=== PATIENT | female | born 1975 | race Caucasian/White ===

== ENCOUNTER → 2022-03-19 | Outpatient (CLI) | payer MEDICARE ==
[2022-03-19 15:36] LABS: Appearance,Urine Clear (Clear); Bacteria,Urine Rare /hpf; Bilirubin,Urine Negative (Negative); Blood,Urine Small (Negative); Color,Urine Yellow; Glucose,Urine (UA) Negative (Negative); Ketones,Urine Negative (Negative); Leukocyte Esterase,Urine Large (Negative); Mucus,Urine Rare /hpf; Nitrite,Urine Negative (Negative); PH, Urine 5.5 (5.0-8.0); Protein,Urine 1+ (Negative); RBC,Urine 24 /hpf (0-5); Specific Gravity,Urine 1.012 (1.001-1.035); Urobilinogen,Urine <2.0 mg/dL (<2.0); WBC,Urine 32 /hpf (0-5)
[2022-03-19 17:58] LABS: Basophils # (A) 0.17 X 10*3/uL (0.00-0.10); Basophils % (A) 1.1 %; Eosinophils # (A) 0.38 X 10*3/uL (0.04-0.35); Eosinophils % (A) 2.5 %; HCT 48.6 % (37.2-46.3); HGB 15.2 g/dL (12.0-15.0); Immature Grans, Automated 0.4 %; Lymphocytes # (A) 4.93 X 10*3/uL (0.90-5.00); Lymphocytes % (A) 32.6 %; MCH 29.3 pg (27.0-32.0); MCHC 31.3 g/dL (32.0-37.0); MCV 93.6 fL (80.0-97.0); Mean Platelet Volume 10.6 fL (9.5-12.2); Monocytes # (A) 0.87 X 10*3/uL (0.20-1.00); Monocytes % (A) 5.8 %; NRBC Per 100 WBC 0 /100 WBCS (0.0-0.0); Neutrophils # (A) 8.72 X 10*3/uL (1.80-7.70); Neutrophils % (A) 57.6 %; Platelet Count 458 X 10*3/uL (140-440); RBC 5.19 X 10*6/uL (4.10-5.20); RDW 13.8 % (11.5-14.5); WBC 15.13 X 10*3/uL (4.50-10.00)
[2022-03-19 18:11] LABS: African American GFR (CKD) 84.9 (60.0-200.0); BUN/Creat Ratio 15.23 Ratio (12.00-20.00); Calcium 10.1 mg/dL (8.7-10.3); Carbon Dioxide 26.1 mmol/L (20.0-27.5); Non-African American GFR(CKD) 73.2 (60.0-200.0); Potassium 4.2 mmol/L (3.5-5.5)
== END | disposition home or self-care (01) ==
LOC: LABPAT 11:54
PROVIDERS: ATTEND Urology
DX: Z01.812 Encounter for preprocedural laboratory examination (principal); N20.1 Calculus of ureter
CPT/HCPCS: 80048; 81001; 85025; 87086

== ENCOUNTER 2022-03-26 07:23 | Day surgery (SDC) | payer MEDICARE ==
[2022-03-23 08:55] VITALS: BMI 34.2
--- NOTE | 2022-03-25 12:02 | P.HPIHPCON ---
History of Present Illness H&P Date: 03/25/22 Chief Complaint: Left ureteral stone This is a 47-year-old female with a history of a 1 cm left-sided septic ureteral stone, status post insertion in February of this year. She presents today for definitive stone management. Option of left-sided ureteroscopy with holmium laser was discussed with her. Risk of surgery was discussed in detail. Discussed the risk which includes but not limited to bleeding, infection, injury to the ureter. Discussed also risks of anesthesia. Discussed using a high risk of complication given her history of sepsis. Consent for Procedure: I have explained the operation/procedure to the patient, including the risks, benefits, side effects, alternative therapies (including not receiving the proposed treatment or service), the likelihood of the patient achieving his/her goals, and potential recuperation problems for the procedure/sedation/analgesia, as well as any blood products, if indicated. I also explained to the patient the risks, benefits and side effects of the alternatives, as well as the risks related to not receiving the proposed procedure, care, treatment, or services. - Constitutional Constitutional: Denies chills, Denies fever Past Medical History Past Medical History: Atrial Fibrillation, Fibromyalgia, GERD/Reflux, Hyperlipidemia, Hypertension, Memory Impairment, Supraventricular Tachycardia (SVT), Thyroid Disorder Additional Past Medical History / Comment(s): States "hospitalized at [facility] from 03/06/22-03/12/22 for kidney stones", states "they overh ydrated her with IV fluid and she had severe difficulty breathing, had an Echo that showed a double leak in my heart." Kidney stones - hx of and currently. CHF. "Foggy memory due to medications". Chronic pain and gait problems from Fibromyalgia. Migraines. History of Any Multi-Drug Resistant Organisms: None Reported Past Surgical History: Cholecystectomy, Hysterectomy, Tubal Ligation Additional Past Surgical History / Comment(s): Lithotripsy. Past Anesthesia/Blood Transfusion Reactions: Previous Problems w/ Anesthesia Additional Past Anesthesia/Blood Transfusion Reaction / Comment(s): "Sits up on the table during surgery." " Can be violent upon waking if get startled because I don't remember where I am." Past Psychological History: Depression Smoking Status: Current every day smoker Past Alcohol Use History: Rare Additional Past Alcohol Use History / Comment(s): Smoker, <1/2 ppd for over 20 yrs. Past Drug Use History: None Reported - Past Family History Mother Family Medical History: No Reported History Father Family Medical History: COPD Additional Family Medical History / Comment(s): Leukemia. Medications and Allergies Home Medications Medication Instructions Recorded Confirmed Type Albuterol Inhaler [Ventolin Hfa 1 puff INHALATION DIRECTED PRN 03/23/22 03/23/22 History Inhaler] Albuterol Nebulized (? Dose) 1 dose INHALATION DIRECTED PRN 03/23/22 03/23/22 History Aspirin 325 mg PO DAILY 03/23/22 03/23/22 History Aspirin/Acetaminophen/Caffeine 1 each PO DIRECTED PRN 03/23/22 03/23/22 History [Excedrin Migraine Caplet] Atorvastatin [Lipitor] 20 mg PO QAM 03/23/22 03/23/22 History Cetirizine HCl [Zyrtec] 10 mg PO DAILY PRN 03/23/22 03/23/22 History Cyclobenzaprine [Flexeril] 10 mg PO TID PRN 03/23/22 03/23/22 History Furosemide [Lasix] 20 mg PO BID 03/23/22 03/23/22 History Gabapentin [Neurontin] 400 mg PO Q8H PRN 03/23/22 03/23/22 History Ketorolac [Toradol] 10 mg PO DIRECTED PRN 03/23/22 03/23/22 History Levothyroxine Sodium [Synthroid] 50 mcg PO QAM 03/23/22 03/23/22 History Naproxen Sodium [Aleve] 220 mg PO BID 03/23/22 03/23/22 History Omeprazole 20 mg PO BID 03/23/22 03/23/22 History Propranolol [Inderal] 20 mg PO BID 03/23/22 03/23/22 History Ranolazine [Ranexa] 500 mg PO BID 03/23/22 03/23/22 History buPROPion XL [Wellbutrin XL] 150 mg PO QAM 03/23/22 03/23/22 History dilTIAZem HCL [Diltiazem HCl 24Hr 120 mg PO QAM 03/23/22 03/23/22 History ER] traMADol HCL 50 mg PO BID PRN 03/23/22 03/23/22 History Allergies Allergy/AdvReac Type Severity Reaction Status Date / Time hydromorphone [From Dilaudid] Allergy Anaphylaxis Verified 03/23/22 08:41 Penicillins Allergy Rash/Hives Verified 03/23/22 09:13 ranitidine [From Zantac] Allergy Overstimula Verified 03/23/22 08:41 tion Sulfa (Sulfonamide Allergy Rash/Hives Verified 03/23/22 08:41 Antibiotics) zafirlukast [From Accolate] Allergy Rash/Hives Verified 03/23/22 08:41 paper tape/bandaids Allergy chemical Uncoded 03/23/22 08:41 owusu some adhesives (tegaderm Allergy Chemical Uncoded 03/23/22 08:42 okay) Owusu Surgical - Exam - General no distress, moderate pain - Eyes normal ocular movement, no pale - Respiratory normal expansion, normal respiratory effort - Abdomen Abdomen: soft, non tender Assessment and Plan Assessment: All wire for left-sided ureteroscopy with holmium laser lithotripsy, stone basketing and stent removal
[~2022-03-26 07:23] MED LIST: CIPROFLOXACIN/DEXTROSE PMX 400 MG in DEXTROSE/WATER 1 200ML.BAG IVPB PRN; DEXAMETHASONE SOD PHOSPHATE 4 MG/ML 1 ML VIAL IV ONE; GENTAMICIN 120 MG in SODIUM CHLORIDE 0.9% 100 ML IVPB PRN; LACTATED RINGERS 1,000 ML IV SCH; MIDAZOLAM 2 MG/2 ML VIAL IV PRN; ONDANSETRON 4 MG/2 ML VIAL IVP ONE; SCOPOLAMINE 1 MG/72 HR PATCH TRANSDERM ONE; fentaNYL (PF) 50 MCG/ML 2 ML AMP IV PRN
--- NOTE | 2022-03-26 07:42 | XR ---
EXAMINATION TYPE: XR KUB DATE OF EXAM: 03/26/2022 COMPARISON: 05/10/2011 INDICATION: Left renal stone TECHNIQUE: Single view abdomen supine view FINDINGS: Normal colonic bowel gas is present. Mild fecal debris or sooner colon. Psoas margins are normal. No organomegaly is present. There is a left ureteral stent. There is a pigtail which appears to be surrounding a large calcificat ion within the left kidney measuring 1.7 cm. IMPRESSION: 1. Left renal pelvis stone.
[2022-03-26] MEDS ORDERED: fentaNYL (PF) 50 MCG/ML 2 ML AMP ONE (09:23)
[2022-03-26] MEDS ORDERED: PHENYLEPHRINE-0.9% NACL SYG 1,000 MCG/10 ML SYRINGE ONE (09:23)
[2022-03-26] MEDS ORDERED: PROPOFOL 10 MG/ML 20 ML VIAL IV ONE (09:23)
[2022-03-26] MEDS ORDERED: MIDAZOLAM 2 MG/2 ML VIAL ONE (09:23)
[2022-03-26] MEDS ORDERED: LIDOCAINE 2% INJ 20 MG/ML (2 ML VIAL) ONE (09:23)
--- NOTE | 2022-03-26 10:49 | P.OP ---
Date of Procedure: 03/26/22 Preoperative Diagnosis: Left ureteral stone Postoperative Diagnosis: Same Procedure(s) Performed: Cystoscopy, left ureteroscopy, holmium laser lithotripsy, stone basketing and stent removal Implants: None Anesthesia: MARCO ANTONIOA Surgeon: Henrique Major Estimated Blood Loss (ml): 5 Pathology: other (Left ureteral stone) Condition: stable Disposition: PACU Indications for Procedure: This is a 47-year-old female with a history of a 1 cm left-sided septic ureteral stone, status post insertion in February of this year. She presents today for definitive stone management. Option of left-sided ureteroscopy with holmium laser was discussed with her. Risk of surgery was discussed in detail. Discussed the risk which includes but not limited to bleeding, infection, injury to the ureter. Discussed also risks of anesthesia. Discussed using a high risk of complication given her history of sepsis. Operative Findings: Large stone in the left renal pelvis Description of Procedure: Patient brought to the operating room, general anesthesia was induced. She was prepped and draped in sterile fashion a placement dorsal lithotomy position. Cystoscopy fitted with 21-Mexican sheath was inserted per urethra, cystoscopy was performed which showed no abnormality within the bladder. Attention was then carried to the left ureteral stent which was grasped and removed to the meatus. Next a sensor wire was advanced through the stent and the stent was removed with the wire in place. Next under fluoroscopy 1113 Mexican access sheath was passed into the proximal ureter. Next the flexibile ureteroscope was inserted through the access sheath, renoscopy was performed which showed a large stone in the renal pelvis, the previous ureteral stone has migrated into the renal pelvis. Using the holmium laser the stone was fragmented into small fragments, sizable fragments were removed and sent for analysis. Repeat renoscopy showed no sizable fragments or injury to the kidney. Pullback ureteroscopy was performed which showed no injury to the ureter or any ureteral stones. There was no edema at the ureter thus a stent was not placed. The bladder was emptied at the end of the case. Patient thought the procedure well was taken to recovery in stable condition
[2022-03-26 10:53] VITALS: TEMP 96.8
[2022-03-26 11:31] VITALS: RESP 16
[2022-03-26 11:42] VITALS: BP 154/81; PULSE 66
--- NOTE | 2022-03-26 13:27 | FL ---
Fluoroscopy HISTORY: Left ureteral calculus 2 seconds fluoroscopy time supplied to the referring clinician. 1 intraoperative C-arm images docume nt the procedure. See dictated report from urology.
== END 2022-03-26 12:14 | disposition home or self-care (01) ==
LOC: OR 07:23
PROVIDERS: ATTEND Urology
DX: N20.1 Calculus of ureter (principal); I48.91 Unspecified atrial fibrillation; M79.7 Fibromyalgia; K21.9 Gastro-esophageal reflux disease without esophagitis; E78.5 Hyperlipidemia, unspecified; I10 Essential (primary) hypertension; R41.3 Other amnesia; I47.1 Supraventricular tachycardia; E07.9 Disorder of thyroid, unspecified; Z87.442 Personal history of urinary calculi; I50.9 Heart failure, unspecified; G89.29 Other chronic pain; Z90.49 Acquired absence of other specified parts of digestive tract; Z90.710 Acquired absence of both cervix and uterus; Z98.51 Tubal ligation status; Z98.890 Other specified postprocedural states; F32.A Depression, unspecified; F17.210 Nicotine dependence, cigarettes, uncomplicated; Z83.6 Family history of other diseases of the respiratory system; Z80.6 Family history of leukemia; Z97.2 Presence of dental prosthetic device (complete) (partial); Z79.82 Long term (current) use of aspirin; Z79.890 Hormone replacement therapy; Z79.899 Other long term (current) drug therapy; Z88.5 Allergy status to narcotic agent; Z88.0 Allergy status to penicillin; Z88.2 Allergy status to sulfonamides; Z88.8 Allergy status to other drugs, medicaments and biological substances; Z91.09 Other allergy status, other than to drugs and biological substances
CPT/HCPCS: 82365; 74018; 52352; C1769; J2250; J1100; J2405; J3010; J0744; J1580; J2370; J2704; J2001

== ENCOUNTER → 2022-04-26 | Outpatient (CLI) | payer MEDICARE ==
[2022-04-26 10:52] LABS: ALT <5 U/L (8-44); AST 16 U/L (13-35); Albumin 3.9 g/dL (3.8-4.9); Albumin/Globulin Ratio 1.39 (1.60-3.17); Alkaline Phosphatase 89 U/L (41-126); BUN/Creat Ratio 17.33 Ratio (12.00-20.00); Blood Urea Nitrogen 15.6 mg/dL (9.0-27.0); Calcium 9.4 mg/dL (8.7-10.3); Carbon Dioxide 22.5 mmol/L (20.0-27.5); Chloride 104 mmol/L (96-109); Chol/HDL Ratio 4.28 Ratio; Globulin 2.8 g/dL (1.6-3.3); Glucose 95 mg/dL (70-110); LDL Cholesterol,Calculated 106.6 mg/dL (0.0-131.0); Non-African American GFR(CKD) 75.1 (60.0-200.0); Potassium 3.8 mmol/L (3.5-5.5); Sodium 138 mmol/L (135-145); Total Protein 6.7 g/dL (6.2-8.2)
== END | disposition home or self-care (01) ==
LOC: LABWHC1 07:08
PROVIDERS: ATTEND Internal Medicine Interventional Cardiology
DX: I35.1 Nonrheumatic aortic (valve) insufficiency (principal); I10 Essential (primary) hypertension; E78.2 Mixed hyperlipidemia
CPT/HCPCS: 36415; 80053; 80061; 83880

== ENCOUNTER → 2022-04-26 | Outpatient (CLI) | payer MEDICARE ==
--- NOTE | 2022-04-26 08:30 | XR ---
EXAMINATION TYPE: XR KUB DATE OF EXAM: 04/26/2022 Comparison: 03/26/2022 Clinical History: 47-year-old female postop left-sided stone removal, N20.1 calculus Findings: Interval removal of left ureteral stent. There is a vague 4 mm density in the left mid abdomen. This could represent bowel content or nodule tiny calculus. Cholecystectomy clips. Mild to moderate stool right side of the abdomen. Nonobstructive bowel gas pattern. Impression: Vague 4 mm density at the left mid abdomen could be artifact or a tiny residual calculus. The previou s left ureteral stent has been removed.
== END | disposition home or self-care (01) ==
LOC: RADXRMAIN 07:24
PROVIDERS: ATTEND Urology
DX: N20.1 Calculus of ureter (principal)
CPT/HCPCS: 74018

== ENCOUNTER → 2022-06-28 | Outpatient (CLI) | payer MEDICARE ==
[2022-06-28 14:24] LABS: HCT 42.8 % (37.2-46.3); HGB 13.6 g/dL (12.0-15.0); MCH 30.1 pg (27.0-32.0); MCHC 31.8 g/dL (32.0-37.0); MCV 94.7 fL (80.0-97.0); Mean Platelet Volume 11.4 fL (9.5-12.2); NRBC Per 100 WBC 0 /100 WBCS (0.0-0.0); Platelet Count 259 X 10*3/uL (140-440); RBC 4.52 X 10*6/uL (4.10-5.20); RDW 14.6 % (11.5-14.5); WBC 13.71 X 10*3/uL (4.50-10.00)
[2022-06-28 16:12] LABS: ALT 7 U/L (8-44); AST 18 U/L (13-35); Blood Urea Nitrogen 13.4 mg/dL (9.0-27.0); Carbon Dioxide 23.3 mmol/L (20.0-27.5); Chloride 105 mmol/L (96-109); Non-African American GFR(CKD) 75.1 (60.0-200.0); Potassium 4.1 mmol/L (3.5-5.5); Sodium 140 mmol/L (135-145)
[2022-06-28 16:22] LABS: LDL Cholesterol,Calculated 94.6 mg/dL (0.0-131.0); VLDL Calculation 19.86 mg/dL (5.00-40.00)
== END | disposition home or self-care (01) ==
LOC: LABPAT 08:33
PROVIDERS: ATTEND Internal Medicine Interventional Cardiology
DX: Z01.812 Encounter for preprocedural laboratory examination (principal); E78.2 Mixed hyperlipidemia; I35.1 Nonrheumatic aortic (valve) insufficiency; R94.39 Abnormal result of other cardiovascular function study
CPT/HCPCS: 36415; 80051; 80061; 82565; 84450; 84460; 84520; 85027

== ENCOUNTER 2022-06-30 15:12 | Emergency (ER) | payer MEDICARE ==
[2022-06-30 15:21] VITALS: TEMP 98.7
[2022-06-30] MEDS ORDERED: MAG HYDROX/AL HYDROX/SIMETH 30 ML, HYOSCYAMINE ELIXIR 10 ML, LIDOCAINE VISCOUS 2% 10 ML PO STA ×3 (16:02)
--- NOTE | 2022-06-30 16:17 | ED ---
General Adult HPI - General Chief complaint: ENT Stated complaint: Chest pain,throat issues-sent by Dr. Infante Time Seen by Provider: 06/30/22 15:48 Source: patient Mode of arrival: ambulatory Limitations: no limitations - History of Present Illness Initial comments: Dictation was produced using Spotzer dictation software. please excuse any grammatical, word or spelling errors. Chief Complaint: 47-year-old female presents with odynophagia History of Present Illness: 47-year-old female presents emergency department for 1-2 days odynophagia. Patient states she feels like she has pain whenever she swallows liquids and solids. She reports that it's the level of her mid neck area. Denies any fevers. Denies any drooling. She does report some mild trouble breathing. Denies any exacerbation of symptoms with neck movements. The ROS documented in this emergency department record has been reviewed and confirmed by me. Those systems with pertinent positive or negative responses have been documented in the HPI. All other systems are other negative and/or noncontributory. PHYSICAL EXAM: General Impression: Alert and oriented x3, not in acute distress HEENT: Normocephalic atraumatic, extra-ocular movements intact, pupils equal and reactive to light bilaterally, mucous membranes moist. Cardiovascular: Heart regular rate and rhythm Chest: Able to complete full sentences, no retractions, no tachypnea Abdomen: abdomen soft, non-tender, non-distended, no organomegaly Musculoskeletal: Pulses present and equal in all extremities, no peripheral edema Motor: no focal deficits noted Neurological: CN II-XII grossly intact, no focal motor or sensory deficits noted Skin: Intact with no visualized rashes Psych: Normal affect and mood ED course: 47-year-old Overall well-appearing female presents emergency department for a chief complaint of abdominal aphasia. Vital Signs upon arrival are within acceptable limits. Laboratory evaluation obtained. Leukocytosis 17.9. Patient's history of leukocytosis. Metabolic panel is normal. Soft tissue neck x-ray shows no acute processes. Patient provided with GI cocktail. Grew strep negative. Soft tissue neck x-ray shows no acute processes. Patient given GI cocktail with slight improvement of symptoms however after the medication wore off symptoms return. This suggests some sort of inflammatory process stemming from the upper digestive tract. Patient reevaluated bedside at 5:50 PM found to be in stable medical condition. She not showing any signs of distress. Her symptoms are not related to esophageal foreign body. Patient given outpatient referral to Dr. Soriano EKG interpretation: Ventricular rate 70, sinus rhythm,. 147, care is 80, QTc 45 7. No PA prolongation, no QTC prolongation, no ST or T-wave changes noted. Overall, this EKG is unremarkable - Related Data Home Medications Medication Instructions Recorded Confirmed Albuterol Inhaler [Ventolin Hfa 1 puff INHALATION DIRECTED PRN 03/23/22 Inhaler] Albuterol Nebulized (? Dose) 1 dose INHALATION DIRECTED PRN 03/23/22 03/26/22 Aspirin 325 mg PO DAILY 03/23/22 03/26/22 Aspirin/Acetaminophen/Caffeine 1 each PO DIRECTED PRN 03/23/22 03/26/22 [Excedrin Migraine Caplet] Atorvastatin [Lipitor] 20 mg PO QAM 03/23/22 03/26/22 Cetirizine HCl [Zyrtec] 10 mg PO DAILY PRN 03/23/22 03/26/22 Cyclobenzaprine [Flexeril] 10 mg PO TID PRN 03/23/22 03/26/22 Furosemide [Lasix] 20 mg PO BID 03/23/22 03/26/22 Gabapentin [Neurontin] 400 mg PO Q8H PRN 03/23/22 03/26/22 Ketorolac [Toradol] 10 mg PO DIRECTED PRN 03/23/22 03/26/22 Levothyroxine Sodium [Synthroid] 50 mcg PO QAM 03/23/22 03/26/22 Naproxen Sodium [Aleve] 220 mg PO BID 03/23/22 03/26/22 Omeprazole 20 mg PO BID 03/23/22 03/26/22 Propranolol [Inderal] 20 mg PO BID 03/23/22 03/26/22 Ranolazine [Ranexa] 500 mg PO BID 03/23/22 03/26/22 buPROPion XL [Wellbutrin XL] 150 mg PO QAM 03/23/22 03/26/22 dilTIAZem HCL [Diltiazem HCl 24Hr 120 mg PO QAM 03/23/22 03/26/22 ER] traMADol HCL 50 mg PO BID PRN 03/23/22 03/26/22 Previous Rx's Medication Instructions Recorded Ciprofloxacin HCl [Cipro] 250 mg PO Q12HR #10 tablet 03/26/22 Ketorolac [Toradol] 10 mg PO Q6HR PRN #15 tab 03/26/22 Allergies Allergy/AdvReac Type Severity Reaction Status Date / Time hydromorphone [From Dilaudid] Allergy Anaphylaxis Verified 06/30/22 15:21 morphine Allergy Anaphylaxis Verified 06/30/22 15:21 Penicillins Allergy Rash/Hives Verified 06/30/22 15:21 ranitidine [From Zantac] Allergy Overstimula Verified 06/30/22 15:21 tion Sulfa (Sulfonamide Allergy Rash/Hives Verified 06/30/22 15:21 Antibiotics) zafirlukast [From Accolate] Allergy Rash/Hives Verified 06/30/22 15:21 paper tape/bandaids Allergy chemical Uncoded 06/30/22 15:21 owusu some adhesives (tegaderm Allergy Chemical Uncoded 06/30/22 15:21 okay) Owusu Review of Systems ROS Statement: Those systems with pertinent positive or pertinent negative responses have been documented in the HPI. ROS Other: All systems not noted in ROS Statement are negative. Past Medical History Past Medical History: Hyperlipidemia, Hypertension, Thyroid Disorder Additional Past Medical History / Comment(s): SVT History of Any Multi-Drug Resistant Organisms: None Reported Additional Past Surgical History / Comment(s): kidney stone removal Smoking Status: Current every day smoker Past Alcohol Use History: None Reported Past Drug Use History: None Reported General Exam Limitations: no limitations Course Vital Signs 06/30/22 06/30/22 06/30/22 15:18 16:52 17:15 Temperature 98.7 F Pulse Rate 82 70 71 Respiratory 16 18 16 Rate Blood Pressure 177/88 183/91 162/81 O2 Sat by Pulse 98 98 97 Oximetry Medical Decision Making - Lab Data Result diagrams: 06/30/22 16:47 06/30/22 16:47 Lab Results 06/30/22 06/30/22 06/30/22 Range/Units 16:47 16:47 16:47 WBC 17.9 H (3.8-10.6) k/uL RBC 4.88 (3.80-5.40) m/uL Hgb 14.9 (11.4-16.0) gm/dL Hct 46.9 H (34.0-46.0) % MCV 96.2 (80.0-100.0) fL MCH 30.5 (25.0-35.0) pg MCHC 31.7 (31.0-37.0) g/dL RDW 14.1 (11.5-15.5) % Plt Count 262 (150-450) k/uL MPV 8.7 Neutrophils % 67 % Lymphocytes % 23 % Monocytes % 4 % Eosinophils % 4 % Basophils % 1 % Neutrophils # 12.1 H (1.3-7.7) k/uL Lymphocytes # 4.1 (1.0-4.8) k/uL Monocytes # 0.7 (0-1.0) k/uL Eosinophils # 0.7 (0-0.7) k/uL Basophils # 0.1 (0-0.2) k/uL Sodium 138 (137-145) mmol/L Potassium 4.0 (3.5-5.1) mmol/L Chloride 102 (98-107) mmol/L Carbon Dioxide 24 (22-30) mmol/L Anion Gap 12 mmol/L BUN 11 (7-17) mg/dL Creatinine 0.82 (0.52-1.04) mg/dL Est GFR (CKD-EPI)AfAm >90 (>60 ml/min/1.73 sqM) Est GFR (CKD-EPI)NonAf 84 (>60 ml/min/1.73 sqM) Glucose 109 H (74-99) mg/dL Calcium 9.8 (8.4-10.2) mg/dL Group A Strep (PCR) NOT DETECTED (Not Detectd) Disposition Clinical Impression: Odynophagia Disposition: HOME SELF-CARE Condition: Fair Instructions (If sedation given, give patient instructions): Pharyngitis (ED) Is patient prescribed a controlled substance at d/c from ED?: No Referrals: Eva Tran MD [STAFF PHYSICIAN] - 1-2 days Time of Disposition: 17:51
[2022-06-30 16:56] LABS: Basophils # (A) 0.1 k/uL (0-0.2); Basophils % (A) 1 %; Eosinophils # (A) 0.7 k/uL (0-0.7); Eosinophils % (A) 4 %; HCT 46.9 % (34.0-46.0); HGB 14.9 gm/dL (11.4-16.0); Lymphocytes # (A) 4.1 k/uL (1.0-4.8); Lymphocytes % (A) 23 %; MCH 30.5 pg (25.0-35.0); MCHC 31.7 g/dL (31.0-37.0); MCV 96.2 fL (80.0-100.0); Mean Platelet Volume 8.7; Monocytes # (A) 0.7 k/uL (0-1.0); Monocytes % (A) 4 %; Neutrophils # (A) 12.1 k/uL (1.3-7.7); Neutrophils % (A) 67 %; Platelet Count 262 k/uL (150-450); RBC 4.88 m/uL (3.80-5.40); RDW 14.1 % (11.5-15.5); WBC 17.9 k/uL (3.8-10.6)
--- NOTE | 2022-06-30 17:00 | XR ---
EXAMINATION TYPE: XR soft tissue neck DATE OF EXAM: 06/30/2022 COMPARISON: NONE HISTORY: Throat pain TECHNIQUE: 2 views FINDINGS: Epiglottis is normal. Tonsils and adenoids appear normal. Cervical vertebra show disc space narrowing at C5-6. Prevertebral soft tissues are intact. Subglottic trachea is intact. IMPRESSION: Negative cervical soft tissue exam. No sign of a foreign body.
[2022-06-30 17:05] LABS: African American GFR (CKD) >90 (>60 ml/min/1.73 sqM); Anion Gap 12 mmol/L; Blood Urea Nitrogen 11 mg/dL (7-17); Calcium 9.8 mg/dL (8.4-10.2); Carbon Dioxide 24 mmol/L (22-30); Chloride 102 mmol/L (98-107); Glucose 109 mg/dL (74-99); Non-African American GFR(CKD) 84 (>60 ml/min/1.73 sqM); Sodium 138 mmol/L (137-145)
[2022-06-30 17:30] VITALS: BP 162/81; PULSE 71; RESP 16
== END 2022-06-30 18:04 | disposition home or self-care (01) ==
LOC: EC 15:12
DX: R13.10 Dysphagia, unspecified (principal); I10 Essential (primary) hypertension; E07.89 Other specified disorders of thyroid; F17.200 Nicotine dependence, unspecified, uncomplicated; Z79.890 Hormone replacement therapy; Z79.899 Other long term (current) drug therapy; Z88.0 Allergy status to penicillin; Z88.2 Allergy status to sulfonamides; Z88.6 Allergy status to analgesic agent; Z88.5 Allergy status to narcotic agent; Z91.048 Other nonmedicinal substance allergy status
CPT/HCPCS: 36415; 70360; 80048; 85025; 87651; 93005; 99284

== ENCOUNTER 2022-07-10 06:27 | Day surgery (SDC) | payer MEDICARE ==
[2022-07-06 11:53] VITALS: BMI 35.1
[~2022-07-10 06:27] MED LIST changes: +ALPRAZolam 0.25 MG TAB PO PRN; +ALPRAZolam 0.5 MG TAB PO PRN; +ASPIRIN 325 MG TAB PO STA; +ATORVASTATIN 80 MG TAB PO STA; -CIPROFLOXACIN/DEXTROSE PMX 400 MG in DEXTROSE/WATER 1 200ML.BAG IVPB PRN; -DEXAMETHASONE SOD PHOSPHATE 4 MG/ML 1 ML VIAL IV ONE; -GENTAMICIN 120 MG in SODIUM CHLORIDE 0.9% 100 ML IVPB PRN; +HEPARIN SODIUM,PORCINE 10,000 UNIT in SODIUM CHLORIDE 0.9% 1,000 ML IRRIGATION PRN; +HEPARIN SODIUM,PORCINE 2,500 UNIT in SODIUM CHLORIDE 0.9% 250 ML IRRIGATION PRN; -LACTATED RINGERS 1,000 ML IV SCH; -MIDAZOLAM 2 MG/2 ML VIAL IV PRN; +NITROGLYCERIN SL TABS 0.4 MG TAB SUBLINGUAL PRN; -ONDANSETRON 4 MG/2 ML VIAL IVP ONE; -SCOPOLAMINE 1 MG/72 HR PATCH TRANSDERM ONE; -fentaNYL (PF) 50 MCG/ML 2 ML AMP IV PRN
[2022-07-10] MEDS ORDERED: SODIUM CHLORIDE 0.9% 1,000 ML IV ONE (06:38)
[2022-07-10 07:06] VITALS: RESP 16; TEMP 98.2
[2022-07-10 07:34] LABS: Basophils # (A) 0.2 k/uL (0-0.2); Basophils % (A) 1 %; Eosinophils # (A) 0.5 k/uL (0-0.7); Eosinophils % (A) 3 %; HCT 43.7 % (34.0-46.0); HGB 13.9 gm/dL (11.4-16.0); Lymphocytes # (A) 5.9 k/uL (1.0-4.8); Lymphocytes % (A) 34 %; MCH 29.9 pg (25.0-35.0); MCHC 31.8 g/dL (31.0-37.0); MCV 94.2 fL (80.0-100.0); Mean Platelet Volume 8.8; Monocytes # (A) 0.8 k/uL (0-1.0); Monocytes % (A) 5 %; Neutrophils # (A) 9.4 k/uL (1.3-7.7); Neutrophils % (A) 55 %; Platelet Count 285 k/uL (150-450); RBC 4.64 m/uL (3.80-5.40); RDW 13.4 % (11.5-15.5)
[2022-07-10] MEDS ORDERED: fentaNYL (PF) 50 MCG/ML 2 ML AMP ONE (08:00)
[2022-07-10 08:11] LABS: RBC Morphology Normal
[2022-07-10] MEDS ORDERED: VERAPAMIL 2.5 MG/ML 2 ML AMP ONE (08:15)
[2022-07-10] MEDS: BENZOCAINE SPRAY 1 CAN MUCOUS MEM ONE ×2 (08:28→08:35)
[2022-07-10] MEDS ORDERED: fentaNYL (PF) 50 MCG/ML 2 ML AMP IV ONE (08:43)
[2022-07-10] MEDS ORDERED: MIDAZOLAM 2 MG/2 ML VIAL IV ONE ×2 (08:43→08:45)
--- NOTE | 2022-07-10 08:59 | P.PCN ---
Date of Procedure: 07/10/22 Description of Procedure: Indication: Evaluation of aortic valve Procedure Description: After explaining the procedure to the patient, it's risk and complications, blood pressure, heart rate and O2 saturation were monitored. The throat was sprayed with Cetacaine. Patient received 3 mg intravenous Versed, 50 mcg intravenous fentanyl. The probe was introduced into the esophagus without difficulty. Images were obtained. Following that, the probe was removed. There was no immediate complication. Findings: Left atrial size is mildly dilated, left ventricular size and systolic function are normal. The aortic valve revealed mild fibrocalcific changes with preserved opening. The mitral valve is mildly thickened. The tricuspid valve is normal. Descending thoracic aorta is normal. Left atrial appendage is normal. The intra-atrial septum is shifting to the right. No pericardial effusion was noted . Contrast bubble study available no shunting across the intra-atrial septum with Valsalva maneuver. Doppler: Pulse wave and color Doppler were obtained, mild mitral and tricuspid regurgitation with moderate to severe aortic regurgitation and no shunting across the intra-atrial septum. Conclusion: 1. Mildly dilated left atrium with normal appearance of the left atrial appendage 2. Normal left ventricle size and systolic function 3. Moderate to severe aortic regurgitation 4. Mild mitral and tricuspid regurgitation 5. No shunting across the atrial atrial septum.
[2022-07-10] MEDS ORDERED: IV FLUID CONTINUATION 1,000 ML IV ONE (09:20)
[2022-07-10] MEDS ORDERED: LIDOCAINE 1% INJ 10MG/ML (30 ML VIAL-PF) SQ ONE (09:31)
[2022-07-10] MEDS: VERAPAMIL SYRINGE (5 MG/10 ML) INTRAARTER ONE ×2 (09:35→10:08)
[2022-07-10] MEDS ORDERED: HEPARIN SODIUM 1,000 UN/ML (10ML VL) IV ONE (09:47)
[2022-07-10] MEDS ORDERED: IOPAMIDOL-370 125ML BTL INJ ONE (10:08)
[2022-07-10 10:14] LABS: O2 Sat Blood Gas 72.7 %
[2022-07-10] MEDS ORDERED: SODIUM CHLORIDE 0.9% 1,000 ML IV SCH (10:15)
[2022-07-10] MEDS ORDERED: RX INFO: IV CONTRAST WAS GIVEN 1 EACH MISC MISCELLANE PRN (10:15)
[2022-07-10 10:16] LABS: O2 Sat Blood Gas 70.3 %
[2022-07-10 10:18] LABS: O2 Sat Blood Gas 95.2 %
--- NOTE | 2022-07-10 10:27 | P.CARDCATH ---
Date of Procedure: 07/10/22 Description of Procedure: Cardiac Catheterization: The patient is a 47-year-old female with known history of hypertension, hyperlipidemia, history of aortic valve disease was been complaining of progressive dyspnea had an abnormal MPI and evidence of significant aortic regurgitation. Recommendations were made regarding cardiac catheterization, the risks and the complications were discussed with the patient who is in full understanding and agreement. Procedure Description: Patient was brought to sawyer cork slabs in fasting semi-sedated state after receiving Fentanyl and Benadryl achieiving moderate conscious sedated state. Using Xylocaine Anesthesia and Seldinger technique, a 6-Sammarinese sheath was introduced in the right radial artery . Attempt to exchange the venous sheath in the right basilic vein was unsuccessful in advancing the wire, pressure were placed on the basilic vein and subsequently using Xylocaine anesthesia in the Seldinger technique a 6-Sammarinese sheath was introduced in the right vein. Subsequently, selective coronary angiography was performed using a 5-Sammarinese 3.5 bend Monica catheter. Multiple views of the coronary artery including hemiaxial views were obtained. The 5-Sammarinese Pigatail catheter was used to cross the aortic valve and LVEDP was calculated. After pulling back the catheter an STATELESS ascending aortogram was performed. Following that right heart catheterization was performed using a [place]-Valente catheter, multiple samples were obtained, cardiac output by thermodilution was calculated. Following that, catheter and sheath were removed. Hemostasis was obtained with deployment of TR band and compression of the right groin. There was no immediate complication. Patient was returned to room in stable condition. Of note, the patient received a total of 4000 units of intravenous heparin as well as intra-arterial verapamil. Findings: Left main: This is a large size vessel, bifurcating into LAD and left circumflex, left main has no high-grade stenosis LAD: This is a large size vessel, reaching the apex, giving rise to diagonal branch the LAD and its branches have no evidence of obstructive disease Left circumflex: This is a nondominant vessel, giving rise to 3 obtuse marginal branch, the left circumflex and its branches have no obstructive disease RCA: This is a dominant vessel, bifurcating into PDA and PLV, the RCA has no high-grade stenosis Left Ventriculogram: Not performed, aortogram was performed in the STATELESS view and shows a straight plus aortic regurgitation with a tricuspid aortic valve Hemodynamics: There was no gradient across the aortic valve , LVEDP was 12-15 mmHg, pulmonary artery systolic pressure 30, diastolic 15 with a mean of 20 mmHg, pulmonary Wedge pressure A wave of 28 with of 21 with a mean of 18 mmHg, right ventricle systolic pressure 35 diastolic of 6, right atrium A wave of 8 V wave of 8 with a mean of 9 mmHg, cardiac output by [place]ona of 6.7 L/m and thermal 5 L/m. Pulmonary artery saturation 73%, right atrium 70% arterial 95% Conclusion: 1. No evidence of obstructive coronary artery disease] 2. Right dominance] 3. 3-4+ aortic regurgitation with a tricuspid aortic valve] 4. No evidence of pulmonary hypertension] Recommendations:I Have recommended to continue medical therapy, the patient will be followed closely regarding the need to undergo aortic valve replacement]. The findings and the recommendations were discussed with the patient and the family and they were in full understanding and agreement. Duration of sedation is 39] minutes.
[2022-07-10] MEDS ORDERED: ACETAMINOPHEN TAB 325 MG TAB ONE (12:19)
[2022-07-10 14:52] VITALS: BP 108/62; PULSE 68
[2022-07-10] MEDS ORDERED: PANTOPRAZOLE 40 MG TABLET PO SCH (17:30)
[2022-07-10] MEDS ORDERED: PROPRANOLOL 20 MG TAB PO SCH (21:00)
[2022-07-10] MEDS ORDERED: RANOLAZINE 500 MG TAB.ER.12H PO SCH (21:00)
[2022-07-11] MEDS ORDERED: DILTIAZEM CD 120 MG CAP.ER.24H PO SCH (09:00)
[2022-07-11] MEDS ORDERED: ASPIRIN 81 MG PO SCH (09:00)
[2022-07-11] MEDS ORDERED: LEVOTHYROXINE 50 MCG TAB PO SCH (09:00)
[2022-07-11] MEDS ORDERED: ATORVASTATIN 40 MG TAB PO SCH (09:00)
[2022-07-11] MEDS ORDERED: EZETIMIBE 10 MG TAB PO SCH (09:00)
== END 2022-07-10 15:24 | disposition home or self-care (01) ==
LOC: CATHCVL 06:27
PROVIDERS: ATTEND Internal Medicine Interventional Cardiology
DX: I08.3 Combined rheumatic disorders of mitral, aortic and tricuspid valves (principal); I77.819 Aortic ectasia, unspecified site; I10 Essential (primary) hypertension; E78.5 Hyperlipidemia, unspecified; I25.10 Atherosclerotic heart disease of native coronary artery without angina pectoris; J44.9 Chronic obstructive pulmonary disease, unspecified; F32.A Depression, unspecified; F17.210 Nicotine dependence, cigarettes, uncomplicated; Z79.82 Long term (current) use of aspirin; Z90.710 Acquired absence of both cervix and uterus; Z90.49 Acquired absence of other specified parts of digestive tract; Z79.02 Long term (current) use of antithrombotics/antiplatelets; Z91.040 Latex allergy status; Z82.49 Family history of ischemic heart disease and other diseases of the circulatory system; Z95.5 Presence of coronary angioplasty implant and graft
CPT/HCPCS: 93312; 93320; 93325; 93460; 85018; 82810; 85025; C1894 ×2; C1751; C1769; J2250; J2001; J3010; J1644; Q9967

== ENCOUNTER → 2022-08-23 | Outpatient (CLI) | payer MEDICARE ==
[2022-08-23 15:06] LABS: HCT 43.2 % (37.2-46.3); HGB 13.8 g/dL (12.0-15.0); MCH 30.1 pg (27.0-32.0); MCHC 31.9 g/dL (32.0-37.0); MCV 94.3 fL (80.0-97.0); Mean Platelet Volume 11.5 fL (9.5-12.2); NRBC Per 100 WBC 0 /100 WBCS (0.0-0.0); Platelet Count 276 X 10*3/uL (140-440); RBC 4.58 X 10*6/uL (4.10-5.20); RDW 13.6 % (11.5-14.5); WBC 13.67 X 10*3/uL (4.50-10.00)
[2022-08-23 16:08] LABS: Basophils # (A) 0.14 X 10*3/uL (0.00-0.10); Eosinophils # (A) 0.44 X 10*3/uL (0.04-0.35); Eosinophils % (A) 3.2 %; Immature Grans, Automated 0.3 %; Lymphocytes # (A) 5.27 X 10*3/uL (0.90-5.00); Lymphocytes % (A) 38.6 %; Monocytes # (A) 0.75 X 10*3/uL (0.20-1.00); Monocytes % (A) 5.5 %; Neutrophils # (A) 7.03 X 10*3/uL (1.80-7.70); Neutrophils % (A) 51.4 %
[2022-08-23 16:32] LABS: ALT 20 U/L (8-44); AST 13 U/L (13-35); African American GFR (CKD) 90.9 (60.0-200.0); Albumin 4.1 g/dL (3.8-4.9); Albumin/Globulin Ratio 1.78 (1.60-3.17); Alkaline Phosphatase 112 U/L (41-126); Blood Urea Nitrogen 18.4 mg/dL (9.0-27.0); Calcium 9.6 mg/dL (8.7-10.3); Carbon Dioxide 22.4 mmol/L (20.0-27.5); Chloride 105 mmol/L (96-109); Chol/HDL Ratio 2.27 Ratio; Globulin 2.3 g/dL (1.6-3.3); Glucose 100 mg/dL (70-110); LDL Cholesterol,Calculated 66.7 mg/dL (0.0-131.0); Magnesium 1.8 mg/dL (1.5-2.4); Non-African American GFR(CKD) 78.4 (60.0-200.0); Potassium 4.6 mmol/L (3.5-5.5); Sodium 140 mmol/L (135-145); Total Protein 6.4 g/dL (6.2-8.2)
[2022-08-23 16:59] LABS: INR 0.9 (0.90-1.11); Prothrombin Time 10.2 sec (9.9-11.9)
[2022-08-23 18:43] LABS: Hepatitis A Antibody IgM Nonreactive (Nonreactive); Hepatitis B Core IgM Nonreactive (Nonreactive); Hepatitis B Surface Antigen Nonreactive (Nonreactive); Hepatitis C IgG Antibody Nonreactive (Nonreactive)
== END | disposition home or self-care (01) ==
LOC: LABWHC1 08:46
PROVIDERS: ATTEND Surgery
DX: E78.2 Mixed hyperlipidemia (principal)
CPT/HCPCS: 36415; 80053; 80061; 80074; 83036; 83735; 84443; 85025; 85610; 87070; 87086

== ENCOUNTER 2022-12-24 05:35 | Inpatient (IN) | payer MEDICARE ==
[2022-12-18 10:16] LABS: INR 0.9 (<1.2); Partial Thromboplastin Time 23.5 sec (22.0-30.0); Prothrombin Time 9.8 sec (9.0-12.0)
[2022-12-18 15:50] LABS: HCT 41.6 % (37.2-46.3); HGB 12.8 g/dL (12.0-15.0); MCH 29.5 pg (27.0-32.0); MCHC 30.8 g/dL (32.0-37.0); MCV 95.9 fL (80.0-97.0); Mean Platelet Volume 11.7 fL (9.5-12.2); NRBC Per 100 WBC 0 /100 WBCS (0.0-0.0); Platelet Count 216 X 10*3/uL (140-440); RBC 4.34 X 10*6/uL (4.10-5.20); RDW 13.2 % (11.5-14.5); WBC 13.21 X 10*3/uL (4.50-10.00)
[2022-12-18 15:51] LABS: Appearance,Urine Clear (Clear); Bilirubin,Urine Negative (Negative); Blood,Urine Negative (Negative); Color,Urine Yellow (Yellow); Ketones,Urine Negative (Negative); Nitrite,Urine Negative (Negative); Specific Gravity,Urine 1.021 (1.001-1.030)
[2022-12-20 09:24] LABS: ALT 15 U/L (8-44); AST 12 U/L (13-35); African American GFR (CKD) 101.9 (60.0-200.0); Albumin 4.1 g/dL (3.8-4.9); Albumin/Globulin Ratio 1.87 (1.60-3.17); Alkaline Phosphatase 111 U/L (41-126); BUN/Creat Ratio 20.89 Ratio (12.00-20.00); Bacteria,Urine None Seen /HPF (None Seen); Blood Urea Nitrogen 16.5 mg/dL (9.0-27.0); Calcium 9.4 mg/dL (8.7-10.3); Carbon Dioxide 23.4 mmol/L (20.0-27.5); Chloride 106 mmol/L (96-109); Globulin 2.2 g/dL (1.6-3.3); Glucose 121 mg/dL (70-110); Hepatitis A Antibody IgM Nonreactive (Nonreactive); Hepatitis B Core IgM Nonreactive (Nonreactive); Hepatitis B Surface Antigen Nonreactive (Nonreactive); Hepatitis C IgG Antibody Nonreactive (Nonreactive); LDL Cholesterol,Calculated 37.2 mg/dL (0.0-131.0); Magnesium 1.9 mg/dL (1.5-2.4); Non-African American GFR(CKD) 87.9 (60.0-200.0); Potassium 4.2 mmol/L (3.5-5.5); Sodium 141 mmol/L (135-145); Total Protein 6.3 g/dL (6.2-8.2); VLDL Calculation 18.74 mg/dL (5.00-40.00)
[~2022-12-24 05:35] MED LIST changes: +ALBUMIN HUMAN 25% 50 ML IV ONE; +ALBUMIN HUMAN 5% 500 ML IVPB ONE; -ALPRAZolam 0.25 MG TAB PO PRN; -ALPRAZolam 0.5 MG TAB PO PRN; +ASPIRIN 325 MG TAB PO ONE; -ASPIRIN 325 MG TAB PO STA; +ATORVASTATIN 10 MG TAB PO ONE; -ATORVASTATIN 80 MG TAB PO STA; +CALCIUM CHLORIDE 100 MG/ML 10 ML SYRINGE IV ONE; +CHLORHEXIDINE GLUCONATE 15 ML CUP MUCOUS MEM ONE; +CLEVIDIPINE BUTYRATE 25 MG in EMPTY BAG 1 BAG IV ONE; +ELECTROLYTE-A SOLUTION 1,000 ML with POTASSIUM CHLORIDE 100 MEQ, MAGNESIUM SULFATE 16 M... IV ONE; +ELECTROLYTE-A SOLUTION 1,000 ML with POTASSIUM CHLORIDE 40 MEQ, MAGNESIUM SULFATE 16 ME... IV ONE; +HEPARIN SODIUM 1,000 UN/ML (10ML VL) IV ONE; -HEPARIN SODIUM,PORCINE 10,000 UNIT in SODIUM CHLORIDE 0.9% 1,000 ML IRRIGATION PRN; -HEPARIN SODIUM,PORCINE 2,500 UNIT in SODIUM CHLORIDE 0.9% 250 ML IRRIGATION PRN; +HEPARIN SODIUM,PORCINE 5,000 UNIT in SODIUM CHLORIDE 0.9% 500 ML 500 ML IV ONE; +INSULIN REGULAR 100 UNIT in SODIUM CHLORIDE 0.9% 100 ML IV ONE; +LACTATED RINGERS 1,000 ML IV ONE; +MAGNESIUM SULFATE 16.24 MEQ in EMPTY SYRINGE 1 SYR IV ONE; +MANNITOL 25% 12.5 GM/50 ML VIAL IV ONE; +METOPROLOL TARTRATE 12.5 MG TAB PO ONE; +MUPIROCIN 2% OINT 22 GM TUBE NASAL ONE; +NITROGLYCERIN SL TABS 0.4 MG TAB SUBLINGUAL ONE; -NITROGLYCERIN SL TABS 0.4 MG TAB SUBLINGUAL PRN; +NITROGLYCERIN-D5W PMX 25 MG/250 ML BTL IV ONE; +NITROGLYCERIN-D5W PMX 50 MG in DEXTROSE/WATER 1 250ML.BAG IV ONE; +NOREPINEPHRINE 4 MG in SODIUM CHLORIDE 0.9% 250 ML IV ONE; +PAPAVERINE 360 MG in SODIUM CHLORIDE 0.9% 90 ML IV ONE; +PHENYLEPHRINE 10 MG/ML VIAL IV ONE; +PHENYLEPHRINE 40 MG in SODIUM CHLORIDE 0.9% 250 ML IV ONE; +PROTAMINE SULFATE 10 MG/ML 25 ML VIAL IV ONE; +PROTAMINE SULFATE 250 MG in EMPTY BAG 1 BAG IV ONE; +SODIUM BICARB 8.4% 50 ML SYR (1 MEQ/ML) IV ONE; +SODIUM CHLORIDE 0.9% 1,000 ML IV ONE; +TRANEXAMIC ACID 2,000 MG in SODIUM CHLORIDE 0.9% 80 ML IV ONE; +ceFAZolin 1,000 MG in SODIUM CHLORIDE 0.9% IRRIGATIO 1,000 ML IRRIGATION ONE; +propofoL 1,000 MG/100 ML VIAL IV ONE
[2022-12-24] MEDS ORDERED: LACTATED RINGERS 1,000 ML IV ONE (06:30)
[2022-12-24 06:33] LABS: Glucose,Whole Blood 128 mg/dL (70-110)
[2022-12-24] MEDS ORDERED: SODIUM CHLORIDE 0.9% 100 ML BAG ONE (07:44)
[2022-12-24] MEDS ORDERED: HEPARIN SODIUM,PORCINE 10,000 UNIT/ML 1 ML VIAL ONE (07:44)
[2022-12-24] MEDS ORDERED: VECURONIUM 10 MG VIAL IV ONE (07:44)
[2022-12-24] MEDS ORDERED: SODIUM CHLORIDE 0.9% IRRIG 1,000 ML BTL IRRIGATION ONE (07:44)
[2022-12-24] MEDS ORDERED: ceFAZolin 1,000 MG VIAL ONE (07:44)
[2022-12-24] MEDS ORDERED: MAGNESIUM SULFATE 4 MEQ/ML 10ML VIAL ONE (07:44)
[2022-12-24] MEDS ORDERED: LIDOCAINE 2% SYG (PF) 100 MG/5 ML ONE (07:44)
[2022-12-24] MEDS ORDERED: SUCCINYLCHOLINE CHLORIDE 200 MG/10 ML VIAL IV ONE (07:44)
[2022-12-24] MEDS ORDERED: PROPOFOL 10 MG/ML 20 ML VIAL IV ONE (07:44)
[2022-12-24] MEDS ORDERED: TRANEXAMIC ACID IN NACL,ISO-OS 1,000 MG/100 ML BAG ONE (07:44)
[2022-12-24] MEDS ORDERED: ELECTROLYTE-R (PH 7.4) 1,000 ML IV.SOLN IV ONE (07:44)
[2022-12-24] MEDS ORDERED: MIDAZOLAM HCL 10 MG/10 ML VIAL ONE (07:44)
[2022-12-24] MEDS ORDERED: fentaNYL (PF) 50 MCG/ML 50 ML VIAL ONE (07:44)
[2022-12-24] MEDS ORDERED: PROTAMINE SULFATE 10 MG/ML 5 ML VIAL IV ONE (07:44)
[2022-12-24] MEDS ORDERED: PHENYLEPHRINE-0.9% NACL SYG 1,000 MCG/10 ML SYRINGE ONE (07:44)
[2022-12-24 08:28] LABS: ABG Base Excess -0.1 mmol/L; ABG Glucose Whole Blood 125 mg/dL (75-99); ABG HCO3 26 mmol/L (21-25); ABG Hematocrit 36 % (34.0-46.0); ABG Ionized Calcium 4.8 mg/dL (4.5-5.3); ABG Lactic Acid Whole Blood 1.8 mmol/L (0.5-1.6); ABG Oxygen Saturation 98.7 % (94-97); ABG PCO2 45 mmHg (35-45); ABG PH 7.37 (7.35-7.45); ABG PO2 136 mmHg (83-108); ABG Potassium Whole Blood 4.5 mmol/L (3.4-4.5); ABG Sodium Whole Blood 138 mmol/L (135-146); ABG TCO2 27 mmol/L (19-24)
[2022-12-24 09:30] LABS: ABG Base Excess 0.9 mmol/L; ABG Glucose Whole Blood 134 mg/dL (75-99); ABG HCO3 25 mmol/L (21-25); ABG Hematocrit 35 % (34.0-46.0); ABG Ionized Calcium 4.6 mg/dL (4.5-5.3); ABG Lactic Acid Whole Blood 1.5 mmol/L (0.5-1.6); ABG Oxygen Saturation 99.5 % (94-97); ABG PCO2 36 mmHg (35-45); ABG PH 7.45 (7.35-7.45); ABG PO2 202 mmHg (83-108); ABG Potassium Whole Blood 4.4 mmol/L (3.4-4.5); ABG Sodium Whole Blood 137 mmol/L (135-146); ABG TCO2 26 mmol/L (19-24)
--- NOTE | 2022-12-24 09:36 | P.ANPRN ---
Procedure Note - Anesthesia - Invasive Line Left Arterial Line Time Out Performed: Yes Date of Procedure: 12/24/22 Time of Procedure: 07:45 Location of Patient: PreOp Preparation: Sterile Prep, Sterile Dressing Arterial Line Location: Radial Ultrasound Used: No Needle Guage: 20 Image Stored and Saved: No Narrative: Left radial arterial line placed by NEUROLOGY PHYSICIAN ASSISTANT using Seldinger technique Right Central Line Time Out Performed: Yes Date of Procedure: 12/24/22 Time of Procedure: 07:50 Location of Patient: PreOp Preparation: Sterile Prep, Sterile Dressing Central Line Location: Internal Jugular Ultrasound Used: Yes Purpose - Visualization and Identification of Vasculature: Yes Needle Guage: 18 Image Stored and Saved: Yes Narrative: Central line placement per sterile protocol utilized. Right [place] Valente Time Out Performed: Yes Date of Procedure: 12/24/22 Time of Procedure: 07:55 Location of Patient: PreOp Preparation: Sterile Prep, Sterile Dressing [place] Valente Line Location: Internal Jugular Ultrasound Used: No Image Stored and Saved: No Narrative: [place] had all ports flushed and balloon tested. Advanced until PA waveform obtained. Balloon deflated and [place] secured at 42 cm
[2022-12-24 10:33] LABS: ABG Base Excess 3.5 mmol/L; ABG Glucose Whole Blood 131 mg/dL (75-99); ABG HCO3 27 mmol/L (21-25); ABG Hematocrit 26 % (34.0-46.0); ABG Ionized Calcium 4.1 mg/dL (4.5-5.3); ABG Lactic Acid Whole Blood 1.1 mmol/L (0.5-1.6); ABG PCO2 37 mmHg (35-45); ABG PH 7.48 (7.35-7.45); ABG Potassium Whole Blood 5.1 mmol/L (3.4-4.5); ABG Sodium Whole Blood 138 mmol/L (135-146); ABG TCO2 28 mmol/L (19-24)
[2022-12-24 11:14] LABS: ABG Base Excess 0.7 mmol/L; ABG Glucose Whole Blood 130 mg/dL (75-99); ABG HCO3 25 mmol/L (21-25); ABG Hematocrit 25 % (34.0-46.0); ABG Ionized Calcium 3.9 mg/dL (4.5-5.3); ABG Lactic Acid Whole Blood 1.9 mmol/L (0.5-1.6); ABG PCO2 38 mmHg (35-45); ABG PH 7.43 (7.35-7.45); ABG Potassium Whole Blood 5.1 mmol/L (3.4-4.5); ABG Sodium Whole Blood 137 mmol/L (135-146); ABG TCO2 26 mmol/L (19-24)
[2022-12-24 12:16] LABS: ABG Base Excess -0.3 mmol/L; ABG Glucose Whole Blood 131 mg/dL (75-99); ABG HCO3 24 mmol/L (21-25); ABG Hematocrit 31 % (34.0-46.0); ABG Ionized Calcium 4.7 mg/dL (4.5-5.3); ABG Oxygen Saturation 99.3 % (94-97); ABG PCO2 38 mmHg (35-45); ABG PH 7.41 (7.35-7.45); ABG PO2 173 mmHg (83-108); ABG Potassium Whole Blood 4.3 mmol/L (3.4-4.5); ABG Sodium Whole Blood 139 mmol/L (135-146); ABG TCO2 25 mmol/L (19-24)
[2022-12-24] MEDS ORDERED: Magnesium Replacement Protocol 1 EACH MISC MISCELLANE PRN (12:16)
[2022-12-24] MEDS ORDERED: CALCIUM GLUCONATE IN NACL 2 GM in SALINE 1 100ML.BAG IVPB PRN (12:16)
[2022-12-24] MEDS ORDERED: AMIODARONE 450 MG in DEXTROSE 5% IN WATER 250 ML IV PRN ×2 (12:16)
[2022-12-24] MEDS ORDERED: BENZOCAINE/MENTHOL LOZENG 1 EACH LOZENGE MUCOUS MEM PRN (12:16)
[2022-12-24] MEDS ORDERED: ALBUMIN HUMAN 5% 250 ML in EMPTY BAG 1 BAG IVPB PRN (12:16)
[2022-12-24] MEDS ORDERED: Potassium Replacement Protocol 1 EACH MISC MISCELLANE PRN (12:16)
[2022-12-24] MEDS ORDERED: hydrALAZINE HCL 20 MG/ML 1 ML VIAL IVP PRN (12:16)
[2022-12-24] MEDS ORDERED: METOCLOPRAMIDE 5 MG/ML 2 ML VIAL IVP PRN (12:16)
[2022-12-24] MEDS ORDERED: DEXTROSE 50% SYRINGE 50 ML IVP PRN ×2 (12:16)
[2022-12-24] MEDS ORDERED: LORATADINE 10 MG TAB PO PRN (12:16)
[2022-12-24] MEDS ORDERED: AMIODARONE 360 MG in DEXTROSE 5% IN WATER 200 ML IV PRN ×2 (12:16)
[2022-12-24] MEDS ORDERED: DEXTROSE 5% IN WATER 100 ML with AMIODARONE 150 MG IV PRN (12:16)
[2022-12-24] MEDS ORDERED: ONDANSETRON 4 MG/2 ML VIAL IVP PRN (12:16)
[2022-12-24 12:17] LABS: ABG PO2 >420 mmHg (83-108)
[2022-12-24 12:18] LABS: ABG PO2 >420 mmHg (83-108)
[2022-12-24 12:19] LABS: ABG Lactic Acid Whole Blood 2.4 mmol/L (0.5-1.6)
[2022-12-24 12:32] LABS: ABG Base Excess 0.2 mmol/L; ABG Glucose Whole Blood 125 mg/dL (75-99); ABG HCO3 25 mmol/L (21-25); ABG Hematocrit 33 % (34.0-46.0); ABG Ionized Calcium 4.7 mg/dL (4.5-5.3); ABG Lactic Acid Whole Blood 1.8 mmol/L (0.5-1.6); ABG Oxygen Saturation 99.3 % (94-97); ABG PCO2 38 mmHg (35-45); ABG PH 7.42 (7.35-7.45); ABG PO2 166 mmHg (83-108); ABG Potassium Whole Blood 4.1 mmol/L (3.4-4.5); ABG Sodium Whole Blood 139 mmol/L (135-146); ABG TCO2 26 mmol/L (19-24)
[2022-12-24] MEDS: SODIUM CHLORIDE 0.9% 1,000 ML IV SCH (12:40)
[2022-12-24 12:49] LABS: Glucose,Whole Blood 122 mg/dL (70-110)
[2022-12-24] MEDS ORDERED: DEXMEDETOMIDINE/0.9% NACL(PMX) 400 MCG in EMPTY BAG 1 BAG IV SCH (13:00)
[2022-12-24] MEDS ORDERED: CLEVIDIPINE BUTYRATE 25 MG in EMPTY BAG 1 BAG IV SCH (13:00)
[2022-12-24] MEDS ORDERED: ALBUTEROL NEBULIZED 2.5 MG/3 ML INHALATION SCH (13:00)
[2022-12-24] MEDS: IPRATROPIUM 0.5 MG/2.5 ML NEBU INHALATION SCH ×3 (13:04→20:09)
[2022-12-24] MEDS: ALBUTEROL NEBULIZED 2.5 MG/3 ML INHALATION SCH ×4 (13:04→20:09)
[2022-12-24 13:09] LABS: Basophils % (A) 0 %; Eosinophils # (A) 0.2 k/uL (0-0.7); Eosinophils % (A) 1 %; HCT 34.3 % (34.0-46.0); HGB 11.2 gm/dL (11.4-16.0); Lymphocytes # (A) 2.4 k/uL (1.0-4.8); Lymphocytes % (A) 16 %; MCH 31.2 pg (25.0-35.0); MCHC 32.7 g/dL (31.0-37.0); MCV 95.2 fL (80.0-100.0); Mean Platelet Volume 8.7; Monocytes # (A) 0.2 k/uL (0-1.0); Monocytes % (A) 2 %; Neutrophils # (A) 12.8 k/uL (1.3-7.7); Neutrophils % (A) 82 %; Platelet Count 121 k/uL (150-450); RBC 3.61 m/uL (3.80-5.40); WBC 15.7 k/uL (3.8-10.6)
--- NOTE | 2022-12-24 13:11 | P.ANPRN ---
Procedure Note - Anesthesia - YEVGENIY Intraop Pre Bypass YEVGENIY Intraop - Anesthesia Indication: Aortic insufficiency Date of Procedure: 12/24/22 Pre-operative Diagnosis: AI Post-operative Diagnosis: Same Surgeon: Prosper Anderson Left Ventricle: EF 50 Ejection Fraction: Normal Regional Wall Motion Abnormalities: None Left Ventricle Hypertrophy: Yes R. Ventricle Function: Normal Aortic Valve: Trileaflet valve. Moderate AI w/ eccentric jet. Thickened leaflet tips. Anatomy: Trileaflet Aortic Stenosis: None Aortic Regurgitation: Moderate Mitral Stenosis: None Mitral Regurgitation: Mild Tricuspid Stenosis: None Tricuspid Regurgitation: Trace Pulmonic Stenosis: None Pulmonic Regurgitation: None R. Atrial Dilation: No R. Atrial PFO: Yes (left to right shunt) L. Atrial Dilation: No Aortic Dissection: No Aortic Calcification: None Plural Effusion: None - YEVGENIY Intraop Post Bypass YEVGENIY Intraop Post Bypass Procedure Performed: Mechanical AVR 21 mm Ejection Fraction: Normal Regional Wall Motion Abnormalities: None R. Ventricle Function: Normal Aortic Valve: Mechanical AVR - Peak 21 mmHg, Mean 11 mmHg Mitral Valve: Moderate MR Tricuspid: Unchanged Pulmonic: Unchanged Aortic Dissection: No
[2022-12-24 13:17] LABS: Ionized Calcium 5.1 mg/dL (4.5-5.3)
--- NOTE | 2022-12-24 13:20 | XR ---
EXAMINATION TYPE: XR chest 1V portable DATE OF EXAM: 12/24/2022 CLINICAL HISTORY: Postopen cardiac surgery. TECHNIQUE: Single AP portable frontal view of the chest is obtained. COMPARISON: Chest x-ray from December 18, 2022 FINDINGS: There is new endotracheal tube terminating at aortic knob level. There is new orogastric t ube projecting below diaphragm. There is new right internal jugular [place]-Valente catheter terminating at level of pulmonary outflow tract. There are 2 mediastinal drainage catheter on current study. Overlying sternal wires and left atrial appendage clip are now present. There is overlying loop recor christian redemonstrated. There is more prominent cardiomegaly with moderate central vascular congestion on current study. No pleural effusion or pneumothorax clearly seen. Osseous structures are intact. IMPRESSION: 1. Tubes and lines are satisfactory in position as detailed above. 2. Cardiomegaly with moderate central vascular congestion. Correlate for CHF exacerbation.
[2022-12-24 13:27] LABS: ALT 17 U/L (4-34); AST 29 U/L (14-36); African American GFR (CKD) >90 (>60 ml/min/1.73 sqM); Albumin 2.5 g/dL (3.5-5.0); Alkaline Phosphatase 62 U/L (38-126); Anion Gap 3 mmol/L; Blood Urea Nitrogen 18 mg/dL (7-17); Carbon Dioxide 26 mmol/L (22-30); Chloride 108 mmol/L (98-107); Glucose 118 mg/dL (74-99); Magnesium 2.6 mg/dL (1.6-2.3); Non-African American GFR(CKD) >90 (>60 ml/min/1.73 sqM); Potassium 4.1 mmol/L (3.5-5.1); Sodium 137 mmol/L (137-145); Total Bilirubin 0.5 mg/dL (0.2-1.3); Total Protein 4.2 g/dL (6.3-8.2)
[2022-12-24 13:28] LABS: ABG Base Excess -0.7 mmol/L; ABG HCO3 26 mmol/L (21-25); ABG PCO2 54 mmHg (35-45); ABG PH 7.29 (7.35-7.45); ABG PO2 365 mmHg (83-108); ABG TCO2 28 mmol/L (19-24); Allen Test Performed? Yes
[2022-12-24] MEDS: AMIODARONE 360 MG in DEXTROSE 5% IN WATER 200 ML IV SCH ×4 (13:30→20:12)
[2022-12-24 13:42] LABS: INR 1.1 (<1.2); Partial Thromboplastin Time 24.8 sec (22.0-30.0); Prothrombin Time 11.1 sec (9.0-12.0)
[2022-12-24] MEDS: INSULIN REGULAR 100 UNIT in SODIUM CHLORIDE 0.9% 100 ML IV SCH (13:43)
[2022-12-24 13:47] LABS: Glucose,Whole Blood 124 mg/dL (70-110)
[2022-12-24] MEDS: KETOROLAC 15 MG/ML 1 ML VIAL IVP SCH ×2 (13:52→20:13)
--- NOTE | 2022-12-24 14:08 | P.OP ---
Date of Procedure: 12/24/22 Preoperative Diagnosis: Severe aortic valve regurgitation, hypertension, hyperlipidemia, chronic leukocytosis, obesity, preserved left ventricular systolic function Postoperative Diagnosis: Same with evidence of a lesion on the ventricular side of the left coronary cusp Procedure(s) Performed: 1aortic valve replacement using a 21 mm onX mechanical valve 2excision of the left atrial appendage using a 35 mm ATRICLIP 3intraoperative transesophageal echocardiogram and epi-aortic scanning Implants: 21 mm onX mechanical valve Anesthesia: GETA Surgeon: Prosper Anderson Shuttlecock Feather Trimmer #1: Cisco Lambert Estimated Blood Loss (ml): 250 IV fluids (ml): 1,500 Pathology: other (Aortic valve left cusp for pathology and Gram stain aerobic and anaerobic and fungal cultures) Condition: stable Disposition: ICU Indications for Procedure: Patient is a 47 years old lady that was referred to me with a diagnosis of severe aortic valve regurgitation. She had been in functional class II with worsening. Her left ventricle function and dimensions of silk preserved. She was on adequate afterload reductions. Decision was made to proceed with aortic valve replacement as I did not think this valve is repairable. Patient had a chronically elevated white blood cell count and she was sent to hematology which cleared him for surgery. Discussion followed regarding the choice of valve and decision was made to proceed with a mechanical valve understanding the risks benefits and alternatives. The STS risk was discussed with she understood that and agreed to proceed. Operative Findings: Verrucous lesion on the ventricular aspect of the left coronary cusp of the aortic valve Description of Procedure: Patient in supine position in the preoperative holding area right internal jugular [place]-Valente catheter and a right radial arterial line were placed. Cardiac index was 2.4. Pressure was 40/20. Subsequently patient was brought to the operating room where general endotracheal anesthesia was induced uneventfully. A Peralta catheter was inserted. The chest abdomen and both lower extremities . were prepped and draped using ChloraPrep. Ioban was used to cov er the skin. Patient received 2 g of cefazolin intravenously. Intraoperative transesophageal echocardiogram confirmed the preoperative finding of severe aortic valve regurgitation along with some thickening of the cusps and preserved left ventricular function and dimensions. Patient however had left ventricular hypertrophy. Midline sternotomy was performed and the bone was moderately osteoporotic. Ostia and fibrillar were used but no bone wax was used. Both pleura remained intact. Mediastinal fat was transected between 2 ties and epi-aortic scanning ruled out any atheroma in the ascending aorta. Because he was opened in inverted T fashion and pericardial cradle was created. Findings included a short soft aorta with borderline dimensions and fatty heart surface was some hypertrophy. After systemic heparinization and placement of respective pledgeted pursestring aortic cannulation in the proximal arch with a 21-Swazi soft flow cannula, venous cannulation with a 29/37 venous cannula via the right atrial appendage was performed. Antegrade as well as retrograde could appear to catheter were placed. Cardiac bypass was initiated and patient's temperature was allowed to drift down to 34C. Subsequently the aorta was clamped and we gave her 1 L of antegrade cold blood could appear to with intermittent venting of the heart in view of the aortic valve regurgitation with not to follow arrest election we gave a dose of 500 mL of retrograde cold blood could lesion. All subsequent doses were given retrograde at 15 minutes interval. The last dose was warm blood around 1 L as we were closing the aorta. The aorta was opened transversely around 1 cm above the sinotubular junction. Expiration revealed normal position of the left and right coronary ostia. The aortic valve was trileaflet. The right and noncoronary cusp had some thickening and them. However the left coronary cusp and on the ventricular side of it had a half centimeter by half centimeter verrucous lesion somewhat raised in the midline the leaflet. That was excised and a piece was sent for pathology as well as cultures. Thorough irrigation performed. The annulus was very pliable and for that reason I used non-pledgeted TIcron 2 sutures along the perimeter of the aortic valve annulus in a horizontal mattress fashion. A total of 17 sutures were placed and those were passed into a 21 mm onX mechanical valve cuff which seated nicely in a supra-annular position. All the needles were cut and the suture tied using the core knot device. Both coronary ostia were clear. Both discs excursion was free. Rewarming was started as we closed the aorta in 2 layers using pledgeted 4-0 Prolene buttressed at each corner with the first layer in a horizontal mattress fashion and the second layer in over over technique. CO2 that was flowing over the field as long as the aorta was opened was stopped at this point. Patient was placed in Trendelenburg position and de-airing maneuvers were carried. Subsequently with aortic vent on maximum we unclamped the aorta. Patient regained spontaneous sinus rhythm and did not require any defibrillation. After around 15 minutes of reperfusion cardiovascular bypass was weaned off with the need of a low-dose of Levophed. YEVGENIY at this point showed good functioning valve with no paravalvular leak. The ventricular function was adequate. There was [id number] mitral valve regurgitation and that eventually improved. There is adequate de-airing. At this point or pump suckers were stopped as we gave test dose followed by a full dose protamine. Decannulation followed. 2 monopolar atrial pacer wires were affixed to the respective purse string of the right atrium and one bipolar ventricular pacing wire was driven via the epicardial surface of the inferior aspect of the right ventricle. 219/min drain was left substernally. Mediastinal and pericardial fat were loosely approximated over the aorta and the heart. After ensuring adequate hemostasis and after correct sponge instrument and needle count the sternum was closed using 5 [id number] [place] cables after interposing fibrillar between the sternal edges. Thorough irrigation with cefazolin followed. The vessel closure proceeded in layers. Skin glue was applied. Patient did not receive any blood bank product but received 600 mL of Cell Saver blood. She was transferred to the ICU in normal sinus rhythm at around 65 with mean artery pressure of around 65 on low-dose levoPHed and PA pressure of 35/18.
[2022-12-24] MEDS: ACETAMINOPHEN IV (For NPO) 1,000 MG in EMPTY BAG 1 BAG IVPB SCH ×2 (14:28→21:25)
--- NOTE | 2022-12-24 14:43 | P.CNPUL ---
History of Present Illness Consult date: 12/24/22 Requesting physician: Prosper Anderson Reason for consult: other Chief complaint: Status post aortic valve replacement. History of present illness: Pulmonary consult dated 12/24/2022. 47-year-old female seen today in room 266. She is postop day #0, status post aortic valve replacement for aortic regurgitation. She is currently on the ventilator. Her ventilator settings include the volume assist control, rate of 18, tidal volume 375, FiO2 50%, blood gases show pO2 365, pCO2 54, pH is 7.29. FiO2 was dropped down to 50%, and the rate was increased to 18. Currently, she sedated on propofol at 25 mcg/kg/m, receiving saline at 50 mL an hour, and amiodarone at 1 mg/m. She's getting insulin at 0.5 units per hour. In addition to the aortic valve replacement with a tissue valve, showed a left atrial appendage exclusion. Currently, her cardiac output is 4 with an index of 2. He is currently atrial paced. White count 15.7, hemoglobin 11.2, and platelet count 121,000. Sodium 137, potassium 4.1, chlorides 108, CO2 26, BUN 18, creatinine 0.77. Chest x-ray shows mild cardiomegaly with mild pulmonary vascular congestion. Review of Systems REVIEW OF SYSTEMS: Review of systems cannot be obtained as the patient's currently sedated and on mechanical ventilation. CONSTITUTIONAL: [Negative.] NEUROLOGIC: [ Negative.] HEENT: [ Negative.] CARDIAC: [Negative.] PULMONARY: [Negative.] GI: [Negative.] : [Negative.] RHEUMATOLOGIC: [ Negative.] IMMUNOLOGIC: [ Negative.] ENDOCRINE: [Negative. ] DERMATOLOGIC: [Negative.] Past Medical History Past Medical History: Atrial Fibrillation, Fibromyalgia, GERD/Reflux, H yperlipidemia, Hypertension, Memory Impairment, Mitral Valve Prolapse (MVP), Pneumonia, Supraventricular Tachycardia (SVT), Thyroid Disorder Additional Past Medical History / Comment(s): Aortic Stenosis,curvature of spine-uses pillow under legs/ft,bruising rt lower leg, hx kidney stones,migraines,pneumonia January 2022,venous dysfunction,minimal mitral prolapse History of Any Multi-Drug Resistant Organisms: None Reported Past Surgical History: Cholecystectomy, Heart Catheterization, Hysterectomy, Tonsillectomy Additional Past Surgical History / Comment(s): kidney stone removal, YEVGENIY, Loop recorder Past Anesthesia/Blood Transfusion Reactions: Previous Problems w/ Anesthesia, Family History of Problems w/ Anesthesia Additional Past Anesthesia/Blood Transfusion Reaction / Comment(s): Hx waking & sitting up during surgery,Combative coming out of anesthesia, no hx blood transfusion. mom and siblings have hx of being combative and waking up during surgery Type of Cardiac Device: Loop Device Placement Date:: unk Smoking Status: Former smoker - Past Family History Mother Family Medical History: No Reported History Father Family Medical History: COPD Medications and Allergies Home Medications Medication Instructions Recorded Confirmed Type Aspirin/Acetaminophen/Caffeine 1 each PO DIRECTED PRN 03/23/22 12/24/22 History [Excedrin Migraine Caplet] Cetirizine HCl [Zyrtec] 10 mg PO DAILY PRN 03/23/22 12/24/22 History Furosemide [Lasix] 20 mg PO BID 03/23/22 12/24/22 History Levothyroxine Sodium [Synthroid] 50 mcg PO QAM 03/23/22 12/24/22 History Omeprazole 20 mg PO BID 03/23/22 12/24/22 History Propranolol [Inderal] 120 mg PO BID 03/23/22 12/24/22 History dilTIAZem HCL [Diltiazem HCl 24Hr 120 mg PO QAM 03/23/22 12/24/22 History ER] Aspirin EC [Ecotrin Low Dose] 81 mg PO DAILY 07/06/22 12/24/22 History Atorvastatin [Lipitor] 40 mg PO DAILY 07/06/22 12/24/22 History Ezetimibe [Zetia] 10 mg PO DAILY 07/06/22 12/24/22 History Mupirocin [Mupirocin 2%] 1 applic NASAL BID #1 tub 12/18/22 12/24/22 Rx Magnesium Oxide [Mag-Ox] 400 mg PO HS 12/20/22 12/24/22 History SUMAtriptan succinate [Imitrex] 100 mg PO DIRECTED PRN 12/20/22 12/24/22 History lisinopriL [Zestril] 10 mg PO DAILY 12/20/22 12/24/22 History Allergies Allergy/AdvReac Type Severity Reaction Status Date / Time hydromorphone [From Dilaudid] Allergy Anaphylaxis Verified 12/24/22 06:04 morphine Allergy Anaphylaxis Verified 12/24/22 06:04 Penicillins Allergy Severe Verified 12/24/22 06:04 Rash/Hives ranitidine [From Zantac] Allergy Overstimula Verified 12/24/22 06:04 tion Sulfa (Sulfonamide Allergy Severe Verified 12/24/22 06:04 Antibiotics) Rash/Hives zafirlukast [From Accolate] Allergy Severe Verified 12/24/22 06:04 Rash/Hives paper tape/bandaids Allergy chemical Uncoded 12/24/22 06:04 owusu(cloth bandaids ok) some adhesives (tegaderm Allergy Chemical Uncoded 12/24/22 06:04 okay) Owusu Physical Exam Osteopathic Statement: *. No significant issues noted on an osteopathic structural exam other than those noted in the History and Physical/Consult. Vitals: Vital Signs Temp Pulse Pulse Resp BP BP Pulse Ox 12/24/22 14:15 80 18 100 12/24/22 14:00 80 18 100 12/24/22 13:45 80 18 100 12/24/22 13:39 12/24/22 13:30 80 18 100 12/24/22 13:15 80 14 12/24/22 13:00 80 14 99 12/24/22 12:47 12/24/22 12:45 64 12 95 12/24/22 06:00 97.4 F L 62 17 121/60 137/73 98 FiO2 12/24/22 14:15 12/24/22 14:00 50 12/24/22 13:45 12/24/22 13:39 50 12/24/22 13:30 12/24/22 13:15 12/24/22 13:00 100 12/24/22 12:47 100 12/24/22 12:45 100 12/24/22 06:00 Intake and Output 12/23/22 12/24/22 12/24/22 22:59 06:59 14:59 Intake Total 200 152 Output Total 2049 Balance 200 -189 Intake: IV 200 152 Sodium Chloride 0.9% 1, 100 000 ml @ 50 mls/hr IV . Q20H [facility] Rx#:[id number] Output: Chest Tube Drainage 55 Chest Tube Bilateral 55 Mediastinal Urine 195 Estimated Blood Loss 1800 Other: Voiding Method Indwelling Catheter Weight 99.3 kg ABP, PAP, CO, CI - Last 8 Hours Arterial Blood Pressure 111/52 Arterial Blood Pressure 111/51 Arterial Blood Pressure 113/51 Arterial Blood Pressure 109/51 Arterial Blood Pressure 115/54 Arterial Blood Pressure 124/58 Pulmonary Artery Pressure 32/20 Pulmonary Artery Pressure 34/21 Pulmonary Artery Pressure 36/22 Pulmonary Artery Pressure 37/23 Pulmonary Artery Pressure 38/21 Pulmonary Artery Pressure 39/22 Pulmonary Artery Pressure 1/1 Cardiac Output 4 Cardiac Index 2 No acute distress, sedated, currently intubated. HEENT examination is grossly unremarkable. Neck supple. Full range of motion. No adenopathy thyromegaly or neck vein distention. Cardiovascular examination reveals regular rhythm rate. S1-S2 normal. No S3 or S4. No discernible murmur noted. Heart rate 80 bpm. Lungs reveal mostly clear breath sounds. Scattered rhonchi. No wheezes or crackles. Saturations are in the high 90s. Abdomen soft, obese, without bowel sounds. Extremities are intact. No cyanosis clubbing or edema. Skin is without rash or lesion. Neurologic examination cannot be fully evaluated. Results - Laboratory Findings CBC and BMP: 12/24/22 12:50 12/24/22 12:50 ABG ABG pH 7.29 (7.35-7.45) L 12/24/22 13:26 ABG pCO2 54 mmHg (35-45) H 12/24/22 13:26 ABG pO2 365 mmHg (83-108) H 12/24/22 13:26 ABG O2 Saturation 100.0 % (94-97) H 12/24/22 13:26 PT/INR, D-dimer PT 11.1 sec (9.0-12.0) 12/24/22 12:50 INR 1.1 (<1.2) 12/24/22 12:50 Abnormal lab findings: Abnormal Labs 12/18/22 12/18/22 12/18/22 09:01 09:01 09:01 WBC 13.21 H RBC Hgb MCHC 30.8 L Plt Count Neutrophils # ABG pH ABG pCO2 ABG pO2 ABG HCO3 ABG Total CO2 ABG O2 Saturation ABG Hematocrit ABG Potassium ABG Ionized Calcium ABG Glucose ABG Lactic Acid Hemoglobin Chloride BUN BUN/Creatinine Ratio 20.89 H Glucose 121 H POC Glucose (mg/dL) Hemoglobin A1c Calcium Magnesium AST 12 L Total Protein Albumin Arterial Blood Potassium Arterial Blood Glucose Ur Leukocyte Esterase Trace A Ur Squamous Epith Cells 21-50 A Crossmatch 12/18/22 12/18/22 12/24/22 09:01 09:01 06:31 WBC RBC Hgb MCHC Plt Count Neutrophils # ABG pH ABG pCO2 ABG pO2 ABG HCO3 ABG Total CO2 ABG O2 Saturation ABG Hematocrit ABG Potassium ABG Ionized Calcium ABG Glucose ABG Lactic Acid Hemoglobin Chloride BUN BUN/Creatinine Ratio Glucose POC Glucose (mg/dL) 128 H Hemoglobin A1c 6.4 H Calcium Magnesium AST Total Protein Albumin Arterial Blood Potassium Arterial Blood Glucose Ur Leukocyte Esterase Ur Squamous Epith Cells Crossmatch See Detail 12/24/22 12/24/22 12/24/22 08:00 08:00 08:00 WBC RBC Hgb MCHC Plt Count Neutrophils # ABG pH 7.48 H ABG pCO2 ABG pO2 136 H 202 H >420 H ABG HCO3 26 H 27 H ABG Total CO2 27 H 26 H 28 H ABG O2 Saturation 98.7 H 99.5 H 100.0 H ABG Hematocrit 26 L ABG Potassium 5.1 H ABG Ionized Calcium 4.1 L ABG Glucose 125 H 134 H 131 H ABG Lactic Acid 1.8 H Hemoglobin 8.4 L Chloride BUN BUN/Creatinine Ratio Glucose POC Glucose (mg/dL) Hemoglobin A1c Calcium Magnesium AST Total Protein Albumin Arterial Blood Potassium 5.1 H Arterial Blood Glucose 125 H 134 H 131 H Ur Leukocyte Esterase Ur Squamous Epith Cells Crossmatch 12/24/22 12/24/22 12/24/22 08:00 08:00 12:34 WBC RBC Hgb MCHC Plt Count Neutrophils # ABG pH ABG pCO2 ABG pO2 >420 H 173 H 166 H ABG HCO3 ABG Total CO2 26 H 25 H 26 H ABG O2 Saturation 100.0 H 99.3 H 99.3 H ABG Hematocrit 25 L 31 L 33 L ABG Potassium 5.1 H ABG Ionized Calcium 3.9 L ABG Glucose 130 H 131 H 125 H ABG Lactic Acid 1.9 H 2.4 H* 1.8 H Hemoglobin 8.0 L 10.2 L 10.8 L Chloride BUN BUN/Creatinine Ratio Glucose POC Glucose (mg/dL) Hemoglobin A1c Calcium Magnesium AST Total Protein Albumin Arterial Blood Potassium 5.1 H Arterial Blood Glucose 130 H 131 H 125 H Ur Leukocyte Esterase Ur Squamous Epith Cells Crossmatch 12/24/22 12/24/22 12/24/22 12:46 12:50 12:50 WBC 15.7 H RBC 3.61 L Hgb 11.2 L MCHC Plt Count 121 L Neutrophils # 12.8 H ABG pH ABG pCO2 ABG pO2 ABG HCO3 ABG Total CO2 ABG O2 Saturation ABG Hematocrit ABG Potassium ABG Ionized Calcium ABG Glucose ABG Lactic Acid Hemoglobin Chloride 108 H BUN 18 H BUN/Creatinine Ratio Glucose 118 H POC Glucose (mg/dL) 122 H Hemoglobin A1c Calcium 8.0 L Magnesium 2.6 H AST Total Protein 4.2 L Albumin 2.5 L Arterial Blood Potassium Arterial Blood Glucose Ur Leukocyte Esterase Ur Squamous Epith Cells Crossmatch 12/24/22 12/24/22 13:26 13:46 WBC RBC Hgb MCHC Plt Count Neutrophils # ABG pH 7.29 L ABG pCO2 54 H ABG pO2 365 H ABG HCO3 26 H ABG Total CO2 28 H ABG O2 Saturation 100.0 H ABG Hematocrit ABG Potassium ABG Ionized Calcium ABG Glucose ABG Lactic Acid Hemoglobin Chloride BUN BUN/Creatinine Ratio Glucose POC Glucose (mg/dL) 124 H Hemoglobin A1c Calcium Magnesium AST Total Protein Albumin Arterial Blood Potassium Arterial Blood Glucose Ur Leukocyte Esterase Ur Squamous Epith Cells Crossmatch - Diagnostic Findings Chest x-ray: image reviewed Assessment and Plan Assessment: Postop day #0, status post aortic valve replacement for severe aortic regurgitation, as well as excision of left atrial appendage. History of hyperlipidemia. History of paroxysmal atrial fibrillation. History of hypertension. Family history of CAD. Plan: Plan dated 12/24/2022. The patient is seen today in room 266. Her labs, x-rays, and medications are all reviewed. I was called with initial blood gases. Changes were made. The rate was increased from 14, up to 18 rest or minute. The FiO2 was dropped from 100%, down to 50%. Her cardiac output is 4, and her cardiac index is 2. She's currently on amiodarone at 1 mg/m, propofol at 25 mcg/kg/m, and insulin 0.5 units per hour. Follow make recommendations where appropriate. Prognosis is generally good. Time with Patient: Greater than 30
[2022-12-24 15:20] LABS: Glucose,Whole Blood 140 mg/dL (70-110)
[2022-12-24 15:59] LABS: Basophils # (A) 0.1 k/uL (0-0.2); Basophils % (A) 0 %; Eosinophils # (A) 0.3 k/uL (0-0.7); Eosinophils % (A) 1 %; HCT 36.2 % (34.0-46.0); HGB 11.8 gm/dL (11.4-16.0); Lymphocytes % (A) 8 %; MCH 30.9 pg (25.0-35.0); MCHC 32.6 g/dL (31.0-37.0); MCV 94.9 fL (80.0-100.0); Mean Platelet Volume 8.8; Monocytes # (A) 0.9 k/uL (0-1.0); Monocytes % (A) 4 %; Neutrophils # (A) 21.2 k/uL (1.3-7.7); Neutrophils % (A) 86 %; Platelet Count 150 k/uL (150-450); RBC 3.82 m/uL (3.80-5.40); RDW 13.1 % (11.5-15.5); WBC 24.5 k/uL (3.8-10.6)
[2022-12-24 16:10] LABS: VBG PH 7.27 (7.31-7.41)
[2022-12-24 16:17] LABS: ABG Base Excess -0.5 mmol/L; ABG HCO3 25 mmol/L (21-25); ABG Oxygen Saturation 98.2 % (94-97); ABG PCO2 49 mmHg (35-45); ABG PH 7.33 (7.35-7.45); ABG PO2 113 mmHg (83-108); Allen Test Performed? Yes
[2022-12-24] MEDS: HEPARIN SODIUM,PORCINE/PF 5,000 UNIT/0.5 ML SYRINGE SQ SCH (16:25)
[2022-12-24 16:28] LABS: Glucose,Whole Blood 146 mg/dL (70-110)
[2022-12-24 17:03] LABS: Glucose,Whole Blood 153 mg/dL (70-110)
[2022-12-24 17:39] LABS: ABG Base Excess -0.9 mmol/L; ABG HCO3 25 mmol/L (21-25); ABG Oxygen Saturation 97.8 % (94-97); ABG PCO2 51 mmHg (35-45); ABG PH 7.31 (7.35-7.45); ABG PO2 99 mmHg (83-108); ABG TCO2 27 mmol/L (19-24); Allen Test Performed? Yes
[2022-12-24 18:20] LABS: Glucose,Whole Blood 142 mg/dL (70-110)
[2022-12-24 18:50] LABS: Glucose,Whole Blood 151 mg/dL (70-110)
[2022-12-24 18:57] LABS: Basophils % (A) 0 %; Eosinophils # (A) 0.1 k/uL (0-0.7); Eosinophils % (A) 1 %; HCT 34.7 % (34.0-46.0); HGB 11.3 gm/dL (11.4-16.0); Lymphocytes # (A) 1.6 k/uL (1.0-4.8); Lymphocytes % (A) 7 %; MCH 31.4 pg (25.0-35.0); MCHC 32.6 g/dL (31.0-37.0); MCV 96.5 fL (80.0-100.0); Mean Platelet Volume 9.1; Monocytes # (A) 0.9 k/uL (0-1.0); Monocytes % (A) 4 %; Neutrophils # (A) 20.1 k/uL (1.3-7.7); Neutrophils % (A) 88 %; Platelet Count 162 k/uL (150-450); RBC 3.59 m/uL (3.80-5.40); WBC 22.8 k/uL (3.8-10.6)
[2022-12-24] MEDS ORDERED: AMIODARONE 450 MG in DEXTROSE 5% IN WATER 250 ML IV SCH ×2 (19:00)
[2022-12-24 19:59] LABS: ABG Base Excess -2.5 mmol/L; ABG HCO3 24 mmol/L (21-25); ABG PCO2 47 mmHg (35-45); ABG PH 7.31 (7.35-7.45); ABG PO2 84 mmHg (83-108); ABG TCO2 25 mmol/L (19-24); Allen Test Performed? Yes
[2022-12-24 20:08] LABS: Glucose,Whole Blood 148 mg/dL (70-110)
[2022-12-24 21:00] LABS: Glucose,Whole Blood 137 mg/dL (70-110)
[2022-12-24] MEDS ORDERED: PANTOPRAZOLE 40 MG/10 ML VIAL IVP SCH (21:00)
[2022-12-24 22:06] LABS: Glucose,Whole Blood 134 mg/dL (70-110)
--- NOTE | 2022-12-24 22:09 | P.CONS ---
History of Present Illness - Reason for Consult Consult date: 12/24/22 Antibiotic management Requesting physician: Breana Phelan - Chief Complaint Abnormal appearing aortic valve at time of surgery x 1 day - History of Present Illness Patient is a 47-year-old female with a past medical history significant for hypertension hyperlipidemia chronic leukocytosis obesity did have a severe aortic regurgitation patient was electively admitted to the hospital for aortic valve replacement, at the time of surgery the patient was noticed to have a lesion on the ventricular side of the left coronary cusp concerning for possible endocarditis that has prompted this infectious disease consultation patient apparently did have a leukocytosis in the outpatient setting that has been investigated by hematology oncology and no evidence of any hematological disorder as per discussion with the CT surgeon and no history of any chronic fever, patient on presentation to the hospital has been afebrile and no fever has been recorded subsequently patient did have a white count of 15.7 with a left shift kidney function has been normal liver enzymes are normal urine has been negative santana and hepatitis serology has been negative chest x-ray cardiomegaly with moderate central venous congestion patient is currently on cefazolin perioperatively, all the information has been obtained from review the chart and talking to the surgery the patient is currently intubated on the vent and cannot provide history Review of Systems Positive points has been mentioned in HPI complete review could not be obtained because patient is intubated on the vent Past Medical History Past Medical History: Atrial Fibrillation, Fibromyalgia, GERD/Reflux, Hyperlipidemia, Hypertension, Memory Impairment, Mitral Valve Prolapse (MVP), Pneumonia, Supraventricular Tachycardia (SVT), Thyroid Disorder Additional Past Medical History / Comment(s): Aortic Stenosis,curvature of spine-uses pillow under legs/ft,bruising rt lower leg, hx kidney stones,migraines,pneumonia January 2022,venous dysfunction,minimal mitral prolapse History of Any Multi-Drug Resistant Organisms: None Reported Past Surgical History: Cholecystectomy, Heart Catheterization, Hysterectomy, Tonsillectomy Additional Past Surgical History / Comment(s): kidney stone removal, YEVGENIY, Loop recorder Past Anesthesia/Blood Transfusion Reactions: Previous Problems w/ Anesthesia, Family History of Problems w/ Anesthesia Additional Past Anesthesia/Blood Transfusion Reaction / Comm: Hx waking & sitting up during surgery,Combative coming out of anesthesia, no hx blood transfusion. mom and siblings have hx of being combative and waking up during surgery Type of Cardiac Device: Loop Device Placement Date:: unk Smoking Status: Former smoker - Past Family History Mother Family Medical History: No Reported History Father Family Medical History: COPD Medications and Allergies Home Medications Medication Instructions Recorded Confirmed Type Cetirizine HCl [Zyrtec] 10 mg PO DAILY PRN 03/23/22 12/24/22 History Furosemide [Lasix] 20 mg PO BID 03/23/22 12/24/22 History Levothyroxine Sodium [Synthroid] 50 mcg PO QAM 03/23/22 12/24/22 History Omeprazole 20 mg PO BID 03/23/22 12/24/22 History Aspirin EC [Ecotrin Low Dose] 81 mg PO DAILY 07/06/22 12/24/22 History Atorvastatin [Lipitor] 40 mg PO DAILY 07/06/22 12/24/22 History Ezetimibe [Zetia] 10 mg PO DAILY 07/06/22 12/24/22 History Magnesium Oxide [Mag-Ox] 400 mg PO HS 12/20/22 12/24/22 History SUMAtriptan succinate [Imitrex] 100 mg PO DIRECTED PRN 12/20/22 12/24/22 History Acetaminophen Tab [Tylenol] 650 mg PO Q4HR PRN tab 12/29/22 Rx Amiodarone [Cordarone] 200 mg PO BID #28 tab 12/29/22 Rx Ibuprofen [Motrin] 600 mg PO QID PRN tab 12/29/22 Rx Insulin Detemir (Levemir) [Levemir] 12 unit SQ DAILY@0700 30 Days #1 12/29/22 Rx each Metoprolol Tartrate [Lopressor] 25 mg PO BID #60 tab 12/29/22 Rx Sennosides-Docusate Sodium 2 each PO HS PRN tab 12/29/22 Rx [Senokot-S] Warfarin [Coumadin] 5 mg PO DAILY@1800 #30 tab 12/29/22 Rx lisinopriL [Zestril] 2.5 mg PO DAILY@1200 #30 tab 12/29/22 Rx Allergies Allergy/AdvReac Type Severity Reaction Status Date / Time cranberry Allergy Rash/Hives Verified 12/25/22 12:20 hydromorphone [From Dilaudid] Allergy Anaphylaxis Verified 12/24/22 06:04 morphine Allergy Anaphylaxis Verified 12/24/22 06:04 Penicillins Allergy Severe Verified 12/24/22 06:04 Rash/Hives ranitidine [From Zantac] Allergy Overstimula Verified 12/24/22 06:04 tion Sulfa (Sulfonamide Allergy Severe Verified 12/24/22 06:04 Antibiotics) Rash/Hives zafirlukast [From Accolate] Allergy Severe Verified 12/24/22 06:04 Rash/Hives paper tape/bandaids Allergy chemical Uncoded 12/24/22 06:04 owusu(cloth bandaids ok) some adhesives (tegaderm Allergy Chemical Uncoded 12/24/22 06:04 okay) Owusu Physical Exam Vitals: Vital Signs Temp Pulse Resp BP BP Pulse Ox FiO2 12/24/22 12:47 100 12/24/22 06:00 97.4 F L 62 17 121/60 137/73 98 Intake and Output 12/23/22 12/24/22 12/24/22 22:59 06:59 14:59 Intake Total 200 52 Output Total 1950 Balance 200 -1898 Intake: IV 200 52 Output: Urine 150 Estimated Blood Loss 1800 Other: Weight 99.3 kg PGENERAL DESCRIPTION: Middle-aged female intubated on the count includes the [facility] HEENT: Shows Pallor , no scleral icterus. Oral mucous membrane is dry. NECK: Trachea central, no thyromegaly. LUNGS: Unlabored breathing. Clear to auscultation anteriorly. No wheeze or crackle. HEART: S1, S2, regular rate and rhythm. ABDOMEN: Soft, no tenderness , guarding or rigidity EXTREMITIES: No edema of feet. SKIN: No rash, no masses palpable. NEUROLOGICAL: The patient is sedated on the vent Results CBC & Chem 7: 12/29/22 08:55 12/29/22 08:55 Labs: Abnormal Lab Results - Last 24 Hours (Table) 12/18/22 12/24/22 12/24/22 Range/Units 09:01 06:31 08:00 ABG pH (7.35-7.45) ABG pO2 136 H (83-108) mmHg ABG HCO3 26 H (21-25) mmol/L ABG Total CO2 27 H (19-24) mmol/L ABG O2 Saturation 98.7 H (94-97) % ABG Hematocrit (34.0-46.0) % ABG Potassium (3.4-4.5) mmol/L ABG Ionized Calcium (4.5-5.3) mg/dL ABG Glucose 125 H (75-99) mg/dL ABG Lactic Acid 1.8 H (0.5-1.6) mmol/L Hemoglobin (11.4-16.0) gm/dL POC Glucose (mg/dL) 128 H (70-110) mg/dL Arterial Blood Potassium (3.4-4.5) mmol/L Arterial Blood Glucose 125 H (75-99) mg/dL Crossmatch See Detail 12/24/22 12/24/22 12/24/22 Range/Units 08:00 08:00 08:00 ABG pH 7.48 H (7.35-7.45) ABG pO2 202 H >420 H >420 H (83-108) mmHg ABG HCO3 27 H (21-25) mmol/L ABG Total CO2 26 H 28 H 26 H (19-24) mmol/L ABG O2 Saturation 99.5 H 100.0 H 100.0 H (94-97) % ABG Hematocrit 26 L 25 L (34.0-46.0) % ABG Potassium 5.1 H 5.1 H (3.4-4.5) mmol/L ABG Ionized Calcium 4.1 L 3.9 L (4.5-5.3) mg/dL ABG Glucose 134 H 131 H 130 H (75-99) mg/dL ABG Lactic Acid 1.9 H (0.5-1.6) mmol/L Hemoglobin 8.4 L 8.0 L (11.4-16.0) gm/dL POC Glucose (mg/dL) (70-110) mg/dL Arterial Blood Potassium 5.1 H 5.1 H (3.4-4.5) mmol/L Arterial Blood Glucose 134 H 131 H 130 H (75-99) mg/dL Crossmatch 12/24/22 12/24/22 12/24/22 Range/Units 08:00 12:34 12:46 ABG pH (7.35-7.45) ABG pO2 173 H 166 H (83-108) mmHg ABG HCO3 (21-25) mmol/L ABG Total CO2 25 H 26 H (19-24) mmol/L ABG O2 Saturation 99.3 H 99.3 H (94-97) % ABG Hematocrit 31 L 33 L (34.0-46.0) % ABG Potassium (3.4-4.5) mmol/L ABG Ionized Calcium (4.5-5.3) mg/dL ABG Glucose 131 H 125 H (75-99) mg/dL ABG Lactic Acid 2.4 H* 1.8 H (0.5-1.6) mmol/L Hemoglobin 10.2 L 10.8 L (11.4-16.0) gm/dL POC Glucose (mg/dL) 122 H (70-110) mg/dL Arterial Blood Potassium (3.4-4.5) mmol/L Arterial Blood Glucose 131 H 125 H (75-99) mg/dL Crossmatch Assessment and Plan (1) Leukocytosis Status: Acute Code(s): D72.829 - ELEVATED WHITE BLOOD CELL COUNT, UNSPECIFIED SNOMED Code(s): 915449718 Plan: 1patient with history of severe aortic regurgitation and also with a history of chronic leukocytosis that has been investigated outpatient setting and no evidence of any hematological malignancy site disorder and no clear history of fever, now with evidence of vision on the aortic wall as possible vegetation 2-Patient with multiple antibiotic ALLERGIES that would limit the number of antibiotic safe to use 3-blood culture has been requested and we will check inflammatory markers 4-empirically add cefepime and vancomycin while waiting for the cultures to be finalized and workup completed We will follow on clinical condition and cultures to further adjust medication if needed Thank you for this consultation will follow this patient with you Time with Patient: Greater than 30
[2022-12-24] MEDS ORDERED: VANCOMYCIN IV PER PHARMACY 1 EACH MISC MISCELLANE PRN (22:10)
[2022-12-24] MEDS ORDERED: VANCOMYCIN 1,500 MG in SODIUM CHLORIDE 0.9% 500 ML 500 ML IVPB ONE (22:15)
[2022-12-24] MEDS: MAGNESIUM OXIDE 400 MG TAB PO SCH (22:15)
[2022-12-24] MEDS ORDERED: MILRINONE-D5W PMX 20 MG in DEXTROSE/WATER 1 100ML.BAG IV SCH (22:45)
[2022-12-24 23:18] LABS: Glucose,Whole Blood 124 mg/dL (70-110)
[2022-12-25] MEDS: AMIODARONE 360 MG in DEXTROSE 5% IN WATER 200 ML IV SCH ×2 (00:03)
[2022-12-25] MEDS: CEFEPIME 2 GM in SODIUM CHLORIDE 0.9% 100 ML IVPB SCH ×4 (00:05→23:55)
[2022-12-25] MEDS: HEPARIN SODIUM,PORCINE/PF 5,000 UNIT/0.5 ML SYRINGE SQ SCH ×4 (00:05→23:55)
[2022-12-25 00:20] LABS: Glucose,Whole Blood 135 mg/dL (70-110)
[2022-12-25 01:00] LABS: Glucose,Whole Blood 130 mg/dL (70-110)
[2022-12-25] MEDS: KETOROLAC 15 MG/ML 1 ML VIAL IVP SCH ×5 (02:02→23:53)
[2022-12-25 03:30] LABS: Glucose,Whole Blood 139 mg/dL (70-110)
[2022-12-25 04:26] LABS: Glucose,Whole Blood 135 mg/dL (70-110)
[2022-12-25 05:02] LABS: Basophils % (A) 0 %; Eosinophils # (A) 0.1 k/uL (0-0.7); Eosinophils % (A) 0 %; HCT 33.6 % (34.0-46.0); HGB 10.6 gm/dL (11.4-16.0); Lymphocytes # (A) 2.6 k/uL (1.0-4.8); Lymphocytes % (A) 13 %; MCH 30.4 pg (25.0-35.0); MCHC 31.5 g/dL (31.0-37.0); MCV 96.3 fL (80.0-100.0); Mean Platelet Volume 8.9; Monocytes % (A) 5 %; Neutrophils # (A) 16.9 k/uL (1.3-7.7); Neutrophils % (A) 82 %; Platelet Count 144 k/uL (150-450); RBC 3.49 m/uL (3.80-5.40); RDW 13.1 % (11.5-15.5); WBC 20.7 k/uL (3.8-10.6)
[2022-12-25 06:15] LABS: Glucose,Whole Blood 147 mg/dL (70-110)
[2022-12-25] MEDS: LEVOTHYROXINE 50 MCG TAB PO SCH (06:57)
[2022-12-25 07:05] LABS: Glucose,Whole Blood 140 mg/dL (70-110)
[2022-12-25] MEDS ORDERED: CLINDAMYCIN 600 MG in DEXTROSE 5% IN WATER 50 ML IVPB ONE ×2 (08:00)
[2022-12-25 08:13] LABS: Glucose,Whole Blood 179 mg/dL (70-110)
[2022-12-25] MEDS ORDERED: FUROSEMIDE 10 MG/ML 2 ML VIAL IV ONE (08:30)
[2022-12-25] MEDS: ASPIRIN 325 MG TAB PO SCH (08:43)
[2022-12-25] MEDS: EZETIMIBE 10 MG TAB PO SCH (08:43)
[2022-12-25] MEDS: METOPROLOL TARTRATE 12.5 MG TAB PO SCH ×3 (08:44→21:30)
[2022-12-25] MEDS: CLOPIDOGREL 75 MG TAB PO SCH (08:44)
[2022-12-25] MEDS: ATORVASTATIN 40 MG TAB PO SCH (08:44)
[2022-12-25] MEDS: SODIUM CHLORIDE 0.9% 1,000 ML IV SCH (08:44)
[2022-12-25] MEDS: AMIODARONE 200 MG TAB PO SCH ×3 (08:44→21:30)
[2022-12-25 08:47] LABS: Ionized Calcium 5.1 mg/dL (4.5-5.3)
[2022-12-25] MEDS: IPRATROPIUM 0.5 MG/2.5 ML NEBU INHALATION SCH ×4 (08:54→20:50)
[2022-12-25] MEDS ORDERED: MAGNESIUM HYDROXIDE 2,400 MG/10 ML CUP PO PRN (09:00)
[2022-12-25] MEDS ORDERED: bisacodyL 10 MG SUPP RECTAL PRN (09:00)
[2022-12-25 09:02] LABS: Erythrocyte Sedimentation Rate 7 mm/hr (0-20)
[2022-12-25 09:10] LABS: Glucose,Whole Blood 186 mg/dL (70-110)
--- NOTE | 2022-12-25 09:23 | CONS ---
CONSULTATION HISTORY OF PRESENT ILLNESS: This is a 47-year-old lady with a history of severe aortic valve regurgitation, hypertension, hyperlipidemia, chronic unexplained leukocytosis, who underwent aortic valve replacement yesterday with a mechanical 21 mm On-X mechanical valve. She also had an excision of left atrial appendage with an atrial clip. On the valve leaflet on the ventricular side apparently, there was 0.5 cm verrucous lesion and therefore this was also sent for pathology and cultures. The patient since surgery has been on a combination of cefepime and vancomycin. She has been extubated, currently on a small dose of Primacor, having decent urine output, maintaining sinus rhythm and hemodynamically stable. PAST MEDICAL HISTORY: Remarkable for severe aortic valve regurgitation, episode of paroxysmal atrial fibrillation in the past, but not on anticoagulation. She also has hypertension, hyperlipidemia, and hypothyroidism. MEDICATIONS: Medications at home include, 1. Lasix. 2. Levothyroxine. 3. Propranolol. 4. Diltiazem. 5. 81 mg of aspirin. 6. Lipitor 40 mg daily. PHYSICAL EXAMINATION: VITAL SIGNS: Blood pressure is about 120/70, pulse rate is 80, sinus. HEENT: Unremarkable. Fundus was not examined by me. NECK: Supple. No JVD. HEART: Reveals S1 and S2 with a short systolic murmur. LUNGS: Revealed bilateral fair air entry. ABDOMEN: Soft. EXTREMITIES: Lower extremities reveal diminished pulses. CENTRAL NERVOUS SYSTEM: No focal deficits. IMPRESSION: 1. Status post aortic valve replacement with a mechanical valve. 2. History of paroxysmal atrial fibrillation, maintaining sinus rhythm. 3. Hypertension. 4. Hyperlipidemia. 5. Hypothyroidism. RECOMMENDATIONS: I recommend that we continue current medical regimen including a small dose of beta nando, and also statin. Would recommend that we continue incentive spirometry and pulmonary toilet. The patient is making good progress. MMODL / IJN: [id number] /
[2022-12-25 09:35] LABS: Sodium 136 mmol/L (137-145)
[2022-12-25 09:39] LABS: ALT 20 U/L (4-34); AST 45 U/L (14-36); African American GFR (CKD) >90 (>60 ml/min/1.73 sqM); Albumin 2.8 g/dL (3.5-5.0); Alkaline Phosphatase 69 U/L (38-126); Anion Gap 4 mmol/L; Blood Urea Nitrogen 23 mg/dL (7-17); C Reactive Protein 6.9 mg/dL (<1.0); Calcium 7.8 mg/dL (8.4-10.2); Carbon Dioxide 22 mmol/L (22-30); Chloride 110 mmol/L (98-107); Glucose 175 mg/dL (74-99); Magnesium 2.2 mg/dL (1.6-2.3); Non-African American GFR(CKD) 89 (>60 ml/min/1.73 sqM); Potassium 4.3 mmol/L (3.5-5.1); Total Bilirubin 0.4 mg/dL (0.2-1.3); Total Protein 4.9 g/dL (6.3-8.2)
--- NOTE | 2022-12-25 09:47 | XR ---
EXAMINATION TYPE: XR chest 1V portable DATE OF EXAM: 12/25/2022 COMPARISON: 12/24/2022 INDICATION: Post cardiac surgery TECHNIQUE: Single frontal view of the chest is obtained. FINDINGS: The heart size is enlarged. The pulmonary vasculature is normal. Mild bibasilar infiltrates are present, increased from comparison. Endotracheal tube and nasogastric tube is removed. Mediastinal tubes remain present. [place] cathet er remains present with the tip in the main pulmonary artery region. Sternotomy wires are in the midl ine. IMPRESSION: 1. Cardiomegaly. 2. Bibasilar developing infiltrates. 3. Lines and catheters discussed above.
[2022-12-25] MEDS ORDERED: MILRINONE-D5W PMX 20 MG in DEXTROSE/WATER 1 100ML.BAG IV SCH (10:00)
[2022-12-25 11:10] LABS: Glucose,Whole Blood 164 mg/dL (70-110)
--- NOTE | 2022-12-25 11:31 | P.PN ---
Subjective Progress Note Date: 12/25/22 Principal diagnosis: Aortic valve replacement. Pulmonary consult dated 12/24/2022. 47-year-old female seen today in room 266. She is postop day #0, status post aortic valve replacement for aortic regurgitation. She is currently on the ventilator. Her ventilator settings include the volume assist control, rate of 18, tidal volume 375, FiO2 50%, blood gases show pO2 365, pCO2 54, pH is 7.29. FiO2 was dropped down to 50%, and the rate was increased to 18. Currently, she sedated on propofol at 25 mcg/kg/m, receiving saline at 50 mL an hour, and amiodarone at 1 mg/m. She's getting insulin at 0.5 units per hour. In addition to the aortic valve replacement with a tissue valve, showed a left atrial appendage exclusion. Currently, her cardiac output is 4 with an index of 2. He is currently atrial paced. White count 15.7, hemoglobin 11.2, and platelet count 121,000. Sodium 137, potassium 4.1, chlorides 108, CO2 26, BUN 18, creatinine 0.77. Chest x-ray shows mild cardiomegaly with mild pulmonary vascular congestion. Progress note dated 12/25/2022. 47-year-old female seen yesterday in consultation. She seen today in room 266. She was extubated yesterday, after having a aortic valve replacement. She's currently on room air. She's getting saline at 50 mL an hour, and an insulin drip at 5 units an hour. She is also on Primacor 0.2 mcg/kg/m. Post extub ation, she was a bit lethargic and sleepy, and the nurse call me. At that point, we placed her on BiPAP, with settings of 10/5 and 50%. She wore till 3 AM in the morning. White count 20.7, hemoglobin 10.6, hematocrit 33.6, and platelet count 144,000. Sodium 136, potassium 4.3, chlorides 110, CO2 22, BUN 23, and creatinine 0.79. Pro-calcitonin level is 5.82. Chest x-ray shows cardiomegaly, and developing bibasilar infiltrates. Objective - Vital Signs Vital signs: Vital Signs Temp 97.5 F L 12/25/22 04:00 Pulse 74 12/25/22 11:00 Resp 20 12/25/22 11:00 BP 97/65 12/25/22 06:00 Pulse Ox 95 12/25/22 11:00 FiO2 50 12/25/22 01:40 Intake & Output 12/24/22 12/25/22 12/25/22 18:59 06:59 18:59 Intake Total 456.035 5736.962 793.609 Output Total 2260 500 640 Balance -1874.640 580.962 153.609 Weight 103.5 kg Intake: IV 352 849 325 CO/CI 150 30 Pressure Bags 99 45 Sodium Chloride 0.9% 1, 300 600 250 000 ml @ 20 mls/hr IV . Q24H INA Rx#:[id number] Intake, IV Titration 33.360 231.962 18.609 Amount Amiodarone 360 mg In 207.2 Dextrose 5% in Water 200 ml @ 1 MG/MIN 34.533 mls/ hr IV .Q6H INA Rx#: [id number] Insulin Regular 100 unit 7.045 24.762 18.609 In Sodium Chloride 0.9% 100 ml @ Per Protocol IV .Q0M INA Rx#:[id number] propofoL 1,000 mg In 26.315 Empty Bag 1 bag @ Titrate IV .Q0M INA Rx#: [id number] Oral 450 Output: Chest Tube Drainage 95 80 60 Chest Tube Bilateral 95 80 60 Mediastinal Urine 365 420 580 Estimated Blood Loss 1800 Other: Voiding Method Indwelling Catheter Indwelling Catheter Indwelling Catheter ABP, PAP, CO, CI - Last Documented Arterial Blood Pressure 139/58 Pulmonary Artery Pressure 31/9 Cardiac Output 4.4 Cardiac Index 2.2 - Exam No acute distress, oriented 3. No acute distress. Room air saturation 95%. HEENT examination is grossly unremarkable. Neck supple. Full range of motion. No adenopathy thyromegaly or neck vein distention. Cardiovascular examination reveals regular rhythm rate. S1-S2 normal. No S3 or S4. No discernible murmur noted. Heart sounds are distant. Heart rate 74 bpm. Lungs reveal mostly clear breath sounds. Scattered rhonchi. No wheezes or crackles. Abdomen soft bowel sounds are heard. No masses or tenderness. Extremities are intact. No cyanosis clubbing or edema. Skin is without rash or lesion. Neurologic examination is brief but nonfocal. - Labs CBC & Chem 7: 12/25/22 04:25 12/25/22 08:15 Labs: Abnormal Lab Results - Last 24 Hours (Table) 12/18/22 12/24/22 12/24/22 Range/Units 09:01 08:00 08:00 WBC (3.8-10.6) k/uL RBC (3.80-5.40) m/uL Hgb (11.4-16.0) gm/dL Hct (34.0-46.0) % Plt Count (150-450) k/uL Neutrophils # (1.3-7.7) k/uL ABG pH (7.35-7.45) ABG pCO2 (35-45) mmHg ABG pO2 136 H 202 H (83-108) mmHg ABG HCO3 26 H (21-25) mmol/L ABG Total CO2 27 H 26 H (19-24) mmol/L ABG O2 Saturation 98.7 H 99.5 H (94-97) % ABG Hematocrit (34.0-46.0) % ABG Potassium (3.4-4.5) mmol/L ABG Ionized Calcium (4.5-5.3) mg/dL ABG Glucose 125 H 134 H (75-99) mg/dL ABG Lactic Acid 1.8 H (0.5-1.6) mmol/L VBG pH (7.31-7.41) VBG pCO2 (37-51) mmHg Hemoglobin (11.4-16.0) gm/dL Sodium (137-145) mmol/L Chloride (98-107) mmol/L BUN (7-17) mg/dL Glucose (74-99) mg/dL POC Glucose (mg/dL) (70-110) mg/dL Calcium (8.4-10.2) mg/dL Magnesium (1.6-2.3) mg/dL AST (14-36) U/L C-Reactive Protein (<1.0) mg/dL Total Protein (6.3-8.2) g/dL Albumin (3.5-5.0) g/dL Procalcitonin (0.02-0.09) ng/mL Arterial Blood Potassium (3.4-4.5) mmol/L Arterial Blood Glucose 125 H 134 H (75-99) mg/dL Crossmatch See Detail 12/24/22 12/24/22 12/24/22 Range/Units 08:00 08:00 08:00 WBC (3.8-10.6) k/uL RBC (3.80-5.40) m/uL Hgb (11.4-16.0) gm/dL Hct (34.0-46.0) % Plt Count (150-450) k/uL Neutrophils # (1.3-7.7) k/uL ABG pH 7.48 H (7.35-7.45) ABG pCO2 (35-45) mmHg ABG pO2 >420 H >420 H 173 H (83-108) mmHg ABG HCO3 27 H (21-25) mmol/L ABG Total CO2 28 H 26 H 25 H (19-24) mmol/L ABG O2 Saturation 100.0 H 100.0 H 99.3 H (94-97) % ABG Hematocrit 26 L 25 L 31 L (34.0-46.0) % ABG Potassium 5.1 H 5.1 H (3.4-4.5) mmol/L ABG Ionized Calcium 4.1 L 3.9 L (4.5-5.3) mg/dL ABG Glucose 131 H 130 H 131 H (75-99) mg/dL ABG Lactic Acid 1.9 H 2.4 H* (0.5-1.6) mmol/L VBG pH (7.31-7.41) VBG pCO2 (37-51) mmHg Hemoglobin 8.4 L 8.0 L 10.2 L (11.4-16.0) gm/dL Sodium (137-145) mmol/L Chloride (98-107) mmol/L BUN (7-17) mg/dL Glucose (74-99) mg/dL POC Glucose (mg/dL) (70-110) mg/dL Calcium (8.4-10.2) mg/dL Magnesium (1.6-2.3) mg/dL AST (14-36) U/L C-Reactive Protein (<1.0) mg/dL Total Protein (6.3-8.2) g/dL Albumin (3.5-5.0) g/dL Procalcitonin (0.02-0.09) ng/mL Arterial Blood Potassium 5.1 H 5.1 H (3.4-4.5) mmol/L Arterial Blood Glucose 131 H 130 H 131 H (75-99) mg/dL Crossmatch 12/24/22 12/24/22 12/24/22 Range/Units 12:34 12:46 12:50 WBC 15.7 H (3.8-10.6) k/uL RBC 3.61 L (3.80-5.40) m/uL Hgb 11.2 L (11.4-16.0) gm/dL Hct (34.0-46.0) % Plt Count 121 L (150-450) k/uL Neutrophils # 12.8 H (1.3-7.7) k/uL ABG pH (7.35-7.45) ABG pCO2 (35-45) mmHg ABG pO2 166 H (83-108) mmHg ABG HCO3 (21-25) mmol/L ABG Total CO2 26 H (19-24) mmol/L ABG O2 Saturation 99.3 H (94-97) % ABG Hematocrit 33 L (34.0-46.0) % ABG Potassium (3.4-4.5) mmol/L ABG Ionized Calcium (4.5-5.3) mg/dL ABG Glucose 125 H (75-99) mg/dL ABG Lactic Acid 1.8 H (0.5-1.6) mmol/L VBG pH (7.31-7.41) VBG pCO2 (37-51) mmHg Hemoglobin 10.8 L (11.4-16.0) gm/dL Sodium (137-145) mmol/L Chloride (98-107) mmol/L BUN (7-17) mg/dL Glucose (74-99) mg/dL POC Glucose (mg/dL) 122 H (70-110) mg/dL Calcium (8.4-10.2) mg/dL Magnesium (1.6-2.3) mg/dL AST (14-36) U/L C-Reactive Protein (<1.0) mg/dL Total Protein (6.3-8.2) g/dL Albumin (3.5-5.0) g/dL Procalcitonin (0.02-0.09) ng/mL Arterial Blood Potassium (3.4-4.5) mmol/L Arterial Blood Glucose 125 H (75-99) mg/dL Crossmatch 12/24/22 12/24/22 12/24/22 Range/Units 12:50 13:26 13:46 WBC (3.8-10.6) k/uL RBC (3.80-5.40) m/uL Hgb (11.4-16.0) gm/dL Hct (34.0-46.0) % Plt Count (150-450) k/uL Neutrophils # (1.3-7.7) k/uL ABG pH 7.29 L (7.35-7.45) ABG pCO2 54 H (35-45) mmHg ABG pO2 365 H (83-108) mmHg ABG HCO3 26 H (21-25) mmol/L ABG Total CO2 28 H (19-24) mmol/L ABG O2 Saturation 100.0 H (94-97) % ABG Hematocrit (34.0-46.0) % ABG Potassium (3.4-4.5) mmol/L ABG Ionized Calcium (4.5-5.3) mg/dL ABG Glucose (75-99) mg/dL ABG Lactic Acid (0.5-1.6) mmol/L VBG pH (7.31-7.41) VBG pCO2 (37-51) mmHg Hemoglobin (11.4-16.0) gm/dL Sodium (137-145) mmol/L Chloride 108 H (98-107) mmol/L BUN 18 H (7-17) mg/dL Glucose 118 H (74-99) mg/dL POC Glucose (mg/dL) 124 H (70-110) mg/dL Calcium 8.0 L (8.4-10.2) mg/dL Magnesium 2.6 H (1.6-2.3) mg/dL AST (14-36) U/L C-Reactive Protein (<1.0) mg/dL Total Protein 4.2 L (6.3-8.2) g/dL Albumin 2.5 L (3.5-5.0) g/dL Procalcitonin (0.02-0.09) ng/mL Arterial Blood Potassium (3.4-4.5) mmol/L Arterial Blood Glucose (75-99) mg/dL Crossmatch 12/24/22 12/24/22 12/24/22 Range/Units 15:18 15:45 16:00 WBC 24.5 H (3.8-10.6) k/uL RBC (3.80-5.40) m/uL Hgb (11.4-16.0) gm/dL Hct (34.0-46.0) % Plt Count (150-450) k/uL Neutrophils # 21.2 H (1.3-7.7) k/uL ABG pH (7.35-7.45) ABG pCO2 (35-45) mmHg ABG pO2 (83-108) mmHg ABG HCO3 (21-25) mmol/L ABG Total CO2 (19-24) mmol/L ABG O2 Saturation (94-97) % ABG Hematocrit (34.0-46.0) % ABG Potassium (3.4-4.5) mmol/L ABG Ionized Calcium (4.5-5.3) mg/dL ABG Glucose (75-99) mg/dL ABG Lactic Acid (0.5-1.6) mmol/L VBG pH 7.27 L (7.31-7.41) VBG pCO2 57 H (37-51) mmHg Hemoglobin (11.4-16.0) gm/dL Sodium (137-145) mmol/L Chloride (98-107) mmol/L BUN (7-17) mg/dL Glucose (74-99) mg/dL POC Glucose (mg/dL) 140 H (70-110) mg/dL Calcium (8.4-10.2) mg/dL Magnesium (1.6-2.3) mg/dL AST (14-36) U/L C-Reactive Protein (<1.0) mg/dL Total Protein (6.3-8.2) g/dL Albumin (3.5-5.0) g/dL Procalcitonin (0.02-0.09) ng/mL Arterial Blood Potassium (3.4-4.5) mmol/L Arterial Blood Glucose (75-99) mg/dL Crossmatch 12/24/22 12/24/22 12/24/22 Range/Units 16:11 16:15 17:02 WBC (3.8-10.6) k/uL RBC (3.80-5.40) m/uL Hgb (11.4-16.0) gm/dL Hct (34.0-46.0) % Plt Count (150-450) k/uL Neutrophils # (1.3-7.7) k/uL ABG pH 7.33 L (7.35-7.45) ABG pCO2 49 H (35-45) mmHg ABG pO2 113 H (83-108) mmHg ABG HCO3 (21-25) mmol/L ABG Total CO2 (19-24) mmol/L ABG O2 Saturation 98.2 H (94-97) % ABG Hematocrit (34.0-46.0) % ABG Potassium (3.4-4.5) mmol/L ABG Ionized Calcium (4.5-5.3) mg/dL ABG Glucose (75-99) mg/dL ABG Lactic Acid (0.5-1.6) mmol/L VBG pH (7.31-7.41) VBG pCO2 (37-51) mmHg Hemoglobin (11.4-16.0) gm/dL Sodium (137-145) mmol/L Chloride (98-107) mmol/L BUN (7-17) mg/dL Glucose (74-99) mg/dL POC Glucose (mg/dL) 146 H 153 H (70-110) mg/dL Calcium (8.4-10.2) mg/dL Magnesium (1.6-2.3) mg/dL AST (14-36) U/L C-Reactive Protein (<1.0) mg/dL Total Protein (6.3-8.2) g/dL Albumin (3.5-5.0) g/dL Procalcitonin (0.02-0.09) ng/mL Arterial Blood Potassium (3.4-4.5) mmol/L Arterial Blood Glucose (75-99) mg/dL Crossmatch 12/24/22 12/24/22 12/24/22 Range/Units 17:37 17:45 18:19 WBC 22.8 H (3.8-10.6) k/uL RBC 3.59 L (3.80-5.40) m/uL Hgb 11.3 L (11.4-16.0) gm/dL Hct (34.0-46.0) % Plt Count (150-450) k/uL Neutrophils # 20.1 H (1.3-7.7) k/uL ABG pH 7.31 L (7.35-7.45) ABG pCO2 51 H (35-45) mmHg ABG pO2 (83-108) mmHg ABG HCO3 (21-25) mmol/L ABG Total CO2 27 H (19-24) mmol/L ABG O2 Saturation 97.8 H (94-97) % ABG Hematocrit (34.0-46.0) % ABG Potassium (3.4-4.5) mmol/L ABG Ionized Calcium (4.5-5.3) mg/dL ABG Glucose (75-99) mg/dL ABG Lactic Acid (0.5-1.6) mmol/L VBG pH (7.31-7.41) VBG pCO2 (37-51) mmHg Hemoglobin (11.4-16.0) gm/dL Sodium (137-145) mmol/L Chloride (98-107) mmol/L BUN (7-17) mg/dL Glucose (74-99) mg/dL POC Glucose (mg/dL) 142 H (70-110) mg/dL Calcium (8.4-10.2) mg/dL Magnesium (1.6-2.3) mg/dL AST (14-36) U/L C-Reactive Protein (<1.0) mg/dL Total Protein (6.3-8.2) g/dL Albumin (3.5-5.0) g/dL Procalcitonin (0.02-0.09) ng/mL Arterial Blood Potassium (3.4-4.5) mmol/L Arterial Blood Glucose (75-99) mg/dL Crossmatch 12/24/22 12/24/22 12/24/22 Range/Units 18:48 19:54 20:07 WBC (3.8-10.6) k/uL RBC (3.80-5.40) m/uL Hgb (11.4-16.0) gm/dL Hct (34.0-46.0) % Plt Count (150-450) k/uL Neutrophils # (1.3-7.7) k/uL ABG pH 7.31 L (7.35-7.45) ABG pCO2 47 H (35-45) mmHg ABG pO2 (83-108) mmHg ABG HCO3 (21-25) mmol/L ABG Total CO2 25 H (19-24) mmol/L ABG O2 Saturation (94-97) % ABG Hematocrit (34.0-46.0) % ABG Potassium (3.4-4.5) mmol/L ABG Ionized Calcium (4.5-5.3) mg/dL ABG Glucose (75-99) mg/dL ABG Lactic Acid (0.5-1.6) mmol/L VBG pH (7.31-7.41) VBG pCO2 (37-51) mmHg Hemoglobin (11.4-16.0) gm/dL Sodium (137-145) mmol/L Chloride (98-107) mmol/L BUN (7-17) mg/dL Glucose (74-99) mg/dL POC Glucose (mg/dL) 151 H 148 H (70-110) mg/dL Calcium (8.4-10.2) mg/dL Magnesium (1.6-2.3) mg/dL AST (14-36) U/L C-Reactive Protein (<1.0) mg/dL Total Protein (6.3-8.2) g/dL Albumin (3.5-5.0) g/dL Procalcitonin (0.02-0.09) ng/mL Arterial Blood Potassium (3.4-4.5) mmol/L Arterial Blood Glucose (75-99) mg/dL Crossmatch 12/24/22 12/24/22 12/24/22 Range/Units 20:59 22:05 23:16 WBC (3.8-10.6) k/uL RBC (3.80-5.40) m/uL Hgb (11.4-16.0) gm/dL Hct (34.0-46.0) % Plt Count (150-450) k/uL Neutrophils # (1.3-7.7) k/uL ABG pH (7.35-7.45) ABG pCO2 (35-45) mmHg ABG pO2 (83-108) mmHg ABG HCO3 (21-25) mmol/L ABG Total CO2 (19-24) mmol/L ABG O2 Saturation (94-97) % ABG Hematocrit (34.0-46.0) % ABG Potassium (3.4-4.5) mmol/L ABG Ionized Calcium (4.5-5.3) mg/dL ABG Glucose (75-99) mg/dL ABG Lactic Acid (0.5-1.6) mmol/L VBG pH (7.31-7.41) VBG pCO2 (37-51) mmHg Hemoglobin (11.4-16.0) gm/dL Sodium (137-145) mmol/L Chloride (98-107) mmol/L BUN (7-17) mg/dL Glucose (74-99) mg/dL POC Glucose (mg/dL) 137 H 134 H 124 H (70-110) mg/dL Calcium (8.4-10.2) mg/dL Magnesium (1.6-2.3) mg/dL AST (14-36) U/L C-Reactive Protein (<1.0) mg/dL Total Protein (6.3-8.2) g/dL Albumin (3.5-5.0) g/dL Procalcitonin (0.02-0.09) ng/mL Arterial Blood Potassium (3.4-4.5) mmol/L Arterial Blood Glucose (75-99) mg/dL Crossmatch 12/25/22 12/25/22 12/25/22 Range/Units 00:19 00:58 03:27 WBC (3.8-10.6) k/uL RBC (3.80-5.40) m/uL Hgb (11.4-16.0) gm/dL Hct (34.0-46.0) % Plt Count (150-450) k/uL Neutrophils # (1.3-7.7) k/uL ABG pH (7.35-7.45) ABG pCO2 (35-45) mmHg ABG pO2 (83-108) mmHg ABG HCO3 (21-25) mmol/L ABG Total CO2 (19-24) mmol/L ABG O2 Saturation (94-97) % ABG Hematocrit (34.0-46.0) % ABG Potassium (3.4-4.5) mmol/L ABG Ionized Calcium (4.5-5.3) mg/dL ABG Glucose (75-99) mg/dL ABG Lactic Acid (0.5-1.6) mmol/L VBG pH (7.31-7.41) VBG pCO2 (37-51) mmHg Hemoglobin (11.4-16.0) gm/dL Sodium (137-145) mmol/L Chloride (98-107) mmol/L BUN (7-17) mg/dL Glucose (74-99) mg/dL POC Glucose (mg/dL) 135 H 130 H 139 H (70-110) mg/dL Calcium (8.4-10.2) mg/dL Magnesium (1.6-2.3) mg/dL AST (14-36) U/L C-Reactive Protein (<1.0) mg/dL Total Protein (6.3-8.2) g/dL Albumin (3.5-5.0) g/dL Procalcitonin (0.02-0.09) ng/mL Arterial Blood Potassium (3.4-4.5) mmol/L Arterial Blood Glucose (75-99) mg/dL Crossmatch 12/25/22 12/25/22 12/25/22 Range/Units 04:24 04:25 04:25 WBC 20.7 H (3.8-10.6) k/uL RBC 3.49 L (3.80-5.40) m/uL Hgb 10.6 L (11.4-16.0) gm/dL Hct 33.6 L (34.0-46.0) % Plt Count 144 L (150-450) k/uL Neutrophils # 16.9 H (1.3-7.7) k/uL ABG pH (7.35-7.45) ABG pCO2 (35-45) mmHg ABG pO2 (83-108) mmHg ABG HCO3 (21-25) mmol/L ABG Total CO2 (19-24) mmol/L ABG O2 Saturation (94-97) % ABG Hematocrit (34.0-46.0) % ABG Potassium (3.4-4.5) mmol/L ABG Ionized Calcium (4.5-5.3) mg/dL ABG Glucose (75-99) mg/dL ABG Lactic Acid (0.5-1.6) mmol/L VBG pH (7.31-7.41) VBG pCO2 (37-51) mmHg Hemoglobin (11.4-16.0) gm/dL Sodium (137-145) mmol/L Chloride (98-107) mmol/L BUN (7-17) mg/dL Glucose (74-99) mg/dL POC Glucose (mg/dL) 135 H (70-110) mg/dL Calcium (8.4-10.2) mg/dL Magnesium (1.6-2.3) mg/dL AST (14-36) U/L C-Reactive Protein (<1.0) mg/dL Total Protein (6.3-8.2) g/dL Albumin (3.5-5.0) g/dL Procalcitonin 5.82 H (0.02-0.09) ng/mL Arterial Blood Potassium (3.4-4.5) mmol/L Arterial Blood Glucose (75-99) mg/dL Crossmatch 12/25/22 12/25/22 12/25/22 Range/Units 06:14 07:03 08:10 WBC (3.8-10.6) k/uL RBC (3.80-5.40) m/uL Hgb (11.4-16.0) gm/dL Hct (34.0-46.0) % Plt Count (150-450) k/uL Neutrophils # (1.3-7.7) k/uL ABG pH (7.35-7.45) ABG pCO2 (35-45) mmHg ABG pO2 (83-108) mmHg ABG HCO3 (21-25) mmol/L ABG Total CO2 (19-24) mmol/L ABG O2 Saturation (94-97) % ABG Hematocrit (34.0-46.0) % ABG Potassium (3.4-4.5) mmol/L ABG Ionized Calcium (4.5-5.3) mg/dL ABG Glucose (75-99) mg/dL ABG Lactic Acid (0.5-1.6) mmol/L VBG pH (7.31-7.41) VBG pCO2 (37-51) mmHg Hemoglobin (11.4-16.0) gm/dL Sodium (137-145) mmol/L Chloride (98-107) mmol/L BUN (7-17) mg/dL Glucose (74-99) mg/dL POC Glucose (mg/dL) 147 H 140 H 179 H (70-110) mg/dL Calcium (8.4-10.2) mg/dL Magnesium (1.6-2.3) mg/dL AST (14-36) U/L C-Reactive Protein (<1.0) mg/dL Total Protein (6.3-8.2) g/dL Albumin (3.5-5.0) g/dL Procalcitonin (0.02-0.09) ng/mL Arterial Blood Potassium (3.4-4.5) mmol/L Arterial Blood Glucose (75-99) mg/dL Crossmatch 12/25/22 12/25/22 12/25/22 Range/Units 08:15 09:09 11:10 WBC (3.8-10.6) k/uL RBC (3.80-5.40) m/uL Hgb (11.4-16.0) gm/dL Hct (34.0-46.0) % Plt Count (150-450) k/uL Neutrophils # (1.3-7.7) k/uL ABG pH (7.35-7.45) ABG pCO2 (35-45) mmHg ABG pO2 (83-108) mmHg ABG HCO3 (21-25) mmol/L ABG Total CO2 (19-24) mmol/L ABG O2 Saturation (94-97) % ABG Hematocrit (34.0-46.0) % ABG Potassium (3.4-4.5) mmol/L ABG Ionized Calcium (4.5-5.3) mg/dL ABG Glucose (75-99) mg/dL ABG Lactic Acid (0.5-1.6) mmol/L VBG pH (7.31-7.41) VBG pCO2 (37-51) mmHg Hemoglobin (11.4-16.0) gm/dL Sodium 136 L (137-145) mmol/L Chloride 110 H (98-107) mmol/L BUN 23 H (7-17) mg/dL Glucose 175 H (74-99) mg/dL POC Glucose (mg/dL) 186 H 164 H (70-110) mg/dL Calcium 7.8 L (8.4-10.2) mg/dL Magnesium (1.6-2.3) mg/dL AST 45 H (14-36) U/L C-Reactive Protein 6.9 H (<1.0) mg/dL Total Protein 4.9 L (6.3-8.2) g/dL Albumin 2.8 L (3.5-5.0) g/dL Procalcitonin (0.02-0.09) ng/mL Arterial Blood Potassium (3.4-4.5) mmol/L Arterial Blood Glucose (75-99) mg/dL Crossmatch Microbiology - Last 24 Hours (Table) 12/24/22 12:25 Gram Stain - Preliminary Heart Valve Tissue Culture - Preliminary 12/24/22 12:25 Anaerobic Culture - Preliminary Heart Valve 12/24/22 16:05 Fungal Culture - Preliminary Blood Assessment and Plan Assessment: Postop day #1, status post aortic valve replacement for severe aortic regurgitat ion, as well as excision of left atrial appendage. Routine postoperative ventilator management, status post extubation on 12/24/2022. Post extubation sleepiness/lethargy, managed with BiPAP. History of hyperlipidemia. History of paroxysmal atrial fibrillation. History of hypertension. Family history of CAD. Plan: Plan dated 12/24/2022. The patient is seen today in room 266. Her labs, x-rays, and medications are all reviewed. I was called with initial blood gases. Changes were made. The rate was increased from 14, up to 18 rest or minute. The FiO2 was dropped from 100%, down to 50%. Her cardiac output is 4, and her cardiac index is 2. She's currently on amiodarone at 1 mg/m, propofol at 25 mcg/kg/m, and insulin 0.5 units per hour. Follow make recommendations where appropriate. Prognosis is generally good. Plan dated 12/25/2022. The patient is seen today in room 266. She was extubated yesterday. Unfortunately, she did have some post extubation lethargy, and somnolence. I chose to manage her with BiPAP therapy. In addition, the patient remains on saline at 50 mL an hour, and insulin drip at 5 units an hour, and Primacor 0.2 mcg/kg/m. Labs, x-rays, and medications are all reviewed. The patient's overall prognosis is guarded. We will continue to follow make recommendations along the way. Time with Patient: Greater than 30
[2022-12-25] MEDS: VANCOMYCIN 1,500 MG in SODIUM CHLORIDE 0.9% 500 ML 500 ML IVPB SCH ×2 (11:40→23:55)
[2022-12-25 12:03] LABS: Glucose,Whole Blood 122 mg/dL (70-110)
[2022-12-25] MEDS: ALBUTEROL NEBULIZED 2.5 MG/3 ML INHALATION SCH ×3 (12:11→20:50)
--- NOTE | 2022-12-25 12:41 | P.CONS ---
History of Present Illness - Reason for Consult Consult date: 12/25/22 Medical management Requesting physician: Prosper Anderson - Chief Complaint Status post aortic valve replacement - History of Present Illness This is a 47-year-old female with past medical history of chronic paroxysmal atrial fibrillation, hypertension, hyperlipidemia,chronic leukocytosis, evaluated and cleared outpatient by hematology,severe aortic valve regurgitation, and status post aortic valve replacement with mechanical valve, excision of left atrial appendage-sent to pathology. Tolerated procedure well. Extubated yesterday, maintaining O2 sats 100% on room air. Chest x-ray reporting bibasilar developing infiltrates. Evaluated by infectious disease and maintained on empiric cefepime and vancomycin, cultures finalizing. WBC decreased to 20.7 ,CRP elevated ,6.9. Continues on Primacor, insulin drip. Cardiac index 2.2, telemetry sinus rhythm. BUN 23, creatinine 0.79. Hemoglobin A1c 6.4. Hemoglobin 10.6, platelets 144. Urine negative, Normal LFTs, negative hepatitis serology. Review of Systems ROS Statement: Those systems with pertinent positive or pertinent negative responses have been documented in the HPI. ROS Other: All systems not noted in ROS Statement are negative. Past Medical History Past Medical History: Atrial Fibrillation, Fibromyalgia, GERD/Reflux, Hyperlipidemia, Hypertension, Memory Impairment, Mitral Valve Prolapse (MVP), Pneumonia, Supraventricular Tachycardia (SVT), Thyroid Disorder Additional Past Medical History / Comment(s): Aortic Stenosis,curvature of spine-uses pillow under legs/ft,bruising rt lower leg, hx kidney stones,migraines,pneumonia January 2022,venous dysfunction,minimal mitral prolapse History of Any Multi-Drug Resistant Organisms: None Reported Past Surgical History: Cholecystectomy, Heart Catheterization, Hysterectomy, Tonsillectomy Additional Past Surgical History / Comment(s): kidney stone removal, YEVGENIY, Loop recorder Past Anesthesia/Blood Transfusion Reactions: Previous Problems w/ Anesthesia, Family History of Problems w/ Anesthesia Additional Past Anesthesia/Blood Transfusion Reaction / Comm: Hx waking & sitting up during surgery,Combative coming out of anesthesia, no hx blood transfusion. mom and siblings have hx of being combative and waking up during surgery Type of Cardiac Device: Loop Device Placement Date:: unk Smoking Status: Former smoker - Past Family History Mother Family Medical History: No Reported History Father Family Medical History: COPD Medications and Allergies Home Medications Medication Instructions Recorded Confirmed Type Aspirin/Acetaminophen/Caffeine 1 each PO DIRECTED PRN 03/23/22 12/24/22 History [Excedrin Migraine Caplet] Cetirizine HCl [Zyrtec] 10 mg PO DAILY PRN 03/23/22 12/24/22 History Furosemide [Lasix] 20 mg PO BID 03/23/22 12/24/22 History Levothyroxine Sodium [Synthroid] 50 mcg PO QAM 03/23/22 12/24/22 History Omeprazole 20 mg PO BID 03/23/22 12/24/22 History Propranolol [Inderal] 120 mg PO BID 03/23/22 12/24/22 History dilTIAZem HCL [Diltiazem HCl 24Hr 120 mg PO QAM 03/23/22 12/24/22 History ER] Aspirin EC [Ecotrin Low Dose] 81 mg PO DAILY 07/06/22 12/24/22 History Atorvastatin [Lipitor] 40 mg PO DAILY 07/06/22 12/24/22 History Ezetimibe [Zetia] 10 mg PO DAILY 07/06/22 12/24/22 History Mupirocin [Mupirocin 2%] 1 applic NASAL BID #1 tub 12/18/22 12/24/22 Rx Magnesium Oxide [Mag-Ox] 400 mg PO HS 12/20/22 12/24/22 History SUMAtriptan succinate [Imitrex] 100 mg PO DIRECTED PRN 12/20/22 12/24/22 History lisinopriL [Zestril] 10 mg PO DAILY 12/20/22 12/24/22 History Allergies Allergy/AdvReac Type Severity Reaction Status Date / Time cranberry Allergy Rash/Hives Verified 12/25/22 12:20 hydromorphone [From Dilaudid] Allergy Anaphylaxis Verified 12/24/22 06:04 morphine Allergy Anaphylaxis Verified 12/24/22 06:04 Penicillins Allergy Severe Verified 12/24/22 06:04 Rash/Hives ranitidine [From Zantac] Allergy Overstimula Verified 12/24/22 06:04 tion Sulfa (Sulfonamide Allergy Severe Verified 12/24/22 06:04 Antibiotics) Rash/Hives zafirlukast [From Accolate] Allergy Severe Verified 12/24/22 06:04 Rash/Hives paper tape/bandaids Allergy chemical Uncoded 12/24/22 06:04 owusu(cloth bandaids ok) some adhesives (tegaderm Allergy Chemical Uncoded 12/24/22 06:04 okay) Owusu Physical Exam Vitals: Vital Signs Temp Pulse Resp BP Pulse Ox FiO2 12/25/22 09:00 65 16 100 12/25/22 08:57 66 12 12/25/22 08:30 71 17 97 12/25/22 08:00 71 19 96 12/25/22 07:30 64 16 98 12/25/22 07:00 80 10 L 96 12/25/22 06:30 80 12 99 12/25/22 06:00 80 12 97/65 98 12/25/22 05:30 80 20 97 12/25/22 05:00 80 14 97/65 96 12/25/22 04:30 79 19 97/65 95 12/25/22 04:00 97.5 F L 80 19 106/66 95 12/25/22 03:30 80 15 95 12/25/22 03:01 80 13 106/66 95 12/25/22 02:34 80 11 L 98 12/25/22 02:00 80 15 98/73 99 12/25/22 01:40 50 12/25/22 01:30 80 11 L 99 12/25/22 01:00 80 11 L 98/73 99 12/25/22 00:30 80 11 L 98 12/25/22 00:00 97.0 F L 80 12 103/69 100 50 12/24/22 23:30 80 15 100 12/24/22 23:07 80 7 L 100 12/24/22 23:00 80 9 L 103/69 99 12/24/22 22:30 80 11 L 12/24/22 22:00 80 13 110/77 100 12/24/22 21:30 80 16 100 12/24/22 21:00 80 11 L 109/37 100 12/24/22 20:30 80 14 109/37 100 12/24/22 20:24 84 12/24/22 20:11 80 50 12/24/22 20:00 97.3 F L 80 10 L 114/82 98 50 12/24/22 19:30 80 14 97 12/24/22 19:00 80 12 97 2 12/24/22 18:30 80 10 L 97 12/24/22 18:00 80 13 99 12/24/22 17:55 80 10 L 100 12/24/22 17:50 80 18 100 40 12/24/22 17:45 80 15 100 12/24/22 17:30 80 12 99 40 12/24/22 17:03 40 12/24/22 17:00 80 18 98 40 12/24/22 16:30 80 18 100 12/24/22 16:28 40 12/24/22 16:02 81 12/24/22 16:00 98.6 F 80 18 100 50 12/24/22 15:50 50 12/24/22 15:48 80 50 12/24/22 15:45 80 18 100 12/24/22 15:30 80 18 100 12/24/22 15:15 80 18 100 12/24/22 15:00 80 18 100 50 12/24/22 14:45 80 18 100 12/24/22 14:30 80 18 100 12/24/22 14:15 80 18 100 12/24/22 14:00 80 18 100 50 12/24/22 13:45 80 18 100 12/24/22 13:39 50 12/24/22 13:30 80 18 100 12/24/22 13:15 80 14 12/24/22 13:00 80 14 99 100 12/24/22 12:47 100 12/24/22 12:45 64 12 95 100 Intake and Output 12/24/22 12/25/22 12/25/22 22:59 06:59 14:59 Intake Total 691.245 596.762 665.341 Output Total 380 330 130 Balance 311.245 266.762 535.341 Intake: IV 477 572 207 CO/CI 50 100 30 Pressure Bags 27 72 27 Sodium Chloride 0.9% 1, 400 400 150 000 ml @ 20 mls/hr IV . Q24H [facility] Rx#:[id number] Intake, IV Titration 214.245 24.762 8.341 Amount Amiodarone 360 mg In 207.2 Dextrose 5% in Water 200 ml @ 1 MG/MIN 34.533 mls/ hr IV .Q6H [facility] Rx#: [id number] Insulin Regular 100 unit 7.045 24.762 8.341 In Sodium Chloride 0.9% 100 ml @ Per Protocol IV .Q0M [facility] Rx#:[id number] Oral 450 Output: Chest Tube Drainage 70 50 50 Chest Tube Bilateral 70 50 50 Mediastinal Urine 310 280 80 Other: Voiding Method Indwelling Catheter Indwelling Catheter Weight 103.5 kg ABP, PAP, CO, CI - Last 8 Hours Arterial Blood Pressure 123/53 Arterial Blood Pressure 126/61 Arterial Blood Pressure 125/56 Arterial Blood Pressure 112/50 Arterial Blood Pressure 128/58 Arterial Blood Pressure 111/50 Arterial Blood Pressure 111/53 Arterial Blood Pressure 111/56 Arterial Blood Pressure 110/50 Arterial Blood Pressure 111/56 Arterial Blood Pressure 109/52 Arterial Blood Pressure 123/67 Arterial Blood Pressure 109/58 Pulmonary Artery Pressure 32/9 Pulmonary Artery Pressure 29/11 Pulmonary Artery Pressure 35/12 Pulmonary Artery Pressure 33/7 Pulmonary Artery Pressure 35/11 Pulmonary Artery Pressure 30/7 Pulmonary Artery Pressure 31/12 Pulmonary Artery Pressure 30/10 Pulmonary Artery Pressure 38/11 Pulmonary Artery Pressure 41/21 Pulmonary Artery Pressure 37/16 Pulmonary Artery Pressure 42/18 Pulmonary Artery Pressure 47/20 Pulmonary Artery Pressure 35/18 Cardiac Output 4.4 Cardiac Output 4.4 Cardiac Output 4.6 Cardiac Output 4.6 Cardiac Output 5 Cardiac Output 5 Cardiac Index 2.2 Cardiac Index 2.2 Cardiac Index 2.3 Cardiac Index 2.3 Cardiac Index 2.5 Cardiac Index 2.5 PHYSICAL EXAM: VITAL SIGNS: As above GENERAL: Sitting up in chair, no acute distress HEENT: Conjunctivae normal. eyes normal. MMM. NECK: Supple, No JVD. No thyroid enlargement. No LNs CARDIOVASCULAR: S1, S2 regular. RESPIRATION: Breath sounds diminished in the bases. No rhonchi or crackles. No bronchial breathing. ABDOMEN: Soft, nontender . No guarding. no masses palpable. +Bowel sounds. LEGS: No edema. no swelling. PSYCHIATRY: Alert and oriented X3, mood and affect normal. NERVOUS SYSTEM: Cranial N 2-12 grossly normal. Moves all 4 limbs. No focal deficits. Strength and sensation grossly intact. Skin: Warm and dry, no rash Results CBC & Chem 7: 12/25/22 04:25 12/25/22 08:15 Labs: Abnormal Lab Results - Last 24 Hours (Table) 12/18/22 12/24/22 12/24/22 Range/Units 09:01 08:00 08:00 WBC (3.8-10.6) k/uL RBC (3.80-5.40) m/uL Hgb (11.4-16.0) gm/dL Hct (34.0-46.0) % Plt Count (150-450) k/uL Neutrophils # (1.3-7.7) k/uL ABG pH (7.35-7.45) ABG pCO2 (35-45) mmHg ABG pO2 136 H 202 H (83-108) mmHg ABG HCO3 26 H (21-25) mmol/L ABG Total CO2 27 H 26 H (19-24) mmol/L ABG O2 Saturation 98.7 H 99.5 H (94-97) % ABG Hematocrit (34.0-46.0) % ABG Potassium (3.4-4.5) mmol/L ABG Ionized Calcium (4.5-5.3) mg/dL ABG Glucose 125 H 134 H (75-99) mg/dL ABG Lactic Acid 1.8 H (0.5-1.6) mmol/L VBG pH (7.31-7.41) VBG pCO2 (37-51) mmHg Hemoglobin (11.4-16.0) gm/dL Sodium (137-145) mmol/L Chloride (98-107) mmol/L BUN (7-17) mg/dL Glucose (74-99) mg/dL POC Glucose (mg/dL) (70-110) mg/dL Calcium (8.4-10.2) mg/dL Magnesium (1.6-2.3) mg/dL AST (14-36) U/L C-Reactive Protein (<1.0) mg/dL Total Protein (6.3-8.2) g/dL Albumin (3.5-5.0) g/dL Arterial Blood Potassium (3.4-4.5) mmol/L Arterial Blood Glucose 125 H 134 H (75-99) mg/dL Crossmatch See Detail 12/24/22 12/24/22 12/24/22 Range/Units 08:00 08:00 08:00 WBC (3.8-10.6) k/uL RBC (3.80-5.40) m/uL Hgb (11.4-16.0) gm/dL Hct (34.0-46.0) % Plt Count (150-450) k/uL Neutrophils # (1.3-7.7) k/uL ABG pH 7.48 H (7.35-7.45) ABG pCO2 (35-45) mmHg ABG pO2 >420 H >420 H 173 H (83-108) mmHg ABG HCO3 27 H (21-25) mmol/L ABG Total CO2 28 H 26 H 25 H (19-24) mmol/L ABG O2 Saturation 100.0 H 100.0 H 99.3 H (94-97) % ABG Hematocrit 26 L 25 L 31 L (34.0-46.0) % ABG Potassium 5.1 H 5.1 H (3.4-4.5) mmol/L ABG Ionized Calcium 4.1 L 3.9 L (4.5-5.3) mg/dL ABG Glucose 131 H 130 H 131 H (75-99) mg/dL ABG Lactic Acid 1.9 H 2.4 H* (0.5-1.6) mmol/L VBG pH (7.31-7.41) VBG pCO2 (37-51) mmHg Hemoglobin 8.4 L 8.0 L 10.2 L (11.4-16.0) gm/dL Sodium (137-145) mmol/L Chloride (98-107) mmol/L BUN (7-17) mg/dL Glucose (74-99) mg/dL POC Glucose (mg/dL) (70-110) mg/dL Calcium (8.4-10.2) mg/dL Magnesium (1.6-2.3) mg/dL AST (14-36) U/L C-Reactive Protein (<1.0) mg/dL Total Protein (6.3-8.2) g/dL Albumin (3.5-5.0) g/dL Arterial Blood Potassium 5.1 H 5.1 H (3.4-4.5) mmol/L Arterial Blood Glucose 131 H 130 H 131 H (75-99) mg/dL Crossmatch 12/24/22 12/24/22 12/24/22 Range/Units 12:34 12:46 12:50 WBC 15.7 H (3.8-10.6) k/uL RBC 3.61 L (3.80-5.40) m/uL Hgb 11.2 L (11.4-16.0) gm/dL Hct (34.0-46.0) % Plt Count 121 L (150-450) k/uL Neutrophils # 12.8 H (1.3-7.7) k/uL ABG pH (7.35-7.45) ABG pCO2 (35-45) mmHg ABG pO2 166 H (83-108) mmHg ABG HCO3 (21-25) mmol/L ABG Total CO2 26 H (19-24) mmol/L ABG O2 Saturation 99.3 H (94-97) % ABG Hematocrit 33 L (34.0-46.0) % ABG Potassium (3.4-4.5) mmol/L ABG Ionized Calcium (4.5-5.3) mg/dL ABG Glucose 125 H (75-99) mg/dL ABG Lactic Acid 1.8 H (0.5-1.6) mmol/L VBG pH (7.31-7.41) VBG pCO2 (37-51) mmHg Hemoglobin 10.8 L (11.4-16.0) gm/dL Sodium (137-145) mmol/L Chloride (98-107) mmol/L BUN (7-17) mg/dL Glucose (74-99) mg/dL POC Glucose (mg/dL) 122 H (70-110) mg/dL Calcium (8.4-10.2) mg/dL Magnesium (1.6-2.3) mg/dL AST (14-36) U/L C-Reactive Protein (<1.0) mg/dL Total Protein (6.3-8.2) g/dL Albumin (3.5-5.0) g/dL Arterial Blood Potassium (3.4-4.5) mmol/L Arterial Blood Glucose 125 H (75-99) mg/dL Crossmatch 12/24/22 12/24/22 12/24/22 Range/Units 12:50 13:26 13:46 WBC (3.8-10.6) k/uL RBC (3.80-5.40) m/uL Hgb (11.4-16.0) gm/dL Hct (34.0-46.0) % Plt Count (150-450) k/uL Neutrophils # (1.3-7.7) k/uL ABG pH 7.29 L (7.35-7.45) ABG pCO2 54 H (35-45) mmHg ABG pO2 365 H (83-108) mmHg ABG HCO3 26 H (21-25) mmol/L ABG Total CO2 28 H (19-24) mmol/L ABG O2 Saturation 100.0 H (94-97) % ABG Hematocrit (34.0-46.0) % ABG Potassium (3.4-4.5) mmol/L ABG Ionized Calcium (4.5-5.3) mg/dL ABG Glucose (75-99) mg/dL ABG Lactic Acid (0.5-1.6) mmol/L VBG pH (7.31-7.41) VBG pCO2 (37-51) mmHg Hemoglobin (11.4-16.0) gm/dL Sodium (137-145) mmol/L Chloride 108 H (98-107) mmol/L BUN 18 H (7-17) mg/dL Glucose 118 H (74-99) mg/dL POC Glucose (mg/dL) 124 H (70-110) mg/dL Calcium 8.0 L (8.4-10.2) mg/dL Magnesium 2.6 H (1.6-2.3) mg/dL AST (14-36) U/L C-Reactive Protein (<1.0) mg/dL Total Protein 4.2 L (6.3-8.2) g/dL Albumin 2.5 L (3.5-5.0) g/dL Arterial Blood Potassium (3.4-4.5) mmol/L Arterial Blood Glucose (75-99) mg/dL Crossmatch 12/24/22 12/24/22 12/24/22 Range/Units 15:18 15:45 16:00 WBC 24.5 H (3.8-10.6) k/uL RBC (3.80-5.40) m/uL Hgb (11.4-16.0) gm/dL Hct (34.0-46.0) % Plt Count (150-450) k/uL Neutrophils # 21.2 H (1.3-7.7) k/uL ABG pH (7.35-7.45) ABG pCO2 (35-45) mmHg ABG pO2 (83-108) mmHg ABG HCO3 (21-25) mmol/L ABG Total CO2 (19-24) mmol/L ABG O2 Saturation (94-97) % ABG Hematocrit (34.0-46.0) % ABG Potassium (3.4-4.5) mmol/L ABG Ionized Calcium (4.5-5.3) mg/dL ABG Glucose (75-99) mg/dL ABG Lactic Acid (0.5-1.6) mmol/L VBG pH 7.27 L (7.31-7.41) VBG pCO2 57 H (37-51) mmHg Hemoglobin (11.4-16.0) gm/dL Sodium (137-145) mmol/L Chloride (98-107) mmol/L BUN (7-17) mg/dL Glucose (74-99) mg/dL POC Glucose (mg/dL) 140 H (70-110) mg/dL Calcium (8.4-10.2) mg/dL Magnesium (1.6-2.3) mg/dL AST (14-36) U/L C-Reactive Protein (<1.0) mg/dL Total Protein (6.3-8.2) g/dL Albumin (3.5-5.0) g/dL Arterial Blood Potassium (3.4-4.5) mmol/L Arterial Blood Glucose (75-99) mg/dL Crossmatch 12/24/22 12/24/22 12/24/22 Range/Units 16:11 16:15 17:02 WBC (3.8-10.6) k/uL RBC (3.80-5.40) m/uL Hgb (11.4-16.0) gm/dL Hct (34.0-46.0) % Plt Count (150-450) k/uL Neutrophils # (1.3-7.7) k/uL ABG pH 7.33 L (7.35-7.45) ABG pCO2 49 H (35-45) mmHg ABG pO2 113 H (83-108) mmHg ABG HCO3 (21-25) mmol/L ABG Total CO2 (19-24) mmol/L ABG O2 Saturation 98.2 H (94-97) % ABG Hematocrit (34.0-46.0) % ABG Potassium (3.4-4.5) mmol/L ABG Ionized Calcium (4.5-5.3) mg/dL ABG Glucose (75-99) mg/dL ABG Lactic Acid (0.5-1.6) mmol/L VBG pH (7.31-7.41) VBG pCO2 (37-51) mmHg Hemoglobin (11.4-16.0) gm/dL Sodium (137-145) mmol/L Chloride (98-107) mmol/L BUN (7-17) mg/dL Glucose (74-99) mg/dL POC Glucose (mg/dL) 146 H 153 H (70-110) mg/dL Calcium (8.4-10.2) mg/dL Magnesium (1.6-2.3) mg/dL AST (14-36) U/L C-Reactive Protein (<1.0) mg/dL Total Protein (6.3-8.2) g/dL Albumin (3.5-5.0) g/dL Arterial Blood Potassium (3.4-4.5) mmol/L Arterial Blood Glucose (75-99) mg/dL Crossmatch 12/24/22 12/24/22 12/24/22 Range/Units 17:37 17:45 18:19 WBC 22.8 H (3.8-10.6) k/uL RBC 3.59 L (3.80-5.40) m/uL Hgb 11.3 L (11.4-16.0) gm/dL Hct (34.0-46.0) % Plt Count (150-450) k/uL Neutrophils # 20.1 H (1.3-7.7) k/uL ABG pH 7.31 L (7.35-7.45) ABG pCO2 51 H (35-45) mmHg ABG pO2 (83-108) mmHg ABG HCO3 (21-25) mmol/L ABG Total CO2 27 H (19-24) mmol/L ABG O2 Saturation 97.8 H (94-97) % ABG Hematocrit (34.0-46.0) % ABG Potassium (3.4-4.5) mmol/L ABG Ionized Calcium (4.5-5.3) mg/dL ABG Glucose (75-99) mg/dL ABG Lactic Acid (0.5-1.6) mmol/L VBG pH (7.31-7.41) VBG pCO2 (37-51) mmHg Hemoglobin (11.4-16.0) gm/dL Sodium (137-145) mmol/L Chloride (98-107) mmol/L BUN (7-17) mg/dL Glucose (74-99) mg/dL POC Glucose (mg/dL) 142 H (70-110) mg/dL Calcium (8.4-10.2) mg/dL Magnesium (1.6-2.3) mg/dL AST (14-36) U/L C-Reactive Protein (<1.0) mg/dL Total Protein (6.3-8.2) g/dL Albumin (3.5-5.0) g/dL Arterial Blood Potassium (3.4-4.5) mmol/L Arterial Blood Glucose (75-99) mg/dL Crossmatch 12/24/22 12/24/22 12/24/22 Range/Units 18:48 19:54 20:07 WBC (3.8-10.6) k/uL RBC (3.80-5.40) m/uL Hgb (11.4-16.0) gm/dL Hct (34.0-46.0) % Plt Count (150-450) k/uL Neutrophils # (1.3-7.7) k/uL ABG pH 7.31 L (7.35-7.45) ABG pCO2 47 H (35-45) mmHg ABG pO2 (83-108) mmHg ABG HCO3 (21-25) mmol/L ABG Total CO2 25 H (19-24) mmol/L ABG O2 Saturation (94-97) % ABG Hematocrit (34.0-46.0) % ABG Potassium (3.4-4.5) mmol/L ABG Ionized Calcium (4.5-5.3) mg/dL ABG Glucose (75-99) mg/dL ABG Lactic Acid (0.5-1.6) mmol/L VBG pH (7.31-7.41) VBG pCO2 (37-51) mmHg Hemoglobin (11.4-16.0) gm/dL Sodium (137-145) mmol/L Chloride (98-107) mmol/L BUN (7-17) mg/dL Glucose (74-99) mg/dL POC Glucose (mg/dL) 151 H 148 H (70-110) mg/dL Calcium (8.4-10.2) mg/dL Magnesium (1.6-2.3) mg/dL AST (14-36) U/L C-Reactive Protein (<1.0) mg/dL Total Protein (6.3-8.2) g/dL Albumin (3.5-5.0) g/dL Arterial Blood Potassium (3.4-4.5) mmol/L Arterial Blood Glucose (75-99) mg/dL Crossmatch 12/24/22 12/24/22 12/24/22 Range/Units 20:59 22:05 23:16 WBC (3.8-10.6) k/uL RBC (3.80-5.40) m/uL Hgb (11.4-16.0) gm/dL Hct (34.0-46.0) % Plt Count (150-450) k/uL Neutrophils # (1.3-7.7) k/uL ABG pH (7.35-7.45) ABG pCO2 (35-45) mmHg ABG pO2 (83-108) mmHg ABG HCO3 (21-25) mmol/L ABG Total CO2 (19-24) mmol/L ABG O2 Saturation (94-97) % ABG Hematocrit (34.0-46.0) % ABG Potassium (3.4-4.5) mmol/L ABG Ionized Calcium (4.5-5.3) mg/dL ABG Glucose (75-99) mg/dL ABG Lactic Acid (0.5-1.6) mmol/L VBG pH (7.31-7.41) VBG pCO2 (37-51) mmHg Hemoglobin (11.4-16.0) gm/dL Sodium (137-145) mmol/L Chloride (98-107) mmol/L BUN (7-17) mg/dL Glucose (74-99) mg/dL POC Glucose (mg/dL) 137 H 134 H 124 H (70-110) mg/dL Calcium (8.4-10.2) mg/dL Magnesium (1.6-2.3) mg/dL AST (14-36) U/L C-Reactive Protein (<1.0) mg/dL Total Protein (6.3-8.2) g/dL Albumin (3.5-5.0) g/dL Arterial Blood Potassium (3.4-4.5) mmol/L Arterial Blood Glucose (75-99) mg/dL Crossmatch 12/25/22 12/25/22 12/25/22 Range/Units 00:19 00:58 03:27 WBC (3.8-10.6) k/uL RBC (3.80-5.40) m/uL Hgb (11.4-16.0) gm/dL Hct (34.0-46.0) % Plt Count (150-450) k/uL Neutrophils # (1.3-7.7) k/uL ABG pH (7.35-7.45) ABG pCO2 (35-45) mmHg ABG pO2 (83-108) mmHg ABG HCO3 (21-25) mmol/L ABG Total CO2 (19-24) mmol/L ABG O2 Saturation (94-97) % ABG Hematocrit (34.0-46.0) % ABG Potassium (3.4-4.5) mmol/L ABG Ionized Calcium (4.5-5.3) mg/dL ABG Glucose (75-99) mg/dL ABG Lactic Acid (0.5-1.6) mmol/L VBG pH (7.31-7.41) VBG pCO2 (37-51) mmHg Hemoglobin (11.4-16.0) gm/dL Sodium (137-145) mmol/L Chloride (98-107) mmol/L BUN (7-17) mg/dL Glucose (74-99) mg/dL POC Glucose (mg/dL) 135 H 130 H 139 H (70-110) mg/dL Calcium (8.4-10.2) mg/dL Magnesium (1.6-2.3) mg/dL AST (14-36) U/L C-Reactive Protein (<1.0) mg/dL Total Protein (6.3-8.2) g/dL Albumin (3.5-5.0) g/dL Arterial Blood Potassium (3.4-4.5) mmol/L Arterial Blood Glucose (75-99) mg/dL Crossmatch 12/25/22 12/25/22 12/25/22 Range/Units 04:24 04:25 06:14 WBC 20.7 H (3.8-10.6) k/uL RBC 3.49 L (3.80-5.40) m/uL Hgb 10.6 L (11.4-16.0) gm/dL Hct 33.6 L (34.0-46.0) % Plt Count 144 L (150-450) k/uL Neutrophils # 16.9 H (1.3-7.7) k/uL ABG pH (7.35-7.45) ABG pCO2 (35-45) mmHg ABG pO2 (83-108) mmHg ABG HCO3 (21-25) mmol/L ABG Total CO2 (19-24) mmol/L ABG O2 Saturation (94-97) % ABG Hematocrit (34.0-46.0) % ABG Potassium (3.4-4.5) mmol/L ABG Ionized Calcium (4.5-5.3) mg/dL ABG Glucose (75-99) mg/dL ABG Lactic Acid (0.5-1.6) mmol/L VBG pH (7.31-7.41) VBG pCO2 (37-51) mmHg Hemoglobin (11.4-16.0) gm/dL Sodium (137-145) mmol/L Chloride (98-107) mmol/L BUN (7-17) mg/dL Glucose (74-99) mg/dL POC Glucose (mg/dL) 135 H 147 H (70-110) mg/dL Calcium (8.4-10.2) mg/dL Magnesium (1.6-2.3) mg/dL AST (14-36) U/L C-Reactive Protein (<1.0) mg/dL Total Protein (6.3-8.2) g/dL Albumin (3.5-5.0) g/dL Arterial Blood Potassium (3.4-4.5) mmol/L Arterial Blood Glucose (75-99) mg/dL Crossmatch 12/25/22 12/25/22 12/25/22 Range/Units 07:03 08:10 08:15 WBC (3.8-10.6) k/uL RBC (3.80-5.40) m/uL Hgb (11.4-16.0) gm/dL Hct (34.0-46.0) % Plt Count (150-450) k/uL Neutrophils # (1.3-7.7) k/uL ABG pH (7.35-7.45) ABG pCO2 (35-45) mmHg ABG pO2 (83-108) mmHg ABG HCO3 (21-25) mmol/L ABG Total CO2 (19-24) mmol/L ABG O2 Saturation (94-97) % ABG Hematocrit (34.0-46.0) % ABG Potassium (3.4-4.5) mmol/L ABG Ionized Calcium (4.5-5.3) mg/dL ABG Glucose (75-99) mg/dL ABG Lactic Acid (0.5-1.6) mmol/L VBG pH (7.31-7.41) VBG pCO2 (37-51) mmHg Hemoglobin (11.4-16.0) gm/dL Sodium 136 L (137-145) mmol/L Chloride 110 H (98-107) mmol/L BUN 23 H (7-17) mg/dL Glucose 175 H (74-99) mg/dL POC Glucose (mg/dL) 140 H 179 H (70-110) mg/dL Calcium 7.8 L (8.4-10.2) mg/dL Magnesium (1.6-2.3) mg/dL AST 45 H (14-36) U/L C-Reactive Protein 6.9 H (<1.0) mg/dL Total Protein 4.9 L (6.3-8.2) g/dL Albumin 2.8 L (3.5-5.0) g/dL Arterial Blood Potassium (3.4-4.5) mmol/L Arterial Blood Glucose (75-99) mg/dL Crossmatch 12/25/22 Range/Units 09:09 WBC (3.8-10.6) k/uL RBC (3.80-5.40) m/uL Hgb (11.4-16.0) gm/dL Hct (34.0-46.0) % Plt Count (150-450) k/uL Neutrophils # (1.3-7.7) k/uL ABG pH (7.35-7.45) ABG pCO2 (35-45) mmHg ABG pO2 (83-108) mmHg ABG HCO3 (21-25) mmol/L ABG Total CO2 (19-24) mmol/L ABG O2 Saturation (94-97) % ABG Hematocrit (34.0-46.0) % ABG Potassium (3.4-4.5) mmol/L ABG Ionized Calcium (4.5-5.3) mg/dL ABG Glucose (75-99) mg/dL ABG Lactic Acid (0.5-1.6) mmol/L VBG pH (7.31-7.41) VBG pCO2 (37-51) mmHg Hemoglobin (11.4-16.0) gm/dL Sodium (137-145) mmol/L Chloride (98-107) mmol/L BUN (7-17) mg/dL Glucose (74-99) mg/dL POC Glucose (mg/dL) 186 H (70-110) mg/dL Calcium (8.4-10.2) mg/dL Magnesium (1.6-2.3) mg/dL AST (14-36) U/L C-Reactive Protein (<1.0) mg/dL Total Protein (6.3-8.2) g/dL Albumin (3.5-5.0) g/dL Arterial Blood Potassium (3.4-4.5) mmol/L Arterial Blood Glucose (75-99) mg/dL Crossmatch Microbiology - Last 24 Hours (Table) 12/24/22 12:25 Gram Stain - Preliminary Heart Valve Tissue Culture - Preliminary 12/24/22 12:25 Anaerobic Culture - Preliminary Heart Valve 12/24/22 16:05 Fungal Culture - Preliminary Blood Assessment and Plan Assessment: Severe aortic regurgitation, status post aortic valve replacement with mechanical valve, excision of left atrial appendage Chronic Leukocytosis, evaluated and cleared outpatient by hematology, leaflet of aortic heart valve-left cusp excised and sent to pathology,cx, results pending, ID following Chronic paroxysmal atrial fibrillation Hypertension Hyperlipidemia Hypothyroidism Family history CAD Gastroesophageal reflux disease Hemoglobin A1c 6.4 Morbid obesity, BMI 41.7 Plan: Continue on current medication regime ,monitoring and symptomatic treatmen t. A1c 6.4, discussed with patient hyperglycemia affects on healing, consistent carb diet added. Close monitoring of Accu-Cheks. Heart valve pathology, cultures pending. IV antibiotics as per ID. Aggressive pulmonary toileting with incentive spirometer reinforced. The impression and plan of care has been dictated as directed. : I performed a history and examination of this patient, discussed the same with the dictator. I agree with the dictator's note ,documented as a scribe. Any additional findings or plans will be noted.
[2022-12-25] MEDS: traMADol 50 MG TAB PO PRN ×3 (13:06→21:22)
[2022-12-25 13:12] LABS: Glucose,Whole Blood 154 mg/dL (70-110)
[2022-12-25 13:32] VITALS: BMI 41.7
--- NOTE | 2022-12-25 13:56 | P.PN ---
Subjective Progress Note Date: 12/25/22 Principal diagnosis: Severe aortic valve regurgitation, with evidence of a lesion on the ventricular side of the left coronary cusp. Past medical history significant for hypertens ion, hyperlipidemia, paroxysmal atrial fibrillation, supraventricular tachycardia, chronic leukocytosis, obesity with a BMI of 41.7 kg/m, preserved left ventricular systolic function, hypothyroid, GERD, fibromyalgia, migraine headaches, and remote history of nicotine dependence. POD #1 aortic valve replacement using a 21 mm onX mechanical valve, exclusion of the left atrial appendage using a 35 mm Atriclip, intraoperative transesophageal echocardiogram and epi-aortic scanning. Postoperative acute blood loss anemia, expected given hemodilution and cardiopulmonary bypass. The patient was seen in follow-up today 12/25/2022 at her bedside in the intensive care unit. She is sitting up to the bedside chair, is awake, alert, oriented 3 and is in no acute distress. She was successfully extubated at 5:51 PM last evening, oxygen saturations are 99% on 2 L nasal cannula and she is achieving 1500 mL on her incentive spirometry with encouragement. She denies any complaints of shortness of breath at this time, although is complaining of some surgical type pain to her chest tube insertion site. Currently rating her pain 4 out of 10 on the pain scale. Primacor drip was started last evening for a cardiac index of 1.9 and is currently infusing at 0.2 mcg/kg/m. Bedside telemetry showing AAI paced rhythm at 80 bpm, underlying rhythm is normal sinus rhythm with a heart rate in the 70s. Right IJ Cordis and [place]-Valente catheter remains in place with current and hemodynamics showing a cardiac output of 4.6, cardiac index 2.3, PA pressure 35/17 and CVP 12 mmHg. Mediastinal chest tubes r emain in place to low continuous wall suction -20 cm H2O. Draining thin serosanguineous drainage with 50 mL output in the last 8 hours and 180 mL output since surgery. Chest x-ray was reviewed. Objective - Vital Signs Vital signs: Vital Signs Temp 97.5 F L 12/25/22 04:00 Pulse 80 12/25/22 07:00 Resp 10 L 12/25/22 07:00 BP 97/65 12/25/22 06:00 Pulse Ox 96 12/25/22 07:00 FiO2 50 12/25/22 01:40 Intake & Output 12/24/22 12/25/22 12/25/22 18:59 06:59 18:59 Intake Total 017.847 5413.962 59 Output Total 2260 500 35 Balance -1874.640 580.962 24 Weight 103.5 kg Intake: IV 352 849 59 CO/CI 150 Pressure Bags 99 9 Sodium Chloride 0.9% 1, 300 600 50 000 ml @ 50 mls/hr IV . Q20H INA Rx#:[id number] Intake, IV Titration 33.360 231.962 Amount Amiodarone 360 mg In 207.2 Dextrose 5% in Water 200 ml @ 1 MG/MIN 34.533 mls/ hr IV .Q6H INA Rx#: [id number] Insulin Regular 100 unit 7.045 24.762 In Sodium Chloride 0.9% 100 ml @ Per Protocol IV .Q0M INA Rx#:[id number] propofoL 1,000 mg In 26.315 Empty Bag 1 bag @ Titrate IV .Q0M INA Rx#: [id number] Output: Chest Tube Drainage 95 80 20 Chest Tube Bilateral 95 80 20 Mediastinal Urine 365 420 15 Estimated Blood Loss 1800 Other: Voiding Method Indwelling Catheter Indwelling Catheter ABP, PAP, CO, CI - Last Documented Arterial Blood Pressure 128/58 Pulmonary Artery Pressure 35/11 Cardiac Output 4.6 Cardiac Index 2.3 - Exam CONSTITUTIONAL: Sitting up to the bedside chair in the intensive care unit, appears comfortable, cooperative, no apparent acute distress. HEENT: Neck is supple, no JVD, no lymphadenopathy. Right IJ Cordis and [place]- Valente catheter in place and functioning. RESPIRATORY: Lungs sounds essentially clear throughout, diminished to his bilateral bases. Respirations are symmetrical and nonlabored. Currently on 2 L nasal cannula with oxygen saturations 99%. Able to achieve 1500 mL on her incentive spirometry. Strong cough. CARDIOVASCULAR: Regular rhythm and rate. S1 and S2 present, negative for S3, gallop or murmur. Sternum is stable. Palpable peripheral pulses bilaterally. No calf pain or tenderness noted. Heart hugger in place with patient demonstrating appropriate use. Knee-high TERESA hose and sequential compression devices in place to his bilateral lower extremities. GASTROINTESTINAL: Abdomen soft, nontender, nondistended. Hypoactive bowel sounds present 4 quadrants. Tolerating diet. Passing flatus. No guarding or rigidity. GENITOURINARY: Peralta present draining clear, yellow urine. Output 270 mL in the last 8 hours. INTEGUMENTARY: Skin is warm and dry with no evidence of clubbing or cyanosis. Midline sternal incision clean dry and well approximated, covered with dry intact dressing. NEUROLOGIC: Cranial nerves II through XII intact. No focal deficits. MUSKULOSKELETAL: Able to move all extremities, strength equal bilaterally, generalized weakness. PSYCHIATRIC: Alert and oriented to person place and time, appropriate affect, intact judgment and insight. INVASIVE LINES AND TUBES: Mediastinal chest tubes present and connected to low continuous wall suction, no air leaks present. Mediastinal tube with 50 mL of thin serosanguineous drainage overnight, 180 mL output in the last 24 hours. Atrial and ventricular epicardial pacemaker wires present, connected to generator, AAI backup rate 80 bpm. Right internal jugular [place]/Cordis, right radial arterial line present. Last CO 4.6, CI 2.3, PA 35/17 and CVP 12 mmHg. - Allied health notes Allied health notes reviewed: nursing - Labs CBC & Chem 7: 12/25/22 04:25 12/24/22 12:50 Labs: Abnormal Lab Results - Last 24 Hours (Table) 12/18/22 12/24/22 12/24/22 Range/Units 09:01 08:00 08:00 WBC (3.8-10.6) k/uL RBC (3.80-5.40) m/uL Hgb (11.4-16.0) gm/dL Hct (34.0-46.0) % Plt Count (150-450) k/uL Neutrophils # (1.3-7.7) k/uL ABG pH (7.35-7.45) ABG pCO2 (35-45) mmHg ABG pO2 136 H 202 H (83-108) mmHg ABG HCO3 26 H (21-25) mmol/L ABG Total CO2 27 H 26 H (19-24) mmol/L ABG O2 Saturation 98.7 H 99.5 H (94-97) % ABG Hematocrit (34.0-46.0) % ABG Potassium (3.4-4.5) mmol/L ABG Ionized Calcium (4.5-5.3) mg/dL ABG Glucose 125 H 134 H (75-99) mg/dL ABG Lactic Acid 1.8 H (0.5-1.6) mmol/L VBG pH (7.31-7.41) VBG pCO2 (37-51) mmHg Hemoglobin (11.4-16.0) gm/dL Chloride (98-107) mmol/L BUN (7-17) mg/dL Glucose (74-99) mg/dL POC Glucose (mg/dL) (70-110) mg/dL Calcium (8.4-10.2) mg/dL Magnesium (1.6-2.3) mg/dL Total Protein (6.3-8.2) g/dL Albumin (3.5-5.0) g/dL Arterial Blood Potassium (3.4-4.5) mmol/L Arterial Blood Glucose 125 H 134 H (75-99) mg/dL Crossmatch See Detail 12/24/22 12/24/22 12/24/22 Range/Units 08:00 08:00 08:00 WBC (3.8-10.6) k/uL RBC (3.80-5.40) m/uL Hgb (11.4-16.0) gm/dL Hct (34.0-46.0) % Plt Count (150-450) k/uL Neutrophils # (1.3-7.7) k/uL ABG pH 7.48 H (7.35-7.45) ABG pCO2 (35-45) mmHg ABG pO2 >420 H >420 H 173 H (83-108) mmHg ABG HCO3 27 H (21-25) mmol/L ABG Total CO2 28 H 26 H 25 H (19-24) mmol/L ABG O2 Saturation 100.0 H 100.0 H 99.3 H (94-97) % ABG Hematocrit 26 L 25 L 31 L (34.0-46.0) % ABG Potassium 5.1 H 5.1 H (3.4-4.5) mmol/L ABG Ionized Calcium 4.1 L 3.9 L (4.5-5.3) mg/dL ABG Glucose 131 H 130 H 131 H (75-99) mg/dL ABG Lactic Acid 1.9 H 2.4 H* (0.5-1.6) mmol/L VBG pH (7.31-7.41) VBG pCO2 (37-51) mmHg Hemoglobin 8.4 L 8.0 L 10.2 L (11.4-16.0) gm/dL Chloride (98-107) mmol/L BUN (7-17) mg/dL Glucose (74-99) mg/dL POC Glucose (mg/dL) (70-110) mg/dL Calcium (8.4-10.2) mg/dL Magnesium (1.6-2.3) mg/dL Total Protein (6.3-8.2) g/dL Albumin (3.5-5.0) g/dL Arterial Blood Potassium 5.1 H 5.1 H (3.4-4.5) mmol/L Arterial Blood Glucose 131 H 130 H 131 H (75-99) mg/dL Crossmatch 12/24/22 12/24/22 12/24/22 Range/Units 12:34 12:46 12:50 WBC 15.7 H (3.8-10.6) k/uL RBC 3.61 L (3.80-5.40) m/uL Hgb 11.2 L (11.4-16.0) gm/dL Hct (34.0-46.0) % Plt Count 121 L (150-450) k/uL Neutrophils # 12.8 H (1.3-7.7) k/uL ABG pH (7.35-7.45) ABG pCO2 (35-45) mmHg ABG pO2 166 H (83-108) mmHg ABG HCO3 (21-25) mmol/L ABG Total CO2 26 H (19-24) mmol/L ABG O2 Saturation 99.3 H (94-97) % ABG Hematocrit 33 L (34.0-46.0) % ABG Potassium (3.4-4.5) mmol/L ABG Ionized Calcium (4.5-5.3) mg/dL ABG Glucose 125 H (75-99) mg/dL ABG Lactic Acid 1.8 H (0.5-1.6) mmol/L VBG pH (7.31-7.41) VBG pCO2 (37-51) mmHg Hemoglobin 10.8 L (11.4-16.0) gm/dL Chloride (98-107) mmol/L BUN (7-17) mg/dL Glucose (74-99) mg/dL POC Glucose (mg/dL) 122 H (70-110) mg/dL Calcium (8.4-10.2) mg/dL Magnesium (1.6-2.3) mg/dL Total Protein (6.3-8.2) g/dL Albumin (3.5-5.0) g/dL Arterial Blood Potassium (3.4-4.5) mmol/L Arterial Blood Glucose 125 H (75-99) mg/dL Crossmatch 12/24/22 12/24/22 12/24/22 Range/Units 12:50 13:26 13:46 WBC (3.8-10.6) k/uL RBC (3.80-5.40) m/uL Hgb (11.4-16.0) gm/dL Hct (34.0-46.0) % Plt Count (150-450) k/uL Neutrophils # (1.3-7.7) k/uL ABG pH 7.29 L (7.35-7.45) ABG pCO2 54 H (35-45) mmHg ABG pO2 365 H (83-108) mmHg ABG HCO3 26 H (21-25) mmol/L ABG Total CO2 28 H (19-24) mmol/L ABG O2 Saturation 100.0 H (94-97) % ABG Hematocrit (34.0-46.0) % ABG Potassium (3.4-4.5) mmol/L ABG Ionized Calcium (4.5-5.3) mg/dL ABG Glucose (75-99) mg/dL ABG Lactic Acid (0.5-1.6) mmol/L VBG pH (7.31-7.41) VBG pCO2 (37-51) mmHg Hemoglobin (11.4-16.0) gm/dL Chloride 108 H (98-107) mmol/L BUN 18 H (7-17) mg/dL Glucose 118 H (74-99) mg/dL POC Glucose (mg/dL) 124 H (70-110) mg/dL Calcium 8.0 L (8.4-10.2) mg/dL Magnesium 2.6 H (1.6-2.3) mg/dL Total Protein 4.2 L (6.3-8.2) g/dL Albumin 2.5 L (3.5-5.0) g/dL Arterial Blood Potassium (3.4-4.5) mmol/L Arterial Blood Glucose (75-99) mg/dL Crossmatch 12/24/22 12/24/22 12/24/22 Range/Units 15:18 15:45 16:00 WBC 24.5 H (3.8-10.6) k/uL RBC (3.80-5.40) m/uL Hgb (11.4-16.0) gm/dL Hct (34.0-46.0) % Plt Count (150-450) k/uL Neutrophils # 21.2 H (1.3-7.7) k/uL ABG pH (7.35-7.45) ABG pCO2 (35-45) mmHg ABG pO2 (83-108) mmHg ABG HCO3 (21-25) mmol/L ABG Total CO2 (19-24) mmol/L ABG O2 Saturation (94-97) % ABG Hematocrit (34.0-46.0) % ABG Potassium (3.4-4.5) mmol/L ABG Ionized Calcium (4.5-5.3) mg/dL ABG Glucose (75-99) mg/dL ABG Lactic Acid (0.5-1.6) mmol/L VBG pH 7.27 L (7.31-7.41) VBG pCO2 57 H (37-51) mmHg Hemoglobin (11.4-16.0) gm/dL Chloride (98-107) mmol/L BUN (7-17) mg/dL Glucose (74-99) mg/dL POC Glucose (mg/dL) 140 H (70-110) mg/dL Calcium (8.4-10.2) mg/dL Magnesium (1.6-2.3) mg/dL Total Protein (6.3-8.2) g/dL Albumin (3.5-5.0) g/dL Arterial Blood Potassium (3.4-4.5) mmol/L Arterial Blood Glucose (75-99) mg/dL Crossmatch 12/24/22 12/24/22 12/24/22 Range/Units 16:11 16:15 17:02 WBC (3.8-10.6) k/uL RBC (3.80-5.40) m/uL Hgb (11.4-16.0) gm/dL Hct (34.0-46.0) % Plt Count (150-450) k/uL Neutrophils # (1.3-7.7) k/uL ABG pH 7.33 L (7.35-7.45) ABG pCO2 49 H (35-45) mmHg ABG pO2 113 H (83-108) mmHg ABG HCO3 (21-25) mmol/L ABG Total CO2 (19-24) mmol/L ABG O2 Saturation 98.2 H (94-97) % ABG Hematocrit (34.0-46.0) % ABG Potassium (3.4-4.5) mmol/L ABG Ionized Calcium (4.5-5.3) mg/dL ABG Glucose (75-99) mg/dL ABG Lactic Acid (0.5-1.6) mmol/L VBG pH (7.31-7.41) VBG pCO2 (37-51) mmHg Hemoglobin (11.4-16.0) gm/dL Chloride (98-107) mmol/L BUN (7-17) mg/dL Glucose (74-99) mg/dL POC Glucose (mg/dL) 146 H 153 H (70-110) mg/dL Calcium (8.4-10.2) mg/dL Magnesium (1.6-2.3) mg/dL Total Protein (6.3-8.2) g/dL Albumin (3.5-5.0) g/dL Arterial Blood Potassium (3.4-4.5) mmol/L Arterial Blood Glucose (75-99) mg/dL Crossmatch 12/24/22 12/24/22 12/24/22 Range/Units 17:37 17:45 18:19 WBC 22.8 H (3.8-10.6) k/uL RBC 3.59 L (3.80-5.40) m/uL Hgb 11.3 L (11.4-16.0) gm/dL Hct (34.0-46.0) % Plt Count (150-450) k/uL Neutrophils # 20.1 H (1.3-7.7) k/uL ABG pH 7.31 L (7.35-7.45) ABG pCO2 51 H (35-45) mmHg ABG pO2 (83-108) mmHg ABG HCO3 (21-25) mmol/L ABG Total CO2 27 H (19-24) mmol/L ABG O2 Saturation 97.8 H (94-97) % ABG Hematocrit (34.0-46.0) % ABG Potassium (3.4-4.5) mmol/L ABG Ionized Calcium (4.5-5.3) mg/dL ABG Glucose (75-99) mg/dL ABG Lactic Acid (0.5-1.6) mmol/L VBG pH (7.31-7.41) VBG pCO2 (37-51) mmHg Hemoglobin (11.4-16.0) gm/dL Chloride (98-107) mmol/L BUN (7-17) mg/dL Glucose (74-99) mg/dL POC Glucose (mg/dL) 142 H (70-110) mg/dL Calcium (8.4-10.2) mg/dL Magnesium (1.6-2.3) mg/dL Total Protein (6.3-8.2) g/dL Albumin (3.5-5.0) g/dL Arterial Blood Potassium (3.4-4.5) mmol/L Arterial Blood Glucose (75-99) mg/dL Crossmatch 12/24/22 12/24/22 12/24/22 Range/Units 18:48 19:54 20:07 WBC (3.8-10.6) k/uL RBC (3.80-5.40) m/uL Hgb (11.4-16.0) gm/dL Hct (34.0-46.0) % Plt Count (150-450) k/uL Neutrophils # (1.3-7.7) k/uL ABG pH 7.31 L (7.35-7.45) ABG pCO2 47 H (35-45) mmHg ABG pO2 (83-108) mmHg ABG HCO3 (21-25) mmol/L ABG Total CO2 25 H (19-24) mmol/L ABG O2 Saturation (94-97) % ABG Hematocrit (34.0-46.0) % ABG Potassium (3.4-4.5) mmol/L ABG Ionized Calcium (4.5-5.3) mg/dL ABG Glucose (75-99) mg/dL ABG Lactic Acid (0.5-1.6) mmol/L VBG pH (7.31-7.41) VBG pCO2 (37-51) mmHg Hemoglobin (11.4-16.0) gm/dL Chloride (98-107) mmol/L BUN (7-17) mg/dL Glucose (74-99) mg/dL POC Glucose (mg/dL) 151 H 148 H (70-110) mg/dL Calcium (8.4-10.2) mg/dL Magnesium (1.6-2.3) mg/dL Total Protein (6.3-8.2) g/dL Albumin (3.5-5.0) g/dL Arterial Blood Potassium (3.4-4.5) mmol/L Arterial Blood Glucose (75-99) mg/dL Crossmatch 12/24/22 12/24/22 12/24/22 Range/Units 20:59 22:05 23:16 WBC (3.8-10.6) k/uL RBC (3.80-5.40) m/uL Hgb (11.4-16.0) gm/dL Hct (34.0-46.0) % Plt Count (150-450) k/uL Neutrophils # (1.3-7.7) k/uL ABG pH (7.35-7.45) ABG pCO2 (35-45) mmHg ABG pO2 (83-108) mmHg ABG HCO3 (21-25) mmol/L ABG Total CO2 (19-24) mmol/L ABG O2 Saturation (94-97) % ABG Hematocrit (34.0-46.0) % ABG Potassium (3.4-4.5) mmol/L ABG Ionized Calcium (4.5-5.3) mg/dL ABG Glucose (75-99) mg/dL ABG Lactic Acid (0.5-1.6) mmol/L VBG pH (7.31-7.41) VBG pCO2 (37-51) mmHg Hemoglobin (11.4-16.0) gm/dL Chloride (98-107) mmol/L BUN (7-17) mg/dL Glucose (74-99) mg/dL POC Glucose (mg/dL) 137 H 134 H 124 H (70-110) mg/dL Calcium (8.4-10.2) mg/dL Magnesium (1.6-2.3) mg/dL Total Protein (6.3-8.2) g/dL Albumin (3.5-5.0) g/dL Arterial Blood Potassium (3.4-4.5) mmol/L Arterial Blood Glucose (75-99) mg/dL Crossmatch 12/25/22 12/25/22 12/25/22 Range/Units 00:19 00:58 03:27 WBC (3.8-10.6) k/uL RBC (3.80-5.40) m/uL Hgb (11.4-16.0) gm/dL Hct (34.0-46.0) % Plt Count (150-450) k/uL Neutrophils # (1.3-7.7) k/uL ABG pH (7.35-7.45) ABG pCO2 (35-45) mmHg ABG pO2 (83-108) mmHg ABG HCO3 (21-25) mmol/L ABG Total CO2 (19-24) mmol/L ABG O2 Saturation (94-97) % ABG Hematocrit (34.0-46.0) % ABG Potassium (3.4-4.5) mmol/L ABG Ionized Calcium (4.5-5.3) mg/dL ABG Glucose (75-99) mg/dL ABG Lactic Acid (0.5-1.6) mmol/L VBG pH (7.31-7.41) VBG pCO2 (37-51) mmHg Hemoglobin (11.4-16.0) gm/dL Chloride (98-107) mmol/L BUN (7-17) mg/dL Glucose (74-99) mg/dL POC Glucose (mg/dL) 135 H 130 H 139 H (70-110) mg/dL Calcium (8.4-10.2) mg/dL Magnesium (1.6-2.3) mg/dL Total Protein (6.3-8.2) g/dL Albumin (3.5-5.0) g/dL Arterial Blood Potassium (3.4-4.5) mmol/L Arterial Blood Glucose (75-99) mg/dL Crossmatch 03/12/25/22 12/25/22 Range/Units 04:24 04:25 06:14 WBC 20.7 H (3.8-10.6) k/uL RBC 3.49 L (3.80-5.40) m/uL Hgb 10.6 L (11.4-16.0) gm/dL Hct 33.6 L (34.0-46.0) % Plt Count 144 L (150-450) k/uL Neutrophils # 16.9 H (1.3-7.7) k/uL ABG pH (7.35-7.45) ABG pCO2 (35-45) mmHg ABG pO2 (83-108) mmHg ABG HCO3 (21-25) mmol/L ABG Total CO2 (19-24) mmol/L ABG O2 Saturation (94-97) % ABG Hematocrit (34.0-46.0) % ABG Potassium (3.4-4.5) mmol/L ABG Ionized Calcium (4.5-5.3) mg/dL ABG Glucose (75-99) mg/dL ABG Lactic Acid (0.5-1.6) mmol/L VBG pH (7.31-7.41) VBG pCO2 (37-51) mmHg Hemoglobin (11.4-16.0) gm/dL Chloride (98-107) mmol/L BUN (7-17) mg/dL Glucose (74-99) mg/dL POC Glucose (mg/dL) 135 H 147 H (70-110) mg/dL Calcium (8.4-10.2) mg/dL Magnesium (1.6-2.3) mg/dL Total Protein (6.3-8.2) g/dL Albumin (3.5-5.0) g/dL Arterial Blood Potassium (3.4-4.5) mmol/L Arterial Blood Glucose (75-99) mg/dL Crossmatch 12/25/22 12/25/22 Range/Units 07:03 08:10 WBC (3.8-10.6) k/uL RBC (3.80-5.40) m/uL Hgb (11.4-16.0) gm/dL Hct (34.0-46.0) % Plt Count (150-450) k/uL Neutrophils # (1.3-7.7) k/uL ABG pH (7.35-7.45) ABG pCO2 (35-45) mmHg ABG pO2 (83-108) mmHg ABG HCO3 (21-25) mmol/L ABG Total CO2 (19-24) mmol/L ABG O2 Saturation (94-97) % ABG Hematocrit (34.0-46.0) % ABG Potassium (3.4-4.5) mmol/L ABG Ionized Calcium (4.5-5.3) mg/dL ABG Glucose (75-99) mg/dL ABG Lactic Acid (0.5-1.6) mmol/L VBG pH (7.31-7.41) VBG pCO2 (37-51) mmHg Hemoglobin (11.4-16.0) gm/dL Chloride (98-107) mmol/L BUN (7-17) mg/dL Glucose (74-99) mg/dL POC Glucose (mg/dL) 140 H 179 H (70-110) mg/dL Calcium (8.4-10.2) mg/dL Magnesium (1.6-2.3) mg/dL Total Protein (6.3-8.2) g/dL Albumin (3.5-5.0) g/dL Arterial Blood Potassium (3.4-4.5) mmol/L Arterial Blood Glucose (75-99) mg/dL Crossmatch Microbiology - Last 24 Hours (Table) 12/24/22 12:25 Tissue Culture - Preliminary Heart Valve 12/24/22 12:25 Anaerobic Culture - Preliminary Heart Valve 12/24/22 16:05 Fungal Culture - Preliminary Blood - Imaging and Cardiology Chest x-ray: report reviewed, image reviewed Assessment and Plan Assessment: 1. Severe aortic valve regurgitation, status post aortic valve replacement using a 21 mm onX mechanical valve 2. 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 Preserved left ventricular systolic function 4. Hypertension 5. Hyperlipidemia 6. Remote history of paroxysmal atrial fibrillation, status post exclusion of the left atrial appendage using a 35 mm Atriclip 7. History of supraventricular tachycardia 8. Obesity with a BMI of 41.7 kg/m 9. Hypothyroid 10. GERD 11. Fibromyalgia 12. Migraine headaches 13. Remote history of nicotine dependence 14. Postoperative acute blood loss anemia, expected Plan: 1. Continue to maximize medical therapy with ASA, statin, Plavix, and beta nando. Will increase beta nando therapy as tolerated. 2. Decrease Primacor to 0.1 mcg/kg/min at 10:00 AM today. 3. Continue amiodarone for atrial fibrillation prophylaxis, will transition to amiodarone 200 mg by mouth twice a day. 4. Encourage incentive spirometry 10 times every hour while awake. Bronchodilators per pulmonology. 5. Increase activity, ambulate as tolerated. PT/OT/cardiac rehab consulted. 6. GI/DVT prophylaxis. 7. Insulin management per internal medicine service. Patient needs tight blood sugar control to promote healing and prevent infection. Preoperative hemoglobin A1c 6.4%. 8. Pain control with current medication regimen. 9. Continue [place]/Cordis, arterial line for another 24 hours. 10. Continue chest tubes for another 24 hours. 11. Continue Peralta catheter for another 24 hours for strict accurate intake and output. Daily weights. 12. Continue to monitor daily labs and chest x-rays. Replace electrolytes per protocol. 13. Lasix 20 mg IV 1 now. 14. More recommendations to follow based on patient's clinical course. Time with Patient: Greater than 30
[2022-12-25 14:10] LABS: Glucose,Whole Blood 137 mg/dL (70-110)
[2022-12-25 15:28] LABS: Glucose,Whole Blood 117 mg/dL (70-110)
[2022-12-25 16:35] LABS: Glucose,Whole Blood 123 mg/dL (70-110)
[2022-12-25] MEDS: PANTOPRAZOLE 40 MG TABLET PO SCH (17:14)
[2022-12-25 18:44] LABS: Glucose,Whole Blood 151 mg/dL (70-110)
--- NOTE | 2022-12-25 19:15 | P.PN ---
Subjective Progress Note Date: 12/25/22 Principal diagnosis: Leukocytosis and Possible aortic valve endocarditis Patient is a 47 year old female with a past medical history significant for severe aortic regurgitation in this patient who is status post aortic valve Replacement patient was noticed to have abnormality of the aortic valve concerning for possible infection in this patient who did have a history of chronic leukocytosis On today's evaluation that is 12/25/2022, the patient is afebrile the patient has been extubated breathing comfortably on a 2 L nasal cannula. Chest pain is currently controlled some nausea but no vomiting and no abdominal pain or diarrhea Objective - Vital Signs Vital signs: Vital Signs Temp 97.5 F L 12/25/22 04:00 Pulse 70 12/25/22 10:00 Resp 20 12/25/22 10:00 BP 97/65 12/25/22 06:00 Pulse Ox 94 L 12/25/22 10:00 FiO2 50 12/25/22 01:40 Intake & Output 12/24/22 12/25/22 12/25/22 18:59 06:59 18:59 Intake Total 341.500 4993.962 724.341 Output Total 2260 500 455 Balance -1874.640 580.962 269.341 Weight 103.5 kg Intake: IV 352 849 266 CO/CI 150 30 Pressure Bags 99 36 Sodium Chloride 0.9% 1, 300 600 200 000 ml @ 20 mls/hr IV . Q24H INA Rx#:[id number] Intake, IV Titration 33.360 231.962 8.341 Amount Amiodarone 360 mg In 207.2 Dextrose 5% in Water 200 ml @ 1 MG/MIN 34.533 mls/ hr IV .Q6H INA Rx#: [id number] Insulin Regular 100 unit 7.045 24.762 8.341 In Sodium Chloride 0.9% 100 ml @ Per Protocol IV .Q0M INA Rx#:[id number] propofoL 1,000 mg In 26.315 Empty Bag 1 bag @ Titrate IV .Q0M INA Rx#: [id number] Oral 450 Output: Chest Tube Drainage 95 80 50 Chest Tube Bilateral 95 80 50 Mediastinal Urine 365 420 405 Estimated Blood Loss 1800 Other: Voiding Method Indwelling Catheter Indwelling Catheter ABP, PAP, CO, CI - Last Documented Arterial Blood Pressure 133/53 Pulmonary Artery Pressure 34/8 Cardiac Output 4.4 Cardiac Index 2.2 - Exam GENERAL DESCRIPTION: Middle-age female up in the chair in no distress RESPIRATORY SYSTEM: Unlabored breathing , decreased breath sounds at bases HEART: S1 S2 regular rate and rhythm , ABDOMEN: Soft , no tenderness EXTREMITIES: No edema feet - Labs CBC & Chem 7: 12/25/22 04:25 12/25/22 08:15 Labs: Abnormal Lab Results - Last 24 Hours (Table) 12/18/22 12/24/22 12/24/22 Range/Units 09:01 08:00 08:00 WBC (3.8-10.6) k/uL RBC (3.80-5.40) m/uL Hgb (11.4-16.0) gm/dL Hct (34.0-46.0) % Plt Count (150-450) k/uL Neutrophils # (1.3-7.7) k/uL ABG pH (7.35-7.45) ABG pCO2 (35-45) mmHg ABG pO2 136 H 202 H (83-108) mmHg ABG HCO3 26 H (21-25) mmol/L ABG Total CO2 27 H 26 H (19-24) mmol/L ABG O2 Saturation 98.7 H 99.5 H (94-97) % ABG Hematocrit (34.0-46.0) % ABG Potassium (3.4-4.5) mmol/L ABG Ionized Calcium (4.5-5.3) mg/dL ABG Glucose 125 H 134 H (75-99) mg/dL ABG Lactic Acid 1.8 H (0.5-1.6) mmol/L VBG pH (7.31-7.41) VBG pCO2 (37-51) mmHg Hemoglobin (11.4-16.0) gm/dL Sodium (137-145) mmol/L Chloride (98-107) mmol/L BUN (7-17) mg/dL Glucose (74-99) mg/dL POC Glucose (mg/dL) (70-110) mg/dL Calcium (8.4-10.2) mg/dL Magnesium (1.6-2.3) mg/dL AST (14-36) U/L C-Reactive Protein (<1.0) mg/dL Total Protein (6.3-8.2) g/dL Albumin (3.5-5.0) g/dL Arterial Blood Potassium (3.4-4.5) mmol/L Arterial Blood Glucose 125 H 134 H (75-99) mg/dL Crossmatch See Detail 12/24/22 12/24/22 12/24/22 Range/Units 08:00 08:00 08:00 WBC (3.8-10.6) k/uL RBC (3.80-5.40) m/uL Hgb (11.4-16.0) gm/dL Hct (34.0-46.0) % Plt Count (150-450) k/uL Neutrophils # (1.3-7.7) k/uL ABG pH 7.48 H (7.35-7.45) ABG pCO2 (35-45) mmHg ABG pO2 >420 H >420 H 173 H (83-108) mmHg ABG HCO3 27 H (21-25) mmol/L ABG Total CO2 28 H 26 H 25 H (19-24) mmol/L ABG O2 Saturation 100.0 H 100.0 H 99.3 H (94-97) % ABG Hematocrit 26 L 25 L 31 L (34.0-46.0) % ABG Potassium 5.1 H 5.1 H (3.4-4.5) mmol/L ABG Ionized Calcium 4.1 L 3.9 L (4.5-5.3) mg/dL ABG Glucose 131 H 130 H 131 H (75-99) mg/dL ABG Lactic Acid 1.9 H 2.4 H* (0.5-1.6) mmol/L VBG pH (7.31-7.41) VBG pCO2 (37-51) mmHg Hemoglobin 8.4 L 8.0 L 10.2 L (11.4-16.0) gm/dL Sodium (137-145) mmol/L Chloride (98-107) mmol/L BUN (7-17) mg/dL Glucose (74-99) mg/dL POC Glucose (mg/dL) (70-110) mg/dL Calcium (8.4-10.2) mg/dL Magnesium (1.6-2.3) mg/dL AST (14-36) U/L C-Reactive Protein (<1.0) mg/dL Total Protein (6.3-8.2) g/dL Albumin (3.5-5.0) g/dL Arterial Blood Potassium 5.1 H 5.1 H (3.4-4.5) mmol/L Arterial Blood Glucose 131 H 130 H 131 H (75-99) mg/dL Crossmatch 12/24/22 12/24/22 12/24/22 Range/Units 12:34 12:46 12:50 WBC 15.7 H (3.8-10.6) k/uL RBC 3.61 L (3.80-5.40) m/uL Hgb 11.2 L (11.4-16.0) gm/dL Hct (34.0-46.0) % Plt Count 121 L (150-450) k/uL Neutrophils # 12.8 H (1.3-7.7) k/uL ABG pH (7.35-7.45) ABG pCO2 (35-45) mmHg ABG pO2 166 H (83-108) mmHg ABG HCO3 (21-25) mmol/L ABG Total CO2 26 H (19-24) mmol/L ABG O2 Saturation 99.3 H (94-97) % ABG Hematocrit 33 L (34.0-46.0) % ABG Potassium (3.4-4.5) mmol/L ABG Ionized Calcium (4.5-5.3) mg/dL ABG Glucose 125 H (75-99) mg/dL ABG Lactic Acid 1.8 H (0.5-1.6) mmol/L VBG pH (7.31-7.41) VBG pCO2 (37-51) mmHg Hemoglobin 10.8 L (11.4-16.0) gm/dL Sodium (137-145) mmol/L Chloride (98-107) mmol/L BUN (7-17) mg/dL Glucose (74-99) mg/dL POC Glucose (mg/dL) 122 H (70-110) mg/dL Calcium (8.4-10.2) mg/dL Magnesium (1.6-2.3) mg/dL AST (14-36) U/L C-Reactive Protein (<1.0) mg/dL Total Protein (6.3-8.2) g/dL Albumin (3.5-5.0) g/dL Arterial Blood Potassium (3.4-4.5) mmol/L Arterial Blood Glucose 125 H (75-99) mg/dL Crossmatch 12/24/22 12/24/22 12/24/22 Range/Units 12:50 13:26 13:46 WBC (3.8-10.6) k/uL RBC (3.80-5.40) m/uL Hgb (11.4-16.0) gm/dL Hct (34.0-46.0) % Plt Count (150-450) k/uL Neutrophils # (1.3-7.7) k/uL ABG pH 7.29 L (7.35-7.45) ABG pCO2 54 H (35-45) mmHg ABG pO2 365 H (83-108) mmHg ABG HCO3 26 H (21-25) mmol/L ABG Total CO2 28 H (19-24) mmol/L ABG O2 Saturation 100.0 H (94-97) % ABG Hematocrit (34.0-46.0) % ABG Potassium (3.4-4.5) mmol/L ABG Ionized Calcium (4.5-5.3) mg/dL ABG Glucose (75-99) mg/dL ABG Lactic Acid (0.5-1.6) mmol/L VBG pH (7.31-7.41) VBG pCO2 (37-51) mmHg Hemoglobin (11.4-16.0) gm/dL Sodium (137-145) mmol/L Chloride 108 H (98-107) mmol/L BUN 18 H (7-17) mg/dL Glucose 118 H (74-99) mg/dL POC Glucose (mg/dL) 124 H (70-110) mg/dL Calcium 8.0 L (8.4-10.2) mg/dL Magnesium 2.6 H (1.6-2.3) mg/dL AST (14-36) U/L C-Reactive Protein (<1.0) mg/dL Total Protein 4.2 L (6.3-8.2) g/dL Albumin 2.5 L (3.5-5.0) g/dL Arterial Blood Potassium (3.4-4.5) mmol/L Arterial Blood Glucose (75-99) mg/dL Crossmatch 12/24/22 12/24/22 12/24/22 Range/Units 15:18 15:45 16:00 WBC 24.5 H (3.8-10.6) k/uL RBC (3.80-5.40) m/uL Hgb (11.4-16.0) gm/dL Hct (34.0-46.0) % Plt Count (150-450) k/uL Neutrophils # 21.2 H (1.3-7.7) k/uL ABG pH (7.35-7.45) ABG pCO2 (35-45) mmHg ABG pO2 (83-108) mmHg ABG HCO3 (21-25) mmol/L ABG Total CO2 (19-24) mmol/L ABG O2 Saturation (94-97) % ABG Hematocrit (34.0-46.0) % ABG Potassium (3.4-4.5) mmol/L ABG Ionized Calcium (4.5-5.3) mg/dL ABG Glucose (75-99) mg/dL ABG Lactic Acid (0.5-1.6) mmol/L VBG pH 7.27 L (7.31-7.41) VBG pCO2 57 H (37-51) mmHg Hemoglobin (11.4-16.0) gm/dL Sodium (137-145) mmol/L Chloride (98-107) mmol/L BUN (7-17) mg/dL Glucose (74-99) mg/dL POC Glucose (mg/dL) 140 H (70-110) mg/dL Calcium (8.4-10.2) mg/dL Magnesium (1.6-2.3) mg/dL AST (14-36) U/L C-Reactive Protein (<1.0) mg/dL Total Protein (6.3-8.2) g/dL Albumin (3.5-5.0) g/dL Arterial Blood Potassium (3.4-4.5) mmol/L Arterial Blood Glucose (75-99) mg/dL Crossmatch 12/24/22 12/24/22 12/24/22 Range/Units 16:11 16:15 17:02 WBC (3.8-10.6) k/uL RBC (3.80-5.40) m/uL Hgb (11.4-16.0) gm/dL Hct (34.0-46.0) % Plt Count (150-450) k/uL Neutrophils # (1.3-7.7) k/uL ABG pH 7.33 L (7.35-7.45) ABG pCO2 49 H (35-45) mmHg ABG pO2 113 H (83-108) mmHg ABG HCO3 (21-25) mmol/L ABG Total CO2 (19-24) mmol/L ABG O2 Saturation 98.2 H (94-97) % ABG Hematocrit (34.0-46.0) % ABG Potassium (3.4-4.5) mmol/L ABG Ionized Calcium (4.5-5.3) mg/dL ABG Glucose (75-99) mg/dL ABG Lactic Acid (0.5-1.6) mmol/L VBG pH (7.31-7.41) VBG pCO2 (37-51) mmHg Hemoglobin (11.4-16.0) gm/dL Sodium (137-145) mmol/L Chloride (98-107) mmol/L BUN (7-17) mg/dL Glucose (74-99) mg/dL POC Glucose (mg/dL) 146 H 153 H (70-110) mg/dL Calcium (8.4-10.2) mg/dL Magnesium (1.6-2.3) mg/dL AST (14-36) U/L C-Reactive Protein (<1.0) mg/dL Total Protein (6.3-8.2) g/dL Albumin (3.5-5.0) g/dL Arterial Blood Potassium (3.4-4.5) mmol/L Arterial Blood Glucose (75-99) mg/dL Crossmatch 12/24/22 12/24/22 12/24/22 Range/Units 17:37 17:45 18:19 WBC 22.8 H (3.8-10.6) k/uL RBC 3.59 L (3.80-5.40) m/uL Hgb 11.3 L (11.4-16.0) gm/dL Hct (34.0-46.0) % Plt Count (150-450) k/uL Neutrophils # 20.1 H (1.3-7.7) k/uL ABG pH 7.31 L (7.35-7.45) ABG pCO2 51 H (35-45) mmHg ABG pO2 (83-108) mmHg ABG HCO3 (21-25) mmol/L ABG Total CO2 27 H (19-24) mmol/L ABG O2 Saturation 97.8 H (94-97) % ABG Hematocrit (34.0-46.0) % ABG Potassium (3.4-4.5) mmol/L ABG Ionized Calcium (4.5-5.3) mg/dL ABG Glucose (75-99) mg/dL ABG Lactic Acid (0.5-1.6) mmol/L VBG pH (7.31-7.41) VBG pCO2 (37-51) mmHg Hemoglobin (11.4-16.0) gm/dL Sodium (137-145) mmol/L Chloride (98-107) mmol/L BUN (7-17) mg/dL Glucose (74-99) mg/dL POC Glucose (mg/dL) 142 H (70-110) mg/dL Calcium (8.4-10.2) mg/dL Magnesium (1.6-2.3) mg/dL AST (14-36) U/L C-Reactive Protein (<1.0) mg/dL Total Protein (6.3-8.2) g/dL Albumin (3.5-5.0) g/dL Arterial Blood Potassium (3.4-4.5) mmol/L Arterial Blood Glucose (75-99) mg/dL Crossmatch 12/24/22 12/24/22 12/24/22 Range/Units 18:48 19:54 20:07 WBC (3.8-10.6) k/uL RBC (3.80-5.40) m/uL Hgb (11.4-16.0) gm/dL Hct (34.0-46.0) % Plt Count (150-450) k/uL Neutrophils # (1.3-7.7) k/uL ABG pH 7.31 L (7.35-7.45) ABG pCO2 47 H (35-45) mmHg ABG pO2 (83-108) mmHg ABG HCO3 (21-25) mmol/L ABG Total CO2 25 H (19-24) mmol/L ABG O2 Saturation (94-97) % ABG Hematocrit (34.0-46.0) % ABG Potassium (3.4-4.5) mmol/L ABG Ionized Calcium (4.5-5.3) mg/dL ABG Glucose (75-99) mg/dL ABG Lactic Acid (0.5-1.6) mmol/L VBG pH (7.31-7.41) VBG pCO2 (37-51) mmHg Hemoglobin (11.4-16.0) gm/dL Sodium (137-145) mmol/L Chloride (98-107) mmol/L BUN (7-17) mg/dL Glucose (74-99) mg/dL POC Glucose (mg/dL) 151 H 148 H (70-110) mg/dL Calcium (8.4-10.2) mg/dL Magnesium (1.6-2.3) mg/dL AST (14-36) U/L C-Reactive Protein (<1.0) mg/dL Total Protein (6.3-8.2) g/dL Albumin (3.5-5.0) g/dL Arterial Blood Potassium (3.4-4.5) mmol/L Arterial Blood Glucose (75-99) mg/dL Crossmatch 12/24/22 12/24/22 12/24/22 Range/Units 20:59 22:05 23:16 WBC (3.8-10.6) k/uL RBC (3.80-5.40) m/uL Hgb (11.4-16.0) gm/dL Hct (34.0-46.0) % Plt Count (150-450) k/uL Neutrophils # (1.3-7.7) k/uL ABG pH (7.35-7.45) ABG pCO2 (35-45) mmHg ABG pO2 (83-108) mmHg ABG HCO3 (21-25) mmol/L ABG Total CO2 (19-24) mmol/L ABG O2 Saturation (94-97) % ABG Hematocrit (34.0-46.0) % ABG Potassium (3.4-4.5) mmol/L ABG Ionized Calcium (4.5-5.3) mg/dL ABG Glucose (75-99) mg/dL ABG Lactic Acid (0.5-1.6) mmol/L VBG pH (7.31-7.41) VBG pCO2 (37-51) mmHg Hemoglobin (11.4-16.0) gm/dL Sodium (137-145) mmol/L Chloride (98-107) mmol/L BUN (7-17) mg/dL Glucose (74-99) mg/dL POC Glucose (mg/dL) 137 H 134 H 124 H (70-110) mg/dL Calcium (8.4-10.2) mg/dL Magnesium (1.6-2.3) mg/dL AST (14-36) U/L C-Reactive Protein (<1.0) mg/dL Total Protein (6.3-8.2) g/dL Albumin (3.5-5.0) g/dL Arterial Blood Potassium (3.4-4.5) mmol/L Arterial Blood Glucose (75-99) mg/dL Crossmatch 12/25/22 12/25/22 12/25/22 Range/Units 00:19 00:58 03:27 WBC (3.8-10.6) k/uL RBC (3.80-5.40) m/uL Hgb (11.4-16.0) gm/dL Hct (34.0-46.0) % Plt Count (150-450) k/uL Neutrophils # (1.3-7.7) k/uL ABG pH (7.35-7.45) ABG pCO2 (35-45) mmHg ABG pO2 (83-108) mmHg ABG HCO3 (21-25) mmol/L ABG Total CO2 (19-24) mmol/L ABG O2 Saturation (94-97) % ABG Hematocrit (34.0-46.0) % ABG Potassium (3.4-4.5) mmol/L ABG Ionized Calcium (4.5-5.3) mg/dL ABG Glucose (75-99) mg/dL ABG Lactic Acid (0.5-1.6) mmol/L VBG pH (7.31-7.41) VBG pCO2 (37-51) mmHg Hemoglobin (11.4-16.0) gm/dL Sodium (137-145) mmol/L Chloride (98-107) mmol/L BUN (7-17) mg/dL Glucose (74-99) mg/dL POC Glucose (mg/dL) 135 H 130 H 139 H (70-110) mg/dL Calcium (8.4-10.2) mg/dL Magnesium (1.6-2.3) mg/dL AST (14-36) U/L C-Reactive Protein (<1.0) mg/dL Total Protein (6.3-8.2) g/dL Albumin (3.5-5.0) g/dL Arterial Blood Potassium (3.4-4.5) mmol/L Arterial Blood Glucose (75-99) mg/dL Crossmatch 12/25/22 12/25/22 12/25/22 Range/Units 04:24 04:25 06:14 WBC 20.7 H (3.8-10.6) k/uL RBC 3.49 L (3.80-5.40) m/uL Hgb 10.6 L (11.4-16.0) gm/dL Hct 33.6 L (34.0-46.0) % Plt Count 144 L (150-450) k/uL Neutrophils # 16.9 H (1.3-7.7) k/uL ABG pH (7.35-7.45) ABG pCO2 (35-45) mmHg ABG pO2 (83-108) mmHg ABG HCO3 (21-25) mmol/L ABG Total CO2 (19-24) mmol/L ABG O2 Saturation (94-97) % ABG Hematocrit (34.0-46.0) % ABG Potassium (3.4-4.5) mmol/L ABG Ionized Calcium (4.5-5.3) mg/dL ABG Glucose (75-99) mg/dL ABG Lactic Acid (0.5-1.6) mmol/L VBG pH (7.31-7.41) VBG pCO2 (37-51) mmHg Hemoglobin (11.4-16.0) gm/dL Sodium (137-145) mmol/L Chloride (98-107) mmol/L BUN (7-17) mg/dL Glucose (74-99) mg/dL POC Glucose (mg/dL) 135 H 147 H (70-110) mg/dL Calcium (8.4-10.2) mg/dL Magnesium (1.6-2.3) mg/dL AST (14-36) U/L C-Reactive Protein (<1.0) mg/dL Total Protein (6.3-8.2) g/dL Albumin (3.5-5.0) g/dL Arterial Blood Potassium (3.4-4.5) mmol/L Arterial Blood Glucose (75-99) mg/dL Crossmatch 12/25/22 12/25/22 12/25/22 Range/Units 07:03 08:10 08:15 WBC (3.8-10.6) k/uL RBC (3.80-5.40) m/uL Hgb (11.4-16.0) gm/dL Hct (34.0-46.0) % Plt Count (150-450) k/uL Neutrophils # (1.3-7.7) k/uL ABG pH (7.35-7.45) ABG pCO2 (35-45) mmHg ABG pO2 (83-108) mmHg ABG HCO3 (21-25) mmol/L ABG Total CO2 (19-24) mmol/L ABG O2 Saturation (94-97) % ABG Hematocrit (34.0-46.0) % ABG Potassium (3.4-4.5) mmol/L ABG Ionized Calcium (4.5-5.3) mg/dL ABG Glucose (75-99) mg/dL ABG Lactic Acid (0.5-1.6) mmol/L VBG pH (7.31-7.41) VBG pCO2 (37-51) mmHg Hemoglobin (11.4-16.0) gm/dL Sodium 136 L (137-145) mmol/L Chloride 110 H (98-107) mmol/L BUN 23 H (7-17) mg/dL Glucose 175 H (74-99) mg/dL POC Glucose (mg/dL) 140 H 179 H (70-110) mg/dL Calcium 7.8 L (8.4-10.2) mg/dL Magnesium (1.6-2.3) mg/dL AST 45 H (14-36) U/L C-Reactive Protein 6.9 H (<1.0) mg/dL Total Protein 4.9 L (6.3-8.2) g/dL Albumin 2.8 L (3.5-5.0) g/dL Arterial Blood Potassium (3.4-4.5) mmol/L Arterial Blood Glucose (75-99) mg/dL Crossmatch 12/25/22 Range/Units 09:09 WBC (3.8-10.6) k/uL RBC (3.80-5.40) m/uL Hgb (11.4-16.0) gm/dL Hct (34.0-46.0) % Plt Count (150-450) k/uL Neutrophils # (1.3-7.7) k/uL ABG pH (7.35-7.45) ABG pCO2 (35-45) mmHg ABG pO2 (83-108) mmHg ABG HCO3 (21-25) mmol/L ABG Total CO2 (19-24) mmol/L ABG O2 Saturation (94-97) % ABG Hematocrit (34.0-46.0) % ABG Potassium (3.4-4.5) mmol/L ABG Ionized Calcium (4.5-5.3) mg/dL ABG Glucose (75-99) mg/dL ABG Lactic Acid (0.5-1.6) mmol/L VBG pH (7.31-7.41) VBG pCO2 (37-51) mmHg Hemoglobin (11.4-16.0) gm/dL Sodium (137-145) mmol/L Chloride (98-107) mmol/L BUN (7-17) mg/dL Glucose (74-99) mg/dL POC Glucose (mg/dL) 186 H (70-110) mg/dL Calcium (8.4-10.2) mg/dL Magnesium (1.6-2.3) mg/dL AST (14-36) U/L C-Reactive Protein (<1.0) mg/dL Total Protein (6.3-8.2) g/dL Albumin (3.5-5.0) g/dL Arterial Blood Potassium (3.4-4.5) mmol/L Arterial Blood Glucose (75-99) mg/dL Crossmatch Microbiology - Last 24 Hours (Table) 12/24/22 12:25 Gram Stain - Preliminary Heart Valve Tissue Culture - Preliminary 12/24/22 12:25 Anaerobic Culture - Preliminary Heart Valve 12/24/22 16:05 Fungal Culture - Preliminary Blood Assessment and Plan (1) Leukocytosis Current Visit: Yes Status: Acute Code(s): D72.829 - ELEVATED WHITE BLOOD CELL COUNT, UNSPECIFIED SNOMED Code(s): 530974621 Plan: 1patient with history of severe aortic regurgitation and also with a history of chronic leukocytosis that has been investigated outpatient setting and no evidence of any hematological malignancy site disorder and no clear history of fever, now with evidence of lesion on the aortic wall as possible vegetation 2-Patient with multiple antibiotic ALLERGIES that would limit the number of antibiotic safe to use 3-blood culture currently pending patient did have elevated CRP but the sed rate was normal 4-patient to continue with cefepime and vancomycin while waiting for the cultures to be finalized and workup completed Time with Patient: Less than 30
[2022-12-25] MEDS: MAGNESIUM OXIDE 400 MG TAB PO SCH ×2 (19:42→21:30)
[2022-12-25] MEDS: SENNOSIDES-DOCUSATE SODIUM 1 EACH TAB PO SCH ×2 (19:42→21:30)
[2022-12-25 19:58] LABS: Glucose,Whole Blood 121 mg/dL (70-110)
[2022-12-25] MEDS: ACETAMINOPHEN TAB 325 MG TAB PO PRN (21:11)
[2022-12-25 21:27] LABS: Glucose,Whole Blood 109 mg/dL (70-110)
[2022-12-25 22:01] LABS: Glucose,Whole Blood 113 mg/dL (70-110)
[2022-12-25 23:53] LABS: Glucose,Whole Blood 127 mg/dL (70-110)
[2022-12-26] MEDS: traMADol 50 MG TAB PO PRN ×2 (01:51→05:08)
[2022-12-26 01:57] LABS: Glucose,Whole Blood 119 mg/dL (70-110)
[2022-12-26 03:55] LABS: Glucose,Whole Blood 118 mg/dL (70-110)
[2022-12-26 05:01] LABS: Glucose,Whole Blood 123 mg/dL (70-110)
[2022-12-26] MEDS: ACETAMINOPHEN TAB 325 MG TAB PO PRN ×2 (05:07→20:28)
[2022-12-26] MEDS: LEVOTHYROXINE 50 MCG TAB PO SCH ×2 (05:07→05:47)
[2022-12-26] MEDS: PANTOPRAZOLE 40 MG TABLET PO SCH ×3 (05:08→17:06)
[2022-12-26 05:09] LABS: Basophils % (A) 0 %; Eosinophils # (A) 0.2 k/uL (0-0.7); Eosinophils % (A) 1 %; HGB 9.7 gm/dL (11.4-16.0); Lymphocytes # (A) 3.1 k/uL (1.0-4.8); Lymphocytes % (A) 16 %; MCH 30.9 pg (25.0-35.0); MCHC 32.4 g/dL (31.0-37.0); MCV 95.4 fL (80.0-100.0); Monocytes # (A) 1.1 k/uL (0-1.0); Monocytes % (A) 6 %; Neutrophils # (A) 14.9 k/uL (1.3-7.7); Neutrophils % (A) 76 %; Platelet Count 122 k/uL (150-450); RBC 3.14 m/uL (3.80-5.40); RDW 13.2 % (11.5-15.5); WBC 19.6 k/uL (3.8-10.6)
[2022-12-26 05:32] LABS: ALT 16 U/L (4-34); AST 28 U/L (14-36); African American GFR (CKD) >90 (>60 ml/min/1.73 sqM); Albumin 2.7 g/dL (3.5-5.0); Alkaline Phosphatase 67 U/L (38-126); Anion Gap 4 mmol/L; Blood Urea Nitrogen 25 mg/dL (7-17); Carbon Dioxide 20 mmol/L (22-30); Chloride 109 mmol/L (98-107); Glucose 121 mg/dL (74-99); Non-African American GFR(CKD) 87 (>60 ml/min/1.73 sqM); Potassium 4.5 mmol/L (3.5-5.1); Sodium 133 mmol/L (137-145); Total Bilirubin 0.5 mg/dL (0.2-1.3); Total Protein 4.7 g/dL (6.3-8.2)
[2022-12-26] MEDS: KETOROLAC 15 MG/ML 1 ML VIAL IVP SCH ×3 (05:47→18:28)
[2022-12-26 05:52] LABS: Glucose,Whole Blood 134 mg/dL (70-110)
[2022-12-26] MEDS: INSULIN REGULAR 100 UNIT in SODIUM CHLORIDE 0.9% 100 ML IV SCH (05:54)
[2022-12-26 07:04] LABS: Glucose,Whole Blood 121 mg/dL (70-110)
--- NOTE | 2022-12-26 07:20 | XR ---
EXAMINATION TYPE: XR chest 1V portable DATE OF EXAM: 12/26/2022 HISTORY: Post Operative Cardiac Surgery COMPARISON: 12/25/2022 TECHNIQUE: Single view of the chest is submitted. FINDINGS: Bradley-Valente catheter has been. Right IJ sheath remains in place. Left atrial clip is noted. Mediastinal drains remain in place. Post operative changes of CABG. No sizeable pneumothorax. Scattered Pleural-parenchymal opacities may reflect atelectasis. The heart mildly enlarged. IMPRESSION: 1. Post operative changes of CABG.
[2022-12-26 07:58] LABS: Glucose,Whole Blood 165 mg/dL (70-110)
[2022-12-26] MEDS: ATORVASTATIN 40 MG TAB PO SCH (08:15)
[2022-12-26] MEDS: AMIODARONE 200 MG TAB PO SCH ×2 (08:15→20:23)
[2022-12-26] MEDS: CLOPIDOGREL 75 MG TAB PO SCH (08:15)
[2022-12-26] MEDS: ASPIRIN 325 MG TAB PO SCH (08:15)
[2022-12-26] MEDS: CEFEPIME 2 GM in SODIUM CHLORIDE 0.9% 100 ML IVPB SCH ×2 (08:16→17:06)
[2022-12-26] MEDS: METOPROLOL TARTRATE 12.5 MG TAB PO SCH (08:16)
[2022-12-26] MEDS: HEPARIN SODIUM,PORCINE/PF 5,000 UNIT/0.5 ML SYRINGE SQ SCH ×2 (08:16→17:06)
[2022-12-26] MEDS: EZETIMIBE 10 MG TAB PO SCH (08:16)
[2022-12-26] MEDS ORDERED: FUROSEMIDE 10 MG/ML 2 ML VIAL IV STA (08:17)
--- NOTE | 2022-12-26 08:19 | P.PN ---
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 Past medical history significant for hypertens ion, hyperlipidemia, paroxysmal atrial fibrillation, supraventricular tachycardia, chronic leukocytosis, obesity with a BMI of 41.7 kg/m, preserved left ventricular systolic function, hypothyroid, GERD, fibromyalgia, migraine headaches, and remote history of nicotine dependence. POD #2 aortic valve replacement using a 21 mm onX mechanical valve, exclusion of the left atrial appendage using a 35 mm Atriclip, intraoperative transesophageal echocardiogram and epi-aortic scanning. Postoperative acute blood loss anemia, expected given hemodilution and cardiopulmonary bypass. The patient was seen and examined today 12/26/2022 at her bedside in the intensive care unit. She is sitting up to the bedside chair, is awake, alert and oriented x 3. Denies complaints of shortness of breath at this time and is reporting some pain to her chest tube insertion sites, 3/10 on the pain scale at this time. She states that her current pain medications ordered is controlling her pain. She remains hemodynamically stable and is currently on no inotropic or pressor support. Oxygen saturations are 95% on 2 L nasal cannula, and she is achieving 1250 ml on her incentive spirometry. Bedside telemetry is showing normal sinus rhythm heart rate 71 BPM. Mediastinal jo chest tubes remain in place to low continuos wall suction. No air leak is present. Draining thin serosanginous drainage with 50 ml output overnight and 300 ml in the last 24 hrs. She has been up ambulating in the ICU hallway with standby assistance from nursing and therapy staff. Chest X-ray was reviewed. Labs this morning show a WBC count 19.6, HGB, 9.7, HCT 30.0, PLTS 122, NA 133, K 4.5, CO2 20, BUN 25, Cr 0.80, Glucose 121, Ca 8.0, ionized calcium 5.0. Blood cultures show no growth after 24 hrs, heart valve gram stain preliminary result shows no organism seen, blood fungal cultures results pending. Infectious disease is following and the patient is currently receiving Cefepime and Vancomycin emperic coverage. Objective - Vital Signs Vital signs: Vital Signs Temp 97.8 F 12/26/22 00:00 Pulse 71 12/26/22 06:00 Resp 22 12/26/22 06:00 BP 121/62 12/26/22 05:00 Pulse Ox 93 L 12/26/22 06:00 FiO2 50 12/25/22 01:40 Intake & Output 12/25/22 12/26/22 12/26/22 18:59 06:59 18:59 Intake Total 2158.241 469.909 Output Total 915 378 Balance 1243.241 91.909 Weight 103.5 kg 105.9 kg Intake: IV 1292 422 CO/CI 70 Cefepime 2 gm In Sodium 200 Chloride 0.9% 100 ml @ 25 mls/hr IVPB Q8HR [facility] Rx# :[id number] Pressure Bags 102 72 Sodium Chloride 0.9% 1, 420 350 000 ml @ 20 mls/hr IV . Q24H [facility] Rx#:[id number] Vancomycin 1,500 mg In 500 Sodium Chloride 0.9% 500 ml 500 ml @ 167 mls/hr IVPB ONCE ONE Rx#: [id number] Intake, IV Titration 41.241 47.909 Amount Insulin Regular 100 unit 41.241 14.544 In Sodium Chloride 0.9% 100 ml @ Per Protocol IV .Q0M [facility] Rx#:[id number] Milrinone-D5w Pmx 20 mg 33.365 In Dextrose/Water 1 100ml .bag @ 0.1 MCG/KG/MIN 2. 979 mls/hr IV .Q24H [facility] Rx#:[id number] Oral 825 Output: Chest Tube Drainage 150 90 Chest Tube Bilateral 150 90 Mediastinal Urine 765 288 Other: Voiding Method Indwelling Catheter Indwelling Catheter ABP, PAP, CO, CI - Last Documented Arterial Blood Pressure 114/57 Pulmonary Artery Pressure 26/7 Cardiac Output 4.7 Cardiac Index 2.4 - Exam CONSTITUTIONAL: Sitting up to the bedside chair in the intensive care unit, appears comfortable, cooperative, no apparent acute distress. HEENT: Neck is supple, no JVD, no lymphadenopathy. Right IJ Cordis in place and functioning. RESPIRATORY: Lungs sounds essentially clear throughout, diminished to his bilateral bases. Respirations are symmetrical and nonlabored. Currently on 2 L nasal cannula with oxygen saturations 95%. Able to achieve 1250 mL on her incentive spirometry. Strong cough. CARDIOVASCULAR: Regular rhythm and rate. S1 and S2 present, positive mechanical valvular click, negative for S3, gallop or murmur. Sternum is stable. Palpable peripheral pulses bilaterally. No calf pain or tenderness noted. Heart hugger in place with patient demonstrating appropriate use. Knee-high TERESA hose and sequential compression devices in place to his bilateral lower extremities. GASTROINTESTINAL: Abdomen soft, nontender, nondistended. Active bowel sounds present 4 quadrants. Tolerating diet. Passing flatus. No guarding or rigidity. GENITOURINARY: Peralta present draining clear, yellow urine. Output 220 mL in the last 8 hours. INTEGUMENTARY: Skin is warm and dry with no evidence of clubbing or cyanosis. Midline sternal incision clean dry and well approximated, covered with dry intact dressing. NEUROLOGIC: Cranial nerves II through XII intact. No focal deficits. MUSKULOSKELETAL: Able to move all extremities, strength equal bilaterally. PSYCHIATRIC: Alert and oriented to person place and time, appropriate affect, intact judgment and insight. INVASIVE LINES AND TUBES: Mediastinal chest tubes present and connected to low continuous wall suction, no air leaks present. Mediastinal tube with 50 mL of thin serosanguineous drainage overnight, 300 mL output in the last 24 hours. At rial and ventricular epicardial pacemaker wires present, connected to generator, VVI backup rate 50 bpm. Right internal jugular Cordis, right radial arterial line present. Current CVP 13 mmHg. - Allied health notes Allied health notes reviewed: nursing - Labs CBC & Chem 7: 12/26/22 05:00 12/26/22 05:00 Labs: Abnormal Lab Results - Last 24 Hours (Table) 12/25/22 12/25/22 12/25/22 Range/Units 04:25 07:03 08:10 WBC (3.8-10.6) k/uL RBC (3.80-5.40) m/uL Hgb (11.4-16.0) gm/dL Hct (34.0-46.0) % Plt Count (150-450) k/uL Neutrophils # (1.3-7.7) k/uL Monocytes # (0-1.0) k/uL Sodium (137-145) mmol/L Chloride (98-107) mmol/L Carbon Dioxide (22-30) mmol/L BUN (7-17) mg/dL Glucose (74-99) mg/dL POC Glucose (mg/dL) 140 H 179 H (70-110) mg/dL Calcium (8.4-10.2) mg/dL AST (14-36) U/L C-Reactive Protein (<1.0) mg/dL Total Protein (6.3-8.2) g/dL Albumin (3.5-5.0) g/dL Procalcitonin 5.82 H (0.02-0.09) ng/mL 12/25/22 12/25/22 12/25/22 Range/Units 08:15 09:09 11:10 WBC (3.8-10.6) k/uL RBC (3.80-5.40) m/uL Hgb (11.4-16.0) gm/dL Hct (34.0-46.0) % Plt Count (150-450) k/uL Neutrophils # (1.3-7.7) k/uL Monocytes # (0-1.0) k/uL Sodium 136 L (137-145) mmol/L Chloride 110 H (98-107) mmol/L Carbon Dioxide (22-30) mmol/L BUN 23 H (7-17) mg/dL Glucose 175 H (74-99) mg/dL POC Glucose (mg/dL) 186 H 164 H (70-110) mg/dL Calcium 7.8 L (8.4-10.2) mg/dL AST 45 H (14-36) U/L C-Reactive Protein 6.9 H (<1.0) mg/dL Total Protein 4.9 L (6.3-8.2) g/dL Albumin 2.8 L (3.5-5.0) g/dL Procalcitonin (0.02-0.09) ng/mL 12/25/22 12/25/22 12/25/22 Range/Units 12:02 13:10 14:08 WBC (3.8-10.6) k/uL RBC (3.80-5.40) m/uL Hgb (11.4-16.0) gm/dL Hct (34.0-46.0) % Plt Count (150-450) k/uL Neutrophils # (1.3-7.7) k/uL Monocytes # (0-1.0) k/uL Sodium (137-145) mmol/L Chloride (98-107) mmol/L Carbon Dioxide (22-30) mmol/L BUN (7-17) mg/dL Glucose (74-99) mg/dL POC Glucose (mg/dL) 122 H 154 H 137 H (70-110) mg/dL Calcium (8.4-10.2) mg/dL AST (14-36) U/L C-Reactive Protein (<1.0) mg/dL Total Protein (6.3-8.2) g/dL Albumin (3.5-5.0) g/dL Procalcitonin (0.02-0.09) ng/mL 12/25/22 12/25/22 12/25/22 Range/Units 15:25 16:30 18:42 WBC (3.8-10.6) k/uL RBC (3.80-5.40) m/uL Hgb (11.4-16.0) gm/dL Hct (34.0-46.0) % Plt Count (150-450) k/uL Neutrophils # (1.3-7.7) k/uL Monocytes # (0-1.0) k/uL Sodium (137-145) mmol/L Chloride (98-107) mmol/L Carbon Dioxide (22-30) mmol/L BUN (7-17) mg/dL Glucose (74-99) mg/dL POC Glucose (mg/dL) 117 H 123 H 151 H (70-110) mg/dL Calcium (8.4-10.2) mg/dL AST (14-36) U/L C-Reactive Protein (<1.0) mg/dL Total Protein (6.3-8.2) g/dL Albumin (3.5-5.0) g/dL Procalcitonin (0.02-0.09) ng/mL 12/25/22 12/25/22 12/25/22 Range/Units 19:56 21:58 23:52 WBC (3.8-10.6) k/uL RBC (3.80-5.40) m/uL Hgb (11.4-16.0) gm/dL Hct (34.0-46.0) % Plt Count (150-450) k/uL Neutrophils # (1.3-7.7) k/uL Monocytes # (0-1.0) k/uL Sodium (137-145) mmol/L Chloride (98-107) mmol/L Carbon Dioxide (22-30) mmol/L BUN (7-17) mg/dL Glucose (74-99) mg/dL POC Glucose (mg/dL) 121 H 113 H 127 H (70-110) mg/dL Calcium (8.4-10.2) mg/dL AST (14-36) U/L C-Reactive Protein (<1.0) mg/dL Total Protein (6.3-8.2) g/dL Albumin (3.5-5.0) g/dL Procalcitonin (0.02-0.09) ng/mL 12/26/22 12/26/22 12/26/22 Range/Units 01:56 03:53 04:59 WBC (3.8-10.6) k/uL RBC (3.80-5.40) m/uL Hgb (11.4-16.0) gm/dL Hct (34.0-46.0) % Plt Count (150-450) k/uL Neutrophils # (1.3-7.7) k/uL Monocytes # (0-1.0) k/uL Sodium (137-145) mmol/L Chloride (98-107) mmol/L Carbon Dioxide (22-30) mmol/L BUN (7-17) mg/dL Glucose (74-99) mg/dL POC Glucose (mg/dL) 119 H 118 H 123 H (70-110) mg/dL Calcium (8.4-10.2) mg/dL AST (14-36) U/L C-Reactive Protein (<1.0) mg/dL Total Protein (6.3-8.2) g/dL Albumin (3.5-5.0) g/dL Procalcitonin (0.02-0.09) ng/mL 12/26/22 12/26/22 12/26/22 Range/Units 05:00 05:00 05:51 WBC 19.6 H (3.8-10.6) k/uL RBC 3.14 L (3.80-5.40) m/uL Hgb 9.7 L (11.4-16.0) gm/dL Hct 30.0 L (34.0-46.0) % Plt Count 122 L (150-450) k/uL Neutrophils # 14.9 H (1.3-7.7) k/uL Monocytes # 1.1 H (0-1.0) k/uL Sodium 133 L (137-145) mmol/L Chloride 109 H (98-107) mmol/L Carbon Dioxide 20 L (22-30) mmol/L BUN 25 H (7-17) mg/dL Glucose 121 H (74-99) mg/dL POC Glucose (mg/dL) 134 H (70-110) mg/dL Calcium 8.0 L (8.4-10.2) mg/dL AST (14-36) U/L C-Reactive Protein (<1.0) mg/dL Total Protein 4.7 L (6.3-8.2) g/dL Albumin 2.7 L (3.5-5.0) g/dL Procalcitonin (0.02-0.09) ng/mL Microbiology - Last 24 Hours (Table) 12/24/22 12:25 Gram Stain - Preliminary Heart Valve Tissue Culture - Preliminary 12/24/22 13:05 Blood Culture - Preliminary Blood No Growth after 24 hours - Imaging and Cardiology Chest x-ray: report reviewed, image reviewed Assessment and Plan Assessment: 1. Severe aortic valve regurgitation, status post aortic valve replacement using a 21 mm onX mechanical valve 2. 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 Preserved left ventricular systolic function 4. Hypertension 5. Hyperlipidemia 6. Remote history of paroxysmal atrial fibrillation, status post exclusion of the left atrial appendage using a 35 mm Atriclip 7. History of supraventricular tachycardia 8. Obesity with a BMI of 41.7 kg/m 9. Hypothyroid 10. GERD 11. Fibromyalgia 12. Migraine headaches 13. Remote history of nicotine dependence 14. Postoperative acute blood loss anemia, expected Plan: 1. Continue to maximize medical therapy with ASA, statin, Plavix, and beta nando. Will increase beta nando as tolerated. 2. Continue to monitor daily labs and chest x-rays. Replace electrolytes per protocol. 3. Continue amiodarone 200 mg by mouth twice a day for atrial fibrillation prophylaxis. 4. Encourage incentive spirometry 10 times every hour while awake. Bronchodilators per pulmonology. 5. Increase activity, ambulate as tolerated. PT/OT/cardiac rehab following. 6. GI/DVT prophylaxis. 7. Insulin management per internal medicine service. Patient needs tight blood sugar control to promote healing and prevent infection. Preoperative hemoglobin A1c 6.4%. 8. Pain control with current medication regimen. 9. Remove of right IJ Cordis and right radial arterial line. 10. Continue chest tubes for another 24 hours. 11. Remove Peralta catheter, continue to record strict accurate intake and output. Daily weights. 12. Lasix 20 mg IV 1 now 13. Continue to follow blood culture, aortic valve tissue culture results. Infectious disease is following and managing IV antibiotics. 14. More recommendations to follow based on patient's clinical course. Time with Patient: Greater than 30
[2022-12-26] MEDS: IPRATROPIUM 0.5 MG/2.5 ML NEBU INHALATION SCH ×4 (08:54→20:59)
[2022-12-26] MEDS: ALBUTEROL NEBULIZED 2.5 MG/3 ML INHALATION SCH ×4 (08:54→20:58)
[2022-12-26] MEDS ORDERED: METOPROLOL TARTRATE 12.5 MG TAB PO ONE (09:00)
[2022-12-26] MEDS ORDERED: METOPROLOL TARTRATE 25 MG TAB PO SCH (09:00)
[2022-12-26] MEDS: ASPIRIN 81 MG PO SCH (09:26)
[2022-12-26 09:34] LABS: Glucose,Whole Blood 133 mg/dL (70-110)
[2022-12-26] MEDS: POTASSIUM CHLORIDE ER 20 MEQ TAB.ER PO SCH (09:37)
[2022-12-26 09:56] LABS: INR 0.9 (<1.2)
[2022-12-26] MEDS ORDERED: INSULIN DETEMIR (LEVEMIR) 100 UNIT/ML SYR SQ ONE (10:00)
--- NOTE | 2022-12-26 10:12 | PN ---
PROGRESS NOTE SUBJECTIVE: Ms. Lobo is status post aortic valve replacement. She is doing better. Remains in sinus rhythm. OBJECTIVE: VITAL SIGNS: Stable. HEART: S1, S2 heard normally. Short systolic murmur is audible at the base. LUNGS: Revealed decent air entry. ABDOMEN: Soft. EXTREMITIES: Lower extremities reveal diminished pulses. PLAN: Continue current medications. Incentive spirometry and pulmonary toilet. She is on a small dose of beta nando that has been resumed and amiodarone, maintaining sinus rhythm. MMODL / IJN: [id number] /
--- NOTE | 2022-12-26 11:35 | P.PN ---
Subjective Progress Note Date: 12/26/22 Principal diagnosis: Aortic valve replacement. Pulmonary consult dated 12/24/2022. 47-year-old female seen today in room 266. She is postop day #0, status post aortic valve replacement for aortic regurgitation. She is currently on the ventilator. Her ventilator settings include the volume assist control, rate of 18, tidal volume 375, FiO2 50%, blood gases show pO2 365, pCO2 54, pH is 7.29. FiO2 was dropped down to 50%, and the rate was increased to 18. Currently, she sedated on propofol at 25 mcg/kg/m, receiving saline at 50 mL an hour, and amiodarone at 1 mg/m. She's getting insulin at 0.5 units per hour. In addition to the aortic valve replacement with a tissue valve, showed a left atrial appendage exclusion. Currently, her cardiac output is 4 with an index of 2. He is currently atrial paced. White count 15.7, hemoglobin 11.2, and platelet count 121,000. Sodium 137, potassium 4.1, chlorides 108, CO2 26, BUN 18, creatinine 0.77. Chest x-ray shows mild cardiomegaly with mild pulmonary vascular congestion. Progress note dated 12/25/2022. 47-year-old female seen yesterday in consultation. She seen today in room 266. She was extubated yesterday, after having a aortic valve replacement. She's currently on room air. She's getting saline at 50 mL an hour, and an insulin drip at 5 units an hour. She is also on Primacor 0.2 mcg/kg/m. Post extub ation, she was a bit lethargic and sleepy, and the nurse call me. At that point, we placed her on BiPAP, with settings of 10/5 and 50%. She wore till 3 AM in the morning. White count 20.7, hemoglobin 10.6, hematocrit 33.6, and platelet count 144,000. Sodium 136, potassium 4.3, chlorides 110, CO2 22, BUN 23, and creatinine 0.79. Pro-calcitonin level is 5.82. Chest x-ray shows cardiomegaly, and developing bibasilar infiltrates. Progress note dated 12/26/2022. 47-year-old female, postop day #2, status post aortic valve replacement. She had aortic valve replacement for severe aortic regurgitation. Currently, she is on 2 L of oxygen. She's getting an insulin drip at 3.5 units an hour, and saline at KVO. White count 19.6, hemoglobin 9.7, hematocrit 30, platelet count 222,000. Sodium 133, potassium 4.5, chlorides 109, CO2 20, BUN 25, and creatinine 0.8. Chest x-ray shows postoperative changes, and is stable. Objective - Vital Signs Vital signs: Vital Signs Temp 97.6 F 12/26/22 08:00 Pulse 72 12/26/22 11:20 Resp 15 12/26/22 11:20 BP 133/84 12/26/22 10:00 Pulse Ox 92 L 12/26/22 10:00 FiO2 50 12/25/22 01:40 Intake & Output 12/25/22 12/26/22 12/26/22 18:59 06:59 18:59 Intake Total 2158.241 469.909 225.065 Output Total 915 378 480 Balance 1243.241 91.909 -254.935 Weight 103.5 kg 105.9 kg Intake: IV 1292 422 121 CO/CI 70 Cefepime 2 gm In Sodium 200 Chloride 0.9% 100 ml @ 25 mls/hr IVPB Q8HR [facility] Rx# :[id number] Pressure Bags 102 72 21 Sodium Chloride 0.9% 1, 420 350 100 000 ml @ 20 mls/hr IV . Q24H [facility] Rx#:[id number] Vancomycin 1,500 mg In 500 Sodium Chloride 0.9% 500 ml 500 ml @ 167 mls/hr IVPB ONCE ONE Rx#: [id number] Intake, IV Titration 41.241 47.909 104.065 Amount Cefepime 2 gm In Sodium 100 Chloride 0.9% 100 ml @ 25 mls/hr IVPB Q8HR [facility] Rx# :[id number] Insulin Regular 100 unit 41.241 14.544 4.065 In Sodium Chloride 0.9% 100 ml @ Per Protocol IV .Q0M [facility] Rx#:[id number] Milrinone-D5w Pmx 20 mg 33.365 In Dextrose/Water 1 100ml .bag @ 0.1 MCG/KG/MIN 2. 979 mls/hr IV .Q24H [facility] Rx#:[id number] Oral 825 Output: Chest Tube Drainage 150 90 70 Chest Tube Bilateral 150 90 70 Mediastinal Urine 765 288 410 Other: Voiding Method Indwelling Catheter Indwelling Catheter ABP, PAP, CO, CI - Last Documented Arterial Blood Pressure 114/57 Pulmonary Artery Pressure 26/7 Cardiac Output 4.7 Cardiac Index 2.4 - Exam No acute distress, oriented 3. No acute distress. Room air saturation 93 %. HEENT examination is grossly unremarkable. Neck supple. Full range of motion. No adenopathy thyromegaly or neck vein d istention. Cardiovascular examination reveals regular rhythm rate. S1-S2 normal. No S3 or S4. No discernible murmur noted. Heart sounds are distant. Heart rate 72 bpm. Lungs reveal mostly clear breath sounds. Scattered rhonchi. No wheezes or crackles. Abdomen soft bowel sounds are heard. No masses or tenderness. Extremities are intact. No cyanosis clubbing or edema. Skin is without rash or lesion. Neurologic examination is brief but nonfocal. - Labs CBC & Chem 7: 12/26/22 05:00 12/26/22 05:00 Labs: Abnormal Lab Results - Last 24 Hours (Table) 12/25/22 12/25/22 12/25/22 Range/Units 12:02 13:10 14:08 WBC (3.8-10.6) k/uL RBC (3.80-5.40) m/uL Hgb (11.4-16.0) gm/dL Hct (34.0-46.0) % Plt Count (150-450) k/uL Neutrophils # (1.3-7.7) k/uL Monocytes # (0-1.0) k/uL Sodium (137-145) mmol/L Chloride (98-107) mmol/L Carbon Dioxide (22-30) mmol/L BUN (7-17) mg/dL Glucose (74-99) mg/dL POC Glucose (mg/dL) 122 H 154 H 137 H (70-110) mg/dL Calcium (8.4-10.2) mg/dL Total Protein (6.3-8.2) g/dL Albumin (3.5-5.0) g/dL 12/25/22 12/25/22 12/25/22 Range/Units 15:25 16:30 18:42 WBC (3.8-10.6) k/uL RBC (3.80-5.40) m/uL Hgb (11.4-16.0) gm/dL Hct (34.0-46.0) % Plt Count (150-450) k/uL Neutrophils # (1.3-7.7) k/uL Monocytes # (0-1.0) k/uL Sodium (137-145) mmol/L Chloride (98-107) mmol/L Carbon Dioxide (22-30) mmol/L BUN (7-17) mg/dL Glucose (74-99) mg/dL POC Glucose (mg/dL) 117 H 123 H 151 H (70-110) mg/dL Calcium (8.4-10.2) mg/dL Total Protein (6.3-8.2) g/dL Albumin (3.5-5.0) g/dL 12/25/22 12/25/22 12/25/22 Range/Units 19:56 21:58 23:52 WBC (3.8-10.6) k/uL RBC (3.80-5.40) m/uL Hgb (11.4-16.0) gm/dL Hct (34.0-46.0) % Plt Count (150-450) k/uL Neutrophils # (1.3-7.7) k/uL Monocytes # (0-1.0) k/uL Sodium (137-145) mmol/L Chloride (98-107) mmol/L Carbon Dioxide (22-30) mmol/L BUN (7-17) mg/dL Glucose (74-99) mg/dL POC Glucose (mg/dL) 121 H 113 H 127 H (70-110) mg/dL Calcium (8.4-10.2) mg/dL Total Protein (6.3-8.2) g/dL Albumin (3.5-5.0) g/dL 12/26/22 12/26/22 12/26/22 Range/Units 01:56 03:53 04:59 WBC (3.8-10.6) k/uL RBC (3.80-5.40) m/uL Hgb (11.4-16.0) gm/dL Hct (34.0-46.0) % Plt Count (150-450) k/uL Neutrophils # (1.3-7.7) k/uL Monocytes # (0-1.0) k/uL Sodium (137-145) mmol/L Chloride (98-107) mmol/L Carbon Dioxide (22-30) mmol/L BUN (7-17) mg/dL Glucose (74-99) mg/dL POC Glucose (mg/dL) 119 H 118 H 123 H (70-110) mg/dL Calcium (8.4-10.2) mg/dL Total Protein (6.3-8.2) g/dL Albumin (3.5-5.0) g/dL 12/26/22 12/26/22 12/26/22 Range/Units 05:00 05:00 05:51 WBC 19.6 H (3.8-10.6) k/uL RBC 3.14 L (3.80-5.40) m/uL Hgb 9.7 L (11.4-16.0) gm/dL Hct 30.0 L (34.0-46.0) % Plt Count 122 L (150-450) k/uL Neutrophils # 14.9 H (1.3-7.7) k/uL Monocytes # 1.1 H (0-1.0) k/uL Sodium 133 L (137-145) mmol/L Chloride 109 H (98-107) mmol/L Carbon Dioxide 20 L (22-30) mmol/L BUN 25 H (7-17) mg/dL Glucose 121 H (74-99) mg/dL POC Glucose (mg/dL) 134 H (70-110) mg/dL Calcium 8.0 L (8.4-10.2) mg/dL Total Protein 4.7 L (6.3-8.2) g/dL Albumin 2.7 L (3.5-5.0) g/dL 12/26/22 12/26/22 12/26/22 Range/Units 07:03 07:57 09:33 WBC (3.8-10.6) k/uL RBC (3.80-5.40) m/uL Hgb (11.4-16.0) gm/dL Hct (34.0-46.0) % Plt Count (150-450) k/uL Neutrophils # (1.3-7.7) k/uL Monocytes # (0-1.0) k/uL Sodium (137-145) mmol/L Chloride (98-107) mmol/L Carbon Dioxide (22-30) mmol/L BUN (7-17) mg/dL Glucose (74-99) mg/dL POC Glucose (mg/dL) 121 H 165 H 133 H (70-110) mg/dL Calcium (8.4-10.2) mg/dL Total Protein (6.3-8.2) g/dL Albumin (3.5-5.0) g/dL Microbiology - Last 24 Hours (Table) 12/24/22 12:25 Gram Stain - Preliminary Heart Valve Tissue Culture - Preliminary 12/24/22 13:05 Blood Culture - Preliminary Blood No Growth after 24 hours Assessment and Plan Assessment: Postop day #2, status post aortic valve replacement for severe aortic regurgitation, as well as excision of left atrial appendage. Routine postoperative ventilator management, status post extubation on 12/24/2022. Post extubation sleepiness/lethargy, managed with BiPAP. History of hyperlipidemia. History of paroxysmal atrial fibrillation. History of hypertension. Family history of CAD. Plan: Plan dated 12/24/2022. The patient is seen today in room 266. Her labs, x-rays, and medications are all reviewed. I was called with initial blood gases. Changes were made. The rate was increased from 14, up to 18 rest or minute. The FiO2 was dropped from 100%, down to 50%. Her cardiac output is 4, and her cardiac index is 2. She's currently on amiodarone at 1 mg/m, propofol at 25 mcg/kg/m, and insulin 0.5 units per hour. Follow make recommendations where appropriate. Prognosis is generally good. Plan dated 12/25/2022. The patient is seen today in room 266. She was extubated yesterday. Unfortunately, she did have some post extubation lethargy, and somnolence. I chose to manage her with BiPAP therapy. In addition, the patient remains on saline at 50 mL an hour, and insulin drip at 5 units an hour, and Primacor 0.2 mcg/kg/m. Labs, x-rays, and medications are all reviewed. The patient's overall prognosis is guarded. We will continue to follow make recommendations along the way. Plan dated 12/26/2022. The patient appears be doing better. Labs, x-rays, medications are reviewed. She remains on 2 L of oxygen. Today's postop day #2. She is getting saline at KVO. She is on an insulin drip at 3.5 units an hour. We will continue to follow, and make recommendations along the way. Prognosis is thought to be generally good. Time with Patient: Less than 30
[2022-12-26 11:43] LABS: Glucose,Whole Blood 122 mg/dL (70-110)
[2022-12-26] MEDS: INSULIN ASPART (NovoLOG) 100 UNIT/ML VIAL SQ SCH ×3 (11:44→20:21)
[2022-12-26] MEDS: VANCOMYCIN 1,500 MG in SODIUM CHLORIDE 0.9% 500 ML 500 ML IVPB SCH (11:48)
--- NOTE | 2022-12-26 14:00 | P.PN ---
Subjective Progress Note Date: 12/26/22 Consult date: 12/25/22 Medical management Requesting physician: Prosper Anderson - Chief Complaint Status post aortic valve replacement - History of Present Illness This is a 47-year-old female with past medical history of chronic paroxysmal atrial fibrillation, hypertension, hyperlipidemia,chronic leukocytosis, evaluated and cleared outpatient by hematology,severe aortic valve regurgitation, and status post aortic valve replacement with mechanical valve, excision of left atrial appendage-sent to pathology. Tolerated procedure well. Extubated yesterday, maintaining O2 sats 100% on room air. Chest x-ray reporting bibasilar developing infiltrates. Evaluated by infectious disease and maintained on empiric cefepime and vancomycin, cultures finalizing. WBC decreased to 20.7 ,CRP elevated ,6.9. Continues on Primacor, insulin drip. Cardiac index 2.2, telemetry sinus rhythm. BUN 23, creatinine 0.79. Hemoglobin A1c 6.4. Hemoglobin 10.6, platelets 144. Urine negative, Normal LFTs, negative hepatitis serology. 12/26/2022 continues on amiodarone ,telemetry sinus rhythm. Maintaining O2 sats in the 90s on 2 L nasal cannula. Chest x-ray reporting postoperative changes in, scattered pleural- parenchymal opacities, may reflect atelectasis. Incentive spirometer up to 750. Scheduled to have mediastinal chest tubes removed today. Positive diet intake, denies nausea or vomiting, positive flatus, no bowel movement. Blood sugars controlled on insulin drip. Pacer wires recently discontinued, delined. Maintained on cefepime and vancomycin .BUN 25, creatinine 0.8 . Afebrile, WBC decreased to 19.6. Pathology/cultures pending. Objective - Vital Signs Vital signs: Vital Signs Temp 97.6 F 12/26/22 08:00 Pulse 70 12/26/22 11:34 Resp 15 12/26/22 11:34 BP 133/84 12/26/22 10:00 Pulse Ox 92 L 12/26/22 10:00 FiO2 50 12/25/22 01:40 Intake & Output 12/25/22 12/26/22 12/26/22 18:59 06:59 18:59 Intake Total 2158.241 469.909 225.065 Output Total 915 378 480 Balance 1243.241 91.909 -254.935 Weight 103.5 kg 105.9 kg Intake: IV 1292 422 121 CO/CI 70 Cefepime 2 gm In Sodium 200 Chloride 0.9% 100 ml @ 25 mls/hr IVPB Q8HR [facility] Rx# :[id number] Pressure Bags 102 72 21 Sodium Chloride 0.9% 1, 420 350 100 000 ml @ 20 mls/hr IV . Q24H [facility] Rx#:[id number] Vancomycin 1,500 mg In 500 Sodium Chloride 0.9% 500 ml 500 ml @ 167 mls/hr IVPB ONCE ONE Rx#: [id number] Intake, IV Titration 41.241 47.909 104.065 Amount Cefepime 2 gm In Sodium 100 Chloride 0.9% 100 ml @ 25 mls/hr IVPB Q8HR [facility] Rx# :[id number] Insulin Regular 100 unit 41.241 14.544 4.065 In Sodium Chloride 0.9% 100 ml @ Per Protocol IV .Q0M [facility] Rx#:[id number] Milrinone-D5w Pmx 20 mg 33.365 In Dextrose/Water 1 100ml .bag @ 0.1 MCG/KG/MIN 2. 979 mls/hr IV .Q24H [facility] Rx#:[id number] Oral 825 Output: Chest Tube Drainage 150 90 70 Chest Tube Bilateral 150 90 70 Mediastinal Urine 765 288 410 Other: Voiding Method Indwelling Catheter Indwelling Catheter ABP, PAP, CO, CI - Last Documented Arterial Blood Pressure 114/57 Pulmonary Artery Pressure 26/7 Cardiac Output 4.7 Cardiac Index 2.4 - Exam PHYSICAL EXAM: VITAL SIGNS: As above GENERAL: Sitting up in bed, no acute distress HEENT: Conjunctivae normal. eyes normal. MMM. NECK: Supple, No JVD. No thyroid enlargement. No LNs CARDIOVASCULAR: S1, S2 regular, positive mechanical click RESPIRATION: Breath sounds diminished in the bases. No rhonchi or crackles. ABDOMEN: Soft, nontender . No guarding. no masses palpable. +Bowel sounds. LEGS: No edema. no swelling. PSYCHIATRY: Alert and oriented X3, mood and affect normal. NERVOUS SYSTEM: Cranial N 2-12 grossly normal. No focal deficits. Strength and sensation grossly intact. Skin: Warm and dry, no rash - Labs CBC & Chem 7: 12/26/22 05:00 12/26/22 05:00 Labs: Abnormal Lab Results - Last 24 Hours (Table) 03/21/23 03/21/23 03/21/23 Range/Units 12:02 13:10 14:08 WBC (3.8-10.6) k/uL RBC (3.80-5.40) m/uL Hgb (11.4-16.0) gm/dL Hct (34.0-46.0) % Plt Count (150-450) k/uL Neutrophils # (1.3-7.7) k/uL Monocytes # (0-1.0) k/uL Sodium (137-145) mmol/L Chloride (98-107) mmol/L Carbon Dioxide (22-30) mmol/L BUN (7-17) mg/dL Glucose (74-99) mg/dL POC Glucose (mg/dL) 122 H 154 H 137 H (70-110) mg/dL Calcium (8.4-10.2) mg/dL Total Protein (6.3-8.2) g/dL Albumin (3.5-5.0) g/dL 12/25/22 12/25/22 12/25/22 Range/Units 15:25 16:30 18:42 WBC (3.8-10.6) k/uL RBC (3.80-5.40) m/uL Hgb (11.4-16.0) gm/dL Hct (34.0-46.0) % Plt Count (150-450) k/uL Neutrophils # (1.3-7.7) k/uL Monocytes # (0-1.0) k/uL Sodium (137-145) mmol/L Chloride (98-107) mmol/L Carbon Dioxide (22-30) mmol/L BUN (7-17) mg/dL Glucose (74-99) mg/dL POC Glucose (mg/dL) 117 H 123 H 151 H (70-110) mg/dL Calcium (8.4-10.2) mg/dL Total Protein (6.3-8.2) g/dL Albumin (3.5-5.0) g/dL 12/25/22 12/25/22 12/25/22 Range/Units 19:56 21:58 23:52 WBC (3.8-10.6) k/uL RBC (3.80-5.40) m/uL Hgb (11.4-16.0) gm/dL Hct (34.0-46.0) % Plt Count (150-450) k/uL Neutrophils # (1.3-7.7) k/uL Monocytes # (0-1.0) k/uL Sodium (137-145) mmol/L Chloride (98-107) mmol/L Carbon Dioxide (22-30) mmol/L BUN (7-17) mg/dL Glucose (74-99) mg/dL POC Glucose (mg/dL) 121 H 113 H 127 H (70-110) mg/dL Calcium (8.4-10.2) mg/dL Total Protein (6.3-8.2) g/dL Albumin (3.5-5.0) g/dL 12/26/22 12/26/22 12/26/22 Range/Units 01:56 03:53 04:59 WBC (3.8-10.6) k/uL RBC (3.80-5.40) m/uL Hgb (11.4-16.0) gm/dL Hct (34.0-46.0) % Plt Count (150-450) k/uL Neutrophils # (1.3-7.7) k/uL Monocytes # (0-1.0) k/uL Sodium (137-145) mmol/L Chloride (98-107) mmol/L Carbon Dioxide (22-30) mmol/L BUN (7-17) mg/dL Glucose (74-99) mg/dL POC Glucose (mg/dL) 119 H 118 H 123 H (70-110) mg/dL Calcium (8.4-10.2) mg/dL Total Protein (6.3-8.2) g/dL Albumin (3.5-5.0) g/dL 12/26/22 12/26/22 12/26/22 Range/Units 05:00 05:00 05:51 WBC 19.6 H (3.8-10.6) k/uL RBC 3.14 L (3.80-5.40) m/uL Hgb 9.7 L (11.4-16.0) gm/dL Hct 30.0 L (34.0-46.0) % Plt Count 122 L (150-450) k/uL Neutrophils # 14.9 H (1.3-7.7) k/uL Monocytes # 1.1 H (0-1.0) k/uL Sodium 133 L (137-145) mmol/L Chloride 109 H (98-107) mmol/L Carbon Dioxide 20 L (22-30) mmol/L BUN 25 H (7-17) mg/dL Glucose 121 H (74-99) mg/dL POC Glucose (mg/dL) 134 H (70-110) mg/dL Calcium 8.0 L (8.4-10.2) mg/dL Total Protein 4.7 L (6.3-8.2) g/dL Albumin 2.7 L (3.5-5.0) g/dL 12/26/22 12/26/22 12/26/22 Range/Units 07:03 07:57 09:33 WBC (3.8-10.6) k/uL RBC (3.80-5.40) m/uL Hgb (11.4-16.0) gm/dL Hct (34.0-46.0) % Plt Count (150-450) k/uL Neutrophils # (1.3-7.7) k/uL Monocytes # (0-1.0) k/uL Sodium (137-145) mmol/L Chloride (98-107) mmol/L Carbon Dioxide (22-30) mmol/L BUN (7-17) mg/dL Glucose (74-99) mg/dL POC Glucose (mg/dL) 121 H 165 H 133 H (70-110) mg/dL Calcium (8.4-10.2) mg/dL Total Protein (6.3-8.2) g/dL Albumin (3.5-5.0) g/dL 12/26/22 Range/Units 11:41 WBC (3.8-10.6) k/uL RBC (3.80-5.40) m/uL Hgb (11.4-16.0) gm/dL Hct (34.0-46.0) % Plt Count (150-450) k/uL Neutrophils # (1.3-7.7) k/uL Monocytes # (0-1.0) k/uL Sodium (137-145) mmol/L Chloride (98-107) mmol/L Carbon Dioxide (22-30) mmol/L BUN (7-17) mg/dL Glucose (74-99) mg/dL POC Glucose (mg/dL) 122 H (70-110) mg/dL Calcium (8.4-10.2) mg/dL Total Protein (6.3-8.2) g/dL Albumin (3.5-5.0) g/dL Microbiology - Last 24 Hours (Table) 12/24/22 12:25 Gram Stain - Preliminary Heart Valve Tissue Culture - Preliminary 12/24/22 13:05 Blood Culture - Preliminary Blood No Growth after 24 hours Assessment and Plan Assessment: Severe aortic regurgitation, status post aortic valve replacement with mechanical valve, excision of left atrial appendage Chronic Leukocytosis, evaluated and cleared outpatient by hematology, 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 Insulin drip, transitioning to Levemir insulin with NovoLog sliding scale. Close monitoring of Accu-Cheks. Heart valve pathology, cultures pending. IV antibiotics as per ID. Aggressive pulmonary toileting with incentive spirometer reinforced. Anticoagulation with Coumadin initiated. The impression and plan of care has been dictated as directed. : I performed a history and examination of this patient, discussed the same with the dictator. I agree with the dictator's note ,documented as a scribe. Any additional findings or plans will be noted.
[2022-12-26] MEDS ORDERED: FUROSEMIDE 10 MG/ML 2 ML VIAL IV SCH (16:00)
[2022-12-26 16:38] LABS: Glucose,Whole Blood 121 mg/dL (70-110)
[2022-12-26] MEDS: FUROSEMIDE 10 MG/ML 2 ML VIAL IV SCH (17:06)
[2022-12-26] MEDS ORDERED: WARFARIN 5 MG TAB PO ONE (18:00)
[2022-12-26] MEDS: SODIUM CHLORIDE 0.9% 1,000 ML IV SCH (19:11)
[2022-12-26 19:57] LABS: Glucose,Whole Blood 166 mg/dL (70-110)
[2022-12-26] MEDS: SENNOSIDES-DOCUSATE SODIUM 1 EACH TAB PO SCH ×2 (20:22→20:26)
[2022-12-26] MEDS: MAGNESIUM OXIDE 400 MG TAB PO SCH (20:23)
[2022-12-26] MEDS: METOPROLOL TARTRATE 25 MG TAB PO SCH (20:23)
--- NOTE | 2022-12-26 20:58 | P.PN ---
Subjective Progress Note Date: 12/26/22 Principal diagnosis: Leukocytosis and Possible aortic valve endocarditis Patient is a 47 year old female with a past medical history significant for severe aortic regurgitation in this patient who is status post aortic valve Replacement patient was noticed to have abnormality of the aortic valve concerning for possible infection in this patient who did have a history of chronic leukocytosis On today's evaluation that is 12/26/2022, the patient continues to be afebrile the patient is breathing comfortably on a 2 L nasal cannula. The patient's chest pain is currently controlled some nausea but no vomiting and no abdominal pain or diarrhea Objective - Vital Signs Vital signs: Vital Signs Temp 97.8 F 12/26/22 12:00 Pulse 79 12/26/22 13:00 Resp 16 12/26/22 13:00 BP 107/65 12/26/22 13:00 Pulse Ox 92 L 12/26/22 12:00 FiO2 50 12/25/22 01:40 Intake & Output 12/25/22 12/26/22 12/26/22 18:59 06:59 18:59 Intake Total 2158.241 504.931 0781.065 Output Total 915 378 905 Balance 1243.241 91.909 120.065 Weight 103.5 kg 105.9 kg Intake: IV 1292 422 621 CO/CI 70 Cefepime 2 gm In Sodium 200 Chloride 0.9% 100 ml @ 25 mls/hr IVPB Q8HR [facility] Rx# :[id number] Pressure Bags 102 72 21 Sodium Chloride 0.9% 1, 420 350 100 000 ml @ 20 mls/hr IV . Q24H [facility] Rx#:[id number] Vancomycin 1,500 mg In 500 500 Sodium Chloride 0.9% 500 ml 500 ml @ 167 mls/hr IVPB ONCE ONE Rx#: [id number] Intake, IV Titration 41.241 47.909 104.065 Amount Cefepime 2 gm In Sodium 100 Chloride 0.9% 100 ml @ 25 mls/hr IVPB Q8HR [facility] Rx# :[id number] Insulin Regular 100 unit 41.241 14.544 4.065 In Sodium Chloride 0.9% 100 ml @ Per Protocol IV .Q0M [facility] Rx#:[id number] Milrinone-D5w Pmx 20 mg 33.365 In Dextrose/Water 1 100ml .bag @ 0.1 MCG/KG/MIN 2. 979 mls/hr IV .Q24H [facility] Rx#:[id number] Oral 825 300 Output: Chest Tube Drainage 150 90 70 Chest Tube Bilateral 150 90 70 Mediastinal Urine 765 288 835 Other: Voiding Method Indwelling Catheter Indwelling Catheter Indwelling Catheter ABP, PAP, CO, CI - Last Documented Arterial Blood Pressure 114/57 Pulmonary Artery Pressure 26/7 Cardiac Output 4.7 Cardiac Index 2.4 - Exam GENERAL DESCRIPTION: Middle-age female up in the chair in no distress RESPIRATORY SYSTEM: Unlabored breathing , decreased breath sounds at bases HEART: S1 S2 regular rate and rhythm , ABDOMEN: Soft , no tenderness EXTREMITIES: No edema feet - Labs CBC & Chem 7: 12/26/22 05:00 12/26/22 05:00 Labs: Abnormal Lab Results - Last 24 Hours (Table) 12/25/22 12/25/22 12/25/22 Range/Units 14:08 15:25 16:30 WBC (3.8-10.6) k/uL RBC (3.80-5.40) m/uL Hgb (11.4-16.0) gm/dL Hct (34.0-46.0) % Plt Count (150-450) k/uL Neutrophils # (1.3-7.7) k/uL Monocytes # (0-1.0) k/uL Sodium (137-145) mmol/L Chloride (98-107) mmol/L Carbon Dioxide (22-30) mmol/L BUN (7-17) mg/dL Glucose (74-99) mg/dL POC Glucose (mg/dL) 137 H 117 H 123 H (70-110) mg/dL Calcium (8.4-10.2) mg/dL Total Protein (6.3-8.2) g/dL Albumin (3.5-5.0) g/dL 12/25/22 12/25/22 12/25/22 Range/Units 18:42 19:56 21:58 WBC (3.8-10.6) k/uL RBC (3.80-5.40) m/uL Hgb (11.4-16.0) gm/dL Hct (34.0-46.0) % Plt Count (150-450) k/uL Neutrophils # (1.3-7.7) k/uL Monocytes # (0-1.0) k/uL Sodium (137-145) mmol/L Chloride (98-107) mmol/L Carbon Dioxide (22-30) mmol/L BUN (7-17) mg/dL Glucose (74-99) mg/dL POC Glucose (mg/dL) 151 H 121 H 113 H (70-110) mg/dL Calcium (8.4-10.2) mg/dL Total Protein (6.3-8.2) g/dL Albumin (3.5-5.0) g/dL 12/25/22 12/26/22 12/26/22 Range/Units 23:52 01:56 03:53 WBC (3.8-10.6) k/uL RBC (3.80-5.40) m/uL Hgb (11.4-16.0) gm/dL Hct (34.0-46.0) % Plt Count (150-450) k/uL Neutrophils # (1.3-7.7) k/uL Monocytes # (0-1.0) k/uL Sodium (137-145) mmol/L Chloride (98-107) mmol/L Carbon Dioxide (22-30) mmol/L BUN (7-17) mg/dL Glucose (74-99) mg/dL POC Glucose (mg/dL) 127 H 119 H 118 H (70-110) mg/dL Calcium (8.4-10.2) mg/dL Total Protein (6.3-8.2) g/dL Albumin (3.5-5.0) g/dL 12/26/22 12/26/22 12/26/22 Range/Units 04:59 05:00 05:00 WBC 19.6 H (3.8-10.6) k/uL RBC 3.14 L (3.80-5.40) m/uL Hgb 9.7 L (11.4-16.0) gm/dL Hct 30.0 L (34.0-46.0) % Plt Count 122 L (150-450) k/uL Neutrophils # 14.9 H (1.3-7.7) k/uL Monocytes # 1.1 H (0-1.0) k/uL Sodium 133 L (137-145) mmol/L Chloride 109 H (98-107) mmol/L Carbon Dioxide 20 L (22-30) mmol/L BUN 25 H (7-17) mg/dL Glucose 121 H (74-99) mg/dL POC Glucose (mg/dL) 123 H (70-110) mg/dL Calcium 8.0 L (8.4-10.2) mg/dL Total Protein 4.7 L (6.3-8.2) g/dL Albumin 2.7 L (3.5-5.0) g/dL 12/26/22 12/26/22 12/26/22 Range/Units 05:51 07:03 07:57 WBC (3.8-10.6) k/uL RBC (3.80-5.40) m/uL Hgb (11.4-16.0) gm/dL Hct (34.0-46.0) % Plt Count (150-450) k/uL Neutrophils # (1.3-7.7) k/uL Monocytes # (0-1.0) k/uL Sodium (137-145) mmol/L Chloride (98-107) mmol/L Carbon Dioxide (22-30) mmol/L BUN (7-17) mg/dL Glucose (74-99) mg/dL POC Glucose (mg/dL) 134 H 121 H 165 H (70-110) mg/dL Calcium (8.4-10.2) mg/dL Total Protein (6.3-8.2) g/dL Albumin (3.5-5.0) g/dL 12/26/22 12/26/22 Range/Units 09:33 11:41 WBC (3.8-10.6) k/uL RBC (3.80-5.40) m/uL Hgb (11.4-16.0) gm/dL Hct (34.0-46.0) % Plt Count (150-450) k/uL Neutrophils # (1.3-7.7) k/uL Monocytes # (0-1.0) k/uL Sodium (137-145) mmol/L Chloride (98-107) mmol/L Carbon Dioxide (22-30) mmol/L BUN (7-17) mg/dL Glucose (74-99) mg/dL POC Glucose (mg/dL) 133 H 122 H (70-110) mg/dL Calcium (8.4-10.2) mg/dL Total Protein (6.3-8.2) g/dL Albumin (3.5-5.0) g/dL Microbiology - Last 24 Hours (Table) 12/24/22 12:25 Gram Stain - Preliminary Heart Valve Tissue Culture - Preliminary 12/24/22 13:05 Blood Culture - Preliminary Blood No Growth after 24 hours Assessment and Plan (1) Leukocytosis Current Visit: Yes Status: Acute Code(s): D72.829 - ELEVATED WHITE BLOOD CELL COUNT, UNSPECIFIED SNOMED Code(s): 417129528 Plan: 1patient with history of severe aortic regurgitation and also with a history of chronic leukocytosis that has been investigated outpatient setting and no evidence of any hematological malignancy site disorder and no clear history of fever, now with evidence of lesion on the aortic wall as possible vegetation 2-Patient with multiple antibiotic ALLERGIES that would limit the number of antibiotic safe to use 3-blood culture currently pending patient did have elevated CRP as well as pro- calcitonin but the sed rate was normal 4-patient to continue with cefepime and vancomycin while waiting for the cultures to be finalized and monitoring her clinical course closely Time with Patient: Less than 30
[2022-12-27] MEDS: KETOROLAC 15 MG/ML 1 ML VIAL IVP SCH ×2 (00:47→06:26)
[2022-12-27] MEDS: VANCOMYCIN 1,500 MG in SODIUM CHLORIDE 0.9% 500 ML 500 ML IVPB SCH (00:48)
[2022-12-27] MEDS: CEFEPIME 2 GM in SODIUM CHLORIDE 0.9% 100 ML IVPB SCH ×2 (00:48→08:08)
[2022-12-27] MEDS: HEPARIN SODIUM,PORCINE/PF 5,000 UNIT/0.5 ML SYRINGE SQ SCH ×4 (00:48→23:34)
[2022-12-27 05:53] LABS: Glucose,Whole Blood 98 mg/dL (70-110)
[2022-12-27] MEDS: INSULIN ASPART (NovoLOG) 100 UNIT/ML VIAL SQ SCH ×4 (05:54→20:34)
[2022-12-27] MEDS: LEVOTHYROXINE 50 MCG TAB PO SCH (06:26)
[2022-12-27] MEDS: PANTOPRAZOLE 40 MG TABLET PO SCH ×2 (06:27→17:18)
--- NOTE | 2022-12-27 07:28 | P.PN ---
Subjective Progress Note Date: 12/27/22 Principal diagnosis: Severe aortic valve regurgitation. History of chronic leukocytosis, hypertension, hyperlipidemia, paroxysmal atrial fibrillation, supraventricular tachycardia, previous tobacco dependence, obesity, hypothyroid, GERD, fibromyalgia, migraine headaches POD #3 aortic valve replacement using a 21 mm OnX mechanical valve, exclusion of the left atrial appendage using a 35 mm Atriclip, intraoperative transesophageal echocardiogram and epi-aortic scanning Postoperative acute blood loss anemia and thrombocytopenia, expected given hemodilution and cardiopulmonary bypass The patient was seen and examined this morning sitting up in a recliner on the cardiac stepdown unit in no acute distress. States pain is controlled with current medication regimen. Denies shortness of breath. She has been ambulatory in the hallway without difficulty. Remains in sinus rhythm, hemodynamically stable. All tubes and wires discontinued yesterday, patient was started on Coumadin. She remains on room air with oxygen saturation in the 90s. Remains on IV cefepime and vancomycin per infectious disease, currently blood cultures as well as tissue cultures with no growth to date. No other new concerns. Objective - Vital Signs Vital signs: Vital Signs Temp 97.9 F 12/27/22 04:00 Pulse 69 12/27/22 04:00 Resp 19 12/27/22 04:00 BP 99/64 12/27/22 04:00 Pulse Ox 92 L 12/27/22 04:00 FiO2 21 12/26/22 21:00 Intake & Output 12/26/22 12/27/22 12/27/22 18:59 06:59 18:59 Intake Total 1125.065 210 Output Total 905 350 Balance 220.065 -140 Weight 106.4 kg Intake: IV 721 10 Cefepime 2 gm In Sodium 100 Chloride 0.9% 100 ml @ 25 mls/hr IVPB Q8HR [facility] Rx# :[id number] Invasive Line 5 10 Pressure Bags 21 Sodium Chloride 0.9% 1, 100 000 ml @ 20 mls/hr IV . Q24H [facility] Rx#:[id number] Vancomycin 1,500 mg In 500 Sodium Chloride 0.9% 500 ml 500 ml @ 167 mls/hr IVPB ONCE ONE Rx#: [id number] Intake, IV Titration 104.065 Amount Cefepime 2 gm In Sodium 100 Chloride 0.9% 100 ml @ 25 mls/hr IVPB Q8HR [facility] Rx# :[id number] Insulin Regular 100 unit 4.065 In Sodium Chloride 0.9% 100 ml @ Per Protocol IV .Q0M [facility] Rx#:[id number] Oral 300 200 Output: Chest Tube Drainage 70 Chest Tube Bilateral 70 Mediastinal Urine 835 350 Other: Voiding Method Indwelling Catheter Toilet # Voids 2 0 # Bowel Movements 2 ABP, PAP, CO, CI - Last Documented Arterial Blood Pressure 114/57 Pulmonary Artery Pressure 26/7 Cardiac Output 4.7 Cardiac Index 2.4 - Exam CONSTITUTIONAL: Appears comfortable, cooperative, no acute distress RESPIRATORY: Lungs sounds diminished bilaterally. Respirations even, nonlabored. Currently on room air with oxygen saturation 92-99%. Able to achieve 750 mL on incentive spirometry. Strong cough. CARDIOVASCULAR: S1, S2 present. Regular rate and rhythm, sinus rhythm on telemetry. Sternum stable. Palpable peripheral pulses bilaterally. Trace generalized edema present. No calf pain or tenderness noted. Heart hugger in place with patient demonstrating appropriate use. Antiembolism stockings, SCDs present. GASTROINTESTINAL: Abdomen soft, nontender, nondistended. Active bowel sounds present 4 quadrants. Tolerating diet. Positive bowel movement 12/26 GENITOURINARY: Peralta discontinued yesterday, patient continues to void. Output 1185 mL in the last 24 hours INTEGUMENTARY: Skin is warm and dry with evidence of good perfusion. Anterior chest incision well approximated and covered with dry intact dressing NEUROLOGIC: Cranial nerves II through XII intact MUSKULOSKELETAL: Able to move all extremities, strength equal bilaterally, gait normal PSYCHIATRIC: Alert and oriented to person place and time, appropriate affect, intact judgment and insight - Allied health notes Allied health notes reviewed: nursing - Labs CBC & Chem 7: 12/26/22 05:00 12/26/22 05:00 Labs: Abnormal Lab Results - Last 24 Hours (Table) 12/26/22 12/26/22 12/26/22 Range/Units 07:57 09:33 11:41 POC Glucose (mg/dL) 165 H 133 H 122 H (70-110) mg/dL 12/26/22 12/26/22 Range/Units 16:37 19:53 POC Glucose (mg/dL) 121 H 166 H (70-110) mg/dL Microbiology - Last 24 Hours (Table) 12/24/22 12:25 Anaerobic Culture - Preliminary Heart Valve 12/24/22 12:25 Gram Stain - Preliminary Heart Valve Tissue Culture - Preliminary 12/24/22 13:05 Blood Culture - Preliminary Blood No Growth after 48 hours - Imaging and Cardiology Chest x-ray: image reviewed Assessment and Plan Assessment: Severe aortic valve regurgitation, status post mechanical aortic valve replaceme nt Chronic leukocytosis, 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 Will increase beta nando as tolerated. Continue lisinopril for afterload reduction Will dose Coumadin daily based on PT/INR. Goal INR for the first 3 months is 2.0-3.0, after the 3 months goal INR is 1.5-2.0 Continue amiodarone for A. fib prophylaxis Encourage incentive spirometry use 10 times every hour while awake, brought the dilators per pulmonology Increase activity, ambulate as tolerated, PT/OT/cardiac rehab following Continue to monitor daily labs and chest x-rays. Replace electrolytes per protocol. GI/DVT prophylaxis. Insulin management per internal medicine service. Patient needs tight blood ramos gar control to promote healing and prevent infection. Preoperative hemoglobin A1c 6.4%. Pain control with current medication regimen. Strict accurate intake and output. Daily weights. Continue to follow blood culture, aortic valve tissue culture results. Antibiotics per infectious disease Discharge planning and progress. Anticipate discharge to home with home care once INR is therapeutic More recommendations to follow based on patient's clinical course.
--- NOTE | 2022-12-27 07:38 | XR ---
EXAMINATION TYPE: XR chest 2V DATE OF EXAM: 12/27/2022 COMPARISON: 12/26/2022 HISTORY: 47-year-old female postop aVR TECHNIQUE: PA and lateral views FINDINGS: Median sternotomy wires are present with prosthetic aortic valve. Loop recorder device projects along the left side of the heart. Heart remains mildly enlarged. Ongoing small pleural effusions and inter stitial prominence as well as patchy bibasilar opacities. IMPRESSION: Relatively similar exam with small pleural effusions and adjacent atelectasis and/or consolidation. B ackground mild pulmonary vascular congestion.
[2022-12-27] MEDS: IPRATROPIUM 0.5 MG/2.5 ML NEBU INHALATION SCH ×4 (07:52→19:58)
[2022-12-27] MEDS: ALBUTEROL NEBULIZED 2.5 MG/3 ML INHALATION SCH ×4 (07:52→19:58)
[2022-12-27 08:01] LABS: Basophils % (A) 0 %; Eosinophils # (A) 0.3 k/uL (0-0.7); Eosinophils % (A) 2 %; HCT 28.6 % (34.0-46.0); Lymphocytes # (A) 3.4 k/uL (1.0-4.8); Lymphocytes % (A) 22 %; MCH 29.8 pg (25.0-35.0); MCHC 31.3 g/dL (31.0-37.0); MCV 95.3 fL (80.0-100.0); Mean Platelet Volume 10.2; Monocytes # (A) 0.8 k/uL (0-1.0); Monocytes % (A) 6 %; Neutrophils # (A) 10.3 k/uL (1.3-7.7); Neutrophils % (A) 68 %; Platelet Count 129 k/uL (150-450); RDW 13.4 % (11.5-15.5); WBC 15.1 k/uL (3.8-10.6)
[2022-12-27 08:09] LABS: ALT 15 U/L (4-34); AST 22 U/L (14-36); African American GFR (CKD) >90 (>60 ml/min/1.73 sqM); Albumin 2.7 g/dL (3.5-5.0); Alkaline Phosphatase 66 U/L (38-126); Anion Gap 4 mmol/L; Blood Urea Nitrogen 25 mg/dL (7-17); Carbon Dioxide 21 mmol/L (22-30); Chloride 111 mmol/L (98-107); Glucose 90 mg/dL (74-99); Non-African American GFR(CKD) >90 (>60 ml/min/1.73 sqM); Potassium 3.9 mmol/L (3.5-5.1); Sodium 136 mmol/L (137-145); Total Bilirubin 0.4 mg/dL (0.2-1.3); Total Protein 4.9 g/dL (6.3-8.2)
[2022-12-27] MEDS: EZETIMIBE 10 MG TAB PO SCH (08:09)
[2022-12-27] MEDS: ASPIRIN 81 MG PO SCH (08:09)
[2022-12-27] MEDS: INSULIN DETEMIR (LEVEMIR) 100 UNIT/ML SYR SQ SCH (08:09)
[2022-12-27] MEDS: POTASSIUM CHLORIDE ER 20 MEQ TAB.ER PO SCH (08:09)
[2022-12-27] MEDS: ATORVASTATIN 40 MG TAB PO SCH (08:09)
[2022-12-27] MEDS: METOPROLOL TARTRATE 25 MG TAB PO SCH ×2 (08:09→20:53)
[2022-12-27] MEDS: AMIODARONE 200 MG TAB PO SCH ×2 (08:09→20:53)
[2022-12-27 08:10] LABS: INR 0.9 (<1.2)
[2022-12-27] MEDS: FUROSEMIDE 10 MG/ML 2 ML VIAL IV SCH ×2 (08:10→15:23)
--- NOTE | 2022-12-27 10:31 | P.PN ---
Subjective Progress Note Date: 12/27/22 Consult date: 12/25/22 Medical management Requesting physician: Prosper Anderson - Chief Complaint Status post aortic valve replacement - History of Present Illness This is a 47-year-old female with past medical history of chronic paroxysmal atrial fibrillation, hypertension, hyperlipidemia,chronic leukocytosis, evaluated and cleared outpatient by hematology,severe aortic valve regurgitation, and status post aortic valve replacement with mechanical valve, excision of left atrial appendage-sent to pathology. Tolerated procedure well. Extubated yesterday, maintaining O2 sats 100% on room air. Chest x-ray reporting bibasilar developing infiltrates. Evaluated by infectious disease and maintained on empiric cefepime and vancomycin, cultures finalizing. WBC decreased to 20.7 ,CRP elevated ,6.9. Continues on Primacor, insulin drip. Cardiac index 2.2, telemetry sinus rhythm. BUN 23, creatinine 0.79. Hemoglobin A1c 6.4. Hemoglobin 10.6, platelets 144. Urine negative, Normal LFTs, negative hepatitis serology. 12/26/2022 continues on amiodarone ,telemetry sinus rhythm. Maintaining O2 sats in the 90s on 2 L nasal cannula. Chest x-ray reporting postoperative changes in, scattered pleural- parenchymal opacities, may reflect atelectasis. Incentive spirometer up to 750. Scheduled to have mediastinal chest tubes removed today. Positive diet intake, denies nausea or vomiting, positive flatus, no bowel movement. Blood sugars controlled on insulin drip. Pacer wires recently discontinued, delined. Maintained on cefepime and vancomycin .BUN 25, creatinine 0.8 . Afebrile, WBC decreased to 19.6. Pathology/cultures pending. 12/27/2022 transferred out of ICU, currently on stepdown unit. Anticoagulated on Coumadin, INR 0.9. Telemetry sinus rhythm. Maintaining O2 sats in the 90s on room air. Chest x-ray reporting similar exam with small pleural effusions, adjacent atelectasis and/or consolidation, background mild pulmonary vascular congestion. Sed rate normal, elevated CRP and pro calcitonin. Continues on vancomycin and cefepime, afebrile, WBC continues trending down ,15.1. Aortic valve pathology reporting part A; thickened heart valve leaflets with fibromyxoid degenerative changes, features of part B aortic valve; mild fibrosis, adjacent fibrin and and blood clot, not diagnostic of neoplasm or endocarditis. Cultures finalizing, including preliminary blood cultures reporting no growth after 48 hours. Transitioned to long-acting subcu insulin along with NovoLog sliding scale, blood sugars controlled. Ambulating, tolerating exertion well, Pain controlled. Objective - Vital Signs Vital signs: Vital Signs Temp 97.9 F 12/27/22 04:00 Pulse 78 12/27/22 08:08 Resp 18 12/27/22 08:04 BP 146/80 12/27/22 08:04 Pulse Ox 94 L 12/27/22 08:04 FiO2 21 12/26/22 21:00 Intake & Output 12/26/22 12/27/22 12/27/22 18:59 06:59 18:59 Intake Total 1125.065 210 120 Output Total 905 350 500 Balance 220.065 -140 -380 Weight 106.4 kg Intake: IV 721 10 Cefepime 2 gm In Sodium 100 Chloride 0.9% 100 ml @ 25 mls/hr IVPB Q8HR [facility] Rx# :[id number] Invasive Line 5 10 Pressure Bags 21 Sodium Chloride 0.9% 1, 100 000 ml @ 20 mls/hr IV . Q24H [facility] Rx#:[id number] Vancomycin 1,500 mg In 500 Sodium Chloride 0.9% 500 ml 500 ml @ 167 mls/hr IVPB ONCE ONE Rx#: [id number] Intake, IV Titration 104.065 Amount Cefepime 2 gm In Sodium 100 Chloride 0.9% 100 ml @ 25 mls/hr IVPB Q8HR [facility] Rx# :[id number] Insulin Regular 100 unit 4.065 In Sodium Chloride 0.9% 100 ml @ Per Protocol IV .Q0M [facility] Rx#:[id number] Oral 300 200 120 Output: Chest Tube Drainage 70 Chest Tube Bilateral 70 Mediastinal Urine 835 350 500 Other: Voiding Method Indwelling Catheter Toilet Toilet # Voids 2 0 # Bowel Movements 2 ABP, PAP, CO, CI - Last Documented Arterial Blood Pressure 114/57 Pulmonary Artery Pressure 26/7 Cardiac Output 4.7 Cardiac Index 2.4 - Exam PHYSICAL EXAM: VITAL SIGNS: As above GENERAL: Alert and oriented 3, Sitting up in chair, no acute distress HEENT: Conjunctivae normal. eyes normal. MMM. NECK: Supple, No JVD. CARDIOVASCULAR: S1, S2 regular. RESPIRATION: Unlabored,Breath sounds diminished in the bases. ABDOMEN: Soft, nontender . No guarding. no masses palpable. +Bowel sounds. LEGS: No edema. no swelling. NERVOUS SYSTEM: Cranial N 2-12 grossly normal. No focal deficits. Strength and sensation grossly intact. Skin: Warm and dry, no rash - Labs CBC & Chem 7: 12/27/22 06:52 12/27/22 06:52 Labs: Abnormal Lab Results - Last 24 Hours (Table) 12/26/22 12/26/22 12/26/22 Range/Units 09:33 11:41 16:37 WBC (3.8-10.6) k/uL RBC (3.80-5.40) m/uL Hgb (11.4-16.0) gm/dL Hct (34.0-46.0) % Plt Count (150-450) k/uL Neutrophils # (1.3-7.7) k/uL Sodium (137-145) mmol/L Chloride (98-107) mmol/L Carbon Dioxide (22-30) mmol/L BUN (7-17) mg/dL POC Glucose (mg/dL) 133 H 122 H 121 H (70-110) mg/dL Calcium (8.4-10.2) mg/dL Total Protein (6.3-8.2) g/dL Albumin (3.5-5.0) g/dL 12/26/22 12/27/22 12/27/22 Range/Units 19:53 06:52 06:52 WBC 15.1 H (3.8-10.6) k/uL RBC 3.00 L (3.80-5.40) m/uL Hgb 9.0 L (11.4-16.0) gm/dL Hct 28.6 L (34.0-46.0) % Plt Count 129 L (150-450) k/uL Neutrophils # 10.3 H (1.3-7.7) k/uL Sodium 136 L (137-145) mmol/L Chloride 111 H (98-107) mmol/L Carbon Dioxide 21 L (22-30) mmol/L BUN 25 H (7-17) mg/dL POC Glucose (mg/dL) 166 H (70-110) mg/dL Calcium 8.0 L (8.4-10.2) mg/dL Total Protein 4.9 L (6.3-8.2) g/dL Albumin 2.7 L (3.5-5.0) g/dL Microbiology - Last 24 Hours (Table) 12/24/22 12:25 Anaerobic Culture - Preliminary Heart Valve 12/24/22 12:25 Gram Stain - Preliminary Heart Valve Tissue Culture - Preliminary 12/24/22 13:05 Blood Culture - Preliminary Blood No Growth after 48 hours Assessment and Plan Assessment: Severe aortic regurgitation, status post aortic valve replacement with mechanical valve, excision of left atrial appendage Chronic Leukocytosis, evaluated and cleared outpatient by hematology, leaflet of aortic heart valve-left cusp lesion ,excised and sent to pathology,cx, results pending, ID following Chronic paroxysmal atrial fibrillation Hypertension Hyperlipidemia Hypothyroidism Family history CAD Gastroesophageal reflux disease Hemoglobin A1c 6.4 Morbid obesity, BMI 41.7 Plan: Continue on current medication regime ,monitoring and symptomatic treatment. Tight blood sugar control with close monitoring of Accu-C heks.Discussed with patient Lantus daily at discharge .diabetic teaching with case management to ensure patient has glucometer.Cultures pending. IV antibiotics as per ID. Aggressive pulmonary toileting with incentive spirometer reinforced. Discharge planning in progress pending therapeutic INR. The impression and plan of care has been dictated as directed. : I performed a history and examination of this patient, discussed the same with the dictator. I agree with the dictator's note ,documented as a scribe. Any additional findings or plans will be noted.
[2022-12-27] MEDS ORDERED: VANCOMYCIN TROUGH DUE 1 EACH MISC MISCELLANE ONE (11:00)
[2022-12-27] MEDS: ACETAMINOPHEN TAB 325 MG TAB PO PRN (11:02)
[2022-12-27 11:45] LABS: Glucose,Whole Blood 102 mg/dL (70-110)
--- NOTE | 2022-12-27 12:10 | PN ---
PROGRESS NOTE This lady had aortic valve replacement by Dr. Anderson. She is doing well this morning. She is sitting up. No chest pain. She seems better. Her breathing is also better. She is doing better, incentive spirometry, in sinus rhythm. S1 and S2 heard normally. Short systolic murmur at the base. Lungs revealed improved air entry. Abdomen is soft. Lower extremities revealed diminished pulses. The patient has been started on Coumadin and Coumadin adjustment to achieve a PT/INR of 2.0 to 3.0, is being addressed by Cardiac Surgery. Continue all her current medications along with incentive spirometry and pulmonary toilet. MMODL / IJN: [id number] /
[2022-12-27] MEDS: CLOPIDOGREL 75 MG TAB PO SCH (12:23)
--- NOTE | 2022-12-27 14:00 | P.PN ---
Subjective Progress Note Date: 12/27/22 Principal diagnosis: Aortic valve replacement. Pulmonary consult dated 12/24/2022. 47-year-old female seen today in room 266. She is postop day #0, status post aortic valve replacement for aortic regurgitation. She is currently on the ventilator. Her ventilator settings include the volume assist control, rate of 18, tidal volume 375, FiO2 50%, blood gases show pO2 365, pCO2 54, pH is 7.29. FiO2 was dropped down to 50%, and the rate was increased to 18. Currently, she sedated on propofol at 25 mcg/kg/m, receiving saline at 50 mL an hour, and amiodarone at 1 mg/m. She's getting insulin at 0.5 units per hour. In addition to the aortic valve replacement with a tissue valve, showed a left atrial appendage exclusion. Currently, her cardiac output is 4 with an index of 2. He is currently atrial paced. White count 15.7, hemoglobin 11.2, and platelet count 121,000. Sodium 137, potassium 4.1, chlorides 108, CO2 26, BUN 18, creatinine 0.77. Chest x-ray shows mild cardiomegaly with mild pulmonary vascular congestion. Progress note dated 12/25/2022. 47-year-old female seen yesterday in consultation. She seen today in room 266. She was extubated yesterday, after having a aortic valve replacement. She's currently on room air. She's getting saline at 50 mL an hour, and an insulin drip at 5 units an hour. She is also on Primacor 0.2 mcg/kg/m. Post extub ation, she was a bit lethargic and sleepy, and the nurse call me. At that point, we placed her on BiPAP, with settings of 10/5 and 50%. She wore till 3 AM in the morning. White count 20.7, hemoglobin 10.6, hematocrit 33.6, and platelet count 144,000. Sodium 136, potassium 4.3, chlorides 110, CO2 22, BUN 23, and creatinine 0.79. Pro-calcitonin level is 5.82. Chest x-ray shows cardiomegaly, and developing bibasilar infiltrates. Progress note dated 12/26/2022. 47-year-old female, postop day #2, status post aortic valve replacement. She had aortic valve replacement for severe aortic regurgitation. Currently, she is on 2 L of oxygen. She's getting an insulin drip at 3.5 units an hour, and saline at KVO. White count 19.6, hemoglobin 9.7, hematocrit 30, platelet count 222,000. Sodium 133, potassium 4.5, chlorides 109, CO2 20, BUN 25, and creatinine 0.8. Chest x-ray shows postoperative changes, and is stable. Progress note dated 12/27/2022. The patient is seen today in room 369. She is postop day #3, status post aortic valve replacement for severe aortic regurgitation. She sitting in the chair next to the bed. She's currently on room air. She's not receiving any IV flui ds. She tells me that she may not be discharged home until this weekend. She was restarted back on warfarin. White count 15.1, hemoglobin 9, hematocrit 28.6, and platelet count is 129,000. Sodium 136, potassium 3.9, chlorides 111, CO2 21, BUN 25, and creatinine 0.72. Chest x-rays compared to chest x-ray done the day prior. There is mild pulmonary vascular congestion, small pleural effusions. Objective - Vital Signs Vital signs: Vital Signs Temp 97.9 F 12/27/22 04:00 Pulse 74 12/27/22 11:46 Resp 15 12/27/22 11:07 BP 123/81 12/27/22 11:07 Pulse Ox 96 12/27/22 11:07 FiO2 21 12/26/22 21:00 Intake & Output 12/26/22 12/27/22 12/27/22 18:59 06:59 18:59 Intake Total 1125.065 210 240 Output Total 450 655 8881 Balance 220.065 -140 -760 Weight 106.4 kg Intake: IV 721 10 Cefepime 2 gm In Sodium 100 Chloride 0.9% 100 ml @ 25 mls/hr IVPB Q8HR [facility] Rx# :[id number] Invasive Line 5 10 Pressure Bags 21 Sodium Chloride 0.9% 1, 100 000 ml @ 20 mls/hr IV . Q24H [facility] Rx#:[id number] Vancomycin 1,500 mg In 500 Sodium Chloride 0.9% 500 ml 500 ml @ 167 mls/hr IVPB ONCE ONE Rx#: [id number] Intake, IV Titration 104.065 Amount Cefepime 2 gm In Sodium 100 Chloride 0.9% 100 ml @ 25 mls/hr IVPB Q8HR [facility] Rx# :[id number] Insulin Regular 100 unit 4.065 In Sodium Chloride 0.9% 100 ml @ Per Protocol IV .Q0M [facility] Rx#:[id number] Oral 300 200 240 Output: Chest Tube Drainage 70 Chest Tube Bilateral 70 Mediastinal Urine 997 652 7014 Other: Voiding Method Indwelling Catheter Toilet Toilet # Voids 2 0 # Bowel Movements 2 ABP, PAP, CO, CI - Last Documented Arterial Blood Pressure 114/57 Pulmonary Artery Pressure 26/7 Cardiac Output 4.7 Cardiac Index 2.4 - Exam No acute distress, oriented 3. No acute distress. Room air saturation 96 %. HEENT examination is grossly unremarkable. Neck supple. Full range of motion. No adenopathy thyromegaly or neck vein distention. Cardiovascular examination reveals regular rhythm rate. S1-S2 normal. No S3 or S4. No discernible murmur noted. Heart sounds are distant. Heart rate 71 bpm. Lungs reveal mostly clear breath sounds. Scattered rhonchi. No wheezes or crackles. Abdomen soft bowel sounds are heard. No masses or tenderness. Extremities are intact. No cyanosis clubbing or edema. Skin is without rash or lesion. Neurologic examination is brief but nonfocal. - Labs CBC & Chem 7: 12/27/22 06:52 12/27/22 06:52 Labs: Abnormal Lab Results - Last 24 Hours (Table) 12/26/22 12/26/22 12/27/22 Range/Units 16:37 19:53 06:52 WBC 15.1 H (3.8-10.6) k/uL RBC 3.00 L (3.80-5.40) m/uL Hgb 9.0 L (11.4-16.0) gm/dL Hct 28.6 L (34.0-46.0) % Plt Count 129 L (150-450) k/uL Neutrophils # 10.3 H (1.3-7.7) k/uL Sodium (137-145) mmol/L Chloride (98-107) mmol/L Carbon Dioxide (22-30) mmol/L BUN (7-17) mg/dL POC Glucose (mg/dL) 121 H 166 H (70-110) mg/dL Calcium (8.4-10.2) mg/dL Total Protein (6.3-8.2) g/dL Albumin (3.5-5.0) g/dL 12/27/22 Range/Units 06:52 WBC (3.8-10.6) k/uL RBC (3.80-5.40) m/uL Hgb (11.4-16.0) gm/dL Hct (34.0-46.0) % Plt Count (150-450) k/uL Neutrophils # (1.3-7.7) k/uL Sodium 136 L (137-145) mmol/L Chloride 111 H (98-107) mmol/L Carbon Dioxide 21 L (22-30) mmol/L BUN 25 H (7-17) mg/dL POC Glucose (mg/dL) (70-110) mg/dL Calcium 8.0 L (8.4-10.2) mg/dL Total Protein 4.9 L (6.3-8.2) g/dL Albumin 2.7 L (3.5-5.0) g/dL Microbiology - Last 24 Hours (Table) 12/24/22 12:25 Anaerobic Culture - Preliminary Heart Valve 12/24/22 12:25 Gram Stain - Preliminary Heart Valve Tissue Culture - Preliminary 12/24/22 13:05 Blood Culture - Preliminary Blood No Growth after 48 hours Assessment and Plan Assessment: Postop day #3, S/P aortic valve replacement for severe aortic regurgitation, as well as excision of left atrial appendage. Routine postoperative ventilator management, status post extubation on 12/24/2022. Post extubation sleepiness/lethargy, managed with BiPAP. History of hyperlipidemia. History of paroxysmal atrial fibrillation. History of hypertension. Family history of CAD. Plan: Plan dated 12/24/2022. The patient is seen today in room 266. Her labs, x-rays, and medications are all reviewed. I was called with initial blood gases. Changes were made. The rate was increased from 14, up to 18 rest or minute. The FiO2 was dropped from 100%, down to 50%. Her cardiac output is 4, and her cardiac index is 2. She's currently on amiodarone at 1 mg/m, propofol at 25 mcg/kg/m, and insulin 0.5 units per hour. Follow make recommendations where appropriate. Prognosis is generally good. Plan dated 12/25/2022. The patient is seen today in room 266. She was extubated yesterday. Unfortunately, she did have some post extubation lethargy, and somnolence. I chose to manage her with BiPAP therapy. In addition, the patient remains on saline at 50 mL an hour, and insulin drip at 5 units an hour, and Primacor 0.2 mcg/kg/m. Labs, x-rays, and medications are all reviewed. The patient's overall prognosis is guarded. We will continue to follow make recommendations along the way. Plan dated 12/26/2022. The patient appears be doing better. Labs, x-rays, medications are reviewed. She remains on 2 L of oxygen. Today's postop day #2. She is getting saline at KVO. She is on an insulin drip at 3.5 units an hour. We will continue to follow, and make recommendations along the way. Prognosis is thought to be generally good. Plan dated 12/27/2022. The patient appears to be doing relatively well. The patient may not be discharged still this weekend. She was started back on her warfarin. Labs, x- rays, medications are reviewed. Clinically she denies any shortness of breath, difficulty breathing, coughing, wheezing, or phlegm production. We will c melissa to follow make recommendations along the way. Today is postop day #3. Time with Patient: Less than 30
[2022-12-27] MEDS: KETOROLAC 15 MG/ML 1 ML VIAL IVP PRN ×2 (14:53→20:52)
--- NOTE | 2022-12-27 15:08 | P.PN ---
Subjective Progress Note Date: 12/27/22 Principal diagnosis: Leukocytosis and Possible aortic valve endocarditis Patient is a 47 year old female with a past medical history significant for severe aortic regurgitation in this patient who is status post aortic valve Replacement patient was noticed to have abnormality of the aortic valve concerning for possible infection in this patient who did have a history of chronic leukocytosis On today's evaluation that is 12/27/2022, the patient remains to be afebrile the patient is breathing comfortably on a 2 L nasal cannula, the patient has been moved out of the ICU. The patient's chest pain is currently controlled some nausea but no vomiting and no abdominal pain or diarrhea Objective - Vital Signs Vital signs: Vital Signs Temp 97.9 F 12/27/22 04:00 Pulse 74 12/27/22 11:46 Resp 15 12/27/22 11:07 BP 123/81 12/27/22 11:07 Pulse Ox 96 12/27/22 11:07 FiO2 21 12/26/22 21:00 Intake & Output 12/26/22 12/27/22 12/27/22 18:59 06:59 18:59 Intake Total 1125.065 210 120 Output Total 905 350 500 Balance 220.065 -140 -380 Weight 106.4 kg Intake: IV 721 10 Cefepime 2 gm In Sodium 100 Chloride 0.9% 100 ml @ 25 mls/hr IVPB Q8HR [facility] Rx# :[id number] Invasive Line 5 10 Pressure Bags 21 Sodium Chloride 0.9% 1, 100 000 ml @ 20 mls/hr IV . Q24H [facility] Rx#:[id number] Vancomycin 1,500 mg In 500 Sodium Chloride 0.9% 500 ml 500 ml @ 167 mls/hr IVPB ONCE ONE Rx#: [id number] Intake, IV Titration 104.065 Amount Cefepime 2 gm In Sodium 100 Chloride 0.9% 100 ml @ 25 mls/hr IVPB Q8HR [facility] Rx# :[id number] Insulin Regular 100 unit 4.065 In Sodium Chloride 0.9% 100 ml @ Per Protocol IV .Q0M [facility] Rx#:[id number] Oral 300 200 120 Output: Chest Tube Drainage 70 Chest Tube Bilateral 70 Mediastinal Urine 835 350 500 Other: Voiding Method Indwelling Catheter Toilet Toilet # Voids 2 0 # Bowel Movements 2 ABP, PAP, CO, CI - Last Documented Arterial Blood Pressure 114/57 Pulmonary Artery Pressure 26/7 Cardiac Output 4.7 Cardiac Index 2.4 - Exam GENERAL DESCRIPTION: Middle-age female up in the chair in no distress RESPIRATORY SYSTEM: Unlabored breathing , decreased breath sounds at bases HEART: S1 S2 regular rate and rhythm , ABDOMEN: Soft , no tenderness EXTREMITIES: No edema feet - Labs CBC & Chem 7: 12/27/22 06:52 12/27/22 06:52 Labs: Abnormal Lab Results - Last 24 Hours (Table) 12/26/22 12/26/22 12/27/22 Range/Units 16:37 19:53 06:52 WBC 15.1 H (3.8-10.6) k/uL RBC 3.00 L (3.80-5.40) m/uL Hgb 9.0 L (11.4-16.0) gm/dL Hct 28.6 L (34.0-46.0) % Plt Count 129 L (150-450) k/uL Neutrophils # 10.3 H (1.3-7.7) k/uL Sodium (137-145) mmol/L Chloride (98-107) mmol/L Carbon Dioxide (22-30) mmol/L BUN (7-17) mg/dL POC Glucose (mg/dL) 121 H 166 H (70-110) mg/dL Calcium (8.4-10.2) mg/dL Total Protein (6.3-8.2) g/dL Albumin (3.5-5.0) g/dL 12/27/22 Range/Units 06:52 WBC (3.8-10.6) k/uL RBC (3.80-5.40) m/uL Hgb (11.4-16.0) gm/dL Hct (34.0-46.0) % Plt Count (150-450) k/uL Neutrophils # (1.3-7.7) k/uL Sodium 136 L (137-145) mmol/L Chloride 111 H (98-107) mmol/L Carbon Dioxide 21 L (22-30) mmol/L BUN 25 H (7-17) mg/dL POC Glucose (mg/dL) (70-110) mg/dL Calcium 8.0 L (8.4-10.2) mg/dL Total Protein 4.9 L (6.3-8.2) g/dL Albumin 2.7 L (3.5-5.0) g/dL Microbiology - Last 24 Hours (Table) 12/24/22 12:25 Anaerobic Culture - Preliminary Heart Valve 12/24/22 12:25 Gram Stain - Preliminary Heart Valve Tissue Culture - Preliminary 12/24/22 13:05 Blood Culture - Preliminary Blood No Growth after 48 hours Assessment and Plan (1) Leukocytosis Current Visit: Yes Status: Acute Code(s): D72.829 - ELEVATED WHITE BLOOD CELL COUNT, UNSPECIFIED SNOMED Code(s): 002546360 Plan: 1patient with history of severe aortic regurgitation and also with a history of chronic leukocytosis that has been investigated outpatient setting and no evidence of any hematological malignancy site disorder and no clear history of fever, now with evidence of lesion on the aortic wall as possible vegetation 2-Patient with multiple antibiotic ALLERGIES that would limit the number of antibiotic safe to use 3-blood culture has been negative so far patient did have elevated CRP as well as pro-calcitonin but the sed rate was normal 4-patient histopathology did not mention any evidence of inflammation or any suspicious for abscess or infection, the patient antibiotic has been discontinued and will monitor the patient closely off antibiotic therapy Time with Patient: Less than 30
[2022-12-27 16:20] LABS: Glucose,Whole Blood 113 mg/dL (70-110)
[2022-12-27] MEDS ORDERED: WARFARIN 7.5 MG TAB PO ONE (18:00)
[2022-12-27 20:10] LABS: Glucose,Whole Blood 116 mg/dL (70-110)
[2022-12-27] MEDS: MAGNESIUM OXIDE 400 MG TAB PO SCH (20:53)
[2022-12-28] MEDS: KETOROLAC 15 MG/ML 1 ML VIAL IVP PRN ×3 (04:56→20:33)
[2022-12-28 05:56] LABS: Glucose,Whole Blood 102 mg/dL (70-110)
[2022-12-28] MEDS: INSULIN ASPART (NovoLOG) 100 UNIT/ML VIAL SQ SCH ×4 (05:58→20:32)
[2022-12-28] MEDS: LEVOTHYROXINE 50 MCG TAB PO SCH (06:32)
[2022-12-28] MEDS: INSULIN DETEMIR (LEVEMIR) 100 UNIT/ML SYR SQ SCH (06:32)
[2022-12-28] MEDS: PANTOPRAZOLE 40 MG TABLET PO SCH ×2 (06:32→17:03)
--- NOTE | 2022-12-28 07:20 | XR ---
EXAMINATION TYPE: XR chest 2V DATE OF EXAM: 12/28/2022 COMPARISON: 12/27/2022 HISTORY: post cardiac surgery TECHNIQUE: Frontal and lateral views of the chest are obtained. FINDINGS: There is no evidence of pneumothorax. Sternotomy wires and left atrial clip are noted. Prosthetic aor tic valve noted. Loop recorder also identified. Continued cardiomegaly with pulmonary venous congesti on and pleural parenchymal density at the lung bases. The osseous structures are grossly intact. IMPRESSION: 1. Able chest
[2022-12-28 08:01] LABS: HCT 28.5 % (34.0-46.0); HGB 9.4 gm/dL (11.4-16.0); MCH 30.9 pg (25.0-35.0); MCHC 32.8 g/dL (31.0-37.0); MCV 94.3 fL (80.0-100.0); Mean Platelet Volume 9.9; Platelet Count 179 k/uL (150-450); RBC 3.03 m/uL (3.80-5.40); RDW 13.6 % (11.5-15.5); WBC 15.2 k/uL (3.8-10.6)
--- NOTE | 2022-12-28 08:02 | P.PN ---
Subjective Progress Note Date: 12/28/22 Principal diagnosis: Severe aortic valve regurgitation. History of chronic leukocytosis, hypertension, hyperlipidemia, paroxysmal atrial fibrillation, supraventricular tachycardia, previous tobacco dependence, obesity, hypothyroid, GERD, fibromyalgia, migraine headaches POD #4 aortic valve replacement using a 21 mm OnX mechanical valve, exclusion of the left atrial appendage using a 35 mm Atriclip, intraoperative transesophageal echocardiogram and epi-aortic scanning Postoperative acute blood loss anemia and thrombocytopenia, expected given hemodilution and cardiopulmonary bypass The patient was seen and examined this morning sitting up in a recliner on the cardiac stepdown unit in no acute distress eating breakfast. States pain is controlled with current medication regimen. Denies shortness of breath. She has been ambulatory in the hallway without difficulty, had first postoperative shower yesterday. Remains in sinus rhythm, hemodynamically stable. She remains on room air with oxygen saturation in the 90s. Per discussion between Dr. 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 Waiting for Coumadin level to be therapeutic for discharge. No other new concerns. Objective - Vital Signs Vital signs: Vital Signs Temp 98.2 F 12/28/22 04:00 Pulse 68 12/28/22 04:00 Resp 19 12/28/22 04:00 BP 116/74 12/28/22 04:00 Pulse Ox 94 L 12/28/22 04:00 FiO2 21 12/26/22 21:00 Intake & Output 12/27/22 12/28/22 12/28/22 18:59 06:59 18:59 Intake Total 240 Output Total 2125 300 Balance -1885 -300 Weight 105.4 kg Intake: Oral 240 Output: Urine 2125 300 Other: Voiding Method Toilet Toilet # Voids 1 # Bowel Movements 1 ABP, PAP, CO, CI - Last Documented Arterial Blood Pressure 114/57 Pulmonary Artery Pressure 26/7 Cardiac Output 4.7 Cardiac Index 2.4 - Exam CONSTITUTIONAL: Appears comfortable, cooperative, no acute distress RESPIRATORY: Lungs sounds diminished bilaterally. Respirations even, nonlabored. Currently on room air with oxygen saturation 94%. Able to achieve 750-1000 mL on incentive spirometry. Strong cough. CARDIOVASCULAR: S1, S2 present. Regular rate and rhythm, sinus rhythm on telemetry. Sternum stable. Palpable peripheral pulses bilaterally. Trace generalized edema present. No calf pain or tenderness noted. Heart hugger in place with patient demonstrating appropriate use. Antiembolism stockings, SCDs present. GASTROINTESTINAL: Abdomen soft, nontender, nondistended. Active bowel sounds present 4 quadrants. Tolerating diet. Positive bowel movement 12/27 GENITOURINARY: Continues to void. Output 2425 mL in the last 24 hours INTEGUMENTARY: Skin is warm and dry with evidence of good perfusion. Anterior chest incision well approximated NEUROLOGIC: Cranial nerves II through XII intact MUSKULOSKELETAL: Able to move all extremities, strength equal bilaterally, gait normal PSYCHIATRIC: Alert and oriented to person place and time, appropriate affect, intact judgment and insight - Allied health notes Allied health notes reviewed: nursing - Labs CBC & Chem 7: 12/27/22 06:52 12/27/22 06:52 Labs: Abnormal Lab Results - Last 24 Hours (Table) 12/27/22 12/27/22 12/27/22 Range/Units 06:52 06:52 16:18 WBC 15.1 H (3.8-10.6) k/uL RBC 3.00 L (3.80-5.40) m/uL Hgb 9.0 L (11.4-16.0) gm/dL Hct 28.6 L (34.0-46.0) % Plt Count 129 L (150-450) k/uL Neutrophils # 10.3 H (1.3-7.7) k/uL Sodium 136 L (137-145) mmol/L Chloride 111 H (98-107) mmol/L Carbon Dioxide 21 L (22-30) mmol/L BUN 25 H (7-17) mg/dL POC Glucose (mg/dL) 113 H (70-110) mg/dL Calcium 8.0 L (8.4-10.2) mg/dL Total Protein 4.9 L (6.3-8.2) g/dL Albumin 2.7 L (3.5-5.0) g/dL 12/27/22 Range/Units 20:08 WBC (3.8-10.6) k/uL RBC (3.80-5.40) m/uL Hgb (11.4-16.0) gm/dL Hct (34.0-46.0) % Plt Count (150-450) k/uL Neutrophils # (1.3-7.7) k/uL Sodium (137-145) mmol/L Chloride (98-107) mmol/L Carbon Dioxide (22-30) mmol/L BUN (7-17) mg/dL POC Glucose (mg/dL) 116 H (70-110) mg/dL Calcium (8.4-10.2) mg/dL Total Protein (6.3-8.2) g/dL Albumin (3.5-5.0) g/dL Microbiology - Last 24 Hours (Table) 12/24/22 12:25 Gram Stain - Preliminary Heart Valve Tissue Culture - Preliminary 12/24/22 13:05 Blood Culture - Preliminary Blood No Growth after 72 hours - Imaging and Cardiology Chest x-ray: report reviewed, image reviewed Assessment and Plan Assessment: Severe aortic valve regurgitation, status post mechanical aortic valve replacement Chronic leukocytosis, 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 Will increase beta nando as tolerated. Continue lisinopril for afterload reduction Will dose Coumadin daily based on PT/INR. Goal INR for the first 3 months is 2.0-3.0, after the 3 months goal INR is 1.5-2.0 Continue amiodarone for A. fib prophylaxis Encourage incentive spirometry use 10 times every hour while awake, bronchodilators per pulmonology Increase activity, ambulate as tolerated, PT/OT/cardiac rehab following Continue to monitor daily labs and chest x-rays. Replace electrolytes per hadley col. GI/DVT prophylaxis. Insulin management per internal medicine service. Patient needs tight blood sugar control to promote healing and prevent infection. Preoperative hemoglobin A1c 6.4% Pain control with current medication regimen. Strict accurate intake and output. Daily weights. 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 Anticipate discharge to home with home care once INR is therapeutic More recommendations to follow based on patient's clinical course.
[2022-12-28] MEDS: IPRATROPIUM 0.5 MG/2.5 ML NEBU INHALATION SCH ×4 (08:12→21:34)
[2022-12-28] MEDS: ALBUTEROL NEBULIZED 2.5 MG/3 ML INHALATION SCH ×4 (08:12→21:34)
[2022-12-28 08:17] LABS: African American GFR (CKD) >90 (>60 ml/min/1.73 sqM); Anion Gap 5 mmol/L; Blood Urea Nitrogen 26 mg/dL (7-17); Calcium 8.3 mg/dL (8.4-10.2); Carbon Dioxide 25 mmol/L (22-30); Chloride 108 mmol/L (98-107); Glucose 98 mg/dL (74-99); Non-African American GFR(CKD) >90 (>60 ml/min/1.73 sqM); Potassium 4.1 mmol/L (3.5-5.1); Sodium 138 mmol/L (137-145)
[2022-12-28 08:23] LABS: INR 1.3 (<1.2); Prothrombin Time 13.6 sec (9.0-12.0)
[2022-12-28] MEDS: CLOPIDOGREL 75 MG TAB PO SCH (09:32)
[2022-12-28] MEDS: HEPARIN SODIUM,PORCINE/PF 5,000 UNIT/0.5 ML SYRINGE SQ SCH ×3 (09:32→23:36)
[2022-12-28] MEDS: FUROSEMIDE 10 MG/ML 2 ML VIAL IV SCH ×2 (09:32→16:06)
[2022-12-28] MEDS: AMIODARONE 200 MG TAB PO SCH ×2 (09:32→20:32)
[2022-12-28] MEDS: METOPROLOL TARTRATE 25 MG TAB PO SCH ×2 (09:32→20:32)
[2022-12-28] MEDS: ASPIRIN 81 MG PO SCH (09:32)
[2022-12-28] MEDS: ATORVASTATIN 40 MG TAB PO SCH (09:32)
[2022-12-28] MEDS: EZETIMIBE 10 MG TAB PO SCH (09:32)
[2022-12-28] MEDS: POTASSIUM CHLORIDE ER 20 MEQ TAB.ER PO SCH (09:32)
[2022-12-28] MEDS: ACETAMINOPHEN TAB 325 MG TAB PO PRN ×2 (09:34→23:39)
--- NOTE | 2022-12-28 11:14 | P.PN ---
Subjective Progress Note Date: 12/28/22 HISTORY OF PRESENT ILLNESS: This is a 47-year-old female who underwent aortic valve replacement. Postoperative day #4. Patient examined this 40. She is sitting up in the chair. Patient denies chest pain or pressure. She denies shortness of breath. Vital signs are stable. Telemetry reveals sinus mechanism. Patient's INR today 1.3. She is on Coumadin. PHYSICAL EXAM: VITAL SIGNS: Reviewed. GENERAL: Well-developed in no acute distress. NECK: Supple. No JVD or thyromegaly LUNGS: Respirations even and unlabored. Lungs essentially clear to auscultation bilaterally. HEART: Regular rate and rhythm. S1 and S2 heard. EXTREMITIES: Normal range of motion. No clubbing or cyanosis. Peripheral pulses intact. Trace lower extremity edema ASSESSMENT: Severe aortic valve regurgitation, status post mechanical aortic valve replacement History of paroxysmal atrial fibrillation History of SVT Hypertension Hyperlipidemia Morbid obesity Hypothyroidism Fibromyalgia PLAN: Continue current cardiac medications Continue Coumadin. Awaiting INR to be therapeutic for discharge. Increase activity as tolerated Encouraged use of incentive spirometer Further recommendations pending patient course Nurse practitioner note has been reviewed by physician. Signing provider agrees with the documented findings, assessment, and plan of care. Objective - Vital Signs Vital signs: Vital Signs Temp 97.2 F L 12/28/22 08:15 Pulse 70 12/28/22 08:32 Resp 18 12/28/22 08:15 BP 140/60 12/28/22 08:15 Pulse Ox 96 12/28/22 08:15 FiO2 21 12/26/22 21:00 Intake & Output 12/27/22 12/28/22 12/28/22 18:59 06:59 18:59 Intake Total 240 118 Output Total 2125 300 200 Balance -1885 -300 -82 Weight 105.4 kg Intake: Oral 240 118 Output: Urine 2125 300 200 Other: Voiding Method Toilet Toilet # Voids 1 1 # Bowel Movements 1 ABP, PAP, CO, CI - Last Documented Arterial Blood Pressure 114/57 Pulmonary Artery Pressure 26/7 Cardiac Output 4.7 Cardiac Index 2.4 - Labs CBC & Chem 7: 12/28/22 07:21 12/28/22 07:21 Labs: Abnormal Lab Results - Last 24 Hours (Table) 12/27/22 12/27/22 12/28/22 Range/Units 16:18 20:08 07:21 WBC (3.8-10.6) k/uL RBC (3.80-5.40) m/uL Hgb (11.4-16.0) gm/dL Hct (34.0-46.0) % PT 13.6 H (9.0-12.0) sec INR 1.3 H (<1.2) Chloride (98-107) mmol/L BUN (7-17) mg/dL POC Glucose (mg/dL) 113 H 116 H (70-110) mg/dL Calcium (8.4-10.2) mg/dL 12/28/22 12/28/22 Range/Units 07:21 07:21 WBC 15.2 H (3.8-10.6) k/uL RBC 3.03 L (3.80-5.40) m/uL Hgb 9.4 L (11.4-16.0) gm/dL Hct 28.5 L (34.0-46.0) % PT (9.0-12.0) sec INR (<1.2) Chloride 108 H (98-107) mmol/L BUN 26 H (7-17) mg/dL POC Glucose (mg/dL) (70-110) mg/dL Calcium 8.3 L (8.4-10.2) mg/dL Microbiology - Last 24 Hours (Table) 12/24/22 12:25 Gram Stain - Preliminary Heart Valve Tissue Culture - Preliminary 12/24/22 13:05 Blood Culture - Preliminary Blood No Growth after 72 hours
[2022-12-28 11:40] LABS: Glucose,Whole Blood 99 mg/dL (70-110)
--- NOTE | 2022-12-28 12:30 | P.PN ---
Subjective Progress Note Date: 12/28/22 Principal diagnosis: Aortic valve replacement. Pulmonary consult dated 12/24/2022. 47-year-old female seen today in room 266. She is postop day #0, status post aortic valve replacement for aortic regurgitation. She is currently on the ventilator. Her ventilator settings include the volume assist control, rate of 18, tidal volume 375, FiO2 50%, blood gases show pO2 365, pCO2 54, pH is 7.29. FiO2 was dropped down to 50%, and the rate was increased to 18. Currently, she sedated on propofol at 25 mcg/kg/m, receiving saline at 50 mL an hour, and amiodarone at 1 mg/m. She's getting insulin at 0.5 units per hour. In addition to the aortic valve replacement with a tissue valve, showed a left atrial appendage exclusion. Currently, her cardiac output is 4 with an index of 2. He is currently atrial paced. White count 15.7, hemoglobin 11.2, and platelet count 121,000. Sodium 137, potassium 4.1, chlorides 108, CO2 26, BUN 18, creatinine 0.77. Chest x-ray shows mild cardiomegaly with mild pulmonary vascular congestion. Progress note dated 12/25/2022. 47-year-old female seen yesterday in consultation. She seen today in room 266. She was extubated yesterday, after having a aortic valve replacement. She's currently on room air. She's getting saline at 50 mL an hour, and an insulin drip at 5 units an hour. She is also on Primacor 0.2 mcg/kg/m. Post extub ation, she was a bit lethargic and sleepy, and the nurse call me. At that point, we placed her on BiPAP, with settings of 10/5 and 50%. She wore till 3 AM in the morning. White count 20.7, hemoglobin 10.6, hematocrit 33.6, and platelet count 144,000. Sodium 136, potassium 4.3, chlorides 110, CO2 22, BUN 23, and creatinine 0.79. Pro-calcitonin level is 5.82. Chest x-ray shows cardiomegaly, and developing bibasilar infiltrates. Progress note dated 12/26/2022. 47-year-old female, postop day #2, status post aortic valve replacement. She had aortic valve replacement for severe aortic regurgitation. Currently, she is on 2 L of oxygen. She's getting an insulin drip at 3.5 units an hour, and saline at KVO. White count 19.6, hemoglobin 9.7, hematocrit 30, platelet count 222,000. Sodium 133, potassium 4.5, chlorides 109, CO2 20, BUN 25, and creatinine 0.8. Chest x-ray shows postoperative changes, and is stable. Progress note dated 12/27/2022. The patient is seen today in room 369. She is postop day #3, status post aortic valve replacement for severe aortic regurgitation. She sitting in the chair next to the bed. She's currently on room air. She's not receiving any IV flui ds. She tells me that she may not be discharged home until this weekend. She was restarted back on warfarin. White count 15.1, hemoglobin 9, hematocrit 28.6, and platelet count is 129,000. Sodium 136, potassium 3.9, chlorides 111, CO2 21, BUN 25, and creatinine 0.72. Chest x-rays compared to chest x-ray done the day prior. There is mild pulmonary vascular congestion, small pleural effusions. Progress note dated 12/28/2022. The patient is seen today in room 369. Currently, she is on room air. She's not receiving any IV fluids. The patient states that she probably will be discharged until Saturday. They are waiting for her INR is in the therapeutic range. She is postop day #4, status post aortic valve, for aortic regurgitation. White count 15.2, hemoglobin 9.4, hematocrit 28.5, and platelet count 179,000. INR is 1.3. Sodium 138, potassium 4.1, chlorides 108, CO2 25, anion gap normal, BUN 26, and creatinine 0.77. Chest x-ray is stable, and unchanged. Objective - Vital Signs Vital signs: Vital Signs Temp 97.2 F L 12/28/22 08:15 Pulse 70 12/28/22 12:03 Resp 18 12/28/22 08:15 BP 140/60 12/28/22 08:15 Pulse Ox 96 12/28/22 08:15 FiO2 21 12/26/22 21:00 Intake & Output 12/27/22 12/28/2212/28/23 18:59 06:59 18:59 Intake Total 240 118 Output Total 2125 300 1350 Balance -8693 -317 -1366 Weight 105.4 kg Intake: Oral 240 118 Output: Urine 5 300 1350 Other: Voiding Method Toilet Toilet # Voids 1 1 # Bowel Movements 1 1 ABP, PAP, CO, CI - Last Documented Arterial Blood Pressure 114/57 Pulmonary Artery Pressure 26/7 Cardiac Output 4.7 Cardiac Index 2.4 - Exam No acute distress, oriented 3. No acute distress. Room air saturation 96 %. HEENT examination is grossly unremarkable. Neck supple. Full range of motion. No adenopathy thyromegaly or neck vein distention. Cardiovascular examination reveals regular rhythm rate. S1-S2 normal. No S3 or S4. No discernible murmur noted. Heart sounds are distant. Heart rate 70 bpm. Lungs reveal mostly clear breath sounds. Scattered rhonchi. No wheezes or crackles. Abdomen soft bowel sounds are heard. No masses or tenderness. Extremities are intact. No cyanosis clubbing or edema. Skin is without rash or lesion. Neurologic examination is brief but nonfocal. - Labs CBC & Chem 7: 12/28/22 07:21 12/28/22 07:21 Labs: Abnormal Lab Results - Last 24 Hours (Table) 12/27/22 12/27/22 12/28/22 Range/Units 16:18 20:08 07:21 WBC (3.8-10.6) k/uL RBC (3.80-5.40) m/uL Hgb (11.4-16.0) gm/dL Hct (34.0-46.0) % PT 13.6 H (9.0-12.0) sec INR 1.3 H (<1.2) Chloride (98-107) mmol/L BUN (7-17) mg/dL POC Glucose (mg/dL) 113 H 116 H (70-110) mg/dL Calcium (8.4-10.2) mg/dL 12/28/22 12/28/22 Range/Units 07:21 07:21 WBC 15.2 H (3.8-10.6) k/uL RBC 3.03 L (3.80-5.40) m/uL Hgb 9.4 L (11.4-16.0) gm/dL Hct 28.5 L (34.0-46.0) % PT (9.0-12.0) sec INR (<1.2) Chloride 108 H (98-107) mmol/L BUN 26 H (7-17) mg/dL POC Glucose (mg/dL) (70-110) mg/dL Calcium 8.3 L (8.4-10.2) mg/dL Microbiology - Last 24 Hours (Table) 12/24/22 12:25 Gram Stain - Preliminary Heart Valve Tissue Culture - Preliminary 12/24/22 13:05 Blood Culture - Preliminary Blood No Growth after 72 hours Assessment and Plan Assessment: Postop day #4, S/P aortic valve replacement for severe aortic regurgitation, as well as excision of left atrial appendage. Routine postoperative ventilator management, status post extubation on 12/24/2022. Post extubation sleepiness/lethargy, managed with BiPAP. History of hyperlipidemia. History of paroxysmal atrial fibrillation. History of hypertension. Family history of CAD. Plan: Plan dated 12/24/2022. The patient is seen today in room 266. Her labs, x-rays, and medications are all reviewed. I was called with initial blood gases. Changes were made. The rate was increased from 14, up to 18 rest or minute. The FiO2 was dropped from 100%, down to 50%. Her cardiac output is 4, and her cardiac index is 2. She's currently on amiodarone at 1 mg/m, propofol at 25 mcg/kg/m, and insulin 0.5 units per hour. Follow make recommendations where appropriate. Prognosis is generally good. Plan dated 12/25/2022. The patient is seen today in room 266. She was extubated yesterday. Unfortunately, she did have some post extubation lethargy, and somnolence. I chose to manage her with BiPAP therapy. In addition, the patient remains on saline at 50 mL an hour, and insulin drip at 5 units an hour, and Primacor 0.2 mcg/kg/m. Labs, x-rays, and medications are all reviewed. The patient's overall prognosis is guarded. We will continue to follow make recommendations along the way. Plan dated 12/26/2022. The patient appears be doing better. Labs, x-rays, medications are reviewed. She remains on 2 L of oxygen. Today's postop day #2. She is getting saline at KVO. She is on an insulin drip at 3.5 units an hour. We will continue to follow, and make recommendations along the way. Prognosis is thought to be generally good. Plan dated 12/27/2022. The patient appears to be doing relatively well. The patient may not be discharged still this weekend. She was started back on her warfarin. Labs, x- rays, medications are reviewed. Clinically she denies any shortness of breath, difficulty breathing, coughing, wheezing, or phlegm production. We will continue to follow make recommendations along the way. Today is postop day #3. Plan dated 12/28/2022. The patient is postop day #4. She had an aortic valve replacement, or aortic regurgitation. It was a biomechanical valve. Currently, her INR is 1.3. She's on room air. She's not receiving any IV fluids. Labs are in the normal range for the most part. We will continue to follow the patient and make recommendations along the way. Prognosis is thought to be generally good. Time with Patient: Less than 30
--- NOTE | 2022-12-28 15:22 | P.PN ---
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 Patient is a 47 year old female with a past medical history significant for severe aortic regurgitation in this patient who is status post aortic valve Replacement patient was noticed to have abnormality of the aortic valve concerning for possible infection in this patient who did have a history of chronic leukocytosis On today's evaluation that is 12/28/2022, the patient continues to be afebrile , the patient is breathing comfortably on room air, the patient chest pain is currently controlled , the patient denies having any nausea no vomiting and no abdominal pain or diarrhea Objective - Vital Signs Vital signs: Vital Signs Temp 97.2 F L 12/28/22 08:15 Pulse 70 12/28/22 12:03 Resp 18 12/28/22 08:15 BP 140/60 12/28/22 08:15 Pulse Ox 96 12/28/22 08:15 FiO2 21 12/26/22 21:00 Intake & Output 12/27/22 12/28/22 12/28/22 18:59 06:59 18:59 Intake Total 240 118 Output Total 2125 300 1350 Balance -1885 300 -1232 Weight 105.4 kg Intake: Oral 240 118 Output: Urine 2125 300 1350 Other: Voiding Method Toilet Toilet # Voids 1 1 # Bowel Movements 1 1 ABP, PAP, CO, CI - Last Documented Arterial Blood Pressure 114/57 Pulmonary Artery Pressure 26/7 Cardiac Output 4.7 Cardiac Index 2.4 - Exam GENERAL DESCRIPTION: Middle-age female up in the chair in no distress RESPIRATORY SYSTEM: Unlabored breathing , decreased breath sounds at bases HEART: S1 S2 regular rate and rhythm , ABDOMEN: Soft , no tenderness EXTREMITIES: No edema feet - Labs CBC & Chem 7: 12/28/22 07:21 12/28/22 07:21 Labs: Abnormal Lab Results - Last 24 Hours (Table) 12/27/22 12/27/22 12/28/22 Range/Units 16:18 20:08 07:21 WBC (3.8-10.6) k/uL RBC (3.80-5.40) m/uL Hgb (11.4-16.0) gm/dL Hct (34.0-46.0) % PT 13.6 H (9.0-12.0) sec INR 1.3 H (<1.2) Chloride (98-107) mmol/L BUN (7-17) mg/dL POC Glucose (mg/dL) 113 H 116 H (70-110) mg/dL Calcium (8.4-10.2) mg/dL 12/28/22 12/28/22 Range/Units 07:21 07:21 WBC 15.2 H (3.8-10.6) k/uL RBC 3.03 L (3.80-5.40) m/uL Hgb 9.4 L (11.4-16.0) gm/dL Hct 28.5 L (34.0-46.0) % PT (9.0-12.0) sec INR (<1.2) Chloride 108 H (98-107) mmol/L BUN 26 H (7-17) mg/dL POC Glucose (mg/dL) (70-110) mg/dL Calcium 8.3 L (8.4-10.2) mg/dL Microbiology - Last 24 Hours (Table) 12/24/22 12:25 Gram Stain - Preliminary Heart Valve Tissue Culture - Preliminary 12/24/22 13:05 Blood Culture - Preliminary Blood No Growth after 72 hours Assessment and Plan (1) Leukocytosis Current Visit: Yes Status: Acute Code(s): D72.829 - ELEVATED WHITE BLOOD CELL COUNT, UNSPECIFIED SNOMED Code(s): 894554717 Plan: 1patient with history of severe aortic regurgitation and also with a history of chronic leukocytosis that has been investigated outpatient setting and no eviden ce of any hematological malignancy site disorder and no clear history of fever, now with evidence of lesion on the aortic wall as possible vegetation 2-Patient with multiple antibiotic ALLERGIES that would limit the number of antibiotic safe to use 3-blood culture has been negative so far patient did have elevated CRP as well as pro-calcitonin but the sed rate was normal 4-patient histopathology did not mention any evidence of inflammation or any suspicious for abscess or infection and the patient blood culture has been negative, the patient antibiotic has been discontinued, patient will be mo nitored closely off antibiotic therapy at this point Time with Patient: Less than 30
[2022-12-28 16:57] LABS: Glucose,Whole Blood 139 mg/dL (70-110)
[2022-12-28] MEDS ORDERED: WARFARIN 5 MG TAB PO ONE (18:00)
[2022-12-28 20:04] LABS: Glucose,Whole Blood 190 mg/dL (70-110)
[2022-12-28] MEDS: SENNOSIDES-DOCUSATE SODIUM 1 EACH TAB PO SCH (20:32)
[2022-12-28] MEDS: MAGNESIUM OXIDE 400 MG TAB PO SCH (20:32)
[2022-12-29 06:11] LABS: Glucose,Whole Blood 99 mg/dL (70-110)
[2022-12-29] MEDS: INSULIN ASPART (NovoLOG) 100 UNIT/ML VIAL SQ SCH (06:23)
--- NOTE | 2022-12-29 06:43 | P.PN ---
Subjective Progress Note Date: 12/29/22 Principal diagnosis: Valvular heart disease The patient is a 47-year-old female patient who was admitted to the hospital and underwent aortic valve replacement using mechanical valve for severe symptomatic aortic regurgitation. December [id number] The patient was seen and evaluated this morning. She remained stable. She has been maintaining normal sinus mechanism. Hemoglobin a kidney function for the last 24 hours are within normal limits. She continues to be on antiplatelet as well as anticoagulation was Coumadin. INR still pending from the morning if she is in process and chest x-ray. Assessment Severe symptomatically aortic regurgitation Status post aortic valve replacement using mechanical valve Multiple comorbid conditions Plan Continue the current medical regimen Continue monitor the kidney function and electrolytes and monitor the hemoglobin Follow-up on the chest x-ray in the morning Follow-up on the INR Objective - Vital Signs Vital signs: Vital Signs Temp 98.3 F 12/28/22 23:37 Pulse 76 12/28/22 23:37 Resp 19 12/28/22 23:37 BP 135/62 12/28/22 23:37 Pulse Ox 96 12/28/22 23:37 FiO2 21 12/26/22 21:00 Intake & Output 12/28/22 12/28/22 12/29/22 06:59 18:59 06:59 Intake Total 176 Output Total 300 1350 500 Balance -300 -1174 -500 Weight 105.4 kg Intake: Oral 176 Output: Urine 300 1350 500 Other: Voiding Method Toilet Toilet # Voids 1 1 # Bowel Movements 0 ABP, PAP, CO, CI - Last Documented Arterial Blood Pressure 114/57 Pulmonary Artery Pressure 26/7 Cardiac Output 4.7 Cardiac Index 2.4 - Labs CBC & Chem 7: 12/28/22 07:21 12/28/22 07:21 Labs: Abnormal Lab Results - Last 24 Hours (Table) 12/28/22 12/28/22 12/28/22 Range/Units 07:21 07:21 07:21 WBC 15.2 H (3.8-10.6) k/uL RBC 3.03 L (3.80-5.40) m/uL Hgb 9.4 L (11.4-16.0) gm/dL Hct 28.5 L (34.0-46.0) % PT 13.6 H (9.0-12.0) sec INR 1.3 H (<1.2) Chloride 108 H (98-107) mmol/L BUN 26 H (7-17) mg/dL POC Glucose (mg/dL) (70-110) mg/dL Calcium 8.3 L (8.4-10.2) mg/dL 12/28/22 12/28/22 Range/Units 16:55 20:02 WBC (3.8-10.6) k/uL RBC (3.80-5.40) m/uL Hgb (11.4-16.0) gm/dL Hct (34.0-46.0) % PT (9.0-12.0) sec INR (<1.2) Chloride (98-107) mmol/L BUN (7-17) mg/dL POC Glucose (mg/dL) 139 H 190 H (70-110) mg/dL Calcium (8.4-10.2) mg/dL Microbiology - Last 24 Hours (Table) 12/24/22 12:25 Anaerobic Culture - Final Heart Valve 12/24/22 12:25 Gram Stain - Final Heart Valve Tissue Culture - Final 12/24/22 13:05 Blood Culture - Preliminary Blood No Growth after 96 hours
[2022-12-29] MEDS: KETOROLAC 15 MG/ML 1 ML VIAL IVP PRN (06:52)
[2022-12-29] MEDS: INSULIN DETEMIR (LEVEMIR) 100 UNIT/ML SYR SQ SCH (06:52)
[2022-12-29] MEDS: LEVOTHYROXINE 50 MCG TAB PO SCH (06:53)
[2022-12-29] MEDS: PANTOPRAZOLE 40 MG TABLET PO SCH (06:53)
[2022-12-29] MEDS ORDERED: IBUPROFEN 600 MG TAB PO PRN (08:08)
--- NOTE | 2022-12-29 08:14 | P.PN ---
Subjective Progress Note Date: 12/29/22 Principal diagnosis: Severe aortic valve regurgitation. History of chronic leukocytosis, hypertension, hyperlipidemia, paroxysmal atrial fibrillation, supraventricular tachycardia, previous tobacco dependence, obesity, hypothyroid, GERD, fibromyalgia, migraine headaches POD #5 aortic valve replacement using a 21 mm OnX mechanical valve, exclusion of the left atrial appendage using a 35 mm Atriclip, intraoperative transesophageal echocardiogram and epi-aortic scanning Postoperative acute blood loss anemia and thrombocytopenia, expected given hemodilution and cardiopulmonary bypass The patient was seen and examined this morning sitting up in a recliner on the cardiac stepdown unit in no acute distress eating breakfast. States pain is controlled with current medication regimen. Denies shortness of breath. She has been ambulatory in the hallway without difficulty. Remains in sinus rhythm, hemodynamically stable. She remains on room air with oxygen saturation in the 90s. Waiting for Coumadin level to be therapeutic for discharge. No other new concerns. Objective - Vital Signs Vital signs: Vital Signs Temp 97.9 F 12/29/22 04:00 Pulse 72 12/29/22 04:00 Resp 18 12/29/22 04:00 BP 127/66 12/29/22 04:00 Pulse Ox 97 12/29/22 04:00 FiO2 21 12/26/22 21:00 Intake & Output 12/28/22 12/29/22 12/29/22 18:59 06:59 18:59 Intake Total 176 Output Total 1350 500 Balance -1174 -500 Weight 103.4 kg Intake: Oral 176 Output: Urine 1350 500 Other: Voiding Method Toilet # Voids 1 1 # Bowel Movements 0 ABP, PAP, CO, CI - Last Documented Arterial Blood Pressure 114/57 Pulmonary Artery Pressure 26/7 Cardiac Output 4.7 Cardiac Index 2.4 - Exam CONSTITUTIONAL: Appears comfortable, cooperative, no acute distress RESPIRATORY: Lungs sounds diminished bilaterally. Respirations even, nonlabored. Currently on room air with oxygen saturation 97%. Able to achieve 750-1000 mL on incentive spirometry. Strong cough. CARDIOVASCULAR: S1, S2 present. Regular rate and rhythm, sinus rhythm on telemetry. Sternum stable. Palpable peripheral pulses bilaterally. Trace generalized edema present. No calf pain or tenderness noted. Heart hugger in place with patient demonstrating appropriate use. Antiembolism stockings, SCDs present. GASTROINTESTINAL: Abdomen soft, nontender, nondistended. Active bowel sounds present 4 quadrants. Tolerating diet. Positive bowel movement 12/28 GENITOURINARY: Continues to void. Output 1850 mL in the last 24 hours INTEGUMENTARY: Skin is warm and dry with evidence of good perfusion. Anterior chest incision well approximated NEUROLOGIC: Cranial nerves II through XII intact MUSKULOSKELETAL: Able to move all extremities, strength equal bilaterally, gait normal PSYCHIATRIC: Alert and oriented to person place and time, appropriate affect, intact judgment and insight - Allied health notes Allied health notes reviewed: nursing - Labs CBC & Chem 7: 12/28/22 07:21 12/28/22 07:21 Labs: Abnormal Lab Results - Last 24 Hours (Table) 12/28/22 12/28/22 12/28/22 Range/Units 07:21 07:21 16:55 PT 13.6 H (9.0-12.0) sec INR 1.3 H (<1.2) Chloride 108 H (98-107) mmol/L BUN 26 H (7-17) mg/dL POC Glucose (mg/dL) 139 H (70-110) mg/dL Calcium 8.3 L (8.4-10.2) mg/dL 12/28/22 Range/Units 20:02 PT (9.0-12.0) sec INR (<1.2) Chloride (98-107) mmol/L BUN (7-17) mg/dL POC Glucose (mg/dL) 190 H (70-110) mg/dL Calcium (8.4-10.2) mg/dL Microbiology - Last 24 Hours (Table) 12/24/22 12:25 Anaerobic Culture - Final Heart Valve 12/24/22 12:25 Gram Stain - Final Heart Valve Tissue Culture - Final 12/24/22 13:05 Blood Culture - Preliminary Blood No Growth after 96 hours - Imaging and Cardiology Chest x-ray: image reviewed Assessment and Plan Assessment: Severe aortic valve regurgitation, status post mechanical aortic valve replacement Chronic leukocytosis, 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 Will increase beta nando as tolerated, increased to 3x daily today. Continue lisinopril for afterload reduction Will dose Coumadin daily based on PT/INR. Goal INR for the first 3 months is 2.0-3.0, after the 3 months goal INR is 1.5-2.0 Continue amiodarone for A. fib prophylaxis Encourage incentive spirometry use 10 times every hour while awake, bronchodilators per pulmonology Increase activity, ambulate as tolerated, PT/OT/cardiac rehab following Continue to monitor daily labs and chest x-rays. Replace electrolytes per protocol. GI/DVT prophylaxis. Insulin management per internal medicine service. Patient needs tight blood sugar control to promote healing and prevent infection. Preoperative hemoglobin A1c 6.4% Pain control with current medication regimen. Strict accurate intake and output. Daily weights. 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 Anticipate discharge to home with home care once INR is therapeutic More recommendations to follow based on patient's clinical course.
[2022-12-29] MEDS: IPRATROPIUM 0.5 MG/2.5 ML NEBU INHALATION SCH ×2 (08:17→11:49)
[2022-12-29] MEDS: ALBUTEROL NEBULIZED 2.5 MG/3 ML INHALATION SCH ×2 (08:17→11:49)
[2022-12-29] MEDS ORDERED: METOPROLOL TARTRATE 25 MG TAB PO SCH (08:30)
--- NOTE | 2022-12-29 08:51 | XR ---
EXAMINATION TYPE: XR chest 2V DATE OF EXAM: 12/29/2022 COMPARISON: 12/28/2022 INDICATION: Postcardiac surgery TECHNIQUE: Frontal and lateral views of the chest are obtained. FINDINGS: The heart size is normal. The pulmonary vasculature is normal. Small left pleural effusion is present. Artifact overlies the chest.. IMPRESSION: 1. Small left pleural effusion
[2022-12-29] MEDS ORDERED: FUROSEMIDE 20 MG TAB PO SCH (09:00)
[2022-12-29 09:02] LABS: HCT 27.2 % (34.0-46.0); MCH 31.6 pg (25.0-35.0); MCHC 33.2 g/dL (31.0-37.0); MCV 95.3 fL (80.0-100.0); Mean Platelet Volume 8.3; Platelet Count 248 k/uL (150-450); RBC 2.86 m/uL (3.80-5.40); RDW 13.5 % (11.5-15.5); WBC 13.4 k/uL (3.8-10.6)
[2022-12-29 09:07] LABS: Prothrombin Time 19.5 sec (9.0-12.0)
[2022-12-29 09:10] VITALS: BP 120/58; PULSE 73; RESP 16; TEMP 98.1
[2022-12-29] MEDS: ATORVASTATIN 40 MG TAB PO SCH (09:11)
[2022-12-29] MEDS: ASPIRIN 81 MG PO SCH (09:11)
[2022-12-29] MEDS: HEPARIN SODIUM,PORCINE/PF 5,000 UNIT/0.5 ML SYRINGE SQ SCH (09:11)
[2022-12-29] MEDS: AMIODARONE 200 MG TAB PO SCH (09:11)
[2022-12-29] MEDS: CLOPIDOGREL 75 MG TAB PO SCH (09:11)
[2022-12-29] MEDS: POTASSIUM CHLORIDE ER 20 MEQ TAB.ER PO SCH (09:11)
[2022-12-29] MEDS: EZETIMIBE 10 MG TAB PO SCH (09:11)
[2022-12-29 09:15] LABS: Calcium 8.7 mg/dL (8.4-10.2); Magnesium 2.1 mg/dL (1.6-2.3); Potassium 4.3 mmol/L (3.5-5.1)
--- NOTE | 2022-12-29 10:40 | P.DS ---
Providers Date of admission: 12/24/22 05:35 Expected date of discharge: 12/29/22 Attending physician: Prosper Anedrson Consults: 12/24/22 12:16 Consult Physician Routine Consulting Provider: Yong Canales Consult Reason/Comments: Senior Supplier Quality Engineer Consult: post cardiac surgery Do you want consulting provider notified?: Yes Consult Physician Routine Consulting Provider: Indio Mahmood Consult Reason/Comments: Manager Labor Relations Consult: post cardiac surgery Do you want consulting provider notified?: Yes Consult Physician Routine Consulting Provider: Giovanni Darby Consult Reason/Comments: medical management; Susko patient Do you want consulting provider notified?: Already Contacted 12/24/22 12:47 Consult Physician Routine Consulting Provider: Johanny Riley Consult Reason/Comments: abt mgmt Do you want consulting provider notified?: Already Contacted Primary care physician: Dionna Peralta [facility] Course: FINAL DIAGNOSIS: 1. Severe aortic valve regurgitation 2. Chronic leukocytosis 3. History of hypertension 4. Hyperlipidemia, treated, cholesterol 112, LDL 37, triglycerides 94 5. History of paroxysmal atrial fibrillation 6. History of supraventricular tachycardia 7. Previous tobacco dependence, preoperative FEV1 78% of predicted 8. Obesity 9. Hypothyroid 10. GERD 11. Fibromyalgia 12. Migraine headaches 13. Remote history of pneumonia 14. Postoperative acute blood loss anemia and thrombocytopenia, expected PRINCIPAL PROCEDURE: 1. Aortic valve replacement using a 21 mm On-X mechanical valve 2. Exclusion of the left atrial appendage using a 35 mm AtriClip 3. Intraoperative transesophageal echocardiogram and epi-aortic scanning HISTORY OF PRESENT ILLNESS: This is a 47-year-old active female who follows outpatient with Dr. Peralta for primary care and Dr. Infante for cardiology. She had an episode of progressive dyspnea and peripheral edema at [facility] in February 2022. At that time she had an echocardiogram completed demonstrating aortic regurgitation. Subsequently she underwent transesophageal echocardiogram as well as cardiac catheterization. Heart catheterization demonstrated normal coronary arteries and normal ascending aortic morphology. YEVGENIY demonstrated moderate to severe aortic valve regurgitation with nondilated roots and aortic annulus measuring around 20 mm without evidence of prolapse, a lthough the left coronary cusp seemed to be retracted partially. The patient was referred to Dr. Anderson from cardiothoracic surgery. She was recommended to undergo mechanical aortic valve replacement. The usual perioperative course was discussed in detail with the patient and her family, all risks and benefits were explained, all questions were answered, and consent was obtained to proceed with surgery. The patient was scheduled at the earliest possible date after obtaining pulmonary and dental clearance as well as cessation of smoking and better blood pressure control. HOSPITAL COURSE: The patient was brought to the hospital on 12/24/22, taken to the preoperative area, prepared in the usual fashion, and subsequently taken to the operating room where Dr. Anderson performed mechanical aortic valve replacement. Upon completion of surgery the patient was transferred to the cardiovascular intensive care unit where she was recovered and monitored hemodynamically. She was extubated, all lines, tubes, and drips were discontinued when appropriate, and she was transferred to S cardiac stepdown unit for further monitoring and rehabilitation. Her PT/INR was monitored daily for Coumadin dosing. Her oxygen was titrated down, she continued to work with physical and occupational therapy, she was tolerating oral diet, her pain was controlled, and she was ready to be discharged to home with [facility] care on postoperative day #5. She received written and verbal instruction regarding her medications, activity restrictions, signs and symptoms requiring physician notification, and follow-up appointments. She was instructed to keep a log of her blood sugars and bring with her to her primary care appointment. Patient Condition at Discharge: Stable Plan - Discharge Summary Discharge Rx Participant: No New Discharge Prescriptions: New Amiodarone [Cordarone] 200 mg PO BID #28 tab Acetaminophen Tab [Tylenol] 650 mg PO Q4HR PRN tab PRN Reason: Fever And/ Or Mild Pain (1-3) Warfarin [Coumadin] 5 mg PO DAILY@1800 #30 tab Insulin Detemir (Levemir) [Levemir] 12 unit SQ DAILY@0700 30 Days #1 each Metoprolol Tartrate [Lopressor] 25 mg PO BID #60 tab Ibuprofen [Motrin] 600 mg PO QID PRN tab PRN Reason: Pain Sennosides-Docusate Sodium [Senokot-S] 2 each PO HS PRN tab PRN Reason: Constipation lisinopriL [Zestril] 2.5 mg PO DAILY@1200 #30 tab Continue Cetirizine HCl [Zyrtec] 10 mg PO DAILY PRN PRN Reason: Allergic Reaction Levothyroxine Sodium [Synthroid] 50 mcg PO QAM Atorvastatin [Lipitor] 40 mg PO DAILY SUMAtriptan succinate [Imitrex] 100 mg PO DIRECTED PRN PRN Reason: migraines Furosemide [Lasix] 20 mg PO BID Omeprazole 20 mg PO BID Ezetimibe [Zetia] 10 mg PO DAILY Aspirin EC [Ecotrin Low Dose] 81 mg PO DAILY Magnesium Oxide [Mag-Ox] 400 mg PO HS Discontinued dilTIAZem HCL [Diltiazem HCl 24Hr ER] 120 mg PO QAM Propranolol [Inderal] 120 mg PO BID Mupirocin [Mupirocin 2%] 1 applic NASAL BID #1 tub lisinopriL [Zestril] 10 mg PO DAILY Aspirin/Acetaminophen/Caffeine [Excedrin Migraine Caplet] 1 each PO DIRECTED PRN PRN Reason: Migraine Headache Discharge Medication List Cetirizine HCl [Zyrtec] 10 mg PO DAILY PRN 03/23/22 [History] Furosemide [Lasix] 20 mg PO BID 03/23/22 [History] Levothyroxine Sodium [Synthroid] 50 mcg PO QAM 03/23/22 [History] Omeprazole 20 mg PO BID 03/23/22 [History] Aspirin EC [Ecotrin Low Dose] 81 mg PO DAILY 07/06/22 [History] Atorvastatin [Lipitor] 40 mg PO DAILY 07/06/22 [History] Ezetimibe [Zetia] 10 mg PO DAILY 07/06/22 [History] Magnesium Oxide [Mag-Ox] 400 mg PO HS 12/20/22 [History] SUMAtriptan succinate [Imitrex] 100 mg PO DIRECTED PRN 12/20/22 [History] Acetaminophen Tab [Tylenol] 650 mg PO Q4HR PRN tab 12/29/22 [Rx] Amiodarone [Cordarone] 200 mg PO BID #28 tab 12/29/22 [Rx] Ibuprofen [Motrin] 600 mg PO QID PRN tab 12/29/22 [Rx] Insulin Detemir (Levemir) [Levemir] 12 unit SQ DAILY@0700 30 Days #1 each 12/29/22 [Rx] Metoprolol Tartrate [Lopressor] 25 mg PO BID #60 tab 12/29/22 [Rx] Sennosides-Docusate Sodium [Senokot-S] 2 each PO HS PRN tab 12/29/22 [Rx] Warfarin [Coumadin] 5 mg PO DAILY@1800 #30 tab 12/29/22 [Rx] lisinopriL [Zestril] 2.5 mg PO DAILY@1200 #30 tab 12/29/22 [Rx] Follow up Appointment(s)/Referral(s): Sally Rae MD [STAFF PHYSICIAN] - 01/22/23 1:00 pm Breana Phelan NPC [Nurse Practitioner] - 01/02/23 12:00 pm (You will be seen in the surgeon's office behind the hospital in [facility], [address] Office phone number is ) Benton Infante MD [STAFF PHYSICIAN] - 01/17/23 3:15 pm Rehab Radha SCHNEIDER,Cardiac [NON-STAFF] - 4 Weeks (You will receive a phone call in approximately 4-6 weeks for evaluation for cardiac rehab) [facility] Care [NON-STAFF] - 1-2 Days (To be seen the day after discharge, then 2-3 times per week for 4 weeks. PT/INR to be drawn every Saturday and , ran as STAT, called to CV surgery MERCHANDISING PROFESSOR until follow up with Dr. Infante, then per Dr. Infante's orders) Prosper Anderson MD [STAFF PHYSICIAN] - 01/25/23 10:00 am Dionna Peralta MD [Primary Care Provider] - 2 Weeks (Called 12/28/22-left message for office regarding need for follow up appoinment) Ambulatory/Diagnostic Orders: Complete Blood Count w/diff [LAB.AMB] Time Frame: 3 Days, Location: None Selected Comprehensive Metabolic Panel [LAB.AMB] Time Frame: 3 Days, Location: None Selected Prothrombin Time INR [LAB.AMB] Location: None Selected Activity/Diet/Wound Care/Special Instructions: DISCHARGE INSTRUCTIONS: 1. No driving for 4 weeks, or until physician gives their ok. 2. The patient should sleep in their own bed, no medical bed needed. 3. Stairs are not an issue. If the bedroom is upstairs, it is advised that the patient go up at night and down in the morning for the first week. Go slowly, using handrail and take 1 step at a time. 4. TERESA hose are to be worn for 30 days post surgery or until physician discontinues. 5. Heart hugger is to be worn 100% of the time until physician discontinues.(except when showering) 6. No lifting, pushing, or pulling more than 10 pounds for 12 weeks. The physician will advise of any restriction changes. 7. The patient is expected to continue the prescribed walking program. 8. Continue pain control per as needed orders. 9. Continue with incentive spirometry and splinting/heart hugger until otherwise directed by the physician. 10. Must shower daily using liquid antibacterial soap 11. Routine sternal incision care. No powders, lotions, ointments on incisions. No dressings are necessary on incisions unless they are draining. Dermabond tape is to remain on sternal incision until surgeon follow-up. 12. Please call surgeon/MERCHANDISING PROFESSOR for temp greater than 101 F or purulent drainage from incisions. 13. You should weigh yourself daily, record and bring log with you to follow up appointments. 14. All prescriptions given by surgeon for 30 days. Refills need to be filled through enterprise sales person/primary care physician. 15. A Red armband has been placed on the patient. It should be worn for 30 days post discharge from surgery and will be removed by the cardiac surgeons. If an ER visit is necessary, please make sure the number on the Red armband is called before going to ER. 16. You have been referred to and are expected to begin Cardiac Rehab in approximately 4-6 weeks. 17. Check your blood sugars 4 times daily (before each meal and at bedtime), keep a log and bring with you to your follow up appointment with Dr. Peralta [facility] TO PROVIDE: RN SKILLED HOME CARE SERVICES FOR POST-OP SURGICAL PATIENTS WITH THE FOLLOWING: Coronary Artery Bypass Surgery (CABG), Mitral Valve Repl acement/Repair ( MVR), Aortic Valve Replacement/Repair (AVR) RN TO CONTINUE EDUCATION FROM ``ROAD TO A HEALTH HEART PATIENT EDUCATION MANUAL (GIVEN TO PATIENT IN THE HOSPITAL) MEDICATION RECONCILIATION WITH EDUCATION NEEDED ON FIRST HOME VISIT EMPHASIZE IMPORTANCE OF WEARING BREAST SUPPORT/HEART HUGGER ENCOURAGE USE OF INCENTIVE SPIROMETER 10 X EVERY HOUR WHILE AWAKE ENCOURAGE UTILIZATION OF LOWER EXTREMITY COMPRESSION STOCKINGS/TERESA HOSE and ELEVATE LEGS ABOVE LEVEL OF HEART WHILE AT REST. ENCOURAGE AMBULATION 3-5x/day INCREASING TOLERATES, WHILE AVOIDING EXTREMES IN TEMPERATURE FREQUENCY: RN TO OPEN THE PATIENT WITHIN 24 HOURS OF DISCHARGE FROM THE HOSPITAL WITH TELEHEALTH INSTALLED AT [facility], RN TO VISIT 2-3 X A WEEK FOR 4 WEEKS ESTABLISHED BY PATIENT NEEDS. LABORATORY: CBC, CMP TO BE DRAWN ON THE THIRD DAY HOME, (RAN STAT) FAX RESULTS TO [phone]. For patients on Coumadin, PT/INR to be drawn on Mondays and , ran as STAT, and results called to CV surgery MERCHANDISING PROFESSOR until follow up with Dr. Infante, then faxed to [facility] at [phone] for Coumadin dosing. TELEHEALTH PARAMETERS: WEIGHT: NOTIFY MD OF WEIGHT GAIN OF 2 LBS IN 24 HOURS OR 5 LBS IN ONE WEEK HR: NOTIFY MD OF HR <55 BPM OR HR>100 BPM BP: NOTIFY MD IF BP <90/55 OR BP>140/100 O2 SAT: NOTIFY MD IF PO2<93% ON ROOM AIR SEND TELEHEALTH REPORT TO BRIQUETTE OPERATOR AND CARDIOVASCULAR SURGEON THE FIRST WEEK OF CARE AND THEN BI-WEEKLY. PLEASE ADDITIONALLY COMMUNICATE ANY ABNORMALS AND NEW FINDINGS TO THE SURGEONS OFFICE. Discharge Disposition: HOME WITH HOME HEALTH SERVICES
--- NOTE | 2022-12-29 11:47 | P.PN ---
Subjective Progress Note Date: 12/29/22 Principal diagnosis: Aortic valve replacement. Pulmonary consult dated 12/24/2022. 47-year-old female seen today in room 266. She is postop day #0, status post aortic valve replacement for aortic regurgitation. She is currently on the ventilator. Her ventilator settings include the volume assist control, rate of 18, tidal volume 375, FiO2 50%, blood gases show pO2 365, pCO2 54, pH is 7.29. FiO2 was dropped down to 50%, and the rate was increased to 18. Currently, she sedated on propofol at 25 mcg/kg/m, receiving saline at 50 mL an hour, and amiodarone at 1 mg/m. She's getting insulin at 0.5 units per hour. In addition to the aortic valve replacement with a tissue valve, showed a left atrial appendage exclusion. Currently, her cardiac output is 4 with an index of 2. He is currently atrial paced. White count 15.7, hemoglobin 11.2, and platelet count 121,000. Sodium 137, potassium 4.1, chlorides 108, CO2 26, BUN 18, creatinine 0.77. Chest x-ray shows mild cardiomegaly with mild pulmonary vascular congestion. Progress note dated 12/25/2022. 47-year-old female seen yesterday in consultation. She seen today in room 266. She was extubated yesterday, after having a aortic valve replacement. She's currently on room air. She's getting saline at 50 mL an hour, and an insulin drip at 5 units an hour. She is also on Primacor 0.2 mcg/kg/m. Post extub ation, she was a bit lethargic and sleepy, and the nurse call me. At that point, we placed her on BiPAP, with settings of 10/5 and 50%. She wore till 3 AM in the morning. White count 20.7, hemoglobin 10.6, hematocrit 33.6, and platelet count 144,000. Sodium 136, potassium 4.3, chlorides 110, CO2 22, BUN 23, and creatinine 0.79. Pro-calcitonin level is 5.82. Chest x-ray shows cardiomegaly, and developing bibasilar infiltrates. Progress note dated 12/26/2022. 47-year-old female, postop day #2, status post aortic valve replacement. She had aortic valve replacement for severe aortic regurgitation. Currently, she is on 2 L of oxygen. She's getting an insulin drip at 3.5 units an hour, and saline at KVO. White count 19.6, hemoglobin 9.7, hematocrit 30, platelet count 222,000. Sodium 133, potassium 4.5, chlorides 109, CO2 20, BUN 25, and creatinine 0.8. Chest x-ray shows postoperative changes, and is stable. Progress note dated 12/27/2022. The patient is seen today in room 369. She is postop day #3, status post aortic valve replacement for severe aortic regurgitation. She sitting in the chair next to the bed. She's currently on room air. She's not receiving any IV flui ds. She tells me that she may not be discharged home until this weekend. She was restarted back on warfarin. White count 15.1, hemoglobin 9, hematocrit 28.6, and platelet count is 129,000. Sodium 136, potassium 3.9, chlorides 111, CO2 21, BUN 25, and creatinine 0.72. Chest x-rays compared to chest x-ray done the day prior. There is mild pulmonary vascular congestion, small pleural effusions. Progress note dated 12/28/2022. The patient is seen today in room 369. Currently, she is on room air. She's not receiving any IV fluids. The patient states that she probably will be discharged until Saturday. They are waiting for her INR is in the therapeutic range. She is postop day #4, status post aortic valve, for aortic regurgitation. White count 15.2, hemoglobin 9.4, hematocrit 28.5, and platelet count 179,000. INR is 1.3. Sodium 138, potassium 4.1, chlorides 108, CO2 25, anion gap normal, BUN 26, and creatinine 0.77. Chest x-ray is stable, and unchanged. Progress note dated 12/29/2022. The patient is seen today in room 369. The patient may be discharged home today. She is on room air. She's not receiving any IV fluids. Cardiothoracic surgery was waiting until she was therapeutic on her Coumadin. Currently, she is without complaints. White count 13.4, hemoglobin 9, hematocrit 27.2, with a normal platelet count. PT is 19.5 with an INR of 2. Sodium, potassium, ch loride, CO2, anion gap, all normal. BUN is 27. Creatinine is 0.89. Chest x- ray shows a very small left-sided pleural effusion, but otherwise, is unchanged. Objective - Vital Signs Vital signs: Vital Signs Temp 98.1 F 12/29/22 08:00 Pulse 68 12/29/22 08:30 Resp 16 12/29/22 08:00 BP 120/58 12/29/22 08:00 Pulse Ox 95 12/29/22 08:17 FiO2 21 12/26/22 21:00 Intake & Output 12/28/22 12/29/22 12/29/22 18:59 06:59 18:59 Intake Total 176 Output Total 1350 500 Balance -1174 -500 Weight 103.4 kg Intake: Oral 176 Output: Urine 1350 500 Other: Voiding Method Toilet # Voids 1 1 # Bowel Movements 0 ABP, PAP, CO, CI - Last Documented Arterial Blood Pressure 114/57 Pulmonary Artery Pressure 26/7 Cardiac Output 4.7 Cardiac Index 2.4 - Exam No acute distress, oriented 3. No acute distress. Room air saturation 95 %. HEENT examination is grossly unremarkable. Neck supple. Full range of motion. No adenopathy thyromegaly or neck vein distention. Cardiovascular examination reveals regular rhythm rate. S1-S2 normal. No S3 or S4. No discernible murmur noted. Heart sounds are distant. Heart rate 68 bpm. Lungs reveal mostly clear breath sounds. Scattered rhonchi. No wheezes or crackles. Saturations are 95%. Abdomen soft bowel sounds are heard. No masses or tenderness. Extremities are intact. No cyanosis clubbing or edema. Skin is without rash or lesion. Neurologic examination is brief but nonfocal. - Labs CBC & Chem 7: 12/29/22 08:55 12/29/22 08:55 Labs: Abnormal Lab Results - Last 24 Hours (Table) 12/28/22 12/28/22 12/29/22 Range/Units 16:55 20:02 08:55 WBC 13.4 H (3.8-10.6) k/uL RBC 2.86 L (3.80-5.40) m/uL Hgb 9.0 L (11.4-16.0) gm/dL Hct 27.2 L (34.0-46.0) % PT (9.0-12.0) sec INR (<1.2) BUN (7-17) mg/dL Glucose (74-99) mg/dL POC Glucose (mg/dL) 139 H 190 H (70-110) mg/dL 12/29/22 12/29/22 Range/Units 08:55 08:55 WBC (3.8-10.6) k/uL RBC (3.80-5.40) m/uL Hgb (11.4-16.0) gm/dL Hct (34.0-46.0) % PT 19.5 H (9.0-12.0) sec INR 2.0 H (<1.2) BUN 27 H (7-17) mg/dL Glucose 144 H (74-99) mg/dL POC Glucose (mg/dL) (70-110) mg/dL Microbiology - Last 24 Hours (Table) 12/24/22 12:25 Anaerobic Culture - Final Heart Valve 12/24/22 12:25 Gram Stain - Final Heart Valve Tissue Culture - Final 12/24/22 13:05 Blood Culture - Preliminary Blood No Growth after 96 hours Assessment and Plan Assessment: Postop day #5, S/P aortic valve replacement for severe aortic regurgitation, as well as excision of left atrial appendage. Routine postoperative ventilator management, status post extubation on 12/24/2022. Post extubation sleepiness/lethargy, managed with BiPAP. History of hyperlipidemia. History of paroxysmal atrial fibrillation. History of hypertension. Family history of CAD. Plan: Plan dated 12/24/2022. The patient is seen today in room 266. Her labs, x-rays, and medications are all reviewed. I was called with initial blood gases. Changes were made. The rate was increased from 14, up to 18 rest or minute. The FiO2 was dropped from 100%, down to 50%. Her cardiac output is 4, and her cardiac index is 2. She's currently on amiodarone at 1 mg/m, propofol at 25 mcg/kg/m, and insulin 0.5 units per hour. Follow make recommendations where appropriate. Prognosis is generally good. Plan dated 12/25/2022. The patient is seen today in room 266. She was extubated yesterday. Unfortunately, she did have some post extubation lethargy, and somnolence. I chose to manage her with BiPAP therapy. In addition, the patient remains on saline at 50 mL an hour, and insulin drip at 5 units an hour, and Primacor 0.2 mcg/kg/m. Labs, x-rays, and medications are all reviewed. The patient's overall prognosis is guarded. We will continue to follow make recommendations along the way. Plan dated 12/26/2022. The patient appears be doing better. Labs, x-rays, medications are reviewed. She remains on 2 L of oxygen. Today's postop day #2. She is getting saline at KVO. She is on an insulin drip at 3.5 units an hour. We will continue to follow, and make recommendations along the way. Prognosis is thought to be generally good. Plan dated 12/27/2022. The patient appears to be doing relatively well. The patient may not be discharged still this weekend. She was started back on her warfarin. Labs, x- rays, medications are reviewed. Clinically she denies any shortness of breath, difficulty breathing, coughing, wheezing, or phlegm production. We will continue to follow make recommendations along the way. Today is postop day #3. Plan dated 12/28/2022. The patient is postop day #4. She had an aortic valve replacement, or aortic regurgitation. It was a biomechanical valve. Currently, her INR is 1.3. She's on room air. She's not receiving any IV fluids. Labs are in the normal range for the most part. We will continue to follow the patient and make recommendations along the way. Prognosis is thought to be generally good. Plan dated 12/29/2022. The patient is postop day #5. She had an aortic valve replacement for severe aortic regurgitation. She had a biomechanical valve. Her INR today is 2.0. The patient may be discharged home. We'll leave that up to cardiothoracic surgery. Labs are reviewed, and medications and x-rays are reviewed. We likely will see her in the office, for her postoperative visit. Labs, x-rays, medications are reviewed. Time with Patient: Less than 30
[2022-12-29] MEDS ORDERED: WARFARIN 5 MG TAB PO ONE (18:00)
--- NOTE | 2022-12-29 18:14 | P.PN ---
Subjective Progress Note Date: 12/29/22 This is a pleasant 47 year old female who is evaluated on the medical floor today currently postoperative day #5 mechanical aortic valve replacement. Patient has been cleared by primary cardiothoracic services today for discharge home. Patient is sitting up in chair in no acute distress. On room air. Wearing heart hugger and using incentive spirometer. Reports bowels are moving, tolerating diet, and urinating without difficulty. Blood glucose has been controlled in the 100s and discharging on 12 units of levemir daily. Patient reports controlled pain to the midline incision. Follow up scheduled with cardiothoracic on 01/02. Patient to see primary care on discharge as well. No acute events overnight. Chest xray today showing small left pleural effusion. White count of 13.4, hgb 9.0, sodium 138, BUN 27, creatinine 0.89. Patient is afebrile, on room air. Heart rate in the 70s and blood pressure of 120/58. Review of Systems Constitutional: Denied any fatigue denied any fever. Cardio vascular: denied any chest pain, palpitations Gastrointestinal: denied any nausea, vomiting, diarrhea Pulmonary: Denied any shortness of breath cough Neurologic denied any new focal deficits All inpatient medications were reviewed and appropriate changes in these medications as dictated in the interval history and assessment and plan. PHYSICAL EXAMINATION: GENERAL: The patient is alert and oriented x3, not in any acute distress. Well developed, well nourished. HEENT: Pupils are round and equally reacting to light. EOMI. No scleral icterus. No conjunctival pallor. Normocephalic, atraumatic. No pharyngeal erythema. No thyromegaly. CARDIOVASCULAR: S1 and S2 present. No murmurs, rubs, or gallops. PULMONARY: Chest is clear to auscultation, no wheezing or crackles. ABDOMEN: Soft, nontender, nondistended, normoactive bowel sounds. No palpable organomegaly. MUSCULOSKELETAL: No joint swelling or deformity. Post surgical incision midline sternum. EXTREMITIES: No cyanosis, clubbing, or pedal edema. NEUROLOGICAL: Gross neurological examination did not reveal any focal deficits. SKIN: No rashes. 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 Benign heart valve leaflets. ID following. Warfarin monitoring Chronic paroxysmal atrial fibrillation Hypertension Hyperlipidemia Hypothyroidism Family history CAD Gastroesophageal reflux disease Hemoglobin A1c 6.4 Morbid obesity, BMI 41.7 Full Code Plan Patient has been cleared medically for discharge Patient will be discharge by cardiothoracic today Recommend to continue same home medications and levemir dosing. Discussed close follow up with patient Recommend to continue incentive spirometer. PT/INR monitoring on discharge The impression and plan of care has been dictated by Rosa Maria Gutierrez, Nurse Practitioner as directed. Dr. Lexus MD I have performed a history and physical examination and medical decision making of this patient, discussed the same with the dictator, and agree with the dictators assessment and plan as written, documented as a scribe. Based on total visit time, I have performed more than 50% of this visit. Objective - Vital Signs Vital signs: Vital Signs Temp 98.1 F 12/29/22 08:00 Pulse 68 12/29/22 08:30 Resp 16 12/29/22 08:00 BP 120/58 12/29/22 08:00 Pulse Ox 95 12/29/22 08:17 FiO2 21 12/26/22 21:00 Intake & Output 12/28/22 12/29/22 12/29/22 18:59 06:59 18:59 Intake Total 176 Output Total 1350 500 Balance -1174 -500 Weight 103.4 kg Intake: Oral 176 Output: Urine 1350 500 Other: Voiding Method Toilet # Voids 1 1 # Bowel Movements 0 ABP, PAP, CO, CI - Last Documented Arterial Blood Pressure 114/57 Pulmonary Artery Pressure 26/7 Cardiac Output 4.7 Cardiac Index 2.4 - Labs CBC & Chem 7: 12/29/22 08:55 12/29/22 08:55 Labs: Abnormal Lab Results - Last 24 Hours (Table) 12/28/22 12/29/22 12/29/22 Range/Units 20:02 08:55 08:55 WBC 13.4 H (3.8-10.6) k/uL RBC 2.86 L (3.80-5.40) m/uL Hgb 9.0 L (11.4-16.0) gm/dL Hct 27.2 L (34.0-46.0) % PT 19.5 H (9.0-12.0) sec INR 2.0 H (<1.2) BUN (7-17) mg/dL Glucose (74-99) mg/dL POC Glucose (mg/dL) 190 H (70-110) mg/dL 12/29/22 Range/Units 08:55 WBC (3.8-10.6) k/uL RBC (3.80-5.40) m/uL Hgb (11.4-16.0) gm/dL Hct (34.0-46.0) % PT (9.0-12.0) sec INR (<1.2) BUN 27 H (7-17) mg/dL Glucose 144 H (74-99) mg/dL POC Glucose (mg/dL) (70-110) mg/dL Microbiology - Last 24 Hours (Table) 12/24/22 13:05 Blood Culture - Preliminary Blood No Growth after 120 hours 12/24/22 12:25 Anaerobic Culture - Final Heart Valve 12/24/22 12:25 Gram Stain - Final Heart Valve Tissue Culture - Final Assessment and Plan Time with Patient: Less than 30
== END 2022-12-29 12:06 | disposition home health service (06) | DRG 220 ==
LOC: 2ORMAIN 05:35 → 2SICU 12:33 → 3SCARD 12-26 18:24
PROVIDERS: ADMIT Surgery; ATTEND Surgery
PROC: 30233H0 Transfusion of Autologous Whole Blood into Peripheral Vein, Percutaneous Approach (ICD-10-PCS; 2022-12-24)
PROC: B24BZZ4 Ultrasonography of Heart with Aorta, Transesophageal (ICD-10-PCS; 2022-12-24)
PROC: 02RF0JZ Replacement of Aortic Valve with Synthetic Substitute, Open Approach (ICD-10-PCS; principal; 2022-12-24 08:00)
PROC: 02L70CK Occlusion of Left Atrial Appendage with Extraluminal Device, Open Approach (ICD-10-PCS; 2022-12-24 08:00)
PROC: 5A1221Z Performance of Cardiac Output, Continuous (ICD-10-PCS; 2022-12-24 08:00)
PROC: 5A09357 Assistance with Respiratory Ventilation, Less than 24 Consecutive Hours, Continuous Positive Airway Pressure (ICD-10-PCS; 2022-12-25)
DX: I08.0 Rheumatic disorders of both mitral and aortic valves (principal); D62 Acute posthemorrhagic anemia; Z68.41 Body mass index [BMI] 40.0-44.9, adult; I47.1 Supraventricular tachycardia; D69.6 Thrombocytopenia, unspecified; E66.01 Morbid (severe) obesity due to excess calories; I11.9 Hypertensive heart disease without heart failure; I48.0 Paroxysmal atrial fibrillation; E03.9 Hypothyroidism, unspecified; G43.909 Migraine, unspecified, not intractable, without status migrainosus; E78.5 Hyperlipidemia, unspecified; Z28.310 Unvaccinated for COVID-19; D15.1 Benign neoplasm of heart; D72.828 Other elevated white blood cell count; K21.9 Gastro-esophageal reflux disease without esophagitis; M79.7 Fibromyalgia; R41.3 Other amnesia; Z87.891 Personal history of nicotine dependence; Z82.49 Family history of ischemic heart disease and other diseases of the circulatory system; Z87.01 Personal history of pneumonia (recurrent); Z95.818 Presence of other cardiac implants and grafts; Z79.890 Hormone replacement therapy; Z79.899 Other long term (current) drug therapy; Z79.82 Long term (current) use of aspirin; Z88.5 Allergy status to narcotic agent; Z88.0 Allergy status to penicillin; Z88.8 Allergy status to other drugs, medicaments and biological substances; Z88.2 Allergy status to sulfonamides; Z91.048 Other nonmedicinal substance allergy status; Z79.01 Long term (current) use of anticoagulants
CPT/HCPCS: 36415; 71045; 71046; 80048; 80053; 80061; 80074; 80202; 81001; 82330; 82803; 82805; 83036; 83735; 84145; 84443; 85025; 85027; 85520; 85610; 85652; 85730; 86140; 86850; 86891; 86900; 86901; 86920; 87040; 87070; 87075; 87086; 87102; 87205; 88305; 88311; 93005; 94002; 94640; 94660; 94760

== ENCOUNTER 2023-01-10 05:43 | Emergency (ER) | payer MEDICARE ==
[2023-01-10 05:49] VITALS: TEMP 98.6
[2023-01-10] MEDS ORDERED: KETOROLAC 15 MG/ML 1 ML VIAL IVP STA (06:14)
--- NOTE | 2023-01-10 06:54 | ED ---
General Adult HPI - General Chief complaint: Shortness of Breath Stated complaint: Left rib pain Time Seen by Provider: 01/10/23 06:03 Source: patient, RN notes reviewed Mode of arrival: ambulatory Limitations: no limitations - History of Present Illness Initial comments: 47-year-old female presents emergency Department with chief complaint of left-sided rib, lung, chest pain. Patient states it was sudden onset this morning. Patient states she she did not feel like she twisted, bent long. Patient states she attempted to contact her surgeon but she she had not heard back. Patient has followed up as directed. Patient denies any leg pain or leg swelling. Patient is currently on Coumadin. Patient had mechanical valve replacement. Patient denies any fevers chills nonproductive cough. Patient denies any current headache. - Related Data Home Medications Medication Instructions Recorded Confirmed Cetirizine HCl [Zyrtec] 10 mg PO DAILY PRN 03/23/22 12/24/22 Furosemide [Lasix] 20 mg PO BID 03/23/22 12/24/22 Levothyroxine Sodium [Synthroid] 50 mcg PO QAM 03/23/22 12/24/22 Omeprazole 20 mg PO BID 03/23/22 12/24/22 Aspirin EC [Ecotrin Low Dose] 81 mg PO DAILY 07/06/22 12/24/22 Atorvastatin [Lipitor] 40 mg PO DAILY 07/06/22 12/24/22 Ezetimibe [Zetia] 10 mg PO DAILY 07/06/22 12/24/22 Magnesium Oxide [Mag-Ox] 400 mg PO HS 12/20/22 12/24/22 SUMAtriptan succinate [Imitrex] 100 mg PO DIRECTED PRN 12/20/22 12/24/22 Previous Rx's Medication Instructions Recorded Acetaminophen Tab [Tylenol] 650 mg PO Q4HR PRN tab 12/29/22 Amiodarone [Cordarone] 200 mg PO BID #28 tab 12/29/22 Ibuprofen [Motrin] 600 mg PO QID PRN tab 12/29/22 Insulin Detemir (Levemir) [Levemir] 12 unit SQ DAILY@0700 30 Days #1 12/29/22 each Metoprolol Tartrate [Lopressor] 25 mg PO BID #60 tab 12/29/22 Sennosides-Docusate Sodium 2 each PO HS PRN tab 12/29/22 [Senokot-S] Warfarin [Coumadin] 5 mg PO DAILY@1800 #30 tab 12/29/22 lisinopriL [Zestril] 2.5 mg PO DAILY@1200 #30 tab 12/29/22 traMADol HCl [Ultram] 50 mg PO Q6H PRN #12 tab 01/10/23 Allergies Allergy/AdvReac Type Severity Reaction Status Date / Time cranberry Allergy Rash/Hives Verified 01/10/23 05:47 hydromorphone [From Dilaudid] Allergy Anaphylaxis Verified 01/10/23 05:47 morphine Allergy Anaphylaxis Verified 01/10/23 05:47 Penicillins Allergy Severe Verified 01/10/23 05:47 Rash/Hives ranitidine [From Zantac] Allergy Overstimula Verified 01/10/23 05:47 tion Sulfa (Sulfonamide Allergy Severe Verified 01/10/23 05:47 Antibiotics) Rash/Hives zafirlukast [From Accolate] Allergy Severe Verified 01/10/23 05:47 Rash/Hives paper tape/bandaids Allergy chemical Uncoded 01/10/23 05:47 owusu(cloth bandaids ok) some adhesives (tegaderm Allergy Chemical Uncoded 01/10/23 05:47 okay) Owusu Review of Systems ROS Statement: Those systems with pertinent positive or pertinent negative responses have been documented in the HPI. ROS Other: All systems not noted in ROS Statement are negative. Past Medical History Past Medical History: Hyperlipidemia, Hypertension, Thyroid Disorder Additional Past Medical History / Comment(s): SVT History of Any Multi-Drug Resistant Organisms: None Reported Past Surgical History: Cholecystectomy, Hysterectomy, Tonsillectomy Additional Past Surgical History / Comment(s): kidney stone removal Past Anesthesia/Blood Transfusion Reactions: Previous Problems w/ Anesthesia Additional Past Anesthesia/Blood Transfusion Reaction / Comment(s): WILL SIT UP ON TAKE DURING SURGERY. TENDENCY TO BE VIOLENT COMING OUT OF ANESTHESIA Type of Cardiac Device: Loop Device Placement Date:: unk Past Psychological History: Depression Smoking Status: Current every day smoker - Past Family History Mother Family Medical History: No Reported History Father Family Medical History: COPD General Exam Limitations: no limitations General appearance: alert, in no apparent distress Head exam: Present: atraumatic, normocephalic, normal inspection Eye exam: Present: normal appearance, PERRL, EOMI. Absent: scleral icterus, conjunctival injection, periorbital swelling ENT exam: Present: normal exam, normal oropharynx, mucous membranes moist Neck exam: Present: normal inspection, full ROM. Absent: tenderness, meningismus, lymphadenopathy Respiratory exam: Present: normal lung sounds bilaterally, chest wall tenderness, other (Midline sternal wound). Absent: respiratory distress, wheezes, rales, rhonchi, stridor Cardiovascular Exam: Present: regular rate, normal rhythm, systolic murmur (Mechanical heart valve). Absent: normal heart sounds, diastolic murmur, rubs, gallop, clicks Course Vital Signs 01/10/23 01/10/23 05:47 06:04 Temperature 98.6 F Pulse Rate 96 89 Respiratory 16 20 Rate Blood Pressure 130/82 135/89 O2 Sat by Pulse 96 96 Oximetry EKG Findings - EKG Comments: EKG Findings:: EKG performed at 5.56 sinus rhythm rate of 88 NH 152 QRS 83 QT/QTC 393 438 - EKG Results: EKG: interpreted by CARLITOS Medical Decision Making - Medical Decision Making Was pt. sent in by a medical professional or institution (, PA, [employer], urgent care, hospital, or snf...) When possible be specific @ -No Did you speak to anyone other than the patient for history (EMS, parent, family, police, friend...)? What history was obtained from this source @ -No Did you review nursing and triage notes (agree or disagree)? Why? @ -I reviewed and agree with nursing and triage notes Were old charts reviewed (outside hosp., previous admission, EMS record, old EKG, old radiological studies, urgent care reports/EKG's, snf records)? Report findings @ -Prior EKG, recent surgical intervention reviewed Differential Diagnosis (chest pain, altered mental status, abdominal pain women, abdominal pain men, vaginal bleeding, weakness, fever, dyspnea, syncope, headache, dizziness, GI bleed, back pain, seizure, CVA, palpatations, mental health, musculoskeletal)? @ -Differential Chest Pain: Stable Angina, Unstable Angina, STEMI, NSTEMI Aortic Dissection, Pneumothorax, Musculoskeletal, Esophageal Spasm GERD, Cholecystitis, Pancreatitis, Zoster, this is not meant to be an all-inclusive list. e EKG interpreted by me (3pts min.). @ -As above X-rays interpreted by me (1pt min.). @ -None done CT interpreted by me (1pt min.). @ -CT of the chest shows no evidence of PE, there is noted pleural effusion, cardiac effusion, mild inflammatory changes postsurgical U/S interpreted by me (1pt. min.). @ -None done What testing was considered but not performed or refused? (CT, X-rays, U/S, labs)? Why? @ -None What meds were considered but not given or refused? Why? @ -None Did you discuss the management of the patient with other professionals (professionals i.e. ., PA, [employer], lab, RT, psych nurse, health and social care teacher, foam caster, teacher, first aid officer, spring encaser)? Give summary @ -Breana yepez with cardiothoracic came and evaluated the patient and reviewed all laboratory studies stating the patient will be discharged follow-up in office patient is increase her warfarin to 7.5 mg nightly and to have this rechecked. Was smoking cessation discussed for >3mins.? @ -No Was critical care preformed (if so, how long)? @ -No Were there social determinants of health that impacted care today? How? (Homelessness, low income, unemployed, alcoholism, drug addiction, transportation, low edu. Level, literacy, decrease access to med. care, penitentiary, rehab)? @ -No Was there de-escalation of care discussed even if they declined (Discuss DNR or withdrawal of care, Hospice)? DNR status @ -No What co-morbidities impacted this encounter? (DM, HTN, Smoking, COPD, CAD, Cancer, CVA, ARF, Chemo, Hep., AIDS, mental health diagnosis, sleep apnea, morbid obesity)? @ -Aortic valve replacement Was patient admitted / discharged? Hospital course, mention meds given and route, prescriptions, significant lab abnormalities, going to OR and other pertinent info. @ -Discharge patient presented for left-sided rib, lung pain. Patient CT does not reveal evidence of PE. Patient was evaluated by cardiothoracic moving all laboratory studies and CT patient be discharged patient is increase to 7.5 mg nightly patient did have minimally bumped troponin though this is from recent surgery. Patient states her pain is improved she has no current went to chest pain. Undiagnosed new problem with uncertain prognosis? @ -No Drug Therapy requiring intensive monitoring for toxicity (Heparin, Nitro, Insulin, Cardizem)? @ -No Were any procedures done? @ -No Diagnosis/symptom? @ -Atypical chest pain, status post aortic valve replacement Acute, or Chronic, or Acute on Chronic? @ -Acute Uncomplicated (without systemic symptoms) or Complicated (systemic symptoms)? @ -Comp. Side effects of treatment? @ -No Exacerbation, Progression, or Severe Exacerbation? @ -No Poses a threat to life or bodily function? How? (Chest pain, USA, ID, pneumonia, PE, COPD, DKA, ARF, appy, cholecystitis, CVA, Diverticulitis, Homicidal, Suicidal, threat to staff... and all critical care pts) @ -No - Lab Data Result diagrams: 01/10/23 06:53 01/10/23 06:53 Lab Results 01/10/23 01/10/23 01/10/23 Range/Units 06:53 06:53 06:53 WBC 16.8 H (3.8-10.6) k/uL RBC 3.51 L (3.80-5.40) m/uL Hgb 10.5 L (11.4-16.0) gm/dL Hct 32.6 L (34.0-46.0) % MCV 93.0 (80.0-100.0) fL MCH 30.1 (25.0-35.0) pg MCHC 32.4 (31.0-37.0) g/dL RDW 13.2 (11.5-15.5) % Plt Count 522 H (150-450) k/uL MPV 7.6 Neutrophils % 71 % Lymphocytes % 18 % Monocytes % 6 % Eosinophils % 4 % Basophils % 0 % Neutrophils # 12.0 H (1.3-7.7) k/uL Lymphocytes # 3.0 (1.0-4.8) k/uL Monocytes # 1.0 (0-1.0) k/uL Eosinophils # 0.6 (0-0.7) k/uL Basophils # 0.1 (0-0.2) k/uL PT 17.4 H (9.0-12.0) sec INR 1.8 H (<1.2) APTT 32.1 H (22.0-30.0) sec Sodium 134 L (137-145) mmol/L Potassium 4.4 (3.5-5.1) mmol/L Chloride 100 (98-107) mmol/L Carbon Dioxide 27 (22-30) mmol/L Anion Gap 7 mmol/L BUN 18 H (7-17) mg/dL Creatinine 0.72 (0.52-1.04) mg/dL Est GFR (CKD-EPI)AfAm >90 (>60 ml/min/1.73 sqM) Est GFR (CKD-EPI)NonAf >90 (>60 ml/min/1.73 sqM) Glucose 104 H (74-99) mg/dL Plasma Lactic Acid Merrick (0.7-2.0) mmol/L Calcium 9.0 (8.4-10.2) mg/dL Magnesium 1.8 (1.6-2.3) mg/dL Total Bilirubin 0.7 (0.2-1.3) mg/dL AST 27 (14-36) U/L ALT 34 (4-34) U/L Alkaline Phosphatase 110 (38-126) U/L Troponin I (0.000-0.034) ng/mL Total Protein 6.7 (6.3-8.2) g/dL Albumin 3.7 (3.5-5.0) g/dL 01/10/23 01/10/23 Range/Units 06:53 06:53 WBC (3.8-10.6) k/uL RBC (3.80-5.40) m/uL Hgb (11.4-16.0) gm/dL Hct (34.0-46.0) % MCV (80.0-100.0) fL MCH (25.0-35.0) pg MCHC (31.0-37.0) g/dL RDW (11.5-15.5) % Plt Count (150-450) k/uL MPV Neutrophils % % Lymphocytes % % Monocytes % % Eosinophils % % Basophils % % Neutrophils # (1.3-7.7) k/uL Lymphocytes # (1.0-4.8) k/uL Monocytes # (0-1.0) k/uL Eosinophils # (0-0.7) k/uL Basophils # (0-0.2) k/uL PT (9.0-12.0) sec INR (<1.2) APTT (22.0-30.0) sec Sodium (137-145) mmol/L Potassium (3.5-5.1) mmol/L Chloride (98-107) mmol/L Carbon Dioxide (22-30) mmol/L Anion Gap mmol/L BUN (7-17) mg/dL Creatinine (0.52-1.04) mg/dL Est GFR (CKD-EPI)AfAm (>60 ml/min/1.73 sqM) Est GFR (CKD-EPI)NonAf (>60 ml/min/1.73 sqM) Glucose (74-99) mg/dL Plasma Lactic Acid Merrick 1.5 (0.7-2.0) mmol/L Calcium (8.4-10.2) mg/dL Magnesium (1.6-2.3) mg/dL Total Bilirubin (0.2-1.3) mg/dL AST (14-36) U/L ALT (4-34) U/L Alkaline Phosphatase (38-126) U/L Troponin I 0.042 H* (0.000-0.034) ng/mL Total Protein (6.3-8.2) g/dL Albumin (3.5-5.0) g/dL Disposition Clinical Impression: Chest pain, Status post aortic valve replacement Disposition: HOME SELF-CARE Condition: Stable Instructions (If sedation given, give patient instructions): Chest Wall Pain (ED) Additional Instructions: Increase your warfarin to 7.5 mg. Please have this rechecked as directed. Please return to the Emergency Department if symptoms worsen or any other concerns. Prescriptions: traMADol HCl [Ultram] 50 mg PO Q6H PRN #12 tab PRN Reason: Pain Is patient prescribed a controlled substance at d/c from ED?: No Referrals: Dionna Peralta MD [Primary Care Provider] - 1-2 days Time of Disposition: 08:16
--- NOTE | 2023-01-10 07:30 | CT ---
EXAMINATION TYPE: CT chest angio for PE DATE OF EXAM: 01/10/2023 COMPARISON: None HISTORY: 47-year-old female SOB, Valve replacement 12-24-22 TECHNIQUE: Contiguous axial scanning of the chest performed with IV Contrast, patient injected with 1 00 mL of Isovue 370. Coronal/sagittal MIP reconstructions were obtained. CT DLP: 405.8 mGycm Automated exposure control for dose reduction was used. FINDINGS: Median sternotomy wires are present. Sternotomy changes appear to be somewhat recent to be correlated clinically. Loop recorder device left anterior chest wall. There is an underlying small pericardial effusion measuring 7 mm thick. Heart is mildly enlarged. Pro sthetic aortic valve replacement. Conventional arch vessel branching anatomy. Aorta normal caliber. Satisfactory opacification of the pulmonary arterial system but with breathing motion limiting the ev aluation. No definite pulmonary embolus is seen. A couple of mildly enlarged mediastinal lymph nodes measuring 1.3 cm AP window and, 1.4 cm subcarinal , 1.6 cm lower right hilar lymph nodes are probably reactive. There is a small left pleural effusion with adjacent atelectasis. Opacity here is favored to reflect volume loss rather than airspace disease which should be correlated clinically. Bones: Some vacuum noted at the bilateral sternoclavicular joints. No osseous destructive process see n. There is a slight sternotomy gap of 4 mm at the level of the manubrium. IMPRESSION: 1. FAIRLY RECENT MEDIAN STERNOTOMY CHANGES. THERE IS SOME RESIDUAL POSTSURGICAL EDEMA DEEP TO THE CARMELO RNOTOMY. THE POSSIBILITY OF SOME INFECTIOUS STRANDING/CELLULITIS IS DIFFICULT TO ENTIRELY EXCLUDE. NO ABSCESS IS SEEN. IMAGING FOLLOW-UP CLINICALLY INDICATED. A RESIDUAL 4 MM STERNOTOMY GAP AT THE [place] D[place] OF THE MANUBRIUM. 2. LIMITED ASSESSMENT FOR PE. NO DEFINITE PULMONARY EMBOLUS. 3. SMALL LEFT PLEURAL EFFUSION WITH ADJACENT OPACITY FAVORED TO REPRESENT ATELECTASIS RATHER THAN AIR SPACE DISEASE/PNEUMONIA. 4. SMALL PERICARDIAL EFFUSION
[2023-01-10 07:32] LABS: Basophils # (A) 0.1 k/uL (0-0.2); Basophils % (A) 0 %; Eosinophils # (A) 0.6 k/uL (0-0.7); Eosinophils % (A) 4 %; HCT 32.6 % (34.0-46.0); HGB 10.5 gm/dL (11.4-16.0); Lymphocytes % (A) 18 %; MCH 30.1 pg (25.0-35.0); MCHC 32.4 g/dL (31.0-37.0); Mean Platelet Volume 7.6; Monocytes % (A) 6 %; Neutrophils % (A) 71 %; Platelet Count 522 k/uL (150-450); RBC 3.51 m/uL (3.80-5.40); RDW 13.2 % (11.5-15.5); WBC 16.8 k/uL (3.8-10.6)
[2023-01-10 07:39] LABS: INR 1.8 (<1.2); Partial Thromboplastin Time 32.1 sec (22.0-30.0); Prothrombin Time 17.4 sec (9.0-12.0)
[2023-01-10 08:07] LABS: ALT 34 U/L (4-34); African American GFR (CKD) >90 (>60 ml/min/1.73 sqM); Albumin 3.7 g/dL (3.5-5.0); Anion Gap 7 mmol/L; Blood Urea Nitrogen 18 mg/dL (7-17); Carbon Dioxide 27 mmol/L (22-30); Chloride 100 mmol/L (98-107); Glucose 104 mg/dL (74-99); Non-African American GFR(CKD) >90 (>60 ml/min/1.73 sqM); Sodium 134 mmol/L (137-145); Total Bilirubin 0.7 mg/dL (0.2-1.3); Total Protein 6.7 g/dL (6.3-8.2)
[2023-01-10 08:13] LABS: Potassium 4.4 mmol/L (3.5-5.1)
[2023-01-10 08:14] LABS: AST 27 U/L (14-36); Alkaline Phosphatase 110 U/L (38-126); Magnesium 1.8 mg/dL (1.6-2.3)
[2023-01-10 08:39] VITALS: BP 132/78; PULSE 77; RESP 16
== END 2023-01-10 08:43 | disposition home or self-care (01) ==
LOC: EC 05:43
DX: I31.39 Other pericardial effusion (noninflammatory) (principal); J90 Pleural effusion, not elsewhere classified; I10 Essential (primary) hypertension; E78.5 Hyperlipidemia, unspecified; E07.9 Disorder of thyroid, unspecified; F32.A Depression, unspecified; F17.200 Nicotine dependence, unspecified, uncomplicated; Z95.2 Presence of prosthetic heart valve; Z79.890 Hormone replacement therapy; Z79.82 Long term (current) use of aspirin; Z79.899 Other long term (current) drug therapy; Z88.0 Allergy status to penicillin; Z88.2 Allergy status to sulfonamides; Z88.5 Allergy status to narcotic agent; Z88.8 Allergy status to other drugs, medicaments and biological substances; Z91.048 Other nonmedicinal substance allergy status; Z91.018 Allergy to other foods
CPT/HCPCS: 36415; 93005; 80053; 83605; 83735; 84484; 85025; 85610; 85730; 71275; 99285; 96374; J1885; Q9967

== ENCOUNTER → 2023-02-27 | Outpatient (CLI) | payer MEDICARE ==
--- NOTE | 2023-02-28 00:38 | MR ---
EXAMINATION TYPE: MR brain wo/w con DATE OF EXAM: 02/27/2023 COMPARISON: None HISTORY: Lower lip and facial numbness. CONTRAST: Performed utilizing 10 mL intravenous Gadavist gadolinium contrast. TECHNIQUE: Multiplanar, multiecho imaging on a 3.0 Christine magnet is performed through the brain. Stud y is performed within 24 hours of arrival to the hospital. The craniovertebral junction is normal. The pituitary is normal. Diffusion-weighted imaging is performed. No abnormal hyperintensity is present to suggest an acute i ntracranial infarct or acute ischemic change. There is hyperintensity within the left cerebellum on T2-weighted sequences. This is nonspecific but could be related to microvascular ischemic change. This is hypointense on inversion recovery weighted sequences and T1-weighted images. No enhancement is evident. Small cyst could be considered. There is a small subcortical white matter change in the right frontal lobe on inversion recovery weig hted sequences. This may be a small microvascular ischemic change. Ventricles and sulci are appropriate for the patient age. No abnormal enhancement is evident. IMPRESSIONS: 1. Couple of small white matter changes not out of proportion of the patient's age discussed above.
== END | disposition home or self-care (01) ==
LOC: RADMRIMAIN 18:57
PROVIDERS: ATTEND Family Medicine
DX: R90.82 White matter disease, unspecified (principal); R20.0 Anesthesia of skin
CPT/HCPCS: 70553; A9585

== ENCOUNTER → 2023-04-19 | Outpatient (CLI) | payer MEDICARE ==
[2023-04-19 15:40] LABS: BUN/Creat Ratio 20.45 Ratio (12.00-20.00); Blood Urea Nitrogen 22.5 mg/dL (9.0-27.0); Chol/HDL Ratio 2.56 Ratio; Glucose 103 mg/dL (70-110); LDL Cholesterol,Calculated 56.3 mg/dL (0.0-131.0)
[2023-04-19 15:41] LABS: ALT 15 U/L (8-44); AST 15 U/L (13-35); Albumin 4.3 d/dL (3.8-4.9); Albumin/Globulin Ratio 1.59 Ratio (1.60-3.17); Alkaline Phosphatase 122 U/L (41-126); Calcium 9.9 mg/dL (8.7-10.3); Carbon Dioxide 26.2 mmol/L (21.6-31.8); Chloride 105 mmol/L (96-109); Globulin 2.7 d/dL (1.6-3.3); Potassium 4.5 mmol/L (3.5-5.5); Sodium 141 mmol/L (135-145); Total Bilirubin 0.3 mg/dL (0.3-1.2)
== END | disposition home or self-care (01) ==
LOC: LABWHC1 09:31
PROVIDERS: ATTEND Internal Medicine Interventional Cardiology
DX: E78.2 Mixed hyperlipidemia (principal)
CPT/HCPCS: 36415; 80053; 80061

== ENCOUNTER 2023-05-02 14:02 | Emergency (ER) | payer MEDICARE ==
[2023-05-02 14:39] VITALS: RESP 16; TEMP 97.8
[2023-05-02] MEDS ORDERED: SODIUM CHLORIDE 0.9% 1,000 ML IV STA (16:07)
[2023-05-02] MEDS ORDERED: ASPIRIN 325 MG TAB PO STA (16:14)
[2023-05-02 16:49] LABS: HCT 41.6 % (34.0-46.0); HGB 13.7 gm/dL (11.4-16.0); Hypochromasia Slight; MCH 29.6 pg (25.0-35.0); MCHC 32.9 g/dL (31.0-37.0); Mean Platelet Volume 8.7; Platelet Count 196 k/uL (150-450); RBC 4.62 m/uL (3.80-5.40); RDW 15.9 % (11.5-15.5); WBC 14.5 k/uL (3.8-10.6)
[2023-05-02 16:58] LABS: ALT 19 U/L (4-34); AST 22 U/L (14-36); African American GFR (CKD) 87 (>60 ml/min/1.73 sqM); Alkaline Phosphatase 132 U/L (38-126); Anion Gap 7 mmol/L; Blood Urea Nitrogen 18 mg/dL (7-17); Calcium 9.3 mg/dL (8.4-10.2); Carbon Dioxide 26 mmol/L (22-30); Chloride 103 mmol/L (98-107); Glucose 90 mg/dL (74-99); Lipase 154 U/L (23-300); Non-African American GFR(CKD) 75 (>60 ml/min/1.73 sqM); Potassium 3.9 mmol/L (3.5-5.1); Sodium 136 mmol/L (137-145); Total Bilirubin 0.5 mg/dL (0.2-1.3); Total Protein 7.2 g/dL (6.3-8.2)
[2023-05-02 17:19] LABS: INR 2.1 (<1.2); Partial Thromboplastin Time 29.5 sec (22.0-30.0); Prothrombin Time 20.4 sec (9.0-12.0)
[2023-05-02 18:14] LABS: Appearance,Urine Clear (Clear); Bilirubin,Urine Negative (Negative); Blood,Urine Negative (Negative); Color,Urine Yellow; Glucose,Urine (UA) Negative (Negative); Ketones,Urine Negative (Negative); Protein,Urine TR (Negative); Urobilinogen,Urine <2.0 mg/dL (<2.0)
[2023-05-02 18:15] LABS: Leukocyte Esterase,Urine Negative (Negative); Nitrite,Urine Negative (Negative)
--- NOTE | 2023-05-02 19:17 | CT ---
EXAMINATION TYPE: CT angio thor/abd pel aorta with contrast and with 3-D reconstruction renderings at an independent workstation. DATE OF EXAM: 05/02/2023 HISTORY: Chest pain, epigastric pain, recent heart sx. ED patient CT DLP: 2441.8 mGycm. Automated Exposure Control for Dose Reduction was Utilized. CONTRAST: CT scan of the thorax, abdomen and pelvis is performed with IV Contrast, patient injected w ith 100 mL of Isovue 370. COMPARISON: 05/12/2012 FINDINGS: VASCULATURE: * There is mild cardiomegaly. Aortic valve prosthesis noted. Sternal sutures and mediastinal clips. * CT without contrast is negative for thoracic aorta intramural hematoma. Examination is negative fo r definite acute thoracic aortic process, though there is prominent cardiac motion artifact. The thor acic aorta is not dilated. * Abdominal aorta is nondilated. CT without contrast is negative for intramural hematoma. There is n o acute aortoiliac process. Celiac axis, SMA, bilateral renal arteries and YOCASTA are all patent. The bi lateral common, external, and internal iliac arteries, and bilateral [employer] OPERATOR and proximal bilateral profu nda/SFA are all widely patent. LUNGS: No acute pulmonary process. No focal findings. Airways are unremarkable. MEDIASTINUM: There are no greater than 1 cm hilar or mediastinal lymph nodes. No pericardial effusion is seen. Esophagus and thyroid are unremarkable. LIVER/GB: No significant abnormality is appreciated. PANCREAS: No significant abnormality is seen. SPLEEN: No significant abnormality is seen. ADRENALS: No significant abnormality is seen. KIDNEYS: No significant abnormality is seen. BOWEL: No significant abnormality is seen. GENITAL ORGANS: No gross abnormality seen. LYMPH NODES: No greater than 1cm abdominal or pelvic lymph nodes are appreciated. OSSEOUS STRUCTURES (chest, abdomen, pelvis): No significant abnormality is seen. Limitations of the study: 1. Cardiac motion artifact. 2. CTA technique is arterial phase by definition. This limits CT sensitivity for focal visceral lesi ons, intraluminal filling defects, and venous pathology. IMPRESSION: No acute process, as discussed.
[2023-05-02 19:24] LABS: Eosinophils # (M) 0.58 k/uL (0-0.7); Lymphocytes # (M) 5.08 k/uL (1.0-4.8); Monocytes # (M) 0.87 k/uL (0-1.0); Neutrophils # (M) 7.98 k/uL (1.3-7.7); Neutrophils % (M) 55 %; Nucleated Red Blood Cells 0 /100 WBC (0-0); Total Cells Counted 100
[2023-05-02] MEDS ORDERED: MAG HYDROX/AL HYDROX/SIMETH 30 ML, HYOSCYAMINE ELIXIR 10 ML, LIDOCAINE 2% GLYDO JELLY 1... PO STA ×3 (19:29)
[2023-05-02] MEDS ORDERED: KETOROLAC 15 MG/ML 1 ML VIAL IVP STA (19:31)
--- NOTE | 2023-05-02 19:31 | ED ---
Abdominal Pain HPI - General Chief Complaint: Abdominal Pain Stated Complaint: chest pain Time Seen by Provider: 05/02/23 16:07 Source: patient Mode of arrival: ambulatory Limitations: no limitations - History of Present Illness Initial Comments: Patient is a 48-year-old female who presents the emergency department for chest pain. Patient had aortic valve replacement in December. She was at cardiac rehab today walking on the treadmill she started to have pain in her lower chest/epigastric region. The pain came on suddenly she describes as clenching f ist sensation which radiates to her back. No alleviating or other modifying factors. She denies numbness and tingling. Denies shortness of breath. No nausea or vomiting. Patient went home and the pain improved a little bit but did not go away. Patient is a former smoker. Reports rare alcohol use, none recent. - Related Data Home Medications Medication Instructions Recorded Confirmed Furosemide [Lasix] 20 mg PO BID 03/23/22 05/02/23 Levothyroxine Sodium [Synthroid] 50 mcg PO DAILY 03/23/22 05/02/23 Aspirin EC [Ecotrin Low Dose] 81 mg PO DAILY 07/06/22 05/02/23 Atorvastatin [Lipitor] 40 mg PO DAILY 07/06/22 05/02/23 Ezetimibe [Zetia] 10 mg PO DAILY 07/06/22 05/02/23 Magnesium Oxide [Mag-Ox] 400 mg PO HS 12/20/22 05/02/23 SUMAtriptan succinate [Imitrex] 100 mg PO BID PRN 12/20/22 05/02/23 Cholecalciferol [Vitamin D3 (25 25 mcg PO DAILY 05/02/23 05/02/23 Mcg = 1000 Iu)] Cyanocobalamin (Vitamin B-12) 1,000 mcg PO DAILY 05/02/23 05/02/23 [Vitamin B-12] Cyclobenzaprine [Flexeril] 5 mg PO BID PRN 05/02/23 05/02/23 Divalproex ER [Depakote ER] 250 mg PO HS 05/02/23 05/02/23 Omeprazole 40 mg PO DAILY 05/02/23 05/02/23 Previous Rx's Medication Instructions Recorded Ibuprofen [Motrin] 600 mg PO QID PRN tab 12/29/22 Metoprolol Tartrate [Lopressor] 25 mg PO BID #60 tab 12/29/22 Warfarin [Coumadin] 5 mg PO DAILY@1800 #30 tab 12/29/22 lisinopriL [Zestril] 2.5 mg PO DAILY@1200 #30 tab 12/29/22 Ibuprofen [Motrin] 800 mg PO Q8H PRN #20 tab 05/02/23 Allergies Allergy/AdvReac Type Severity Reaction Status Date / Time cranberry Allergy Rash/Hives Verified 05/02/23 16:13 hydromorphone [From Dilaudid] Allergy Anaphylaxis Verified 05/02/23 16:13 morphine Allergy Anaphylaxis Verified 05/02/23 16:13 Penicillins Allergy Severe Verified 05/02/23 16:13 Rash/Hives ranitidine [From Zantac] Allergy Overstimula Verified 05/02/23 16:13 tion Sulfa (Sulfonamide Allergy Severe Verified 05/02/23 16:13 Antibiotics) Rash/Hives zafirlukast [From Accolate] Allergy Severe Verified 05/02/23 16:13 Rash/Hives paper tape/bandaids Allergy chemical Uncoded 05/02/23 14:36 owusu(cloth bandaids ok) some adhesives (tegaderm Allergy Chemical Uncoded 05/02/23 14:36 okay) Owusu Review of Systems ROS Statement: Those systems with pertinent positive or pertinent negative responses have been documented in the HPI. ROS Other: All systems not noted in ROS Statement are negative. Past Medical History Past Medical History: Hyperlipidemia, Hypertension, Thyroid Disorder Additional Past Medical History / Comment(s): SVT History of Any Multi-Drug Resistant Organisms: None Reported Past Surgical History: Cholecystectomy, Hysterectomy, Tonsillectomy Additional Past Surgical History / Comment(s): kidney stone removal, open heart- replaced aortic valve with mechanical valve December, Past Anesthesia/Blood Transfusion Reactions: Previous Problems w/ Anesthesia Additional Past Anesthesia/Blood Transfusion Reaction / Comment(s): WILL SIT UP ON TAKE DURING SURGERY. TENDENCY TO BE VIOLENT COMING OUT OF ANESTHESIA Type of Cardiac Device: Loop Device Placement Date:: k Past Psychological History: Depression Smoking Status: Current every day smoker - Past Family History Mother Family Medical History: No Reported History Father Family Medical History: COPD General Exam Limitations: no limitations General appearance: alert Respiratory exam: Present: normal lung sounds bilaterally. Absent: respiratory distress, wheezes, rales, rhonchi, stridor Cardiovascular Exam: Present: regular rate, normal rhythm, normal heart sounds. Absent: systolic murmur, diastolic murmur, rubs, gallop, clicks GI/Abdominal exam: Present: soft, tenderness (epigastric ), normal bowel sounds. Absent: distended, guarding, rebound, rigid, bruit, pulsatile mass Neurological exam: Present: alert Psychiatric exam: Present: normal affect, normal mood Skin exam: Present: warm, dry, intact, normal color. Absent: rash Course Vital Signs 05/02/23 05/02/23 05/02/23 14:36 16:47 18:31 Temperature 97.8 F Pulse Rate 75 66 Pulse Rate [ 75 Air Vice Marshal ] Respiratory 16 16 Rate Blood Pressure 147/94 155/81 O2 Sat by Pulse 98 97 Oximetry 05/02/23 20:23 Temperature Pulse Rate 61 Pulse Rate [ Air Vice Marshal ] Respiratory 16 Rate Blood Pressure 158/87 O2 Sat by Pulse 99 Oximetry Medical Decision Making - Medical Decision Making Was pt. sent in by a medical professional or institution (Dr. PA, MEAT PACKER, urgent care, hospital, or longterm...) When possible be specific @ -No Did you speak to anyone other than the patient for history (EMS, parent, family, police, friend...)? What history was obtained from this source @ -No Did you review nursing and triage notes (agree or disagree)? Why? @ -I reviewed and agree with nursing and triage notes Were old charts reviewed (outside hosp., previous admission, EMS record, old EKG, old radiological studies, urgent care reports/EKG's, longterm records)? Report findings @ -No old charts were reviewed Differential Diagnosis (chest pain, altered mental status, abdominal pain women, abdominal pain men, vaginal bleeding, weakness, fever, dyspnea, syncope, heada mary, dizziness, GI bleed, back pain, seizure, CVA, palpatations, mental health)? @ -Differential Chest Pain: Stable Angina, Unstable Angina, STEMI, NSTEMI Aortic Dissection, Pneumothorax, Musculoskeletal, Esophageal Spasm GERD, Cholecystitis, Pancreatitis, Zoster, this is not meant to be an all-inclusive list. EKG interpreted by me (3pts min.). @ -As above X-rays interpreted by me (1pt min.). @ -None done CT interpreted by me (1pt min.). @ -None done U/S interpreted by me (1pt. min.). @ -None done What testing was considered but not performed or refused? (CT, X-rays, U/S, labs)? Why? @ -None What meds were considered but not given or refused? Why? @ -None Did you discuss the management of the patient with other professionals (professionals i.e. , PA, MEAT PACKER, lab, RT, psych nurse, social work case manager, environmental field technician, t eacher, aboriginal home school liaison officer, patient case coordinator)? Give summary @ -No Was smoking cessation discussed for >3mins.? @ -No Was critical care preformed (if so, how long)? @ -No Were there social determinants of health that impacted care today? How? (Homelessness, low income, unemployed, alcoholism, drug addiction, transportation, low edu. Level, literacy, decrease access to med. care, residential, rehab)? @ -No Was there de-escalation of care discussed even if they declined (Discuss DNR or withdrawal of care, Hospice)? DNR status @ -No What co-morbidities impacted this encounter? (DM, HTN, Smoking, COPD, CAD, Cancer, CVA, ARF, Chemo, Hep., AIDS, mental health diagnosis, sleep apnea, morbid obesity)? @ -Aortic valve replacement Was patient admitted / discharged? Hospital course, mention meds given and route, prescriptions, significant lab abnormalities, going to OR and other pertinent info. @ -Patient presenting for chest pain. Patient well-appearing and in no apparent distress. She is hemodynamically stable. Clinical presentation raises concern for AAA, aortic dissection. EKG obtained showing no evidence of acute ischemia. Troponin within normal limits. CT obtained interpreted by myself as well as radiology showing no acute process. Pain improved after Toradol and GI cocktail. Patient is discharged with return parameters. Undiagnosed new problem with uncertain prognosis? @ -No Drug Therapy requiring intensive monitoring for toxicity (Heparin, Nitro, Insulin, Cardizem)? @ -No Were any procedures done? @ -No Diagnosis/symptom? Chest pain, epigastric pain Acute, or Chronic, or Acute on Chronic? @Acute Uncomplicated (without systemic symptoms) or Complicated (systemic symptoms)? @ -Uncomplicated Side effects of treatment? @ -No Exacerbation, Progression, or Severe Exacerbation? @ -No Poses a threat to life or bodily function? How? (Chest pain, USA, SC, pneumonia, PE, COPD, DKA, ARF, appy, cholecystitis, CVA, Diverticulitis, Homicidal, Suicidal, threat to staff... and all critical care pts) @ -No Dr. Walter is my attending - Lab Data Result diagrams: 05/02/23 16:19 05/02/23 16:19 Lab Results 05/02/23 05/02/23 05/02/23 Range/Units 16:19 16:19 16:19 WBC 14.5 H (3.8-10.6) k/uL RBC 4.62 (3.80-5.40) m/uL Hgb 13.7 (11.4-16.0) gm/dL Hct 41.6 (34.0-46.0) % MCV 90.0 (80.0-100.0) fL MCH 29.6 (25.0-35.0) pg MCHC 32.9 (31.0-37.0) g/dL RDW 15.9 H (11.5-15.5) % Plt Count 196 (150-450) k/uL MPV 8.7 Neutrophils % Not Reportable Neutrophils % (Manual) 55 % Lymphocytes % Not Reportable Lymphocytes % (Manual) 35 % Monocytes % Not Reportable Monocytes % (Manual) 6 % Eosinophils % Not Reportable Eosinophils % (Manual) 4 % Basophils % Not Reportable Neutrophils # Not Reportable Neutrophils # (Manual) 7.98 H (1.3-7.7) k/uL Lymphocytes # Not Reportable Lymphocytes # (Manual) 5.08 H (1.0-4.8) k/uL Monocytes # Not Reportable Monocytes # (Manual) 0.87 (0-1.0) k/uL Eosinophils # Not Reportable Eosinophils # (Manual) 0.58 (0-0.7) k/uL Basophils # Not Reportable Nucleated RBCs 0 (0-0) /100 WBC Manual Slide Review Performed Hypochromasia Slight PT (9.0-12.0) sec INR (<1.2) APTT (22.0-30.0) sec Sodium 136 L (137-145) mmol/L Potassium 3.9 (3.5-5.1) mmol/L Chloride 103 (98-107) mmol/L Carbon Dioxide 26 (22-30) mmol/L Anion Gap 7 mmol/L BUN 18 H (7-17) mg/dL Creatinine 0.90 (0.52-1.04) mg/dL Est GFR (CKD-EPI)AfAm 87 (>60 ml/min/1.73 sqM) Est GFR (CKD-EPI)NonAf 75 (>60 ml/min/1.73 sqM) Glucose 90 (74-99) mg/dL Calcium 9.3 (8.4-10.2) mg/dL Total Bilirubin 0.5 (0.2-1.3) mg/dL AST 22 (14-36) U/L ALT 19 (4-34) U/L Alkaline Phosphatase 132 H (38-126) U/L Troponin I (0.000-0.034) ng/mL Total Protein 7.2 (6.3-8.2) g/dL Albumin 4.0 (3.5-5.0) g/dL Lipase 154 (23-300) U/L Urine Color Yellow Urine Appearance Clear (Clear) Urine pH 7.0 (5.0-8.0) Ur Specific [place] 1.020 (1.001-1.035) Urine Protein TR (Negative) Urine Glucose (UA) Negative (Negative) Urine Ketones Negative (Negative) Urine Blood Negative (Negative) Urine Nitrite Negative (Negative) Urine Bilirubin Negative (Negative) Urine Urobilinogen <2.0 (<2.0) mg/dL Ur Leukocyte Esterase Negative (Negative) 05/02/23 05/02/23 Range/Units 16:19 16:19 WBC (3.8-10.6) k/uL RBC (3.80-5.40) m/uL Hgb (11.4-16.0) gm/dL Hct (34.0-46.0) % MCV (80.0-100.0) fL MCH (25.0-35.0) pg MCHC (31.0-37.0) g/dL RDW (11.5-15.5) % Plt Count (150-450) k/uL MPV Neutrophils % Neutrophils % (Manual) % Lymphocytes % Lymphocytes % (Manual) % Monocytes % Monocytes % (Manual) % Eosinophils % Eosinophils % (Manual) % Basophils % Neutrophils # Neutrophils # (Manual) (1.3-7.7) k/uL Lymphocytes # Lymphocytes # (Manual) (1.0-4.8) k/uL Monocytes # Monocytes # (Manual) (0-1.0) k/uL Eosinophils # Eosinophils # (Manual) (0-0.7) k/uL Basophils # Nucleated RBCs (0-0) /100 WBC Manual Slide Review Hypochromasia PT 20.4 H (9.0-12.0) sec INR 2.1 H (<1.2) APTT 29.5 (22.0-30.0) sec Sodium (137-145) mmol/L Potassium (3.5-5.1) mmol/L Chloride (98-107) mmol/L Carbon Dioxide (22-30) mmol/L Anion Gap mmol/L BUN (7-17) mg/dL Creatinine (0.52-1.04) mg/dL Est GFR (CKD-EPI)AfAm (>60 ml/min/1.73 sqM) Est GFR (CKD-EPI)NonAf (>60 ml/min/1.73 sqM) Glucose (74-99) mg/dL Calcium (8.4-10.2) mg/dL Total Bilirubin (0.2-1.3) mg/dL AST (14-36) U/L ALT (4-34) U/L Alkaline Phosphatase (38-126) U/L Troponin I <0.012 (0.000-0.034) ng/mL Total Protein (6.3-8.2) g/dL Albumin (3.5-5.0) g/dL Lipase (23-300) U/L Urine Color Urine Appearance (Clear) Urine pH (5.0-8.0) Ur Specific [place] (1.001-1.035) Urine Protein (Negative) Urine Glucose (UA) (Negative) Urine Ketones (Negative) Urine Blood (Negative) Urine Nitrite (Negative) Urine Bilirubin (Negative) Urine Urobilinogen (<2.0) mg/dL Ur Leukocyte Esterase (Negative) Disposition Clinical Impression: Epigastric pain, Chest pain Disposition: HOME SELF-CARE Condition: Good Instructions (If sedation given, give patient instructions): Chest Pain (ED), Abdominal Pain (ED) Additional Instructions: Take medication as directed. Please follow-up with your primary care provider in 1-2 days. Return to the emergency department if you experience new, concerning, or worsening symptoms. Prescriptions: Ibuprofen [Motrin] 800 mg PO Q8H PRN #20 tab PRN Reason: Pain Is patient prescribed a controlled substance at d/c from ED?: No Referrals: Dionna Peralta MD [Primary Care Provider] - 1-2 days
[2023-05-02 20:30] VITALS: BP 158/87; PULSE 61
== END 2023-05-02 20:30 | disposition home or self-care (01) ==
LOC: EC 14:02
DX: R10.13 Epigastric pain (principal); E78.5 Hyperlipidemia, unspecified; I10 Essential (primary) hypertension; E07.9 Disorder of thyroid, unspecified; F32.A Depression, unspecified; F17.200 Nicotine dependence, unspecified, uncomplicated; Z88.0 Allergy status to penicillin; Z88.2 Allergy status to sulfonamides; Z88.5 Allergy status to narcotic agent; Z88.8 Allergy status to other drugs, medicaments and biological substances; Z91.018 Allergy to other foods; Z79.890 Hormone replacement therapy; Z79.899 Other long term (current) drug therapy; Z79.82 Long term (current) use of aspirin
CPT/HCPCS: 36415; 93005; 80053; 83690; 84484; 85025; 85610; 85730; 81001; 71275; 74174; 99284; 96374; 96361; J1885; Q9967

== ENCOUNTER 2023-05-13 15:40 | Emergency (ER) | payer MEDICARE ==
[2023-05-13 15:45] VITALS: TEMP 98.2
--- NOTE | 2023-05-13 16:11 | XR ---
EXAMINATION TYPE: XR chest 2V DATE OF EXAM: 05/13/2023 4:06 PM COMPARISON: Chest radiographs from 12/29/2022 TECHNIQUE: XR chest 2V Frontal and lateral views of the chest. CLINICAL INDICATION:Female, 48 years old with history of r/o rib fx/ pneumothorax; FINDINGS: Lungs/Pleura: There is no evidence of pleural effusion, focal consolidation, or pneumothorax. Pulmonary vascularity: Unremarkable. Heart/mediastinum: Cardiomediastinal silhouette is unremarkable. A loop recorder projects over the l eft thorax over the heart.Post aortic valve repair changes. Left atrial appendage occlusion device is present. Musculoskeletal: No acute osseous pathology. Midline sternotomy wires are noted. IMPRESSION: No evidence for large pneumothorax or rib fracture.
--- NOTE | 2023-05-13 16:12 | XR ---
EXAMINATION TYPE: XR shoulder complete LT DATE OF EXAM: 05/13/2023 4:06 PM INDICATION: Patient age:Female; 48 years old; Reason for study: s/p fall; COMPARISON: Chest radiograph 02/27/2023 and same day TECHNIQUE: The left shoulder was examined in AP, internally rotated and scapular Y projections. FINDINGS: No evidence of acute osseous pathology, joint dislocation, or soft tissue swelling. The remaining por tions of the visualized chest are unremarkable. Sternotomy wires left atrial appendage occlusion shanice ce partially visualized. IMPRESSION: No acute osseous pathology.
--- NOTE | 2023-05-13 16:21 | CT ---
EXAMINATION TYPE: CT brain kirti wo con DATE OF EXAM: 05/13/2023 COMPARISON: 09/21/2011 HISTORY: Fall, hit head CT DLP: 1600.7 mGycm, Automated exposure control for dose reduction was used. CONTRAST: Patient injected with 0 mL of Isovue 300. CT of the brain is performed utilizing 3 mm thick sections through the posterior fossa and 3 mm thick sections through the remaining calvarium. Study is performed within 24 hours of arrival to the hospital. No abnormal hyperdensity is present to suggest an acute intracranial hemorrhage. No mass lesion is evident. No acute infarcts are evident. Ventricles and sulci are appropriate for the patient age. Paranasal sinuses and mastoid air cells within the [id number] are clear. IMPRESSIONS: 1. No acute intracranial process. Follow-up MRI can be performed as clinically indicated. CT cervical spine. COMPARISON: None CT of the cervical spine is performed in the axial plane at 2 mm thick sections. Reconstructed image s in the coronal, and sagittal plane are reviewed on the computer. No acute fractures are evident. Vertebral body alignment is normal. Disc heights are preserved. Vertebral body heights are preserved. Posterior endplate spurring is noted at C5-6 with mild anterior thecal sac impression. No AP spinal c anal stenosis is present. Uncovertebral joint hypertrophy is present on the left at C5-6 with moderate left foraminal stenosis. At the lung apices the field of view are unremarkable. IMPRESSIONS: 1. Mild degenerative changes C5-6 discussed above.
[2023-05-13] MEDS ORDERED: KETOROLAC 15 MG/ML 1 ML VIAL IM STA (16:23)
--- NOTE | 2023-05-13 16:33 | ED ---
Fall HPI - General Chief Complaint: Fall Stated Complaint: Fall-blood thinners,Sob Time Seen by Provider: 05/13/23 15:49 Source: patient Mode of arrival: ambulatory - History of Present Illness Initial Comments: 48-year-old female presents to ED with chief complaints of head injury. Patient states that she was trying to sit down on a tall approximately 18 inch air mattress when the air mattress gave out causing her to fall onto her left side onto hardwood. States that she hit her head on a plastic toy [place] on the way down. There is no LOC. Denies nausea or vomiting. States that she landed on her left side primarily on her shoulder. Now notes headache, left shoulder pain, left-sided chest pain worsened by breathing. Denies shortness of breath. Patient is on Coumadin due to her having a mechanical valve. No other complaints. - Related Data Home Medications Medication Instructions Recorded Confirmed Furosemide [Lasix] 20 mg PO BID 03/23/22 05/02/23 Levothyroxine Sodium [Synthroid] 50 mcg PO DAILY 03/23/22 05/02/23 Aspirin EC [Ecotrin Low Dose] 81 mg PO DAILY 07/06/22 05/02/23 Atorvastatin [Lipitor] 40 mg PO DAILY 07/06/22 05/02/23 Ezetimibe [Zetia] 10 mg PO DAILY 07/06/22 05/02/23 Magnesium Oxide [Mag-Ox] 400 mg PO HS 12/20/22 05/02/23 SUMAtriptan succinate [Imitrex] 100 mg PO BID PRN 12/20/22 05/02/23 Cholecalciferol [Vitamin D3 (25 25 mcg PO DAILY 05/02/23 05/02/23 Mcg = 1000 Iu)] Cyanocobalamin (Vitamin B-12) 1,000 mcg PO DAILY 05/02/23 05/02/23 [Vitamin B-12] Cyclobenzaprine [Flexeril] 5 mg PO BID PRN 05/02/23 05/02/23 Divalproex ER [Depakote ER] 250 mg PO HS 05/02/23 05/02/23 Omeprazole 40 mg PO DAILY 05/02/23 05/02/23 Previous Rx's Medication Instructions Recorded Ibuprofen [Motrin] 600 mg PO QID PRN tab 12/29/22 Metoprolol Tartrate [Lopressor] 25 mg PO BID #60 tab 12/29/22 Warfarin [Coumadin] 5 mg PO DAILY@1800 #30 tab 12/29/22 lisinopriL [Zestril] 2.5 mg PO DAILY@1200 #30 tab 12/29/22 Ibuprofen [Motrin] 800 mg PO Q8H PRN #20 tab 05/02/23 Allergies Allergy/AdvReac Type Severity Reaction Status Date / Time cranberry Allergy Rash/Hives Verified 05/13/23 15:45 hydromorphone [From Dilaudid] Allergy Anaphylaxis Verified 05/13/23 15:45 morphine Allergy Anaphylaxis Verified 05/13/23 15:45 Penicillins Allergy Severe Verified 05/13/23 15:45 Rash/Hives ranitidine [From Zantac] Allergy Overstimula Verified 05/13/23 15:45 tion Sulfa (Sulfonamide Allergy Severe Verified 05/13/23 15:45 Antibiotics) Rash/Hives zafirlukast [From Accolate] Allergy Severe Verified 05/13/23 15:45 Rash/Hives paper tape/bandaids Allergy chemical Uncoded 05/02/23 14:36 owusu(cloth bandaids ok) some adhesives (tegaderm Allergy Chemical Uncoded 05/02/23 14:36 okay) Owusu Review of Systems ROS Statement: Those systems with pertinent positive or pertinent negative responses have been documented in the HPI. ROS Other: All systems not noted in ROS Statement are negative. Past Medical History Past Medical History: Hyperlipidemia, Hypertension, Thyroid Disorder Additional Past Medical History / Comment(s): SVT History of Any Multi-Drug Resistant Organisms: None Reported Past Surgical History: Cholecystectomy, Hysterectomy, Tonsillectomy Additional Past Surgical History / Comment(s): kidney stone removal, open heart- replaced aortic valve with mechanical valve December, Past Anesthesia/Blood Transfusion Reactions: Previous Problems w/ Anesthesia Additional Past Anesthesia/Blood Transfusion Reaction / Comment(s): WILL SIT UP ON TAKE DURING SURGERY. TENDENCY TO BE VIOLENT COMING OUT OF ANESTHESIA Type of Cardiac Device: Loop Device Placement Date:: unk Past Psychological History: Depression Smoking Status: Current every day smoker - Past Family History Mother Family Medical History: No Reported History Father Family Medical History: COPD General Exam Limitations: no limitations General appearance: alert, in no apparent distress Head exam: Present: atraumatic, normocephalic (No hicks sign or raccoon's eyes.) ENT exam: Present: mucous membranes moist Neck exam: Present: normal inspection Respiratory exam: Present: normal lung sounds bilaterally, respiratory distress, other (Unable to elicit any chest wall tenderness with no obvious crepitus however limited exam secondary to body habitus) GI/Abdominal exam: Present: soft Extremities exam: Present: other (Strength and sensation equal and intact of bilateral upper and lower extremities.) Neurological exam: Present: alert, oriented X3, CN II-XII intact Skin exam: Present: warm, dry Course Vital Signs 05/13/23 15:42 Temperature 98.2 F Pulse Rate 82 Respiratory 16 Rate Blood Pressure 144/95 O2 Sat by Pulse 100 Oximetry Medical Decision Making - Medical Decision Making Was pt. sent in by a medical professional or institution (, PA, BILLING SUPERVISOR, urgent care, hospital, or halfway...) When possible be specific @ -No Did you speak to anyone other than the patient for history (EMS, parent, family, police, friend...)? What history was obtained from this source @ -No Did you review nursing and triage notes (agree or disagree)? Why? @ -I reviewed and agree with nursing and triage notes Were old charts reviewed (outside hosp., previous admission, EMS record, old EKG, old radiological studies, urgent care reports/EKG's, halfway records)? Report findings @ -No old charts were reviewed Differential Diagnosis (chest pain, altered mental status, abdominal pain women, abdominal pain men, vaginal bleeding, weakness, fever, dyspnea, syncope, headache, dizziness, GI bleed, back pain, seizure, CVA, palpatations, mental health, musculoskeletal)? @ -Differential Headache: Migraine, tension, cluster, carbon monoxide, central venous thrombosis, pension karma temporal arteritis, acute closure glaucoma, intercranial hemorrhage, mastoiditis, sinusitis, head injury, this is not meant to be an all-inclusive list. EKG interpreted by me (3pts min.). @ -None X-rays interpreted by me (1pt min.). @ -X-ray of the left shoulder and chest showed no acute findings. CT interpreted by me (1pt min.). @ -CT brain/C-spine showed no acute findings. U/S interpreted by me (1pt. min.). @ -None done What testing was considered but not performed or refused? (CT, X-rays, U/S, labs)? Why? @ -None What meds were considered but not given or refused? Why? @ -None Did you discuss the management of the patient with other professionals (professionals i.e. , PA, BILLING SUPERVISOR, lab, RT, psych nurse, web content & social media manager, demand planning manager, teacher, air force senior officer, family independence case manager)? Give summary @ -No Was smoking cessation discussed for >3mins.? @ -No Was critical care preformed (if so, how long)? @ -No Were there social determinants of health that impacted care today? How? (Homelessness, low income, unemployed, alcoholism, drug addiction, transportation, low edu. Level, literacy, decrease access to med. care, care home, rehab)? @ -No Was there de-escalation of care discussed even if they declined (Discuss DNR or withdrawal of care, Hospice)? DNR status @ -No What co-morbidities impacted this encounter? (DM, HTN, Smoking, COPD, CAD, Cancer, CVA, ARF, Chemo, Hep., AIDS, mental health diagnosis, sleep apnea, morbid obesity)? @ -None Was patient admitted / discharged? Hospital course, mention meds given and route, prescriptions, significant lab abnormalities, going to OR and other pertinent info. @ -Discharge. Imaging studies here reveal no acute findings. Neurologic exam unremarkable at this time. Patient provided Toradol for the pain. Patient discharged home in stable condition. Discussed return precautions with patient who verbalizes agreement. Undiagnosed new problem with uncertain prognosis? @ -No Drug Therapy requiring intensive monitoring for toxicity (Heparin, Nitro, Insulin, Cardizem)? @ -No Were any procedures done? @ -No Diagnosis/symptom? @ -Injury, shoulder condition, costochondritis Acute, or Chronic, or Acute on Chronic? @ -Acute Uncomplicated (without systemic symptoms) or Complicated (systemic symptoms)? @ -Uncomplicated Side effects of treatment? @ -No Exacerbation, Progression, or Severe Exacerbation? @ -No Poses a threat to life or bodily function? How? (Chest pain, [place], [place], pneumonia, PE, COPD, DKA, ARF, appy, cholecystitis, CVA, Diverticulitis, Homicidal, Suicidal, threat to staff... and all critical care pts) @ -No Disposition Clinical Impression: Head injury, Shoulder contusion, Costochondritis Disposition: HOME SELF-CARE Condition: Good Instructions (If sedation given, give patient instructions): Costochondritis (ED), Head Injury (ED), Fall Prevention (ED), Shoulder Pain (ED) Additional Instructions: Please return to the Emergency Department if symptoms worsen or any other concerns. Is patient prescribed a controlled substance at d/c from ED?: No Referrals: Dionna Peralta MD [Primary Care Provider] - 1-2 days Time of Disposition: 16:33
[2023-05-13 17:06] VITALS: BP 132/78; PULSE 80; RESP 18
== END 2023-05-13 17:06 | disposition home or self-care (01) ==
LOC: EC 15:40
DX: S40.012A Contusion of left shoulder, initial encounter (principal); M94.0 Chondrocostal junction syndrome [Tietze]; I10 Essential (primary) hypertension; E78.5 Hyperlipidemia, unspecified; E07.9 Disorder of thyroid, unspecified; F32.A Depression, unspecified; F17.200 Nicotine dependence, unspecified, uncomplicated; Z79.890 Hormone replacement therapy; Z79.899 Other long term (current) drug therapy; Z79.82 Long term (current) use of aspirin; Z88.5 Allergy status to narcotic agent; Z88.0 Allergy status to penicillin; Z88.2 Allergy status to sulfonamides; Z88.8 Allergy status to other drugs, medicaments and biological substances; W17.89XA Other fall from one level to another, initial encounter; Y93.9 Activity, unspecified
CPT/HCPCS: 73030; 71046; 72125; 70450; 99284; 96372; J1885

== ENCOUNTER 2023-08-13 14:42 | Observation (INO) | payer MEDICARE, OTHER ==
[2023-08-13] MEDS ORDERED: ASPIRIN 81 MG PO STA (15:09)
[2023-08-13] MEDS ORDERED: NITROGLYCERIN OINT 1 INCH/GM PACKET TOPICAL STA (15:09)
--- NOTE | 2023-08-13 15:14 | ED ---
General Adult HPI - General Chief complaint: Chest Pain Stated complaint: chest pain Time Seen by Provider: 08/13/23 15:05 Source: patient, family, RN notes reviewed Mode of arrival: ambulatory Limitations: no limitations - History of Present Illness Initial comments: Patient is a pleasant 48-year-old female presenting to the emergency department with concerns with chest discomfort. Onset was around an hour and a half ago. Discomfort felt like pressure there was some radiation towards left arm and back. Discomfort was somewhat severe however now is mild. Patient did have some mild soreness of breath however admits she didn't feel somewhat anxious. No nausea. No diaphoresis. No history of similar symptoms previously. Patient does have history of atrial fibrillation, SVT as well as valve replacement. Patient is on anticoagulation - Related Data Home Medications Medication Instructions Recorded Confirmed Furosemide [Lasix] 20 mg PO BID 03/23/22 08/13/23 Levothyroxine Sodium [Synthroid] 50 mcg PO DAILY 03/23/22 08/13/23 Atorvastatin [Lipitor] 40 mg PO DAILY 07/06/22 08/13/23 Ezetimibe [Zetia] 10 mg PO DAILY 07/06/22 08/13/23 Magnesium Oxide [Mag-Ox] 400 mg PO HS 12/20/22 08/13/23 Cyclobenzaprine [Flexeril] 5 mg PO BID PRN 05/02/23 08/13/23 Divalproex ER [Depakote ER] 250 mg PO HS 05/02/23 08/13/23 Omeprazole 40 mg PO DAILY 05/02/23 08/13/23 DULoxetine HCL [Cymbalta] 30 mg PO DAILY@1900 08/13/23 08/13/23 Diclofenac Sodium Gel [Voltaren 1% 4 gm TOPICAL QID PRN 08/13/23 08/13/23 Gel] HYDROcodone/APAP 5-325MG [Rodney 1 tab PO TID PRN 08/13/23 08/13/23 5-325] Warfarin [Coumadin] 2.5 mg PO TUTHSA@1800 08/13/23 08/13/23 Warfarin [Coumadin] 5 mg PO SUMOWEFR@1800 08/13/23 08/13/23 Previous Rx's Medication Instructions Recorded Metoprolol Tartrate [Lopressor] 25 mg PO BID #60 tab 12/29/22 lisinopriL [Zestril] 2.5 mg PO DAILY@1200 #30 tab 12/29/22 Allergies Allergy/AdvReac Type Severity Reaction Status Date / Time cranberry Allergy Rash/Hives Verified 08/13/23 16:49 hydromorphone [From Dilaudid] Allergy Anaphylaxis Verified 08/13/23 16:49 morphine Allergy Anaphylaxis Verified 08/13/23 16:49 Penicillins Allergy Severe Verified 08/13/23 16:49 Rash/Hives Sulfa (Sulfonamide Allergy Severe Verified 08/13/23 16:49 Antibiotics) Rash/Hives zafirlukast [From Accolate] Allergy Severe Verified 08/13/23 16:49 Rash/Hives montelukast [From Singulair] AdvReac Rapid Verified 08/13/23 16:49 Heart Rate ranitidine [From Zantac] AdvReac Overstimula Verified 08/13/23 16:49 tion paper tape/bandaids AdvReac chemical Uncoded 08/13/23 16:49 owusu(cloth bandaids ok) some adhesives (tegaderm AdvReac Chemical Uncoded 08/13/23 16:49 okay) [place] Review of Systems ROS Statement: Those systems with pertinent positive or pertinent negative responses have been documented in the HPI. ROS Other: All systems not noted in ROS Statement are negative. Constitutional: Denies: fever Eyes: Denies: eye pain ENT: Denies: ear pain Respiratory: Reports: as per HPI. Denies: cough Cardiovascular: Reports: as per HPI, chest pain Endocrine: Denies: fatigue Gastrointestinal: Denies: abdominal pain, vomiting Genitourinary: Denies: dysuria Musculoskeletal: Reports: as per HPI Past Medical History Past Medical History: Hyperlipidemia, Hypertension, Thyroid Disorder Additional Past Medical History / Comment(s): SVT History of Any Multi-Drug Resistant Organisms: None Reported Past Surgical History: Cholecystectomy, Hysterectomy, Tonsillectomy Additional Past Surgical History / Comment(s): kidney stone removal, open heart- replaced aortic valve with mechanical valve December, Past Anesthesia/Blood Transfusion Reactions: Previous Problems w/ Anesthesia Additional Past Anesthesia/Blood Transfusion Reaction / Comment(s): WILL SIT UP ON TAKE DURING SURGERY. TENDENCY TO BE VIOLENT COMING OUT OF ANESTHESIA Type of Cardiac Device: Loop Device Placement Date:: unk Past Psychological History: Depression Smoking Status: Current every day smoker - Past Family History Mother Family Medical History: No Reported History Father Family Medical History: COPD General Exam Limitations: no limitations General appearance: alert, in no apparent distress Head exam: Present: normocephalic Eye exam: Present: normal appearance Neck exam: Present: normal inspection Respiratory exam: Present: normal lung sounds bilaterally. Absent: chest wall tenderness Cardiovascular Exam: Present: regular rate, normal rhythm, systolic murmur Expanded Peripheral pulses: 2+: Radial (R), Radial (L), Dorsalis Pedis (R), Dorsalis Pedis (L) GI/Abdominal exam: Present: soft. Absent: tenderness Extremities exam: Present: normal inspection. Absent: pedal edema, calf tenderness Neurological exam: Present: alert Psychiatric exam: Present: normal affect, normal mood Skin exam: Present: normal color Course Vital Signs 08/13/23 08/13/23 08/13/23 14:46 15:30 15:41 Temperature 98 F Pulse Rate 67 58 L Pulse Rate [ 60 Biomechanical Engineer ] Respiratory 20 20 Rate Blood Pressure 131/71 118/83 O2 Sat by Pulse 99 98 Oximetry EKG Findings - EKG Results: EKG: interpreted by ERMD (Incomplete right bundle-branch block.), sinus rhythm, normal axis, normal QRS, normal ST/T Medical Decision Making - Medical Decision Making Was pt. sent in by a medical professional or institution (KAREEM Taylor, FURNACE PROCESS SUPERVISOR, urgent care, hospital, or care home...) When possible be specific @ -No Did you speak to anyone other than the patient for history (EMS, parent, family, police, friend...)? What history was obtained from this source @ -Family is present and helps confirm history Did you review nursing and triage notes (agree or disagree)? Why? @ -I reviewed and agree with nursing and triage notes Were old charts reviewed (outside hosp., previous admission, EMS record, old EKG, old radiological studies, urgent care reports/EKG's, care home records)? Report findings @ -No old charts were reviewed Differential Diagnosis (chest pain, altered mental status, abdominal pain women, abdominal pain men, vaginal bleeding, weakness, fever, dyspnea, syncope, headache, dizziness, GI bleed, back pain, seizure, CVA, palpatations, mental health, musculoskeletal)? @ -Differential Chest Pain: Stable Angina, Unstable Angina, STEMI, NSTEMI Aortic Dissection, Pneumothorax, Musculoskeletal, Esophageal Spasm GERD, Cholecystitis, Pancreatitis, Zoster, this is not meant to be an all-inclusive list. EKG interpreted by me (3pts min.). @ -As above X-rays interpreted by me (1pt min.). @ -Chest x-ray shows postoperative changes CT interpreted by me (1pt min.). @ -None done U/S interpreted by me (1pt. min.). @ -None done What testing was considered but not performed or refused? (CT, X-rays, U/S, labs)? Why? @ -None What meds were considered but not given or refused? Why? @ -None Did you discuss the management of the patient with other professionals (professionals i.e. , PA, FURNACE PROCESS SUPERVISOR, lab, RT, psych nurse, social sciences department chair, lawyer criminal, teacher, radio electronics officer, block and case maker)? Give summary @ -Case was discussed with Dr. Stone, who will admit his patient. Was smoking cessation discussed for >3mins.? @ -No Was critical care preformed (if so, how long)? @ -No Were there social determinants of health that impacted care today? How? (Homelessness, low income, unemployed, alcoholism, drug addiction, tr ansportation, low edu. Level, literacy, decrease access to med. care, fdc, rehab)? @ -No Was there de-escalation of care discussed even if they declined (Discuss DNR or withdrawal of care, Hospice)? DNR status @ -No What co-morbidities impacted this encounter? (DM, HTN, Smoking, COPD, CAD, Cancer, CVA, ARF, Chemo, Hep., AIDS, mental health diagnosis, sleep apnea, morbid obesity)? @ -None Was patient admitted / discharged? Hospital course, mention meds given and route, prescriptions, significant lab abnormalities, going to OR and other pertinent info. @ -Patient reevaluated and improved. Patient and family are updated on results and plan. Patient will be admitted with cardiac consult. Admission orders written. Undiagnosed new problem with uncertain prognosis? @ -No Drug Therapy requiring intensive monitoring for toxicity (Heparin, Nitro, Insulin, Cardizem)? @ -No Were any procedures done? @ -No Diagnosis/symptom? @ -Chest pain Acute, or Chronic, or Acute on Chronic? @ -Acute Uncomplicated (without systemic symptoms) or Complicated (systemic symptoms)? @ -default Side effects of treatment? @ -No Exacerbation, Progression, or Severe Exacerbation? @ -No Poses a threat to life or bodily function? How? (Chest pain, [place], [place], pneumonia, PE, COPD, DKA, ARF, appy, cholecystitis, CVA, Diverticulitis, Homicidal, Suicidal, threat to staff... and all critical care pts) @ -No - Lab Data Result diagrams: 08/13/23 15:29 08/13/23 15:29 Lab Results 08/13/23 08/13/23 08/13/23 Range/Units 15:29 15:29 15:29 WBC 11.5 H (3.8-10.6) k/uL RBC 4.87 (3.80-5.40) m/uL Hgb 14.4 (11.4-16.0) gm/dL Hct 44.3 (34.0-46.0) % MCV 91.0 (80.0-100.0) fL MCH 29.6 (25.0-35.0) pg MCHC 32.5 (31.0-37.0) g/dL RDW 14.3 (11.5-15.5) % Plt Count 270 (150-450) k/uL MPV 8.9 Neutrophils % 53 % Lymphocytes % 38 % Monocytes % 5 % Eosinophils % 2 % Basophils % 1 % Neutrophils # 6.1 (1.3-7.7) k/uL Lymphocytes # 4.4 (1.0-4.8) k/uL Monocytes # 0.6 (0-1.0) k/uL Eosinophils # 0.3 (0-0.7) k/uL Basophils # 0.1 (0-0.2) k/uL PT 16.2 H (10.0-12.5) sec INR 1.6 H (<1.2) APTT 32.6 H (22.0-30.0) sec D-Dimer 0.31 (<0.60) mg/L FEU Sodium 137 (137-145) mmol/L Potassium 4.0 (3.5-5.1) mmol/L Chloride 101 (98-107) mmol/L Carbon Dioxide 24 (22-30) mmol/L Anion Gap 12 mmol/L BUN 17 (7-17) mg/dL Creatinine 0.84 (0.52-1.04) mg/dL Est GFR (CKD-EPI)AfAm >90 (>60 ml/min/1.73 sqM) Est GFR (CKD-EPI)NonAf 81 (>60 ml/min/1.73 sqM) Glucose 96 (74-99) mg/dL Calcium 9.6 (8.4-10.2) mg/dL Magnesium 1.8 (1.6-2.3) mg/dL Total Bilirubin 0.5 (0.2-1.3) mg/dL AST 20 (14-36) U/L ALT 16 (4-34) U/L Alkaline Phosphatase 134 H (38-126) U/L Troponin I (0.000-0.034) ng/mL Total Protein 7.3 (6.3-8.2) g/dL Albumin 4.2 (3.5-5.0) g/dL 08/13/23 Range/Units 15:29 WBC (3.8-10.6) k/uL RBC (3.80-5.40) m/uL Hgb (11.4-16.0) gm/dL Hct (34.0-46.0) % MCV (80.0-100.0) fL MCH (25.0-35.0) pg MCHC (31.0-37.0) g/dL RDW (11.5-15.5) % Plt Count (150-450) k/uL MPV Neutrophils % % Lymphocytes % % Monocytes % % Eosinophils % % Basophils % % Neutrophils # (1.3-7.7) k/uL Lymphocytes # (1.0-4.8) k/uL Monocytes # (0-1.0) k/uL Eosinophils # (0-0.7) k/uL Basophils # (0-0.2) k/uL PT (10.0-12.5) sec INR (<1.2) APTT (22.0-30.0) sec D-Dimer (<0.60) mg/L FEU Sodium (137-145) mmol/L Potassium (3.5-5.1) mmol/L Chloride (98-107) mmol/L Carbon Dioxide (22-30) mmol/L Anion Gap mmol/L BUN (7-17) mg/dL Creatinine (0.52-1.04) mg/dL Est GFR (CKD-EPI)AfAm (>60 ml/min/1.73 sqM) Est GFR (CKD-EPI)NonAf (>60 ml/min/1.73 sqM) Glucose (74-99) mg/dL Calcium (8.4-10.2) mg/dL Magnesium (1.6-2.3) mg/dL Total Bilirubin (0.2-1.3) mg/dL AST (14-36) U/L ALT (4-34) U/L Alkaline Phosphatase (38-126) U/L Troponin I <0.012 (0.000-0.034) ng/mL Total Protein (6.3-8.2) g/dL Albumin (3.5-5.0) g/dL Disposition Clinical Impression: Chest pain Disposition: ADMITTED IP TO THIS HOSP Is patient prescribed a controlled substance at d/c from ED?: No Referrals: Giovanni Darby MD [Primary Care Provider] - 1-2 days Time of Disposition: 17:17
[2023-08-13 15:46] LABS: Basophils # (A) 0.1 k/uL (0-0.2); Basophils % (A) 1 %; Eosinophils # (A) 0.3 k/uL (0-0.7); Eosinophils % (A) 2 %; HCT 44.3 % (34.0-46.0); HGB 14.4 gm/dL (11.4-16.0); Lymphocytes # (A) 4.4 k/uL (1.0-4.8); Lymphocytes % (A) 38 %; MCH 29.6 pg (25.0-35.0); MCHC 32.5 g/dL (31.0-37.0); Mean Platelet Volume 8.9; Monocytes # (A) 0.6 k/uL (0-1.0); Monocytes % (A) 5 %; Neutrophils # (A) 6.1 k/uL (1.3-7.7); Neutrophils % (A) 53 %; Platelet Count 270 k/uL (150-450); RBC 4.87 m/uL (3.80-5.40); RDW 14.3 % (11.5-15.5); WBC 11.5 k/uL (3.8-10.6)
[2023-08-13 15:57] LABS: ALT 16 U/L (4-34); AST 20 U/L (14-36); African American GFR (CKD) >90 (>60 ml/min/1.73 sqM); Albumin 4.2 g/dL (3.5-5.0); Alkaline Phosphatase 134 U/L (38-126); Anion Gap 12 mmol/L; Blood Urea Nitrogen 17 mg/dL (7-17); Calcium 9.6 mg/dL (8.4-10.2); Carbon Dioxide 24 mmol/L (22-30); Chloride 101 mmol/L (98-107); Glucose 96 mg/dL (74-99); Magnesium 1.8 mg/dL (1.6-2.3); Non-African American GFR(CKD) 81 (>60 ml/min/1.73 sqM); Sodium 137 mmol/L (137-145); Total Bilirubin 0.5 mg/dL (0.2-1.3); Total Protein 7.3 g/dL (6.3-8.2)
[2023-08-13 16:09] LABS: INR 1.6 (<1.2); Partial Thromboplastin Time 32.6 sec (22.0-30.0); Prothrombin Time 16.2 sec (10.0-12.5)
--- NOTE | 2023-08-13 16:22 | XR ---
EXAMINATION TYPE: XR chest 2V DATE OF EXAM: 08/13/2023 COMPARISON: 05/13/2023 HISTORY: 48-year-old female with chest pain TECHNIQUE: AP and lateral views FINDINGS: Median sternotomy wires are present. Loop recorder device projects along the left side of the heart. Heart borderline enlarged. Large body habitus resulting in hazy densities. No nino consolidation or pleural effusion. IMPRESSION: Post sternotomy changes. Borderline heart size. No acute process seen.
[2023-08-13] MEDS ORDERED: NITROGLYCERIN SL TABS 0.4 MG TAB SUBLINGUAL PRN (17:18)
[2023-08-13] MEDS ORDERED: CYCLOBENZAPRINE 5 MG TAB PO PRN (18:01)
[2023-08-13] MEDS ORDERED: WARFARIN 5 MG TAB PO SCH (18:06)
[2023-08-13] MEDS: NITROGLYCERIN OINT 1 INCH/GM PACKET TOPICAL SCH (18:22)
[2023-08-13] MEDS ORDERED: WARFARIN 5 MG TAB PO ONE (18:30)
[2023-08-13] MEDS: METOPROLOL TARTRATE 25 MG TAB PO SCH (21:15)
[2023-08-13] MEDS: FUROSEMIDE 20 MG TAB PO SCH (21:15)
[2023-08-13] MEDS: MAGNESIUM OXIDE 400 MG TAB PO SCH (21:15)
[2023-08-13] MEDS: DIVALPROEX ER 250 MG TAB.ER.24H PO SCH (21:32)
[2023-08-13] MEDS: DULoxetine HCL 30 MG CAPSULE.DR PO SCH (21:32)
[2023-08-14] MEDS: NITROGLYCERIN OINT 1 INCH/GM PACKET TOPICAL SCH ×2 (00:56→06:21)
[2023-08-14] MEDS: HYDROcodone/APAP 5-325MG 1 EACH TAB PO PRN ×2 (02:31→22:15)
[2023-08-14 06:17] LABS: INR 1.5 (<1.2); Prothrombin Time 15.7 sec (10.0-12.5)
[2023-08-14] MEDS: PANTOPRAZOLE 40 MG TABLET PO SCH (06:21)
[2023-08-14] MEDS: LEVOTHYROXINE 50 MCG TAB PO SCH (06:21)
[2023-08-14] MEDS: ATORVASTATIN 40 MG TAB PO SCH (08:17)
[2023-08-14] MEDS: FUROSEMIDE 20 MG TAB PO SCH ×2 (08:18→16:26)
[2023-08-14] MEDS: EZETIMIBE 10 MG TAB PO SCH (08:26)
[2023-08-14] MEDS: METOPROLOL TARTRATE 25 MG TAB PO SCH ×2 (08:26→22:20)
--- NOTE | 2023-08-14 08:53 | P.CRDCN ---
History of Present Illness History of present illness: HISTORY OF PRESENT ILLNESS: This is a 48-year-old female with a past medical history significant for hypertension, hyperlipidemia, atrial fibrillation, obstructive sleep apnea, diabetes, and aortic valve replacement with On-X valve in December 2022. Patient follows in the office with Dr. Infante. We have been asked to see the patient in consultation for chest pain. Patient examined at the bedside. Patient states she had an episode of chest pain yesterday while at home. She states she was laying down in bed because she has been dealing with a headache recently. She denied any radiation of the pain. She denied any shortness of breath. Denies any cough or fever. She does report she has been having some dizzy spells at home and also a frequent headache. At the time of examination, she denies chest pain or pressure. Vital signs are stable. * EKG reveals sinus mechanism with no signs of acute ischemia * Chest xray negative for acute process * Laboratory data: INR 1.5. Troponin negative 3. * Current home cardiac medications include Lasix 20 mg twice a day, Zetia 10 mg daily, atorvastatin 40 mg daily, metoprolol tartrate 25 mg twice a day, lisinopril 2.5 mg daily, warfarin 2.5 mg Saturday and Saturday and 5 mg Saturday and Saturday * Most recent echocardiogram obtained in January 2023 revealed normal ejection fraction, mild to moderate TR, prosthetic aortic valve, mild MR * Cardiac catheterization history: July 2022 revealing normal coronary arteries REVIEW OF SYSTEMS: At the time of my exam: CONSTITUTIONAL: Denies fever or chills. HEENT: Denies blurred vision, vision changes, or eye pain. Denies hemoptysis CARDIOVASCULAR: Denies chest pain. Denies orthopnea. Denies PND. Denies palpitations RESPIRATORY: Denies shortness of breath. GASTROINTESTINAL: Denies abdominal pain. Denies nausea or vomiting. HEMATOLOGIC: Denies bleeding disorders. GENITOURINARY: Denies any blood in urine. SKIN: Denies pruitis. Denies rash. PHYSICAL EXAM: VITAL SIGNS: Reviewed. GENERAL: Well-developed in no acute distress. HEENT: Head is normocephalic. Pupils are equal, round. Sclerae anicteric. Mucous membranes of the mouth are moist. Neck supple. No JVD or thyromegaly LUNGS: Respirations even and unlabored. Lungs essentially clear to auscultation bilaterally. HEART: Regular rate and rhythm. S1 and S2 heard. Systolic murmur noted. ABDOMEN: Soft. Nondistended. Nontender. EXTREMITIES: Normal range of motion. No clubbing or cyanosis. Peripheral pulses intact. No lower extremity edema NEUROLOGIC: Awake and alert. Oriented x 3. ASSESSMENT: Chest pain, troponins negative 3 Normal coronary arteries, per cardiac catheterization July 2022 History of severe aortic regurgitation, status post aortic valve replacement with On-X valve in December 2022 Subtherapeutic INR Paroxysmal atrial fibrillation Hypertension Hyperlipidemia Obstructive sleep apnea PLAN: An acute coronary event has been ruled out Resume home cardiac medications Give increased dose of Coumadin 7.5 mg tonight. Monitor INR. Obtain 2-D echo to assess cardiac structure and function If 2-D echo does not reveal any significant abnormalities, the patient may be discharged home today from a cardiac standpoint Patient to follow-up in the office with Dr. Infante Nurse practitioner note has been reviewed by physician. Signing provider agrees with the documented findings, assessment, and plan of care. Past Medical History Past Medical History: Hyperlipidemia, Hypertension, Thyroid Disorder Additional Past Medical History / Comment(s): SVT History of Any Multi-Drug Resistant Organisms: None Reported Past Surgical History: Cholecystectomy, Hysterectomy Additional Past Surgical History / Comment(s): kidney stone removal, open heart- replaced aortic valve with mechanical valve December, Past Anesthesia/Blood Transfusion Reactions: Previous Problems w/ Anesthesia Additional Past Anesthesia/Blood Transfusion Reaction / Comment(s): WILL SIT UP ON TAKE DURING SURGERY. TENDENCY TO BE VIOLENT COMING OUT OF ANESTHESIA Type of Cardiac Device: Loop Device Placement Date:: Past Psychological History: Depression Smoking Status: Current every day smoker Past Alcohol Use History: None Reported Additional Past Alcohol Use History / Comment(s): SMOKES 1/2 PPD FOR > 20 YEARS Past Drug Use History: None Reported - Past Family History Mother Family Medical History: No Reported History Father Family Medical History: COPD Medications and Allergies Home Medications Medication Instructions Recorded Confirmed Type Furosemide [Lasix] 20 mg PO BID 03/23/22 08/13/23 History Levothyroxine Sodium [Synthroid] 50 mcg PO DAILY 03/23/22 08/13/23 History Atorvastatin [Lipitor] 40 mg PO DAILY 07/06/22 08/13/23 History Ezetimibe [Zetia] 10 mg PO DAILY 07/06/22 08/13/23 History Magnesium Oxide [Mag-Ox] 400 mg PO HS 12/20/22 08/13/23 History Metoprolol Tartrate [Lopressor] 25 mg PO BID #60 tab 12/29/22 08/13/23 Rx lisinopriL [Zestril] 2.5 mg PO DAILY@1200 #30 tab 12/29/22 08/13/23 Rx Cyclobenzaprine [Flexeril] 5 mg PO BID PRN 05/02/23 08/13/23 History Divalproex ER [Depakote ER] 250 mg PO HS 05/02/23 08/13/23 History Omeprazole 40 mg PO DAILY 05/02/23 08/13/23 History DULoxetine HCL [Cymbalta] 30 mg PO DAILY@1900 08/13/23 08/13/23 History Diclofenac Sodium Gel [Voltaren 1% 4 gm TOPICAL QID PRN 08/13/23 08/13/23 History Gel] HYDROcodone/APAP 5-325MG [[place] 1 tab PO TID PRN 08/13/23 08/13/23 History 5-325] Warfarin [Coumadin] 2.5 mg PO TUTHSA@1800 08/13/23 08/13/23 History Warfarin [Coumadin] 5 mg PO SUMOWEFR@1800 08/13/23 08/13/23 History Allergies Allergy/AdvReac Type Severity Reaction Status Date / Time cranberry Allergy Rash/Hives Verified 08/13/23 16:49 hydromorphone [From Dilaudid] Allergy Anaphylaxis Verified 08/13/23 16:49 morphine Allergy Anaphylaxis Verified 08/13/23 16:49 Penicillins Allergy Severe Verified 08/13/23 16:49 Rash/Hives Sulfa (Sulfonamide Allergy Severe Verified 08/13/23 16:49 Antibiotics) Rash/Hives zafirlukast [From Accolate] Allergy Severe Verified 08/13/23 16:49 Rash/Hives montelukast [From Singulair] AdvReac Rapid Verified 08/13/23 16:49 Heart Rate ranitidine [From Zantac] AdvReac Overstimula Verified 08/13/23 16:49 tion paper tape/bandaids AdvReac chemical Uncoded 08/13/23 16:49 owusu(cloth bandaids ok) some adhesives (tegaderm AdvReac Chemical Uncoded 08/13/23 16:49 okay) [place] Physical Exam Vitals: Vital Signs Temp Pulse Pulse Pulse Resp BP BP 08/14/23 07:00 97.4 F L 51 L 17 102/65 08/14/23 02:13 97.5 F L 68 15 99/56 08/13/23 19:12 97.4 F L 62 15 108/70 08/13/23 18:35 98.1 F 60 18 126/84 08/13/23 15:41 58 L 20 118/83 08/13/23 15:30 60 08/13/23 14:46 98 F 67 20 131/71 Pulse Ox 08/14/23 07:00 95 08/14/23 02:13 95 08/13/23 19:12 98 08/13/23 18:35 98 08/13/23 15:41 98 08/13/23 15:30 08/13/23 14:46 99 Intake and Output 08/13/23 08/14/23 08/14/23 22:59 06:59 14:59 Other: # Voids 2 2 Weight 93.712 kg Results 08/13/23 15:29 08/13/23 15:29 Cardiac Enzymes 08/13/23 08/13/23 08/13/23 Range/Units 15:29 15:29 18:36 AST 20 (14-36) U/L Troponin I <0.012 0.013 (0.000-0.034) ng/mL 08/13/23 Range/Units 21:38 AST (14-36) U/L Troponin I <0.012 (0.000-0.034) ng/mL Coagulation 08/13/23 08/14/23 Range/Units 15:29 05:21 PT 16.2 H 15.7 H (10.0-12.5) sec APTT 32.6 H (22.0-30.0) sec CBC 08/13/23 Range/Units 15:29 WBC 11.5 H (3.8-10.6) k/uL RBC 4.87 (3.80-5.40) m/uL Hgb 14.4 (11.4-16.0) gm/dL Hct 44.3 (34.0-46.0) % Plt Count 270 (150-450) k/uL Comprehensive Metabolic Panel 08/13/23 Range/Units 15:29 Sodium 137 (137-145) mmol/L Potassium 4.0 (3.5-5.1) mmol/L Chloride 101 (98-107) mmol/L Carbon Dioxide 24 (22-30) mmol/L BUN 17 (7-17) mg/dL Creatinine 0.84 (0.52-1.04) mg/dL Glucose 96 (74-99) mg/dL Calcium 9.6 (8.4-10.2) mg/dL AST 20 (14-36) U/L ALT 16 (4-34) U/L Alkaline Phosphatase 134 H (38-126) U/L Total Protein 7.3 (6.3-8.2) g/dL Albumin 4.2 (3.5-5.0) g/dL Current Medications Generic Name Dose Route Start Last Admin Trade Name Freq PRN Reason Stop Dose Admin Hydrocodone Bitart/Acetaminophen 1 each 08/13/23 18:01 08/14/23 02:31 Hydrocodone/Apap 5-325mg 1 Each Tab PO 1 each TID PRN Administration Pain Aspirin 325 mg 08/14/23 09:00 Aspirin 325 Mg Tab PO DAILY [facility] Atorvastatin Calcium 40 mg 08/14/23 09:00 Atorvastatin 40 Mg Tab PO DAILY [facility] Cyclobenzaprine HCl 5 mg 08/13/23 18:01 Cyclobenzaprine 5 Mg Tab PO BID PRN Muscle Spasm Divalproex Sodium 250 mg 08/13/23 21:00 08/13/23 21:32 Divalproex Er 250 Mg Tab.Er.24h PO 250 mg [facility] Administration Duloxetine HCl 30 mg 08/13/23 19:00 08/13/23 21:32 Duloxetine Hcl 30 Mg Capsule.Dr PO 30 mg DAILY@1900 [facility] Administration Ezetimibe 10 mg 08/14/23 09:00 Ezetimibe 10 Mg Tab PO DAILY [facility] Furosemide 20 mg 08/13/23 19:00 08/13/23 21:15 Furosemide 20 Mg Tab PO 20 mg BID@0900,1600 [facility] Administration Levothyroxine Sodium 50 mcg 08/14/23 06:30 08/14/23 06:21 Levothyroxine 50 Mcg Tab PO 50 mcg DAILY@0630 [facility] Administration Lisinopril 2.5 mg 08/14/23 12:00 Lisinopril 2.5 Mg Tab PO DAILY@1200 [facility] Magnesium Oxide 400 mg 08/13/23 21:00 08/13/23 21:15 Magnesium Oxide 400 Mg Tab PO 400 mg HS [facility] Administration Metoprolol Tartrate 25 mg 08/13/23 21:00 08/13/23 21:15 Metoprolol Tartrate 25 Mg Tab PO 25 mg BID [facility] Administration Miscellaneous Information 0 each 08/13/23 18:14 Warfarin Per Pharmacy MISCELLANE DIRECTED PRN PER PROTOCOL Nitroglycerin 0.4 mg 08/13/23 17:18 Nitroglycerin Sl Tabs 0.4 Mg Tab SUBLINGUAL Q5M PRN Chest Pain Nitroglycerin 1 inch 08/13/23 18:00 08/14/23 06:21 Nitroglycerin Oint 1 Inch/Gm Packet TOPICAL 1 inch Q6HR [facility] Administration Pantoprazole Sodium 40 mg 08/14/23 07:30 08/14/23 06:21 Pantoprazole 40 Mg Tablet PO 40 mg DAILY@0730 [facility] Administration Warfarin Sodium 5 mg 08/14/23 18:00 Warfarin 5 Mg Tab PO 08/14/23 18:01 ONCE ONE Intake and Output 08/13/23 08/14/23 08/14/23 22:59 06:59 14:59 Other: # Voids 2 2 Weight 93.712 kg 08/13/23 15:29 08/13/23 15:29
[2023-08-14] MEDS ORDERED: ASPIRIN 325 MG TAB PO SCH (09:00)
[2023-08-14] MEDS ORDERED: DEXTROSE 50% SYRINGE 50 ML IVP PRN ×2 (09:38)
--- NOTE | 2023-08-14 09:59 | P.HPIM ---
History of Present Illness H&P Date: 08/14/23 Chief Complaint: Chest pain History and Physical and Discharge Summary: This is a 48 year old female with past medical history significant for recent aortic valve replacement with mechanical valve 12/27, chronic paroxysmal atrial fibrillation, hypertension, hyperlipidemia, diabetes mellitus ,chronic leukocytosis, morbid obesity, obstructive sleep apnea , migraines and multiple other medical issues presented to the ER with complaints of chest pain. Reports midsternal chest pressure to left shoulder and left shoulder blade that developed while she was laying in bed with a headache, accompanied by diaphoresis, lasted about 5-10 minutes then spontaneously resolved. Recent unremarkable workup in clinic; EKG, Holter monitor, carotid ultrasound completed. EKG reported sinus, chest x-ray reported negative for acute process, troponins negative 3. INR 1.5. Afebrile, electrolytes and renal function within normal limits. Glucose 96. Currently denies chest pain, palpitations or shortness of breath. Denies lightheadedness, dizziness or focal deficits. Currently denies headache. Denies nausea vomiting or diarrhea. Denies abdominal pain. Cardiology consult in place. Review of Systems ROS Statement: Those systems with pertinent positive or pertinent negative responses have been documented in the HPI. ROS Other: All systems not noted in ROS Statement are negative. Past Medical History Past Medical History: Hyperlipidemia, Hypertension, Thyroid Disorder Additional Past Medical History / Comment(s): SVT History of Any Multi-Drug Resistant Organisms: None Reported Past Surgical History: Cholecystectomy, Hysterectomy Additional Past Surgical History / Comment(s): kidney stone removal, open heart- replaced aortic valve with mechanical valve December, Past Anesthesia/Blood Transfusion Reactions: Previous Problems w/ Anesthesia Additional Past Anesthesia/Blood Transfusion Reaction / Comment(s): WILL SIT UP ON TAKE DURING SURGERY. TENDENCY TO BE VIOLENT COMING OUT OF ANESTHESIA Type of Cardiac Device: Loop Device Placement Date:: unk Past Psychological History: Depression Smoking Status: Current every day smoker Past Alcohol Use History: None Reported Additional Past Alcohol Use History / Comment(s): SMOKES 1/2 PPD FOR > 20 YEARS Past Drug Use History: None Reported - Past Family History Mother Family Medical History: No Reported History Father Family Medical History: COPD Medications and Allergies Home Medications Medication Instructions Recorded Confirmed Type Furosemide [Lasix] 20 mg PO BID 03/23/22 08/13/23 History Levothyroxine Sodium [Synthroid] 50 mcg PO DAILY 03/23/22 08/13/23 History Atorvastatin [Lipitor] 40 mg PO DAILY 07/06/22 08/13/23 History Ezetimibe [Zetia] 10 mg PO DAILY 07/06/22 08/13/23 History Magnesium Oxide [Mag-Ox] 400 mg PO HS 12/20/22 08/13/23 History Metoprolol Tartrate [Lopressor] 25 mg PO BID #60 tab 12/29/22 08/13/23 Rx lisinopriL [Zestril] 2.5 mg PO DAILY@1200 #30 tab 12/29/22 08/13/23 Rx Cyclobenzaprine [Flexeril] 5 mg PO BID PRN 05/02/23 08/13/23 History Divalproex ER [Depakote ER] 250 mg PO HS 05/02/23 08/13/23 History Omeprazole 40 mg PO DAILY 05/02/23 08/13/23 History DULoxetine HCL [Cymbalta] 30 mg PO DAILY@1900 08/13/23 08/13/23 History Diclofenac Sodium Gel [Voltaren 1% 4 gm TOPICAL QID PRN 08/13/23 08/13/23 History Gel] HYDROcodone/APAP 5-325MG [[place] 1 tab PO TID PRN 08/13/23 08/13/23 History 5-325] Warfarin [Coumadin] 2.5 mg PO TUTHSA@1800 08/13/23 08/13/23 History Warfarin [Coumadin] 5 mg PO SUMOWEFR@1800 08/13/23 08/13/23 History Warfarin [Coumadin] 7.5 mg PO ONCE@1800 tab 08/14/23 Rx Allergies Allergy/AdvReac Type Severity Reaction Status Date / Time cranberry Allergy Rash/Hives Verified 08/13/23 16:49 hydromorphone [From Dilaudid] Allergy Anaphylaxis Verified 08/13/23 16:49 morphine Allergy Anaphylaxis Verified 08/13/23 16:49 Penicillins Allergy Severe Verified 08/13/23 16:49 Rash/Hives Sulfa (Sulfonamide Allergy Severe Verified 08/13/23 16:49 Antibiotics) Rash/Hives zafirlukast [From Accolate] Allergy Severe Verified 08/13/23 16:49 Rash/Hives montelukast [From Singulair] AdvReac Rapid Verified 08/13/23 16:49 Heart Rate ranitidine [From Zantac] AdvReac Overstimula Verified 08/13/23 16:49 tion paper tape/bandaids AdvReac chemical Uncoded 08/13/23 16:49 owusu(cloth bandaids ok) some adhesives (tegaderm AdvReac Chemical Uncoded 08/13/23 16:49 okay) [place] Physical Exam Vitals: Vital Signs Temp Pulse Pulse Pulse Resp BP BP 08/14/23 07:00 97.4 F L 51 L 17 102/65 08/14/23 02:13 97.5 F L 68 15 99/56 08/13/23 19:12 97.4 F L 62 15 108/70 08/13/23 18:35 98.1 F 60 18 126/84 08/13/23 15:41 58 L 20 118/83 08/13/23 15:30 60 08/13/23 14:46 98 F 67 20 131/71 Pulse Ox 08/14/23 07:00 95 08/14/23 02:13 95 08/13/23 19:12 98 08/13/23 18:35 98 08/13/23 15:41 98 08/13/23 15:30 08/13/23 14:46 99 Intake and Output 08/13/23 08/14/23 08/14/23 22:59 06:59 14:59 Intake Total 260 Balance 260 Intake: Oral 260 Other: # Voids 2 2 Weight 93.712 kg - Exam PHYSICAL EXAM: VITAL SIGNS: As above GENERAL: Obese, Alert and oriented 3, Sitting up in bed, no acute distress HEENT: Normocephalic, Conjunctivae normal. eyes normal. MMM. NECK: Supple, No JVD. CARDIOVASCULAR: S1, S2 regular. Systolic murmur. RESPIRATION: Unlabored,Breath sounds diminished in the bases. ABDOMEN: Soft, nontender . No guarding. no masses palpable. +Bowel sounds. LEGS: No edema. no swelling. NERVOUS SYSTEM: Cranial N 2-12 grossly normal. No focal deficits. Strength and sensation grossly intact. Skin: Warm and dry, no rash Results CBC & Chem 7: 08/13/23 15:29 08/13/23 15:29 Labs: Abnormal Lab Results - Last 24 Hours (Table) 08/13/23 08/13/23 08/13/23 Range/Units 15:29 15:29 15:29 WBC 11.5 H (3.8-10.6) k/uL PT 16.2 H (10.0-12.5) sec INR 1.6 H (<1.2) APTT 32.6 H (22.0-30.0) sec Alkaline Phosphatase 134 H (38-126) U/L 08/14/23 Range/Units 05:21 WBC (3.8-10.6) k/uL PT 15.7 H (10.0-12.5) sec INR 1.5 H (<1.2) APTT (22.0-30.0) sec Alkaline Phosphatase (38-126) U/L Thrombosis Risk Factor Assmnt - Choose All That Apply Any of the Below Risk Factors Present?: Yes Each Factor Represents 1 point: Age 41-60 years, Obesity (BMI >25) Other Risk Factors: No Other congenital or acquired thrombophilia - If yes, enter type in comment: No Thrombosis Risk Factor Assessment Total Risk Factor Score: 2 Thrombosis Risk Factor Assessment Level: Low Risk Assessment and Plan Assessment: Chest pain, cardiology following Recent aortic valve replacement with mechanical valve 12/27 Subtherapeutic INR Chronic paroxysmal atrial fibrillation Hypertension Hyperlipidemia Diabetes mellitus, hemoglobin A1c 6.4 12/27 Hypothyroidism Family history CAD Gastroesophageal reflux disease Hemoglobin A1c 6.4 Morbid obesity, BMI 37.8 Obstructive sleep apnea Plan: Continue on current medication regime ,monitoring and symptomatic treat ment. Evaluated by cardiology, 2-D echo ordered. Patient will be discharged home today in a stable condition with guarded prognosis pending 2-D echo results, final DC recommendations and clearance per cardiology. Patient to take Coumadin 7.5 mg tonight, then resume prior dosing with repeat PT/INR in 3days. Discharge Medication List Furosemide [Lasix] 20 mg PO BID 03/23/22 [History] Levothyroxine Sodium [Synthroid] 50 mcg PO DAILY 03/23/22 [History] Atorvastatin [Lipitor] 40 mg PO DAILY 07/06/22 [History] Ezetimibe [Zetia] 10 mg PO DAILY 07/06/22 [History] Magnesium Oxide [Mag-Ox] 400 mg PO HS 12/20/22 [History] Metoprolol Tartrate [Lopressor] 25 mg PO BID #60 tab 12/29/22 [Rx] lisinopriL [Zestril] 2.5 mg PO DAILY@1200 #30 tab 12/29/22 [Rx] Cyclobenzaprine [Flexeril] 5 mg PO BID PRN 05/02/23 [History] Divalproex ER [Depakote ER] 250 mg PO HS 05/02/23 [History] Omeprazole 40 mg PO DAILY 05/02/23 [History] DULoxetine HCL [Cymbalta] 30 mg PO DAILY@1900 08/13/23 [History] Diclofenac Sodium Gel [Voltaren 1% Gel] 4 gm TOPICAL QID PRN 08/13/23 [History] HYDROcodone/APAP 5-325MG [[place] 5-325] 1 tab PO TID PRN 08/13/23 [History] Warfarin [Coumadin] 2.5 mg PO TUTHSA@1800 08/13/23 [History] Warfarin [Coumadin] 5 mg PO SUMOWEFR@1800 08/13/23 [History] Warfarin [Coumadin] 7.5 mg PO ONCE@1800 tab 08/14/23 [Rx] The impression and plan of care has been dictated as directed. : I performed a history and examination of this patient, discussed the same with the dictator. I agree with the dictator's note ,documented as a scribe. Any additional findings or plans will be noted.
[2023-08-14 11:24] LABS: Chol/HDL Ratio 2.41 Ratio; LDL Cholesterol,Calculated 40.5 mg/dL (0.0-131.0)
[2023-08-14 11:51] LABS: Glucose,Whole Blood 123 mg/dL (70-110)
[2023-08-14] MEDS: INSULIN ASPART (NovoLOG) 100 UNIT/ML VIAL SQ SCH ×3 (12:16→21:00)
[2023-08-14 17:07] LABS: Glucose,Whole Blood 164 mg/dL (70-110)
[2023-08-14] MEDS: DULoxetine HCL 30 MG CAPSULE.DR PO SCH (17:55)
[2023-08-14] MEDS ORDERED: WARFARIN 5 MG TAB PO ONE (18:00)
[2023-08-14] MEDS ORDERED: WARFARIN 7.5 MG TAB PO ONE (18:00)
[2023-08-14] MEDS ORDERED: WARFARIN 5 MG TAB PO SCH (18:00)
--- NOTE | 2023-08-14 18:21 | CA ---
Transthoracic Echo Report Name: Tess Lobo Age: 48 Gender: F : 1975 Exam Date: 08/14/2023 16:35 Exam Location: [facility] Ht (in): 62 Wt (lb): 206 Ordering Physician: Cande Rowland Attending/Referring Phys: Sally Rae MD [employer] Zbigniew Hahn Procedure CPT: Indications: LV function Cardiac Hx: Technical Quality: Technically difficult study Contrast 1: Total Dose (mL): Contrast 2: Total Dose (mL): MEASUREMENTS (Male / Female) Normal Values 2D ECHO LV Diastolic Diameter PLAX 4.5 cm 4.2 - 5.9 / 3.9 - 5.3 cm LV Systolic Diameter PLAX 3.0 cm IVS Diastolic Thickness 1.0 cm 0.6 - 1.0 / 0.6 - 0.9 cm LVPW Diastolic Thickness 1.0 cm 0.6 - 1.0 / 0.6 - 0.9 cm LV Relative Wall Thickness 0.4 RV Internal Dim ED PLAX 2.4 cm LVOT Diameter 1.9 cm Aortic Root Diameter 2.7 cm LA Systolic Diameter LX 3.1 cm 3.0 - 4.0 / 2.7 - 3.8 cm LV Diastolic Volume MOD BP 37.2 cm??? 67 - 155 / 56 - 104 cm??? LV Systolic Volume MOD BP 20.9 cm??? 22 - 58 / 19 - 49 cm??? LV Ejection Fraction MOD BP 43.9 % >= 55 % LV Cardiac Index MOD BP 450.0 cm???/min???m??? LV Diastolic Volume MOD 4C 42.0 cm??? LV Systolic Volume MOD 4C 22.6 cm??? LV Ejection Fraction MOD 4C 46.1 % LV Cardiac Index MOD 4C 533.6 cm???/min???m??? LV Diastolic Length 4C 6.3 cm LV Systolic Length 4C 5.9 cm LV Diastolic Volume MOD 2C 32.8 cm??? LV Systolic Volume MOD 2C 15.3 cm??? LV Ejection Fraction MOD 2C 53.4 % LV Cardiac Index MOD 2C 482.3 cm???/min???m??? LV Diastolic Length 2C 6.1 cm LV Systolic Length 2C 5.4 cm LA Volume 36.2 cm??? 18 - 58 / 22 - 52 cm??? LA Volume Index 17.5 cm???/m??? 16 - 28 cm???/m??? Ascending Aorta Diameter 2.5 cm DOPPLER AV Peak Velocity 274.7 cm/s AV Peak Gradient 30.2 mmHg AV Mean Velocity 179.6 cm/s AV Mean Gradient 15.4 mmHg AV Velocity Time Integral 59.7 cm LVOT Peak Velocity 112.6 cm/s LVOT Peak Gradient 5.1 mmHg LVOT Velocity Time Integral 26.5 cm LVOT Stroke Volume 74.5 cm??? LVOT Stroke Volume Index 38.5 ml/m??? LVOT Cardiac Index 2053.3 cm???/min???m??? AV Area Cont Eq vti 1.2 cm??? AV Area Cont Eq pk 1.2 cm??? MV Peak Velocity 123.1 cm/s MV Peak Gradient 6.1 mmHg MV Mean Velocity 69.3 cm/s MV Mean Gradient 2.2 mmHg MV Velocity Time Integral 38.3 cm MR Peak Velocity 207.5 cm/s MR Peak Gradient 17.2 mmHg Mitral E Point Velocity 70.1 cm/s Mitral A Point Velocity 101.0 cm/s Mitral E to A Ratio 0.7 MV Deceleration Time 355.3 ms MV E' Velocity 4.4 cm/s Mitral E to MV E' Ratio 15.9 TR Peak Velocity 162.0 cm/s TR Peak Gradient 10.5 mmHg Right Ventricular Systolic Press 15.7 mmHg PV Peak Velocity 90.2 cm/s PV Peak Gradient 3.3 mmHg FINDINGS Left Ventricle Normal LV size and wall thickness.normal left ventricular wall motion. Left ventricular ejection fraction is estimated at 55-60 %. Right Ventricle Normal right ventricular size. Right Atrium Normal right atrial size. Left Atrium Normal left atrial size. Mitral Valve Structurally normal mitral valve. Mild MR. Aortic Valve Mechanical AV prosthesis. Trace aortic regurgitation. The gradient 30 with a mean of 15 mmHg Tricuspid Valve Structurally normal tricuspid valve. Trace tricuspid regurgitation. Pulmonic Valve Pulmonic valve not well visualized. Trace PI. Pericardium Normal pericardium. Aorta Normal size aortic root and proximal ascending aorta. CONCLUSIONS 1. Normal left ventricle size and systolic function 2. Prosthetic aortic valve with a mean gradient of 15 mmHg and trace aortic regurgitation 3. Trace mitral and tricuspid regurgitation Previewed by: Dr. Benton Infante MD (Electronically Signed) Final Date: 14 August 2023 18:20
[2023-08-14 20:55] LABS: Glucose,Whole Blood 131 mg/dL (70-110)
[2023-08-14] MEDS: DIVALPROEX ER 250 MG TAB.ER.24H PO SCH (22:20)
[2023-08-14] MEDS: MAGNESIUM OXIDE 400 MG TAB PO SCH (22:20)
[2023-08-15 04:40] LABS: INR 1.7 (<1.2); Prothrombin Time 17.1 sec (10.0-12.5)
[2023-08-15] MEDS: PANTOPRAZOLE 40 MG TABLET PO SCH (06:09)
[2023-08-15] MEDS: LEVOTHYROXINE 50 MCG TAB PO SCH (06:09)
[2023-08-15 06:18] LABS: Glucose,Whole Blood 105 mg/dL (70-110)
[2023-08-15] MEDS: INSULIN ASPART (NovoLOG) 100 UNIT/ML VIAL SQ SCH (06:24)
[2023-08-15 07:58] VITALS: BP 107/73; RESP 12; TEMP 97.7
[2023-08-15] MEDS: EZETIMIBE 10 MG TAB PO SCH (09:18)
[2023-08-15] MEDS: FUROSEMIDE 20 MG TAB PO SCH (09:18)
[2023-08-15] MEDS: METOPROLOL TARTRATE 25 MG TAB PO SCH (09:18)
[2023-08-15] MEDS: ATORVASTATIN 40 MG TAB PO SCH (09:18)
--- NOTE | 2023-08-15 10:02 | P.PN ---
Subjective HISTORY OF PRESENT ILLNESS: This is a 48-year-old female with a past medical history significant for hypertension, hyperlipidemia, atrial fibrillation, obstructive sleep apnea, diabetes, and aortic valve replacement with On-X valve in December 2022. Patient follows in the office with Dr. Infante. We have been asked to see the patient in consultation for chest pain. Patient examined at the bedside. Patient states she had an episode of chest pain yesterday while at home. She states she was laying down in bed because she has been dealing with a headache recently. She denied any radiation of the pain. She denied any shortness of breath. Denies any cough or fever. She does report she has been having some dizzy spells at home and also a frequent headache. At the time of examination, she denies chest pain or pressure. Vital signs are stable. * EKG reveals sinus mechanism with no signs of acute ischemia * Chest xray negative for acute process * Laboratory data: INR 1.5. Troponin negative 3. * Current home cardiac medications include Lasix 20 mg twice a day, Zetia 10 mg daily, atorvastatin 40 mg daily, metoprolol tartrate 25 mg twice a day, lisinopril 2.5 mg daily, warfarin 2.5 mg Saturday and Saturday and 5 mg Saturday and Saturday * Most recent echocardiogram obtained in January 2023 revealed normal ejection fraction, mild to moderate TR, prosthetic aortic valve, mild MR * Cardiac catheterization history: July 2022 revealing normal coronary arteries 08/15/2023 Patient examined this morning at the bedside. Patient denies any further episodes of chest pain or pressure. She denies shortness of breath. Echocardiogram completed revealing ejection fraction 55-60%, mechanical AV prosthesis, trace aortic regurgitation, mild MR, trace TR. INR today 1.7. PHYSICAL EXAM: VITAL SIGNS: Reviewed. GENERAL: Well-developed in no acute distress. HEENT: Head is normocephalic. Pupils are equal, round. Sclerae anicteric. Mucous membranes of the mouth are moist. Neck supple. No JVD or thyromegaly LUNGS: Respirations even and unlabored. Lungs essentially clear to auscultation bilaterally. HEART: Regular rate and rhythm. S1 and S2 heard. Systolic murmur noted. ABDOMEN: Soft. Nondistended. Nontender. EXTREMITIES: Normal range of motion. No clubbing or cyanosis. Peripheral pulses intact. No lower extremity edema NEUROLOGIC: Awake and alert. Oriented x 3. ASSESSMENT: Chest pain, troponins negative 3 Normal coronary arteries, per cardiac catheterization July 2022 History of severe aortic regurgitation, status post aortic valve replacement with On-X valve in December 2022 Subtherapeutic INR Paroxysmal atrial fibrillation Hypertension Hyperlipidemia Obstructive sleep apnea PLAN: Continue current cardiac medications Patient instructed to take 5 mg of Coumadin daily and then have INR checked in the office on Saturday Patient is stable for discharge home today from a cardiac standpoint Patient to follow-up in the office with Dr. Infante Nurse practitioner note has been reviewed by physician. Signing provider agrees with the documented findings, assessment, and plan of care. Objective - Vital Signs Vital signs: Vital Signs Temp 97.7 F 08/15/23 07:00 Pulse 50 L 08/15/23 07:00 Resp 12 08/15/23 07:00 BP 107/73 08/15/23 07:00 Pulse Ox 95 08/15/23 07:00 FiO2 Intake & Output 08/14/23 08/15/23 08/15/23 18:59 06:59 18:59 Intake Total 260 118 Balance 260 118 Intake: Oral 260 118 Other: # Voids 2 1 - Labs CBC & Chem 7: 08/13/23 15:29 08/13/23 15:29 Labs: Abnormal Lab Results - Last 24 Hours (Table) 08/13/23 08/14/23 08/14/23 Range/Units 15:29 11:50 17:06 PT (10.0-12.5) sec INR (<1.2) POC Glucose (mg/dL) 123 H 164 H (70-110) mg/dL Hemoglobin A1c 7.3 H (<=6.0) % 08/14/23 08/15/23 Range/Units 20:54 04:02 PT 17.1 H (10.0-12.5) sec INR 1.7 H (<1.2) POC Glucose (mg/dL) 131 H (70-110) mg/dL Hemoglobin A1c (<=6.0) %
[2023-08-15 10:40] VITALS: PULSE 55
[2023-08-15] MEDS ORDERED: WARFARIN 7.5 MG TAB PO ONE (18:00)
[2023-08-15] MEDS ORDERED: WARFARIN 5 MG TAB PO SCH (18:00)
== END 2023-08-15 09:39 | disposition home or self-care (01) ==
LOC: EC 14:42 → 6NMEDSUR 17:18
PROVIDERS: ADMIT Family Medicine; ATTEND Family Medicine
DX: R07.89 Other chest pain (principal); R79.1 Abnormal coagulation profile; I48.0 Paroxysmal atrial fibrillation; Z95.2 Presence of prosthetic heart valve; I47.10 Supraventricular tachycardia, unspecified; I10 Essential (primary) hypertension; E78.5 Hyperlipidemia, unspecified; I08.1 Rheumatic disorders of both mitral and tricuspid valves; E03.9 Hypothyroidism, unspecified; I45.10 Unspecified right bundle-branch block; G43.909 Migraine, unspecified, not intractable, without status migrainosus; G47.33 Obstructive sleep apnea (adult) (pediatric); D72.829 Elevated white blood cell count, unspecified; K21.9 Gastro-esophageal reflux disease without esophagitis; F17.210 Nicotine dependence, cigarettes, uncomplicated; E66.01 Morbid (severe) obesity due to excess calories; Z68.37 Body mass index [BMI] 37.0-37.9, adult; R42 Dizziness and giddiness; R61 Generalized hyperhidrosis; F32.A Depression, unspecified; Z79.01 Long term (current) use of anticoagulants; Z79.890 Hormone replacement therapy; Z79.899 Other long term (current) drug therapy; Z88.5 Allergy status to narcotic agent; Z88.0 Allergy status to penicillin; Z88.2 Allergy status to sulfonamides; Z88.8 Allergy status to other drugs, medicaments and biological substances; Z91.018 Allergy to other foods; Z91.048 Other nonmedicinal substance allergy status; Z90.49 Acquired absence of other specified parts of digestive tract; Z90.710 Acquired absence of both cervix and uterus; Z87.442 Personal history of urinary calculi; Z95.818 Presence of other cardiac implants and grafts; Z82.5 Family history of asthma and other chronic lower respiratory diseases; Z82.49 Family history of ischemic heart disease and other diseases of the circulatory system
CPT/HCPCS: 99285; 36415; 93005; 93306; 85379; 80061; 80053; 83735; 84484; 85025; 85610 ×3; 85730; 83036; 71046; G0378 ×3

== ENCOUNTER 2023-08-19 19:52 | Outpatient (CLI) | payer MEDICARE, OTHER | END 2023-08-20 05:25 | disposition home or self-care (01) | LOC: 3 N SLEEP 19:52 | PROVIDERS: ATTEND Internal Medicine Critical Care Medicine | DX: G47.10 Hypersomnia, unspecified (principal); Z91.018 Allergy to other foods; Z88.5 Allergy status to narcotic agent; Z88.0 Allergy status to penicillin; Z88.2 Allergy status to sulfonamides; Z88.8 Allergy status to other drugs, medicaments and biological substances; Z91.048 Other nonmedicinal substance allergy status | CPT/HCPCS: 95810 ==

== ENCOUNTER 2023-10-21 22:47 | Observation (INO) | payer MEDICARE, OTHER ==
[2023-10-21 22:53] VITALS: TEMP 97.9
[2023-10-21] MEDS ORDERED: SODIUM CHLORIDE 0.9% 1,000 ML IV STA (23:16)
--- NOTE | 2023-10-21 23:17 | ED ---
General Adult HPI - General Chief complaint: Chest Pain Stated complaint: Chest Pain, Jaw pain Time Seen by Provider: 10/21/23 22:56 Source: patient, RN notes reviewed, old records reviewed Mode of arrival: ambulatory Limitations: no limitations - History of Present Illness Initial comments: Patient is a 48-year-old female presents emergency department for chest pain. States starting this evening while she was at rest she began expressing some chest discomfort. States it was a numbness, sharp pain that radiated around both sides of her jaw to her mouth involving her chest, left arm, back as well. Currently only has a mild back pain. Rest of her symptoms have resolved prior to arrival. Has a history of aortic valve replacement. Also has a history of hypertension and thyroid disease. Presents for further evaluation at this time. Some blood thinners. Denies any syncopal episodes of passing out. Denies any injuries. No history of VT or cardiac stents. - Related Data Home Medications Medication Instructions Recorded Confirmed Furosemide [Lasix] 20 mg PO BID 03/23/22 08/13/23 Levothyroxine Sodium [Synthroid] 50 mcg PO DAILY 03/23/22 08/13/23 Atorvastatin [Lipitor] 40 mg PO DAILY 07/06/22 08/13/23 Ezetimibe [Zetia] 10 mg PO DAILY 07/06/22 08/13/23 Magnesium Oxide [Mag-Ox] 400 mg PO HS 12/20/22 08/13/23 Cyclobenzaprine [Flexeril] 5 mg PO BID PRN 05/02/23 08/13/23 Divalproex ER [Depakote ER] 250 mg PO HS 05/02/23 08/13/23 Omeprazole 40 mg PO DAILY 05/02/23 08/13/23 DULoxetine HCL [Cymbalta] 30 mg PO DAILY@1900 08/13/23 08/13/23 Diclofenac Sodium Gel [Voltaren 1% 4 gm TOPICAL QID PRN 08/13/23 08/13/23 Gel] HYDROcodone/APAP 5-325MG [Molino 1 tab PO TID PRN 08/13/23 08/13/23 5-325] Warfarin [Coumadin] 2.5 mg PO TUTHSA@1800 08/13/23 08/13/23 Warfarin [Coumadin] 5 mg PO SUMOWEFR@1800 08/13/23 08/13/23 Previous Rx's Medication Instructions Recorded Metoprolol Tartrate [Lopressor] 25 mg PO BID #60 tab 12/29/22 lisinopriL [Zestril] 2.5 mg PO DAILY@1200 #30 tab 12/29/22 Warfarin [Coumadin] 7.5 mg PO ONCE@1800 tab 08/14/23 Allergies Allergy/AdvReac Type Severity Reaction Status Date / Time cranberry Allergy Rash/Hives Verified 10/21/23 22:53 hydromorphone [From Dilaudid] Allergy Anaphylaxis Verified 10/21/23 22:53 morphine Allergy Anaphylaxis Verified 10/21/23 22:53 Penicillins Allergy Severe Verified 10/21/23 22:53 Rash/Hives Sulfa (Sulfonamide Allergy Severe Verified 10/21/23 22:53 Antibiotics) Rash/Hives zafirlukast [From Accolate] Allergy Severe Verified 10/21/23 22:53 Rash/Hives montelukast [From Singulair] AdvReac Rapid Verified 10/21/23 22:53 Heart Rate ranitidine [From Zantac] AdvReac Overstimula Verified 10/21/23 22:53 tion paper tape/bandaids AdvReac chemical Uncoded 10/21/23 22:53 owusu(cloth bandaids ok) some adhesives (tegaderm AdvReac Chemical Uncoded 10/21/23 22:53 okay) Owusu Review of Systems ROS Statement: Those systems with pertinent positive or pertinent negative responses have been documented in the HPI. Review of Systems: CONST: Denies fever EYES: Denies blurry vision ENT: Denies nasal congestion C/V: Denies Chest pain RESP: Denies shortness of breath GI: Denies abdominal pain : Denies dysuria SKIN: Denies rash. MSK: Denies joint pain. NEURO: Denies headache ROS Other: All systems not noted in ROS Statement are negative. Past Medical History Past Medical History: Hyperlipidemia, Hypertension, Thyroid Disorder Additional Past Medical History / Comment(s): SVT History of Any Multi-Drug Resistant Organisms: None Reported Past Surgical History: Cholecystectomy, Hysterectomy Additional Past Surgical History / Comment(s): kidney stone removal, open heart- replaced aortic valve with mechanical valve December, Past Anesthesia/Blood Transfusion Reactions: Previous Problems w/ Anesthesia Additional Past Anesthesia/Blood Transfusion Reaction / Comment(s): WILL SIT UP ON TAKE DURING SURGERY. TENDENCY TO BE VIOLENT COMING OUT OF ANESTHESIA Type of Cardiac Device: Loop Device Placement Date:: unk Past Psychological History: Depression Smoking Status: Current some day smoker Past Alcohol Use History: None Reported Past Drug Use History: None Reported - Past Family History Mother Family Medical History: No Reported History Father Family Medical History: COPD General Exam - General Exam Comments Initial Comments: General: Appears in no acute distress. HEAD: Normal with no signs of head trauma. EYES: PERRLA, EOMI, conjunctiva normal, no discharge. ENT: Hearing grossly intact, normal oropharynx. RESPIRATORY: Clear breath sounds bilaterally. No wheezes, rales, or rhonchi. C/V: Regular rate and rhythm. S1 and S2 auscultated, no edema, peripheral pulses 2+ and intact throughout ABD: Abd is soft, nontender, nondistended EXT: Normal range of motion, no obvious deformity no midline cervical, thoracic, lumbar spine tenderness palpation. No neck or back pain reproducible pain. SKIN: No rashes or lesions observed on exposed skin. NEURO: Alert and oriented x 4. Cranial nerves II-XII intact. No focal sensory or strength deficits. Limitations: no limitations Course Vital Signs 10/21/23 10/22/23 22:50 00:00 Temperature 97.9 F Pulse Rate 87 74 Respiratory 20 19 Rate Blood Pressure 129/81 114/72 O2 Sat by Pulse 100 99 Oximetry Medical Decision Making - Medical Decision Making Was pt. sent in by a medical professional or institution (, PA, [facility]ICIAN [facility], urgent care, hospital, or detention...) When possible be specific @ -No Did you speak to anyone other than the patient for history (EMS, parent, family, police, friend...)? What history was obtained from this source @ -No Did you review nursing and triage notes (agree or disagree)? Why? @ -I reviewed and agree with nursing and triage notes Were old charts reviewed (outside hosp., previous admission, EMS record, old EKG, old radiological studies, urgent care reports/EKG's, detention records)? Report findings @ -Old charts reviewed Differential Diagnosis (chest pain, altered mental status, abdominal pain women, abdominal pain men, vaginal bleeding, weakness, fever, dyspnea, syncope, headache, dizziness, GI bleed, back pain, seizure, CVA, palpatations, mental health, musculoskeletal)? @ -Differential Chest Pain: Stable Angina, Unstable Angina, STEMI, NSTEMI Aortic Dissection, Pneumothorax, Musculoskeletal, Esophageal Spasm GERD, Cholecystitis, Pancreatitis, Zoster, this is not meant to be an all-inclusive list. EKG interpreted by me (3pts min.). @ -As above X-rays interpreted by me (1pt min.). @ -Chest x-ray reveals no obvious acute cardio pulmonary process. CT interpreted by me (1pt min.). @ -Long delay for patient's CT imaging however revealed no obvious acute aortic injury or process. U/S interpreted by me (1pt. min.). @ -None done What testing was considered but not performed or refused? (CT, X-rays, U/S, labs)? Why? @ -None What meds were considered but not given or refused? Why? @ -None Did you discuss the management of the patient with other professionals (professionals i.e. , PA, PH[facility], lab, RT, psych nurse, social services director, landscaper helper, teacher, chief security officer, correctional casework specialist)? Give summary @ -Discussed with admitting physician, Dr. Darby who accepted the patient. Was smoking cessation discussed for >3mins.? @ -No Was critical care preformed (if so, how long)? @ -No Were there social determinants of health that impacted care today? How? (Homelessness, low income, unemployed, alcoholism, drug addiction, transportation, low edu. Level, literacy, decrease access to med. care, [facility], rehab)? @ -No Was there de-escalation of care discussed even if they declined (Discuss DNR or withdrawal of care, Hospice)? DNR status @ -No What co-morbidities impacted this encounter? (DM, HTN, Smoking, COPD, CAD, Cancer, CVA, ARF, Chemo, Hep., AIDS, mental health diagnosis, sleep apnea, morbid obesity)? @ -None Was patient admitted / discharged? Hospital course, mention meds given and route, prescriptions, significant lab abnormalities, going to OR and other pertinent info. @ -Based on the patient's presentation and physical exam, presents complaining of chest pain. This was atypical sounding in nature. Is on Coumadin at baseline with a history of aortic valve repair. Denies any significant complain ts at this time his symptoms resolved mostly prior to arrival. Only has very mild residual back pain. We'll obtain car only workup. I also discussed obtain CT to evaluate for dissection considering her symptoms, as well as her history of aortic valve replacement. She was in agreement this plan. Vital signs, and within acceptable limits. She'll be started on 1 L fluid bolus. Patient's workup is remarkable for an indeterminate troponin of 0.017 which patient does have a history of. Laboratory studies otherwise unremarkable. Therapeutic INR. EKG shows no signs of acute ischemia 2. Chest x-ray shows no obvious acute process. CT shows no obvious acute otic injury. Patient will be given aspirin and a dose of Toradol at this time. I discussed with the patient that she should be admitted as patient's heart score is moderate at 4. She was in agreement this plan. I spoke with the admitting physician, Dr. Darby accepted the patient. I consulted cardiology. Remains asymptomatic at this time. Undiagnosed new problem with uncertain prognosis? @ -No Drug Therapy requiring intensive monitoring for toxicity (Heparin, Nitro, Insulin, Cardizem)? @ -No Were any procedures done? @ -No Diagnosis/symptom? @ -Chest pain Acute, or Chronic, or Acute on Chronic? @ -Acute Uncomplicated (without systemic symptoms) or Complicated (systemic symptoms)? @ -complicated Side effects of treatment? @ -none Exacerbation, Progression, or Severe Exacerbation] @ -no Poses a threat to life or bodily function? @ -Possibly, yes - Lab Data Result diagrams: 10/21/23 23:03 10/21/23 23:03 Lab Results 10/21/23 10/21/23 10/21/23 Range/Units 23:03 23:03 23:03 WBC 11.9 H (3.8-10.6) k/uL RBC 5.13 (3.80-5.40) m/uL Hgb 15.3 (11.4-16.0) gm/dL Hct 47.1 H (34.0-46.0) % MCV 91.7 (80.0-100.0) fL MCH 29.9 (25.0-35.0) pg MCHC 32.6 (31.0-37.0) g/dL RDW 14.8 (11.5-15.5) % Plt Count 221 (150-450) k/uL MPV 9.2 Neutrophils % 54 % Lymphocytes % 37 % Monocytes % 4 % Eosinophils % 2 % Basophils % 1 % Neutrophils # 6.4 (1.3-7.7) k/uL Lymphocytes # 4.4 (1.0-4.8) k/uL Monocytes # 0.5 (0-1.0) k/uL Eosinophils # 0.2 (0-0.7) k/uL Basophils # 0.1 (0-0.2) k/uL PT 24.5 H (10.0-12.5) sec INR 2.5 H (<1.2) APTT 38.8 H (22.0-30.0) sec Sodium 136 L (137-145) mmol/L Potassium 3.8 (3.5-5.1) mmol/L Chloride 107 (98-107) mmol/L Carbon Dioxide 21 L (22-30) mmol/L Anion Gap 8 mmol/L BUN 17 (7-17) mg/dL Creatinine 0.99 (0.52-1.04) mg/dL Est GFR (CKD-EPI)AfAm 77 (>60 ml/min/1.73 sqM) Est GFR (CKD-EPI)NonAf 67 (>60 ml/min/1.73 sqM) Glucose 110 H (74-99) mg/dL Calcium 9.0 (8.4-10.2) mg/dL Magnesium 2.0 (1.6-2.3) mg/dL Total Bilirubin 0.9 (0.2-1.3) mg/dL AST 28 (14-36) U/L ALT 19 (4-34) U/L Alkaline Phosphatase 109 (38-126) U/L Troponin I (0.000-0.034) ng/mL Total Protein 7.0 (6.3-8.2) g/dL Albumin 4.2 (3.5-5.0) g/dL 10/21/23 Range/Units 23:03 WBC (3.8-10.6) k/uL RBC (3.80-5.40) m/uL Hgb (11.4-16.0) gm/dL Hct (34.0-46.0) % MCV (80.0-100.0) fL MCH (25.0-35.0) pg MCHC (31.0-37.0) g/dL RDW (11.5-15.5) % Plt Count (150-450) k/uL MPV Neutrophils % % Lymphocytes % % Monocytes % % Eosinophils % % Basophils % % Neutrophils # (1.3-7.7) k/uL Lymphocytes # (1.0-4.8) k/uL Monocytes # (0-1.0) k/uL Eosinophils # (0-0.7) k/uL Basophils # (0-0.2) k/uL PT (10.0-12.5) sec INR (<1.2) APTT (22.0-30.0) sec Sodium (137-145) mmol/L Potassium (3.5-5.1) mmol/L Chloride (98-107) mmol/L Carbon Dioxide (22-30) mmol/L Anion Gap mmol/L BUN (7-17) mg/dL Creatinine (0.52-1.04) mg/dL Est GFR (CKD-EPI)AfAm (>60 ml/min/1.73 sqM) Est GFR (CKD-EPI)NonAf (>60 ml/min/1.73 sqM) Glucose (74-99) mg/dL Calcium (8.4-10.2) mg/dL Magnesium (1.6-2.3) mg/dL Total Bilirubin (0.2-1.3) mg/dL AST (14-36) U/L ALT (4-34) U/L Alkaline Phosphatase (38-126) U/L Troponin I 0.017 (0.000-0.034) ng/mL Total Protein (6.3-8.2) g/dL Albumin (3.5-5.0) g/dL - EKG Data -: EKG Interpreted by Me EKG Comments: 12-lead Electrocardiogram Interpretation Note EKG was reviewed and interpreted by myself. 12-lead ECG performed at 2306 is in terpreted by me as revealing normal sinus rhythm at a rate of 80 beats per minute. Right bundle branch block which is seen on prior EKGs. Nonspecific T- wave inversions in V2 and V3, seen on prior EKGs including August 2023. MO interval is 146 ms, QRS duration is 121 ms, QTc is 449 ms.. There were no acute ST or T wave abnormalities to suggest myocardial ischemia or injury. R wave progression across the precordium was satisfactory. This EKG is nondiagnostic for acute ischemia. 12-lead Electrocardiogram Interpretation Note EKG was reviewed and interpreted by myself. 12-lead ECG performed at 0107 is interpreted by me as revealing normal sinus rhythm with right bundle branch block at a rate of 72 beats per minute. [place] is normal. MO intervals 142 ms, QRS duration is 126 ms, QTc is 469 ms. Redemonstrated chronic T wave inversions in precordial leads.. There were no ST or T wave abnormalities to suggest myocardial ischemia or injury. R wave progression across the precordium was satisfactory. By my interpretation this EKG is non-diagnostic for acute isch emia. Disposition Clinical Impression: Chest pain Disposition: ADMITTED IP TO THIS HOSP Condition: Stable Referrals: Giovnani Darby MD [Primary Care Provider] - 1-2 days Time of Disposition: 02:31
[2023-10-21 23:32] LABS: Basophils # (A) 0.1 k/uL (0-0.2); Basophils % (A) 1 %; Eosinophils # (A) 0.2 k/uL (0-0.7); Eosinophils % (A) 2 %; HCT 47.1 % (34.0-46.0); HGB 15.3 gm/dL (11.4-16.0); Lymphocytes # (A) 4.4 k/uL (1.0-4.8); Lymphocytes % (A) 37 %; MCH 29.9 pg (25.0-35.0); MCHC 32.6 g/dL (31.0-37.0); MCV 91.7 fL (80.0-100.0); Mean Platelet Volume 9.2; Monocytes # (A) 0.5 k/uL (0-1.0); Monocytes % (A) 4 %; Neutrophils # (A) 6.4 k/uL (1.3-7.7); Neutrophils % (A) 54 %; Platelet Count 221 k/uL (150-450); RBC 5.13 m/uL (3.80-5.40); RDW 14.8 % (11.5-15.5); WBC 11.9 k/uL (3.8-10.6)
[2023-10-21 23:44] LABS: ALT 19 U/L (4-34); African American GFR (CKD) 77 (>60 ml/min/1.73 sqM); Anion Gap 8 mmol/L; Blood Urea Nitrogen 17 mg/dL (7-17); Carbon Dioxide 21 mmol/L (22-30); Chloride 107 mmol/L (98-107); Glucose 110 mg/dL (74-99); Non-African American GFR(CKD) 67 (>60 ml/min/1.73 sqM); Sodium 136 mmol/L (137-145); Total Bilirubin 0.9 mg/dL (0.2-1.3)
[2023-10-21 23:56] LABS: INR 2.5 (<1.2); Partial Thromboplastin Time 38.8 sec (22.0-30.0); Prothrombin Time 24.5 sec (10.0-12.5)
[2023-10-22 00:04] LABS: AST 28 U/L (14-36); Albumin 4.2 g/dL (3.5-5.0); Potassium 3.8 mmol/L (3.5-5.1)
[2023-10-22 00:05] LABS: Alkaline Phosphatase 109 U/L (38-126)
--- NOTE | 2023-10-22 01:32 | XR ---
EXAM: XR Chest, 2 Views CLINICAL HISTORY: ITS.REASON XR Reason: Chest Pain TECHNIQUE: Frontal and lateral views of the chest. COMPARISON: No relevant prior studies available. FINDINGS: Lungs: No consolidation or mass. Minimal vascular congestion Pleural space: No effusion. Heart: cardiomegaly. Bones/joints: No acute findings. IMPRESSION: Minimal vascular congestion
--- NOTE | 2023-10-22 02:35 | CT ---
EXAM: CT Angiography Chest Without and With Intravenous Contrast CLINICAL HISTORY: Eval for aortic injury. hx of aortic valve rep. TECHNIQUE: Axial computed tomographic angiography images of the chest without and with intravenous contrast. CTDI is 26.35 mGy and DLP is 618.75 mGy-cm. This CT exam was performed using one or more of the following dose reduction techniques: automated exposure control, adjustment of the mA and/or kV according to patient size, and/or use of iterative reconstruction technique. 3D and MIP reconstructed images were created and reviewed. COMPARISON: Chest x-ray 10/21/2023. FINDINGS: Pulmonary arteries: No pulmonary embolism. Aorta: Post aortic valve replacement. No thoracic aortic aneurysm or dissection. Lungs: No consolidation. Minimal atelectasis. Pleural space: No pleural effusion. No pneumothorax. Heart: No cardiomegaly. No pericardial effusion. No evidence of RV dysfunction. Left atrial appendage clip. Bones/joints: Status post sternotomy. Old right posterior lateral eighth rib fracture. Soft tissues: Unremarkable. Lymph nodes: Unremarkable. No enlarged lymph nodes. IMPRESSION: Status post sternotomy and aortic valve replacement. No aortic aneurysm or dissection. EXAM: CT Angiography Abdomen and Pelvis With Intravenous Contrast CLINICAL HISTORY: Eval for aortic injury. hx of aortic valve rep. TECHNIQUE: Axial computed tomographic angiography images of the abdomen and pelvis with intravenous contrast. CTDI is 26.35 mGy and DLP is 618.75 mGy-cm. This CT exam was performed using one or more of the following dose reduction techniques: automated exposure control, adjustment of the mA and/or kV according to patient size, and/or use of iterative reconstruction technique. 3D and MIP reconstructed images were created and reviewed. COMPARISON: No relevant prior studies available. FINDINGS: VASCULATURE: Aorta: No acute abnormality. No abdominal aortic aneurysm. No dissection. Celiac trunk and mesenteric arteries: No acute abnormality. No occlusion or significant stenosis. Renal arteries: No acute abnormality. No occlusion or significant stenosis. Iliac arteries: No acute abnormality. No occlusion or significant stenosis. ABDOMEN: Liver: Hypodense/fatty. No mass. Gallbladder and bile ducts: Post cholecystectomy. No ductal dilation. Pancreas: Unremarkable. No ductal dilation. No mass. Spleen: Unremarkable. No splenomegaly. Adrenals: Unremarkable. No mass. Kidneys and ureters: Bilateral renal scarring. No hydronephrosis. No solid mass. Stomach and bowel: No bowel obstruction or ileus. Left and sigmoid colon diverticulosis without evidence for diverticulitis. PELVIS: Appendix: No findings to suggest acute appendicitis. Bladder: Unremarkable. No mass. Reproductive: Uterus and ovaries are grossly unremarkable. ABDOMEN, PELVIS and LOWER EXTREMITIES: Intraperitoneal space: Unremarkable. No significant fluid collection. No free air. Bones/joints: No acute fracture. No dislocation. Soft tissues: Unremarkable. Lymph nodes: Unremarkable. No enlarged lymph nodes. IMPRESSION: Normal arteries of the abdomen and pelvis.
[2023-10-22] MEDS ORDERED: ASPIRIN 81 MG PO STA (02:36)
[2023-10-22] MEDS ORDERED: KETOROLAC 15 MG/ML 1 ML VIAL IVP STA (02:36)
[2023-10-22] MEDS ORDERED: NALOXONE 0.4 MG/ML 1 ML VIAL IV PRN (02:37)
--- NOTE | 2023-10-22 10:59 | P.CRDCN ---
History of Present Illness History of present illness: HISTORY OF PRESENT ILLNESS: This is a 48-year-old female with a past medical history significant for paroxysmal atrial fibrillation, hypertension, hyperlipidemia, diabetes, obstructive sleep apnea, and mechanical aortic valve replacement with On-X valve in December 2022. Patient follows in the office with Dr. Infante. We have been asked to see the patient in consultation for chest pain. Patient examined at the bedside in the emergency room. Patient states yesterday she was sitting on her bed when she began to have pain in her chest and her jaw. She states the pain lasted for approximately 5 minutes and then went away on its own. She states she had another episode of chest discomfort that lasted about 2 or 3 minutes and that also went away on its own. The patient denies any further episodes of chest pain or pressure. She denies any shortness of breath. Patient's vital signs this morning are stable. * EKG reveals sinus mechanism with no signs of acute ischemia. Right bundle- branch block. * Chest xray minimal vascular congestion * Laboratory data: Troponin negative 2 * Most recent echocardiogram obtained in August 2023 revealed normal ejection fraction, prosthetic aortic valve, and mild mitral regurgitation * Cardiac catheterization history: July 2022 revealing normal coronary arteries REVIEW OF SYSTEMS: At the time of my exam: CONSTITUTIONAL: Denies fever or chills. HEENT: Denies blurred vision, vision changes, or eye pain. Denies hemoptysis CARDIOVASCULAR: Denies chest pain. Denies orthopnea. Denies PND. Denies palpitations RESPIRATORY: Denies shortness of breath. GASTROINTESTINAL: Denies abdominal pain. Denies nausea or vomiting. HEMATOLOGIC: Denies bleeding disorders. GENITOURINARY: Denies any blood in urine. SKIN: Denies pruitis. Denies rash. PHYSICAL EXAM: VITAL SIGNS: Reviewed. GENERAL: Well-developed in no acute distress. HEENT: Head is normocephalic. Pupils are equal, round. Sclerae anicteric. Mucous membranes of the mouth are moist. Neck supple. No JVD or thyromegaly LUNGS: Respirations even and unlabored. Lungs essentially clear to auscultation bilaterally. HEART: Regular rate and rhythm. S1 and S2 heard. ABDOMEN: Soft. Nondistended. Nontender. EXTREMITIES: Normal range of motion. No clubbing or cyanosis. Peripheral pulses intact. No lower extremity edema NEUROLOGIC: Awake and alert. Oriented x 3. ASSESSMENT: Chest pain, troponins negative 2, acute coronary syndrome ruled out Normal coronary arteries, per cardiac catheter irrigation 2021 History of mechanical aortic valve replacement with On-X valve in December 2022 Hypertension Hyperlipidemia Diabetes Obstructive sleep apnea PLAN: An acute coronary event has been ruled out Resume home cardiac medications Patient may be discharged home today from a cardiac standpoint and follow up in the office Nurse practitioner note has been reviewed by physician. Signing provider agrees with the documented findings, assessment, and plan of care. Past Medical History Past Medical History: Hyperlipidemia, Hypertension, Thyroid Disorder Additional Past Medical History / Comment(s): SVT History of Any Multi-Drug Resistant Organisms: None Reported Past Surgical History: Cholecystectomy, Hysterectomy Additional Past Surgical History / Comment(s): kidney stone removal, open heart- replaced aortic valve with mechanical valve December, Past Anesthesia/Blood Transfusion Reactions: Previous Problems w/ Anesthesia Additional Past Anesthesia/Blood Transfusion Reaction / Comment(s): WILL SIT UP ON TAKE DURING SURGERY. TENDENCY TO BE VIOLENT COMING OUT OF ANESTHESIA Type of Cardiac Device: Loop Device Placement Date:: Past Psychological History: Depression Smoking Status: Current some day smoker Past Alcohol Use History: None Reported Past Drug Use History: None Reported - Past Family History Mother Family Medical History: No Reported History Father Family Medical History: COPD Medications and Allergies Home Medications Medication Instructions Recorded Confirmed Type Furosemide [Lasix] 20 mg PO BID 03/23/22 10/22/23 History Levothyroxine Sodium [Synthroid] 50 mcg PO DAILY 03/23/22 10/22/23 History Atorvastatin [Lipitor] 40 mg PO DAILY 07/06/22 10/22/23 History Ezetimibe [Zetia] 10 mg PO DAILY 07/06/22 10/22/23 History Magnesium Oxide [Mag-Ox] 400 mg PO HS 12/20/22 10/22/23 History lisinopriL [Zestril] 2.5 mg PO DAILY@1200 #30 tab 12/29/22 10/22/23 Rx Cyclobenzaprine [Flexeril] 5 mg PO BID PRN 05/02/23 10/22/23 History Divalproex ER [Depakote ER] 250 mg PO HS 05/02/23 10/22/23 History Omeprazole 40 mg PO DAILY 05/02/23 10/22/23 History DULoxetine HCL [Cymbalta] 30 mg PO DAILY@1900 08/13/23 10/22/23 History Diclofenac Sodium Gel [Voltaren 1% 4 gm TOPICAL QID PRN 08/13/23 10/22/23 History Gel] HYDROcodone/APAP 5-325MG [[place] 1 tab PO TID PRN 08/13/23 10/22/23 History 5-325] Warfarin [Coumadin] 5 mg PO DAILY@1800 08/13/23 10/22/23 History Metoprolol Tartrate [Lopressor] 37.5 mg PO BID 10/22/23 10/22/23 History Promethazine HCl 12.5 mg PO TID PRN 10/22/23 10/22/23 History Tirzepatide [Mounjaro] 2.5 mg SQ TH 10/22/23 10/22/23 History Topiramate [Topamax] 100 mg PO HS 10/22/23 10/22/23 History Allergies Allergy/AdvReac Type Severity Reaction Status Date / Time cranberry Allergy Rash/Hives Verified 10/22/23 08:09 hydromorphone [From Dilaudid] Allergy Anaphylaxis Verified 10/22/23 08:09 morphine Allergy Anaphylaxis Verified 10/22/23 08:09 Penicillins Allergy Severe Verified 10/22/23 08:09 Rash/Hives Sulfa (Sulfonamide Allergy Severe Verified 10/22/23 08:09 Antibiotics) Rash/Hives zafirlukast [From Accolate] Allergy Severe Verified 10/22/23 08:09 Rash/Hives montelukast [From Singulair] AdvReac Rapid Verified 10/22/23 08:09 Heart Rate ranitidine [From Zantac] AdvReac Overstimula Verified 10/22/23 08:09 tion paper tape/bandaids AdvReac chemical Uncoded 10/22/23 08:09 owusu(cloth bandaids ok) some adhesives (tegaderm AdvReac Chemical Uncoded 10/22/23 08:09 okay) [place] Physical Exam Vitals: Vital Signs Temp Pulse Resp BP Pulse Ox 10/22/23 07:32 97.9 F 80 18 105/67 98 10/22/23 05:45 74 16 104/59 97 10/22/23 03:01 73 18 119/72 98 10/22/23 00:00 74 19 114/72 99 10/21/23 22:50 97.9 F 87 20 129/81 100 Intake and Output 10/21/23 10/22/23 10/22/23 22:59 06:59 14:59 Other: Weight 86.183 kg Results 10/21/23 23:03 10/21/23 23:03 Cardiac Enzymes 10/21/23 10/21/23 10/22/23 Range/Units 23:03 23:03 07:52 AST 28 (14-36) U/L Troponin I 0.017 0.013 (0.000-0.034) ng/mL Coagulation 10/21/23 Range/Units 23:03 PT 24.5 H (10.0-12.5) sec APTT 38.8 H (22.0-30.0) sec CBC 10/21/23 Range/Units 23:03 WBC 11.9 H (3.8-10.6) k/uL RBC 5.13 (3.80-5.40) m/uL Hgb 15.3 (11.4-16.0) gm/dL Hct 47.1 H (34.0-46.0) % Plt Count 221 (150-450) k/uL Comprehensive Metabolic Panel 10/21/23 Range/Units 23:03 Sodium 136 L (137-145) mmol/L Potassium 3.8 (3.5-5.1) mmol/L Chloride 107 (98-107) mmol/L Carbon Dioxide 21 L (22-30) mmol/L BUN 17 (7-17) mg/dL Creatinine 0.99 (0.52-1.04) mg/dL Glucose 110 H (74-99) mg/dL Calcium 9.0 (8.4-10.2) mg/dL AST 28 (14-36) U/L ALT 19 (4-34) U/L Alkaline Phosphatase 109 (38-126) U/L Total Protein 7.0 (6.3-8.2) g/dL Albumin 4.2 (3.5-5.0) g/dL Current Medications Generic Name Dose Route Start Last Admin Trade Name Freq PRN Reason Stop Dose Admin Naloxone HCl 0.2 mg 10/22/23 02:37 Naloxone 0.4 Mg/Ml 1 Ml Vial IV Q2M PRN Opioid Reversal Intake and Output 10/21/23 10/22/23 10/22/23 22:59 06:59 14:59 Other: Weight 86.183 kg 10/21/23 23:03 10/21/23 23:03
[2023-10-22] MEDS ORDERED: FUROSEMIDE 20 MG TAB PO SCH (11:00)
[2023-10-22] MEDS ORDERED: METOPROLOL TARTRATE 12.5 MG TAB PO SCH (11:00)
[2023-10-22] MEDS ORDERED: ATORVASTATIN 40 MG TAB PO SCH (11:00)
[2023-10-22] MEDS ORDERED: EZETIMIBE 10 MG TAB PO SCH (11:00)
--- NOTE | 2023-10-22 11:06 | P.HPIM ---
History of Present Illness H&P Date: 10/22/23 Chief Complaint: CHest Pain History and Physical and Discharge Summary: This is a 48 year old female with past medical history significant for recent aortic valve replacement with mechanical valve 12/27, chronic paroxysmal atrial fibrillation, hypertension, hyperlipidemia, diabetes mellitus ,chronic leukocytosis, morbid obesity, obstructive sleep apnea , migraines and multiple other medical issues presented to the ER with complaints of chest pain. Reports yesterday while sitting on the bed, talking to her children on the phone, relaxed, nonstressed, developed right-sided jaw pain that radiated to her chest and posterior shoulder blades lasting approximately 5 minutes then spontaneously resolved. Reoccurred on her left side, left jaw and into left chest lasting for a few minutes, again spontaneously resolving. Denies accompanying sweats, chills or shortness of breath. Denies lightheadedness dizziness or focal deficits. Denies nausea vomiting or diarrhea. Denies abdominal pain. Patient later reported that she was doing some heavy cleaning and moving items around the day prior to her chest pain episodes. SHe presented to the ER with no further reoccurrence of chest pain. Troponins negative 2, third set pending. INR 2.5. EKG reported sinus rhythm with right bundle branch block, chest x-ray reported minimal vascular congestion. Afebrile, WBC 11.9. No cough or congestion. Review of Systems ROS Statement: Those systems with pertinent positive or pertinent negative responses have been documented in the HPI. ROS Other: All systems not noted in ROS Statement are negative. Past Medical History Past Medical History: Hyperlipidemia, Hypertension, Thyroid Disorder Additional Past Medical History / Comment(s): SVT History of Any Multi-Drug Resistant Organisms: None Reported Past Surgical History: Cholecystectomy, Hysterectomy Additional Past Surgical History / Comment(s): kidney stone removal, open heart- replaced aortic valve with mechanical valve December, Past Anesthesia/Blood Transfusion Reactions: Previous Problems w/ Anesthesia Additional Past Anesthesia/Blood Transfusion Reaction / Comment(s): WILL SIT UP ON TAKE DURING SURGERY. TENDENCY TO BE VIOLENT COMING OUT OF ANESTHESIA Type of Cardiac Device: Loop Device Placement Date:: unk Past Psychological History: Depression Smoking Status: Current some day smoker Past Alcohol Use History: None Reported Past Drug Use History: None Reported - Past Family History Mother Family Medical History: No Reported History Father Family Medical History: COPD Medications and Allergies Home Medications Medication Instructions Recorded Confirmed Type Furosemide [Lasix] 20 mg PO BID 03/23/22 10/22/23 History Levothyroxine Sodium [Synthroid] 50 mcg PO DAILY 03/23/22 10/22/23 History Atorvastatin [Lipitor] 40 mg PO DAILY 07/06/22 10/22/23 History Ezetimibe [Zetia] 10 mg PO DAILY 07/06/22 10/22/23 History Magnesium Oxide [Mag-Ox] 400 mg PO HS 12/20/22 10/22/23 History lisinopriL [Zestril] 2.5 mg PO DAILY@1200 #30 tab 12/29/22 10/22/23 Rx Cyclobenzaprine [Flexeril] 5 mg PO BID PRN 05/02/23 10/22/23 History Divalproex ER [Depakote ER] 250 mg PO HS 05/02/23 10/22/23 History Omeprazole 40 mg PO DAILY 05/02/23 10/22/23 History DULoxetine HCL [Cymbalta] 30 mg PO DAILY@1900 08/13/23 10/22/23 History Diclofenac Sodium Gel [Voltaren 1% 4 gm TOPICAL QID PRN 08/13/23 10/22/23 History Gel] HYDROcodone/APAP 5-325MG [[place] 1 tab PO TID PRN 08/13/23 10/22/23 History 5-325] Warfarin [Coumadin] 5 mg PO DAILY@1800 08/13/23 10/22/23 History Metoprolol Tartrate [Lopressor] 37.5 mg PO BID 10/22/23 10/22/23 History Promethazine HCl 12.5 mg PO TID PRN 10/22/23 10/22/23 History Tirzepatide [Mounjaro] 2.5 mg SQ TH 10/22/23 10/22/23 History Topiramate [Topamax] 100 mg PO HS 10/22/23 10/22/23 History Allergies Allergy/AdvReac Type Severity Reaction Status Date / Time cranberry Allergy Rash/Hives Verified 10/22/23 08:09 hydromorphone [From Dilaudid] Allergy Anaphylaxis Verified 10/22/23 08:09 morphine Allergy Anaphylaxis Verified 10/22/23 08:09 Penicillins Allergy Severe Verified 10/22/23 08:09 Rash/Hives Sulfa (Sulfonamide Allergy Severe Verified 10/22/23 08:09 Antibiotics) Rash/Hives zafirlukast [From Accolate] Allergy Severe Verified 10/22/23 08:09 Rash/Hives montelukast [From Singulair] AdvReac Rapid Verified 10/22/23 08:09 Heart Rate ranitidine [From Zantac] AdvReac Overstimula Verified 10/22/23 08:09 tion paper tape/bandaids AdvReac chemical Uncoded 10/22/23 08:09 owusu(cloth bandaids ok) some adhesives (tegaderm AdvReac Chemical Uncoded 10/22/23 08:09 okay) [place] Physical Exam Vitals: Vital Signs Temp Pulse Resp BP Pulse Ox 10/22/23 07:32 97.9 F 80 18 105/67 98 10/22/23 05:45 74 16 104/59 97 10/22/23 03:01 73 18 119/72 98 10/22/23 00:00 74 19 114/72 99 10/21/23 22:50 97.9 F 87 20 129/81 100 Intake and Output 10/21/23 10/22/23 10/22/23 22:59 06:59 14:59 Other: Weight 86.183 kg PHYSICAL EXAM: VITAL SIGNS: As above GENERAL: Obese, Alert and oriented 3, Sitting up in bed, no acute distress HEENT: Normocephalic, Conjunctivae normal. eyes normal. MMM. NECK: Supple, No JVD. CARDIOVASCULAR: S1, S2 regular. Systolic murmur. RESPIRATION: Unlabored,Breath sounds diminished in the bases. ABDOMEN: Soft, nontender . No guarding. no masses palpable. +Bowel sounds. LEGS: No edema. no swelling. NERVOUS SYSTEM: Cranial N 2-12 grossly normal. No focal deficits. Strength and sensation grossly intact. Skin: Warm and dry, no rash Results CBC & Chem 7: 10/21/23 23:03 10/21/23 23:03 Labs: Abnormal Lab Results - Last 24 Hours (Table) 10/21/23 10/21/23 10/21/23 Range/Units 23:03 23:03 23:03 WBC 11.9 H (3.8-10.6) k/uL Hct 47.1 H (34.0-46.0) % PT 24.5 H (10.0-12.5) sec INR 2.5 H (<1.2) APTT 38.8 H (22.0-30.0) sec Sodium 136 L (137-145) mmol/L Carbon Dioxide 21 L (22-30) mmol/L Glucose 110 H (74-99) mg/dL Assessment and Plan Assessment: Chest pain, troponin is negative 2 , ACS ruled out. Possibly musculoskeletal, as patient described she had performed heavy cleaning the day prior with lifting and moving items around. History of aortic valve replacement with mechanical valve 12/27 Chronic paroxysmal atrial fibrillation Hypertension Hyperlipidemia Diabetes mellitus, hemoglobin A1c 6.4 12/27 Hypothyroidism Family history CAD Gastroesophageal reflux disease Morbid obesity, BMI 34.8 Obstructive sleep apnea Plan: Continue on current medication regime ,monitoring and symptomatic treatment. Evaluated by cardiology, no further workup recommended at this time and has cleared patient for discharge. Patient will be discharged home today in a stable condition with guarded prognosis. Discharge Medication List Furosemide [Lasix] 20 mg PO BID 03/23/22 [History] Levothyroxine Sodium [Synthroid] 50 mcg PO DAILY 03/23/22 [History] Atorvastatin [Lipitor] 40 mg PO DAILY 07/06/22 [History] Ezetimibe [Zetia] 10 mg PO DAILY 07/06/22 [History] Magnesium Oxide [Mag-Ox] 400 mg PO HS 12/20/22 [History] lisinopriL [Zestril] 2.5 mg PO DAILY@1200 #30 tab 12/29/22 [Rx] Cyclobenzaprine [Flexeril] 5 mg PO BID PRN 05/02/23 [History] Divalproex ER [Depakote ER] 250 mg PO HS 05/02/23 [History] Omeprazole 40 mg PO DAILY 05/02/23 [History] DULoxetine HCL [Cymbalta] 30 mg PO DAILY@1900 08/13/23 [History] Diclofenac Sodium Gel [Voltaren 1% Gel] 4 gm TOPICAL QID PRN 08/13/23 [History] HYDROcodone/APAP 5-325MG [[place] 5-325] 1 tab PO TID PRN 08/13/23 [History] Warfarin [Coumadin] 5 mg PO DAILY@1800 08/13/23 [History] Metoprolol Tartrate [Lopressor] 37.5 mg PO BID 10/22/23 [History] Promethazine HCl 12.5 mg PO TID PRN 10/22/23 [History] Tirzepatide [Mounjaro] 2.5 mg SQ TH 10/22/23 [History] Topiramate [Topamax] 100 mg PO HS 10/22/23 [History] The impression and plan of care has been dictated as directed. : I performed a history and examination of this patient, discussed the same with the dictator. I agree with the dictator's note ,documented as a scribe. Any additional findings or plans will be noted.
[2023-10-22 11:40] LABS: INR 2.5 (<1.2); Prothrombin Time 24.9 sec (10.0-12.5)
[2023-10-22 12:38] VITALS: BP 107/81; PULSE 76; RESP 16
[2023-10-22] MEDS ORDERED: WARFARIN 5 MG TAB PO SCH (18:00)
== END 2023-10-22 13:55 | disposition home or self-care (01) ==
LOC: EC 22:47 → 6NMEDSUR 10-22 02:38
PROVIDERS: ADMIT Family Medicine; ATTEND Family Medicine
DX: R07.89 Other chest pain (principal); I48.0 Paroxysmal atrial fibrillation; E11.9 Type 2 diabetes mellitus without complications; I10 Essential (primary) hypertension; I47.10 Supraventricular tachycardia, unspecified; I45.10 Unspecified right bundle-branch block; D72.829 Elevated white blood cell count, unspecified; G47.33 Obstructive sleep apnea (adult) (pediatric); E03.9 Hypothyroidism, unspecified; G43.909 Migraine, unspecified, not intractable, without status migrainosus; E78.5 Hyperlipidemia, unspecified; K21.9 Gastro-esophageal reflux disease without esophagitis; I34.0 Nonrheumatic mitral (valve) insufficiency; F17.200 Nicotine dependence, unspecified, uncomplicated; E66.01 Morbid (severe) obesity due to excess calories; Z68.34 Body mass index [BMI] 34.0-34.9, adult; F32.A Depression, unspecified; R68.84 Jaw pain; M54.9 Dorsalgia, unspecified; R20.0 Anesthesia of skin; Z79.890 Hormone replacement therapy; Z79.85 Long-term (current) use of injectable non-insulin antidiabetic drugs; Z79.01 Long term (current) use of anticoagulants; Z79.899 Other long term (current) drug therapy; Z95.2 Presence of prosthetic heart valve; Z90.49 Acquired absence of other specified parts of digestive tract; Z90.710 Acquired absence of both cervix and uterus; Z87.442 Personal history of urinary calculi; Z98.890 Other specified postprocedural states; Z82.5 Family history of asthma and other chronic lower respiratory diseases; Z82.49 Family history of ischemic heart disease and other diseases of the circulatory system
CPT/HCPCS: 96361; 96374; 99285; 36415; 93005; 80053; 83735; 84484 ×2; 85025; 85610 ×2; 85730; 71046; 71275; 74174; G0378; J1885; Q9967

== ENCOUNTER → 2023-10-23 | Outpatient (CLI) | payer MEDICARE, OTHER ==
--- NOTE | 2023-11-04 19:38 | MM ---
Reason for Exam: Screening (asymptomatic). Last mammogram was performed 6 year(s) and 5 month(s) ago. Patient History: Menarche at age 14. First Full-Term at age 16. Hysterectomy at age 38. Risk Values: Beth 5 year model risk: 0.6%. NCI Lifetime model risk: 6.0%. Prior Study Comparison: 05/24/2016 Bilateral Screening Mammogram, [facility]. 05/27/2017 Bilateral Screening Mammogram, [facility]. Tissue Density: There are scattered fibroglandular densities. Findings: Analyzed By CAD. Loop recorder device medially left breast. There is no suspicious group of microcalcifications or new suspicious mass in either breast. Overall Assessment: Negative, BI-RAD 1 Management: Screening Mammogram of both breasts in 1 year. . Patient should continue monthly self-breast exams. A clinical breast exam by your physician is recommended on an annual basis. This exam should not preclude additional follow-up of suspicious palpable abnormalities. Note on Beth scores and lifetime risk: 1. A Beth score greater than 3% is considered moderate risk. If this is the case, consider specialist referral to assess eligibility for a risk reducing agent. 2. If overall lifetime risk for the development of breast cancer is 20% or higher, the patient may qualify for future screening with alternating mammogram and breast MRI. Electronically signed and approved by: Kashmir Garcia M.D. Radiologist
== END | disposition home or self-care (01) ==
LOC: RADMAMWWP 14:33
PROVIDERS: ATTEND Family Medicine
DX: Z12.31 Encounter for screening mammogram for malignant neoplasm of breast (principal)
CPT/HCPCS: 77063; 77067

== ENCOUNTER → 2023-12-02 | Outpatient (CLI) | payer MEDICARE, OTHER ==
[2023-12-02 15:34] LABS: ALT 12 U/L (8-44); AST 14 U/L (13-35); Chol/HDL Ratio 2.48 Ratio; LDL Cholesterol,Calculated 35.8 mg/dL (0.0-131.0)
== END | disposition home or self-care (01) ==
LOC: LABWHC1 09:50
PROVIDERS: ATTEND Internal Medicine Interventional Cardiology
DX: E78.2 Mixed hyperlipidemia (principal)
CPT/HCPCS: 36415; 80061; 84450; 84460

== ENCOUNTER 2024-01-03 19:21 | Emergency (ER) | payer MEDICARE, OTHER ==
[2024-01-03 19:46] VITALS: TEMP 97.6
[2024-01-03] MEDS: SODIUM CHLORIDE 0.9% 500 ML 500 ML IV ONE (20:22)
--- NOTE | 2024-01-03 20:31 | ED ---
Female Urogenital HPI - General Chief complaint: Urogenital Stated complaint: urinating blood Time Seen by Provider: 01/03/24 19:44 Source: patient Mode of arrival: wheelchair - History of Present Illness Initial comments: 48-year-old female presenting with chief complaint of hematuria. Hematuria started today. Patient was concerned because about 2 years ago she had hematuria and was found to have a kidney stone. Patient admits to back pain and is unable to tell if this is due to her chronic pain or not. No nausea or vomiting. No dysuria. No diarrhea. No fever, cough, congestion, sore throat, chest pain, difficulty breathing. - Related Data Home Medications Medication Instructions Recorded Confirmed Furosemide [Lasix] 20 mg PO BID 03/23/22 10/22/23 Levothyroxine Sodium [Synthroid] 50 mcg PO DAILY 03/23/22 10/22/23 Atorvastatin [Lipitor] 40 mg PO DAILY 07/06/22 10/22/23 Ezetimibe [Zetia] 10 mg PO DAILY 07/06/22 10/22/23 Magnesium Oxide [Mag-Ox] 400 mg PO HS 12/20/22 10/22/23 Cyclobenzaprine [Flexeril] 5 mg PO BID PRN 05/02/23 10/22/23 Divalproex ER [Depakote ER] 250 mg PO HS 05/02/23 10/22/23 Omeprazole 40 mg PO DAILY 05/02/23 10/22/23 DULoxetine HCL [Cymbalta] 30 mg PO DAILY@1900 08/13/23 10/22/23 Diclofenac Sodium Gel [Voltaren 1% 4 gm TOPICAL QID PRN 08/13/23 10/22/23 Gel] HYDROcodone/APAP 5-325MG [[place] 1 tab PO TID PRN 08/13/23 10/22/23 5-325] Warfarin [Coumadin] 5 mg PO DAILY@1800 08/13/23 10/22/23 Metoprolol Tartrate [Lopressor] 37.5 mg PO BID 10/22/23 10/22/23 Promethazine HCl 12.5 mg PO TID PRN 10/22/23 10/22/23 Tirzepatide [Mounjaro] 2.5 mg SQ TH 10/22/23 10/22/23 Topiramate [Topamax] 100 mg PO HS 10/22/23 10/22/23 Previous Rx's Medication Instructions Recorded lisinopriL [Zestril] 2.5 mg PO DAILY@1200 #30 tab 12/29/22 Allergies Allergy/AdvReac Type Severity Reaction Status Date / Time cranberry Allergy Rash/Hives Verified 10/22/23 08:09 hydromorphone [From Dilaudid] Allergy Anaphylaxis Verified 10/22/23 08:09 morphine Allergy Anaphylaxis Verified 10/22/23 08:09 Penicillins Allergy Severe Verified 10/22/23 08:09 Rash/Hives Sulfa (Sulfonamide Allergy Severe Verified 10/22/23 08:09 Antibiotics) Rash/Hives zafirlukast [From Accolate] Allergy Severe Verified 10/22/23 08:09 Rash/Hives montelukast [From Singulair] AdvReac Rapid Verified 10/22/23 08:09 Heart Rate ranitidine [From Zantac] AdvReac Overstimula Verified 10/22/23 08:09 tion paper tape/bandaids AdvReac chemical Uncoded 10/22/23 08:09 owusu(cloth bandaids ok) some adhesives (tegaderm AdvReac Chemical Uncoded 10/22/23 08:09 okay) Ow[place]u Review of Systems ROS Statement: Those systems with pertinent positive or pertinent negative responses have been documented in the HPI. ROS Other: All systems not noted in ROS Statement are negative. Past Medical History Past Medical History: Hyperlipidemia, Hypertension, Thyroid Disorder Additional Past Medical History / Comment(s): SVT, kidney stones, MRI done for brain/back, TIA's, hx of brain bleeds History of Any Multi-Drug Resistant Organisms: None Reported Past Surgical History: Cholecystectomy, Hysterectomy Additional Past Surgical History / Comment(s): kidney stone removal, open heart- replaced aortic valve with mechanical valve December, Past Anesthesia/Blood Transfusion Reactions: Previous Problems w/ Anesthesia Additional Past Anesthesia/Blood Transfusion Reaction / Comment(s): WILL SIT UP ON TAKE DURING SURGERY. TENDENCY TO BE VIOLENT COMING OUT OF ANESTHESIA Type of Cardiac Device: Loop Device Placement Date:: unk Past Psychological History: Depression Smoking Status: Current some day smoker Past Alcohol Use History: None Reported Past Drug Use History: None Reported - Past Family History Mother Family Medical History: No Reported History Father Family Medical History: COPD General Exam Limitations: no limitations General appearance: alert, in no apparent distress Head exam: Present: atraumatic, normocephalic Eye exam: Present: normal appearance Neck exam: Present: normal inspection. Absent: meningismus Respiratory exam: Present: normal lung sounds bilaterally. Absent: respiratory distress, wheezes, rales, rhonchi, stridor Cardiovascular Exam: Present: regular rate, normal rhythm, normal heart sounds. Absent: systolic murmur, diastolic murmur, rubs, gallop, clicks GI/Abdominal exam: Present: soft. Absent: distended, tenderness, guarding, rebound, rigid Back exam: Present: normal inspection Neurological exam: Present: alert, oriented X3 Psychiatric exam: Present: normal affect, normal mood Skin exam: Present: warm, dry Course Vital Signs 01/03/24 01/03/24 01/04/24 19:25 22:48 00:18 Temperature 97.6 F Pulse Rate 83 73 78 Respiratory 17 18 14 Rate Blood Pressure 134/84 128/84 121/71 O2 Sat by Pulse 100 99 98 Oximetry Medical Decision Making - Medical Decision Making Was pt. sent in by a medical professional or institution (Dr. PA, [employer], urgent care, hospital, or residential...) When possible be specific @ -No Did you speak to anyone other than the patient for history (EMS, parent, family, police, friend...)? What history was obtained from this source @ -No Did you review nursing and triage notes (agree or disagree)? Why? @ -I reviewed and agree with nursing and triage notes Were old charts reviewed (outside hosp., previous admission, EMS record, old EKG, old radiological studies, urgent care reports/EKG's, residential records)? Report findings @ -No old charts were reviewed Differential Diagnosis (chest pain, altered mental status, abdominal pain women, abdominal pain men, vaginal bleeding, weakness, fever, dyspnea, syncope, headache, dizziness, GI bleed, back pain, seizure, CVA, palpatations, mental health, musculoskeletal)? @ -Differential includes kidney stone, UTI, pyelonephritis, malignancy, bladder diverticulum, this is not an all-inclusive list EKG interpreted by me (3pts min.). @ -As above X-rays interpreted by me (1pt min.). @ -None done CT interpreted by me (1pt min.). @ -CT shows no evidence of urinary tract calculi or hydronephrosis. No evidence of bowel obstruction or free air. Normal appendix. Colonic diverticula are present, without signs of inflammation to suggest diverticulitis U/S interpreted by me (1pt. min.). @ -None done What testing was considered but not performed or refused? (CT, X-rays, U/S, labs)? Why? @ -None What meds were considered but not given or refused? Why? @ -None Did you discuss the management of the patient with other professionals (professionals i.e. DrRodolfo, PA, [employer], lab, RT, psych nurse, social work coordinator, plate put in worker, teacher, precinct commanding officer, family service caseworker)? Give summary @ -No Was smoking cessation discussed for >3mins.? @ -No Was critical care preformed (if so, how long)? @ -No Were there social determinants of health that impacted care today? How? (Homelessness, low income, unemployed, alcoholism, drug addiction, t ransportation, low edu. Level, literacy, decrease access to med. care, [facility], rehab)? @ -No Was there de-escalation of care discussed even if they declined (Discuss DNR or withdrawal of care, Hospice)? DNR status @ -No What co-morbidities impacted this encounter? (DM, HTN, Smoking, COPD, CAD, Cance r, CVA, ARF, Chemo, Hep., AIDS, mental health diagnosis, sleep apnea, morbid obesity)? @ -None Was patient admitted / discharged? Hospital course, mention meds given and route, prescriptions, significant lab abnormalities, going to OR and other pertinent info. @ -48-year-old female presenting with chief complaint of hematuria. History and physical exam are conducted. WBC 11.6. Hemoglobin 13.4. Potassium is 3.0, patient is receiving oral replacement. Urine shows large blood with greater th an [address] is negative for acute process. On reassessment patient is resting comfortably showing no acute signs of distress. Patient is educated on today's findings and instructed to follow-up with her urologist Dr. Major. Discharged home. Follow-up with PCP. Report back to ER with any new or worsening symptoms. Discussed return parameters and answered all questions. Patient conveyed verbal understanding and agreed to the plan. I discussed this case in detail with my attending Dr. More Undiagnosed new problem with uncertain prognosis? @ -No Drug Therapy requiring intensive monitoring for toxicity (Heparin, Nitro, Insulin, Cardizem)? @ -No Were any procedures done? @ -No Diagnosis/symptom? @ -Hematuria Acute, or Chronic, or Acute on Chronic? @ -Acute Uncomplicated (without systemic symptoms) or Complicated (systemic symptoms)? @ -Uncomplicated Side effects of treatment? @ -No Exacerbation, Progression, or Severe Exacerbation? @ -No Poses a threat to life or bodily function? How? (Chest pain, [place], GA, pneumonia, PE, COPD, DKA, ARF, appy, cholecystitis, CVA, Diverticulitis, Homicidal, Suicidal, threat to staff... and all critical care pts) @ - - Lab Data Result diagrams: 01/03/24 20:21 01/03/24 20:21 Lab Results 01/03/24 01/03/24 01/03/24 Range/Units 20:21 20:21 20:21 WBC 11.6 H (3.8-10.6) k/uL RBC 4.54 (3.80-5.40) m/uL Hgb 13.4 (11.4-16.0) gm/dL Hct 43.0 (34.0-46.0) % MCV 94.9 (80.0-100.0) fL MCH 29.6 (25.0-35.0) pg MCHC 31.2 (31.0-37.0) g/dL RDW 14.4 (11.5-15.5) % Plt Count 231 (150-450) k/uL MPV 9.1 Neutrophils % 53 % Lymphocytes % 38 % Monocytes % 5 % Eosinophils % 2 % Basophils % 1 % Neutrophils # 6.2 (1.3-7.7) k/uL Lymphocytes # 4.4 (1.0-4.8) k/uL Monocytes # 0.6 (0-1.0) k/uL Eosinophils # 0.2 (0-0.7) k/uL Basophils # 0.1 (0-0.2) k/uL PT (10.0-12.5) sec INR (<1.2) Sodium 138 (137-145) mmol/L Potassium 3.0 L (3.5-5.1) mmol/L Chloride 106 (98-107) mmol/L Carbon Dioxide 25 (22-30) mmol/L Anion Gap 7 mmol/L BUN 10 (7-17) mg/dL Creatinine 0.87 (0.52-1.04) mg/dL Est GFR (CKD-EPI)AfAm >90 (>60 ml/min/1.73 sqM) Est GFR (CKD-EPI)NonAf 78 (>60 ml/min/1.73 sqM) Glucose 82 (74-99) mg/dL Calcium 9.1 (8.4-10.2) mg/dL Total Bilirubin 0.3 (0.2-1.3) mg/dL AST 18 (14-36) U/L ALT 14 (4-34) U/L Alkaline Phosphatase 127 H (38-126) U/L Total Protein 6.4 (6.3-8.2) g/dL Albumin 3.8 (3.5-5.0) g/dL Urine Color Yellow Urine Appearance Cloudy H (Clear) Urine pH 7.0 (5.0-8.0) Ur Specific [place] 1.010 (1.001-1.035) Urine Protein Negative (Negative) Urine Glucose (UA) Negative (Negative) Urine Ketones Negative (Negative) Urine Blood Large H (Negative) Urine Nitrite Negative (Negative) Urine Bilirubin Negative (Negative) Urine Urobilinogen <2.0 (<2.0) mg/dL Ur Leukocyte Esterase Negative (Negative) Urine RBC >182 H (0-5) /hpf Urine Bacteria Rare H (None) /hpf 01/03/24 Range/Units 23:09 WBC (3.8-10.6) k/uL RBC (3.80-5.40) m/uL Hgb (11.4-16.0) gm/dL Hct (34.0-46.0) % MCV (80.0-100.0) fL MCH (25.0-35.0) pg MCHC (31.0-37.0) g/dL RDW (11.5-15.5) % Plt Count (150-450) k/uL MPV Neutrophils % % Lymphocytes % % Monocytes % % Eosinophils % % Basophils % % Neutrophils # (1.3-7.7) k/uL Lymphocytes # (1.0-4.8) k/uL Monocytes # (0-1.0) k/uL Eosinophils # (0-0.7) k/uL Basophils # (0-0.2) k/uL PT 31.8 H (10.0-12.5) sec INR 3.2 H (<1.2) Sodium (137-145) mmol/L Potassium (3.5-5.1) mmol/L Chloride (98-107) mmol/L Carbon Dioxide (22-30) mmol/L Anion Gap mmol/L BUN (7-17) mg/dL Creatinine (0.52-1.04) mg/dL Est GFR (CKD-EPI)AfAm (>60 ml/min/1.73 sqM) Est GFR (CKD-EPI)NonAf (>60 ml/min/1.73 sqM) Glucose (74-99) mg/dL Calcium (8.4-10.2) mg/dL Total Bilirubin (0.2-1.3) mg/dL AST (14-36) U/L ALT (4-34) U/L Alkaline Phosphatase (38-126) U/L Total Protein (6.3-8.2) g/dL Albumin (3.5-5.0) g/dL Urine Color Urine Appearance (Clear) Urine pH (5.0-8.0) Ur Specific [place] (1.001-1.035) Urine Protein (Negative) Urine Glucose (UA) (Negative) Urine Ketones (Negative) Urine Blood (Negative) Urine Nitrite (Negative) Urine Bilirubin (Negative) Urine Urobilinogen (<2.0) mg/dL Ur Leukocyte Esterase (Negative) Urine RBC (0-5) /hpf Urine Bacteria (None) /hpf Disposition Clinical Impression: Hematuria Disposition: HOME SELF-CARE Condition: Good Instructions (If sedation given, give patient instructions): Hematuria (ED) Additional Instructions: Follow-up with your urologist and PCP. Report back to ER with any new or worsening symptoms. Is patient prescribed a controlled substance at d/c from ED?: No Referrals: Giovanni Darby MD [Primary Care Provider] - 1-2 days Henrique Major MD [STAFF PHYSICIAN] - 1-2 days Time of Disposition: 00:04
[2024-01-03 20:39] LABS: Basophils # (A) 0.1 k/uL (0-0.2); Basophils % (A) 1 %; Eosinophils # (A) 0.2 k/uL (0-0.7); Eosinophils % (A) 2 %; HGB 13.4 gm/dL (11.4-16.0); Lymphocytes # (A) 4.4 k/uL (1.0-4.8); Lymphocytes % (A) 38 %; MCH 29.6 pg (25.0-35.0); MCHC 31.2 g/dL (31.0-37.0); MCV 94.9 fL (80.0-100.0); Mean Platelet Volume 9.1; Monocytes # (A) 0.6 k/uL (0-1.0); Monocytes % (A) 5 %; Neutrophils # (A) 6.2 k/uL (1.3-7.7); Neutrophils % (A) 53 %; Platelet Count 231 k/uL (150-450); RBC 4.54 m/uL (3.80-5.40); RDW 14.4 % (11.5-15.5); WBC 11.6 k/uL (3.8-10.6)
[2024-01-03 20:55] LABS: ALT 14 U/L (4-34); AST 18 U/L (14-36); African American GFR (CKD) >90 (>60 ml/min/1.73 sqM); Albumin 3.8 g/dL (3.5-5.0); Alkaline Phosphatase 127 U/L (38-126); Anion Gap 7 mmol/L; Blood Urea Nitrogen 10 mg/dL (7-17); Calcium 9.1 mg/dL (8.4-10.2); Carbon Dioxide 25 mmol/L (22-30); Chloride 106 mmol/L (98-107); Glucose 82 mg/dL (74-99); Non-African American GFR(CKD) 78 (>60 ml/min/1.73 sqM); Sodium 138 mmol/L (137-145); Total Bilirubin 0.3 mg/dL (0.2-1.3); Total Protein 6.4 g/dL (6.3-8.2)
[2024-01-03] MEDS ORDERED: Potassium Replacement Protocol 1 EACH MISC MISCELLANE PRN (21:13)
[2024-01-03] MEDS: POTASSIUM CHLORIDE ER 20 MEQ TAB.ER PO SCH (21:56)
--- NOTE | 2024-01-03 22:04 | CT ---
EXAMINATION TYPE: CT abdomen pelvis wo con CT DLP: 607.7 mGycm, Automated exposure control for dose reduction was used. DATE OF EXAM: 01/03/2024 8:53 PM COMPARISON: None. CLINICAL INDICATION:Female, 48 years old with history of hematuria; hematuria/ abd pain TECHNIQUE: Axial CT of the abdomen and pelvis. Sagittal and coronal reformats were created on a [employer] workstation. Contrast used: mL of , (none if empty) Oral contrast used: without Oral Contrast (none if empty) FINDINGS: LOWER CHEST: Bibasilar subsegmental atelectasis. ABDOMEN LIVER: Unremarkable GALLBLADDER AND BILE DUCTS: The gallbladder is surgically absent. Biliary tree does not appear pathol ogically dilated. PANCREAS: Unremarkable. SPLEEN: Unremarkable. ADRENAL GLANDS: Unremarkable. KIDNEYS AND URETERS: No evidence of renal calculi or contour deformity. No hydronephrosis. PELVIS BLADDER: Unremarkable REPRODUCTIVE: The uterus appears absent, correlate for hysterectomy. Ovaries not readily identified. ABDOMEN & PELVIS STOMACH AND BOWEL: Stomach and small bowel are nondistended, no evidence of obstruction. Small amou nt of hyperdense material in the distal gastric lumen. Mild/moderate stool throughout the colon with multiple diverticula noted in the sigmoid region. No clear evidence of diverticulitis. PERITONEUM/RETROPERITONEUM: No evidence of pneumoperitoneum or free fluid. VASCULATURE: Aorta and major branches are grossly unremarkable. No AAA. LYMPH NODES: No gross evidence for lymphadenopathy. SOFT TISSUE/ABDOMINAL WALL: Tiny fat-containing umbilical region hernia. MUSCULOSKELETAL: No acute os seous abnormalities. Mild/moderate disc degeneration changes are present throughout the thoracolumbar spine. IMPRESSION: 1. No evidence of urinary tract calculi or hydronephrosis. 2. No evidence of bowel obstruction or free air. Normal appendix. 3. Colonic diverticula are present, without signs of inflammation to suggest diverticulitis.
[2024-01-03 23:00] LABS: Appearance,Urine Cloudy (Clear); Bacteria,Urine Rare /hpf; Bilirubin,Urine Negative (Negative); Blood,Urine Large (Negative); Color,Urine Yellow; Glucose,Urine (UA) Negative (Negative); Ketones,Urine Negative (Negative); Leukocyte Esterase,Urine Negative (Negative); Nitrite,Urine Negative (Negative); Protein,Urine Negative (Negative); RBC,Urine >182 /hpf (0-5); Urobilinogen,Urine <2.0 mg/dL (<2.0)
[2024-01-03 23:35] LABS: INR 3.2 (<1.2)
[2024-01-03 23:36] LABS: Prothrombin Time 31.8 sec (10.0-12.5)
[2024-01-04 00:41] VITALS: BP 121/71; PULSE 78; RESP 14
== END 2024-01-04 00:21 | disposition home or self-care (01) ==
LOC: EC 19:21
DX: K57.12 Diverticulitis of small intestine without perforation or abscess without bleeding (principal); F17.200 Nicotine dependence, unspecified, uncomplicated; Z91.018 Allergy to other foods; Z88.5 Allergy status to narcotic agent; Z88.0 Allergy status to penicillin; Z91.09 Other allergy status, other than to drugs and biological substances; Z88.8 Allergy status to other drugs, medicaments and biological substances; Z88.6 Allergy status to analgesic agent; Z88.1 Allergy status to other antibiotic agents; Z88.2 Allergy status to sulfonamides
CPT/HCPCS: 36415; 74176; 80053; 81001; 85025; 85610; 96360; 96361; 99284

== ENCOUNTER 2024-01-22 15:08 | Emergency (ER) | payer MEDICARE, OTHER ==
[2024-01-22 17:10] LABS: Basophils # (A) 0.1 k/uL (0-0.2); Basophils % (A) 1 %; Eosinophils # (A) 0.2 k/uL (0-0.7); Eosinophils % (A) 2 %; HCT 44.9 % (34.0-46.0); HGB 14.1 gm/dL (11.4-16.0); Lymphocytes # (A) 4.2 k/uL (1.0-4.8); Lymphocytes % (A) 38 %; MCH 29.5 pg (25.0-35.0); MCHC 31.4 g/dL (31.0-37.0); MCV 93.9 fL (80.0-100.0); Mean Platelet Volume 9.1; Monocytes # (A) 0.6 k/uL (0-1.0); Monocytes % (A) 6 %; Neutrophils # (A) 5.7 k/uL (1.3-7.7); Neutrophils % (A) 52 %; Platelet Count 223 k/uL (150-450); RBC 4.78 m/uL (3.80-5.40); RDW 14.3 % (11.5-15.5); WBC 11.1 k/uL (3.8-10.6)
[2024-01-22 17:25] LABS: ALT 15 U/L (4-34); AST 18 U/L (14-36); African American GFR (CKD) 80 (>60 ml/min/1.73 sqM); Albumin 3.7 g/dL (3.5-5.0); Alkaline Phosphatase 121 U/L (38-126); Anion Gap 4 mmol/L; Blood Urea Nitrogen 13 mg/dL (7-17); Calcium 9.2 mg/dL (8.4-10.2); Carbon Dioxide 24 mmol/L (22-30); Chloride 110 mmol/L (98-107); Glucose 87 mg/dL (74-99); Lipase 153 U/L (23-300); Non-African American GFR(CKD) 69 (>60 ml/min/1.73 sqM); Potassium 3.8 mmol/L (3.5-5.1); Sodium 138 mmol/L (137-145); Total Bilirubin 0.4 mg/dL (0.2-1.3); Total Protein 6.3 g/dL (6.3-8.2)
[2024-01-22 17:27] LABS: Appearance,Urine Clear (Clear); Bilirubin,Urine Negative (Negative); Blood,Urine Negative (Negative); Color,Urine Yellow; Glucose,Urine (UA) Negative (Negative); Ketones,Urine Negative (Negative); Leukocyte Esterase,Urine Negative (Negative); Nitrite,Urine Negative (Negative); PH, Urine 5.5 (5.0-8.0); Protein,Urine Negative (Negative); Urobilinogen,Urine <2.0 mg/dL (<2.0)
[2024-01-22] MEDS: ONDANSETRON 4 MG/2 ML VIAL IVP STA (17:42)
[2024-01-22] MEDS: KETOROLAC 15 MG/ML 1 ML VIAL IVP STA (17:43)
--- NOTE | 2024-01-22 17:44 | XR ---
EXAMINATION TYPE: XR KUB DATE OF EXAM: 01/22/2024 5:32 PM CLINICAL INDICATION:Female, 48 years old with history of abdominal pain; COMPARISON: 04/26/2022. TECHNIQUE: One radiographic view of the abdomen was obtained. FINDINGS: The bowel gas pattern is nonspecific without dilated loops of small or large bowel. There i s no evidence for organomegaly or pneumoperitoneum. The osseous structures are intact. Overlapping bowel limits evaluation of the kidneys for calculi. No abnormal calcifications are present. Fecal mat erial and gas are demonstrated throughout the colon and rectum. Right upper quadrant cholecystectomy clips. IMPRESSION: 1. Poor visualization of the kidneys due to overlapping bowel. 2. Nonspecific bowel gas pattern without radiographic evidence for acute process.
--- NOTE | 2024-01-22 18:38 | US ---
EXAMINATION TYPE: US renals and bladder DATE OF EXAM: 01/22/2024 COMPARISON: CT: 01/03/24 CLINICAL INDICATION: Female, 48 years old with history of flank pain, hx stones; left flank pain x 1 day. Hx of renal stones EXAM MEASUREMENTS: Right Kidney: 9.4 x 5.6 x 4.9 cm Left Kidney: 9.4 x 4.2 x 4.7 cm Right Kidney: No hydronephrosis or masses seen Left Kidney: No hydronephrosis or masses seen Bladder: wnl Bilateral Jets seen: Yes There is no evidence for hydronephrosis at this point in time. No nephrolithiasis is seen. No aminata s are identified. The urinary bladder is anechoic. Bilateral ureteral jets are seen. IMPRESSION: No evidence for obstructive uropathy.
--- NOTE | 2024-01-22 19:32 | ED ---
Abdominal Pain HPI - General Chief Complaint: Abdominal Pain Stated Complaint: Abd pain Time Seen by Provider: 01/22/24 15:25 Source: patient Mode of arrival: ambulatory Limitations: no limitations - History of Present Illness Initial Comments: 48-year-old female presents emergency department reporting left flank pain. States she has a history of kidney stones and the pain feels similar. Denies any hematuria, dysuria or difficulty voiding. Denies black or bloody stools. No vaginal bleeding or discharge. Patient was seen and evaluated on the and had a CT performed which did not demonstrate any nephrolithiasis. She denies any injuries. No rashes. She denies any fevers. No other alleviating, precipitating modifying factors - Related Data Home Medications Medication Instructions Recorded Confirmed Furosemide [Lasix] 20 mg PO BID 03/23/22 10/22/23 Levothyroxine Sodium [Synthroid] 50 mcg PO DAILY 03/23/22 10/22/23 Atorvastatin [Lipitor] 40 mg PO DAILY 07/06/22 10/22/23 Ezetimibe [Zetia] 10 mg PO DAILY 07/06/22 10/22/23 Magnesium Oxide [Mag-Ox] 400 mg PO HS 12/20/22 10/22/23 Cyclobenzaprine [Flexeril] 5 mg PO BID PRN 05/02/23 10/22/23 Divalproex ER [Depakote ER] 250 mg PO HS 05/02/23 10/22/23 Omeprazole 40 mg PO DAILY 05/02/23 10/22/23 DULoxetine HCL [Cymbalta] 30 mg PO DAILY@1900 08/13/23 10/22/23 Diclofenac Sodium Gel [Voltaren 1% 4 gm TOPICAL QID PRN 08/13/23 10/22/23 Gel] HYDROcodone/APAP 5-325MG [[place] 1 tab PO TID PRN 08/13/23 10/22/23 5-325] Warfarin [Coumadin] 5 mg PO DAILY@1800 08/13/23 10/22/23 Metoprolol Tartrate [Lopressor] 37.5 mg PO BID 10/22/23 10/22/23 Promethazine HCl 12.5 mg PO TID PRN 10/22/23 10/22/23 Tirzepatide [Mounjaro] 2.5 mg SQ TH 10/22/23 10/22/23 Topiramate [Topamax] 100 mg PO HS 10/22/23 10/22/23 Previous Rx's Medication Instructions Recorded lisinopriL [Zestril] 2.5 mg PO DAILY@1200 #30 tab 12/29/22 Ketorolac [Toradol] 10 mg PO Q8HR #15 tab 01/22/24 Lidocaine 5% Patch [Lidoderm] 1 each TP DAILY #25 patch 01/22/24 Allergies Allergy/AdvReac Type Severity Reaction Status Date / Time cranberry Allergy Rash/Hives Verified 01/22/24 15:29 hydromorphone [From Dilaudid] Allergy Anaphylaxis Verified 01/22/24 15:29 morphine Allergy Anaphylaxis Verified 01/22/24 15:29 Penicillins Allergy Severe Verified 01/22/24 15:29 Rash/Hives Sulfa (Sulfonamide Allergy Severe Verified 01/22/24 15:29 Antibiotics) Rash/Hives zafirlukast [From Accolate] Allergy Severe Verified 01/22/24 15:29 Rash/Hives montelukast [From Singulair] AdvReac Rapid Verified 01/22/24 15:29 Heart Rate ranitidine [From Zantac] AdvReac Overstimula Verified 01/22/24 15:29 tion paper tape/bandaids AdvReac chemical Uncoded 10/22/23 08:09 owusu(cloth bandaids ok) some adhesives (tegaderm AdvReac Chemical Uncoded 10/22/23 08:09 okay) [place] Review of Systems ROS Statement: Those systems with pertinent positive or pertinent negative responses have been documented in the HPI. ROS Other: All systems not noted in ROS Statement are negative. Past Medical History Past Medical History: Hyperlipidemia, Hypertension, Thyroid Disorder Additional Past Medical History / Comment(s): SVT, kidney stones, MRI done for brain/back, TIA's, hx of brain bleeds History of Any Multi-Drug Resistant Organisms: None Reported Past Surgical History: Cholecystectomy, Hysterectomy Additional Past Surgical History / Comment(s): kidney stone removal, open heart- replaced aortic valve with mechanical valve December, Past Anesthesia/Blood Transfusion Reactions: Previous Problems w/ Anesthesia Additional Past Anesthesia/Blood Transfusion Reaction / Comment(s): WILL SIT UP ON TAKE DURING SURGERY. TENDENCY TO BE VIOLENT COMING OUT OF ANESTHESIA Type of Cardiac Device: Loop Device Placement Date:: unk Past Psychological History: Depression Smoking Status: Current some day smoker Past Alcohol Use History: None Reported Past Drug Use History: None Reported - Past Family History Mother Family Medical History: No Reported History Father Family Medical History: COPD General Exam Limitations: no limitations General appearance: alert, in no apparent distress Head exam: Present: atraumatic, normocephalic, normal inspection Eye exam: Present: normal appearance, PERRL, EOMI. Absent: scleral icterus, conjunctival injection, periorbital swelling ENT exam: Present: normal exam, mucous membranes moist Neck exam: Present: normal inspection. Absent: tenderness, meningismus, lymphadenopathy Respiratory exam: Present: normal lung sounds bilaterally. Absent: respiratory distress, wheezes, rales, rhonchi, stridor Cardiovascular Exam: Present: regular rate, normal rhythm, normal heart sounds. Absent: systolic murmur, diastolic murmur, rubs, gallop, clicks GI/Abdominal exam: Present: soft, normal bowel sounds. Absent: distended, tenderness, guarding, rebound, rigid Extremities exam: Present: normal inspection, full ROM, normal capillary refill. Absent: tenderness, pedal edema, joint swelling, calf tenderness Back exam: Present: normal inspection Neurological exam: Present: alert, oriented X3, CN II-XII intact Psychiatric exam: Present: normal affect, normal mood Skin exam: Present: warm, dry, intact, normal color. Absent: rash Course Vital Signs 01/22/24 01/22/24 15:24 19:59 Temperature 97.8 F 97.7 F Pulse Rate 77 68 Respiratory 16 18 Rate Blood Pressure 100/70 103/65 O2 Sat by Pulse 97 96 Oximetry Medical Decision Making - Medical Decision Making Was pt. sent in by a medical professional or institution (, PA, CUBE MACHINE TENDER, urgent care, hospital, or fdc...) When possible be specific @ -No Did you speak to anyone other than the patient for history (EMS, parent, family, police, friend...)? What history was obtained from this source @ -No Did you review nursing and triage notes (agree or disagree)? Why? @ -I reviewed and agree with nursing and triage notes Were old charts reviewed (outside hosp., previous admission, EMS record, old EKG, old radiological studies, urgent care reports/EKG's, fdc records)? Report findings @ -I reviewed patient's previous abdominal CT from January 02 Differential Diagnosis (chest pain, altered mental status, abdominal pain women, abdominal pain men, vaginal bleeding, weakness, fever, dyspnea, syncope, headache, dizziness, GI bleed, back pain, seizure, CVA, palpatations, mental health, musculoskeletal)? @ -Differential Abdominal Pain Women: Appendicitis, Cholecystitis, diverticulosis, ischemic bowel, pancreatitis, hepatitis, UTI, gastroenteritis, AAA, incarcerated hernia, bowel obstruction, constipation, inflammatory bowel, hepatitis, peptic ulcer disease, splenic infarction, perforated viscus, vulvitis, ovarian torsion, PID, kidney stone, placenta abruption, this is not meant to be an all-inclusive list EKG interpreted by me (3pts min.). @ -Not done X-rays interpreted by me (1pt min.). @ -Yes and does not demonstrate obstruction CT interpreted by me (1pt min.). @ -Not done U/S interpreted by me (1pt. min.). @ -None done What testing was considered but not performed or refused? (CT, X-rays, U/S, labs)? Why? @ -CT was considered however patient recently had CT completed What meds were considered but not given or refused? Why? @ -None Did you discuss the management of the patient with other professionals (pro fessionals i.e. , PA, CUBE MACHINE TENDER, lab, RT, psych nurse, social service coordinator, primary care provider, teacher, safety and security officer, family caseworker)? Give summary @ -No Was smoking cessation discussed for >3mins.? @ -No Was critical care preformed (if so, how long)? @ -No Were there social determinants of health that impacted care today? How? (Homelessness, low income, unemployed, alcoholism, drug addiction, transportation, low edu. Level, literacy, decrease access to med. care, halfway, rehab)? @ -No Was there de-escalation of care discussed even if they declined (Discuss DNR or withdrawal of care, Hospice)? DNR status @ -No What co-morbidities impacted this encounter? (DM, HTN, Smoking, COPD, CAD, Cancer, CVA, ARF, Chemo, Hep., AIDS, mental health diagnosis, sleep apnea, morbid obesity)? @ -Nephrolithiasis Was patient admitted / discharged? Hospital course, mention meds given and route, prescriptions, significant lab abnormalities, going to OR and other pertinent info. @ -Upon arrival patient was seen and evaluated in hallway 23. Thorough history and physical exam was performed. IV access established. Laboratory studies are conducted. Patient was given Toradol. Lidocaine patch is placed to the site. X-ray and renal ultrasound were performed as patient recently had a CT. Renal ultrasound and x-ray are negative. Discussed results with patient. Patient did have improvement in her symptoms and therefore she will be prescribed Toradol in lidocaine patches. She is to utilize them as needed. Follow-up with her doctor and return for any new or worsening symptoms. Patient agreeable plan she was discharged in stable condition Undiagnosed new problem with uncertain prognosis? @ -Yes Drug Therapy requiring intensive monitoring for toxicity (Heparin, Nitro, Insulin, Cardizem)? @ -No Were any procedures done? @ -No Diagnosis/symptom? @ -Acute left flank pain, evaluation for kidney stones Acute, or Chronic, or Acute on Chronic? @ -Acute Uncomplicated (without systemic symptoms) or Complicated (systemic symptoms)? @ -Complicated Side effects of treatment? @ -No Exacerbation, Progression, or Severe Exacerbation? @ -No Poses a threat to life or bodily function? How? (Chest pain, [place], [place], pneumonia, PE, COPD, DKA, ARF, appy, cholecystitis, CVA, Diverticulitis, Homicidal, Suicidal, threat to staff... and all critical care pts) @ -No - Lab Data Result diagrams: 01/22/24 16:48 01/22/24 16:48 Lab Results 01/22/24 01/22/24 01/22/24 Range/Units 16:48 16:48 16:48 WBC 11.1 H (3.8-10.6) k/uL RBC 4.78 (3.80-5.40) m/uL Hgb 14.1 (11.4-16.0) gm/dL Hct 44.9 (34.0-46.0) % MCV 93.9 (80.0-100.0) fL MCH 29.5 (25.0-35.0) pg MCHC 31.4 (31.0-37.0) g/dL RDW 14.3 (11.5-15.5) % Plt Count 223 (150-450) k/uL MPV 9.1 Neutrophils % 52 % Lymphocytes % 38 % Monocytes % 6 % Eosinophils % 2 % Basophils % 1 % Neutrophils # 5.7 (1.3-7.7) k/uL Lymphocytes # 4.2 (1.0-4.8) k/uL Monocytes # 0.6 (0-1.0) k/uL Eosinophils # 0.2 (0-0.7) k/uL Basophils # 0.1 (0-0.2) k/uL Sodium 138 (137-145) mmol/L Potassium 3.8 (3.5-5.1) mmol/L Chloride 110 H (98-107) mmol/L Carbon Dioxide 24 (22-30) mmol/L Anion Gap 4 mmol/L BUN 13 (7-17) mg/dL Creatinine 0.96 (0.52-1.04) mg/dL Est GFR (CKD-EPI)AfAm 80 (>60 ml/min/1.73 sqM) Est GFR (CKD-EPI)NonAf 69 (>60 ml/min/1.73 sqM) Glucose 87 (74-99) mg/dL Plasma Lactic Acid [place] (0.7-2.0) mmol/L Calcium 9.2 (8.4-10.2) mg/dL Total Bilirubin 0.4 (0.2-1.3) mg/dL AST 18 (14-36) U/L ALT 15 (4-34) U/L Alkaline Phosphatase 121 (38-126) U/L Total Protein 6.3 (6.3-8.2) g/dL Albumin 3.7 (3.5-5.0) g/dL Lipase 153 (23-300) U/L Urine Color Yellow Urine Appearance Clear (Clear) Urine pH 5.5 (5.0-8.0) Ur Specific [place] 1.020 (1.001-1.035) Urine Protein Negative (Negative) Urine Glucose (UA) Negative (Negative) Urine Ketones Negative (Negative) Urine Blood Negative (Negative) Urine Nitrite Negative (Negative) Urine Bilirubin Negative (Negative) Urine Urobilinogen <2.0 (<2.0) mg/dL Ur Leukocyte Esterase Negative (Negative) 01/22/24 Range/Units 18:13 WBC (3.8-10.6) k/uL RBC (3.80-5.40) m/uL Hgb (11.4-16.0) gm/dL Hct (34.0-46.0) % MCV (80.0-100.0) fL MCH (25.0-35.0) pg MCHC (31.0-37.0) g/dL RDW (11.5-15.5) % Plt Count (150-450) k/uL MPV Neutrophils % % Lymphocytes % % Monocytes % % Eosinophils % % Basophils % % Neutrophils # (1.3-7.7) k/uL Lymphocytes # (1.0-4.8) k/uL Monocytes # (0-1.0) k/uL Eosinophils # (0-0.7) k/uL Basophils # (0-0.2) k/uL Sodium (137-145) mmol/L Potassium (3.5-5.1) mmol/L Chloride (98-107) mmol/L Carbon Dioxide (22-30) mmol/L Anion Gap mmol/L BUN (7-17) mg/dL Creatinine (0.52-1.04) mg/dL Est GFR (CKD-EPI)AfAm (>60 ml/min/1.73 sqM) Est GFR (CKD-EPI)NonAf (>60 ml/min/1.73 sqM) Glucose (74-99) mg/dL Plasma Lactic Acid [place] 0.6 L (0.7-2.0) mmol/L Calcium (8.4-10.2) mg/dL Total Bilirubin (0.2-1.3) mg/dL AST (14-36) U/L ALT (4-34) U/L Alkaline Phosphatase (38-126) U/L Total Protein (6.3-8.2) g/dL Albumin (3.5-5.0) g/dL Lipase (23-300) U/L Urine Color Urine Appearance (Clear) Urine pH (5.0-8.0) Ur Specific [place] (1.001-1.035) Urine Protein (Negative) Urine Glucose (UA) (Negative) Urine Ketones (Negative) Urine Blood (Negative) Urine Nitrite (Negative) Urine Bilirubin (Negative) Urine Urobilinogen (<2.0) mg/dL Ur Leukocyte Esterase (Negative) Disposition Clinical Impression: Flank pain Disposition: HOME SELF-CARE Condition: Stable Instructions (If sedation given, give patient instructions): Flank Pain (ED) Additional Instructions: Please alternate taking the [place] and the Toradol. Follow-up with your primary care doctor. If the Lidoderm patches are not covered by your insurance, ask them where the [id number] alternatives are Prescriptions: Lidocaine 5% Patch [Lidoderm] 1 each TP DAILY #25 patch Ketorolac [Toradol] 10 mg PO Q8HR #15 tab Is patient prescribed a controlled substance at d/c from ED?: No Referrals: Giovanni Darby MD [Primary Care Provider] - 1-2 days Time of Disposition: 19:31
[2024-01-22] MEDS: LIDOCAINE 4% PATCH TOPICAL ONE (19:54)
[2024-01-22 20:36] VITALS: BP 103/65; PULSE 68; RESP 18; TEMP 97.7
== END 2024-01-22 20:01 | disposition home or self-care (01) ==
LOC: EC 15:08
DX: R10.9 Unspecified abdominal pain (principal); F17.200 Nicotine dependence, unspecified, uncomplicated; Z88.0 Allergy status to penicillin; Z88.2 Allergy status to sulfonamides; Z91.09 Other allergy status, other than to drugs and biological substances; Z88.5 Allergy status to narcotic agent; Z88.8 Allergy status to other drugs, medicaments and biological substances; Z91.018 Allergy to other foods; Z88.1 Allergy status to other antibiotic agents
CPT/HCPCS: 36415; 80053; 83605; 83690; 85025; 81003; 74018; 76770; 99285; 96374; 96375; J2405; J1885

== ENCOUNTER 2024-05-04 17:13 | Emergency (ER) | payer MEDICARE, OTHER ==
[2024-05-04 17:26] VITALS: TEMP 97.7
--- NOTE | 2024-05-04 18:43 | ED ---
General Adult HPI - General Chief complaint: Nausea/Vomiting/Diarrhea Stated complaint: vomiting Time Seen by Provider: 05/04/24 18:36 Source: patient Mode of arrival: ambulatory Limitations: no limitations - History of Present Illness Initial comments: Patient presents to the ED with her for evaluation. Patient states that she has had nausea and "gagging" for the past week or so. Patient states that she has been vomiting today. Patient also states that she has had intermittent loose and watery diarrhea over the past week or so. Patient denies having any pain complaint. Patient denies known sick contact, fever or chills, headache, focal neuro deficit, chest pain or pressure, dyspnea, cough or cold symptoms, palpitations, dizziness, abdominal pain, back or flank pain, constipation, bloody or melanotic stool, hematemesis, dysuria/hematuria/urinary frequency/urinary symptoms, leg or calf swelling or pain, or any other symptoms or complaints. - Related Data Home Medications Medication Instructions Recorded Confirmed Furosemide [Lasix] 20 mg PO BID 03/23/22 10/22/23 Levothyroxine Sodium [Synthroid] 50 mcg PO DAILY 03/23/22 10/22/23 Atorvastatin [Lipitor] 40 mg PO DAILY 07/06/22 10/22/23 Ezetimibe [Zetia] 10 mg PO DAILY 07/06/22 10/22/23 Magnesium Oxide [Mag-Ox] 400 mg PO HS 12/20/22 10/22/23 Cyclobenzaprine [Flexeril] 5 mg PO BID PRN 05/02/23 10/22/23 Divalproex ER [Depakote ER] 250 mg PO HS 05/02/23 10/22/23 Omeprazole 40 mg PO DAILY 05/02/23 10/22/23 DULoxetine HCL [Cymbalta] 30 mg PO DAILY@1900 08/13/23 10/22/23 Diclofenac Sodium Gel [Voltaren 1% 4 gm TOPICAL QID PRN 08/13/23 10/22/23 Gel] HYDROcodone/APAP 5-325MG [[place] 1 tab PO TID PRN 08/13/23 10/22/23 5-325] Warfarin [Coumadin] 5 mg PO DAILY@1800 08/13/23 10/22/23 Metoprolol Tartrate [Lopressor] 37.5 mg PO BID 10/22/23 10/22/23 Promethazine HCl 12.5 mg PO TID PRN 10/22/23 10/22/23 Tirzepatide [Mounjaro] 2.5 mg SQ TH 10/22/23 10/22/23 Topiramate [Topamax] 100 mg PO HS 10/22/23 10/22/23 Previous Rx's Medication Instructions Recorded lisinopriL [Zestril] 2.5 mg PO DAILY@1200 #30 tab 12/29/22 Ketorolac [Toradol] 10 mg PO Q8HR #15 tab 01/22/24 Lidocaine 5% Patch [Lidoderm] 1 each TP DAILY #25 patch 01/22/24 Potassium Chloride ER [K-Dur 20] 20 meq PO DAILY #5 tab 05/04/24 Allergies Allergy/AdvReac Type Severity Reaction Status Date / Time cranberry Allergy Rash/Hives Verified 01/22/24 15:29 hydromorphone [From Dilaudid] Allergy Anaphylaxis Verified 01/22/24 15:29 morphine Allergy Anaphylaxis Verified 01/22/24 15:29 Penicillins Allergy Severe Verified 01/22/24 15:29 Rash/Hives Sulfa (Sulfonamide Allergy Severe Verified 01/22/24 15:29 Antibiotics) Rash/Hives zafirlukast [From Accolate] Allergy Severe Verified 01/22/24 15:29 Rash/Hives montelukast [From Singulair] AdvReac Rapid Verified 01/22/24 15:29 Heart Rate ranitidine [From Zantac] AdvReac Overstimula Verified 01/22/24 15:29 tion paper tape/bandaids AdvReac chemical Uncoded 10/22/23 08:09 owusu(cloth bandaids ok) some adhesives (tegaderm AdvReac Chemical Uncoded 10/22/23 08:09 okay) [place] Review of Systems ROS Statement: Those systems with pertinent positive or pertinent negative responses have been documented in the HPI. ROS Other: All systems not noted in ROS Statement are negative. Past Medical History Past Medical History: Hyperlipidemia, Hypertension, Thyroid Disorder Additional Past Medical History / Comment(s): SVT, kidney stones, MRI done for brain/back, TIA's, hx of brain bleeds History of Any Multi-Drug Resistant Organisms: None Reported Past Surgical History: Cholecystectomy, Hysterectomy Additional Past Surgical History / Comment(s): kidney stone removal, open heart- replaced aortic valve with mechanical valve December, Past Anesthesia/Blood Transfusion Reactions: Previous Problems w/ Anesthesia Additional Past Anesthesia/Blood Transfusion Reaction / Comment(s): WILL SIT UP ON TAKE DURING SURGERY. TENDENCY TO BE VIOLENT COMING OUT OF ANESTHESIA Type of Cardiac Device: Loop Device Placement Date:: unk Past Psychological History: Depression Smoking Status: Current some day smoker Past Alcohol Use History: None Reported Past Drug Use History: None Reported - Past Family History Mother Family Medical History: No Reported History Father Family Medical History: COPD General Exam Limitations: no limitations General appearance: alert, in no apparent distress Eye exam: Present: normal appearance ENT exam: Present: mucous membranes dry Neck exam: Present: other (Trachea is in midline) Respiratory exam: Present: normal lung sounds bilaterally. Absent: respiratory distress, wheezes, rales, rhonchi, stridor Cardiovascular Exam: Present: regular rate, normal rhythm, normal heart sounds, other (Normal radial pulses bilaterally) GI/Abdominal exam: Present: soft. Absent: distended, tenderness, guarding Extremities exam: Absent: tenderness, pedal edema, calf tenderness Neurological exam: Present: alert, oriented X3 Psychiatric exam: Present: normal affect Skin exam: Present: warm, dry, normal color Course Vital Signs 05/04/24 05/04/24 05/04/24 17:21 17:47 18:52 Temperature 97.7 F Pulse Rate 80 75 67 Respiratory 18 18 16 Rate Blood Pressure 81/57 95/60 114/73 O2 Sat by Pulse 98 98 100 Oximetry 05/04/24 05/04/24 05/04/24 19:00 20:15 21:30 Temperature 97.7 F Pulse Rate 68 72 70 Respiratory 18 18 18 Rate Blood Pressure 102/60 101/65 101/64 O2 Sat by Pulse 100 98 97 Oximetry - Reevaluation(s) Reevaluation #1: 05/04/24 22:04 Patient states that her symptoms have improved significantly with ED treatment. Patient states that she no longer feels nauseated. Patient was able to take and keep down oral potassium pills in the ED. Patient has also received IV magnes ium repletion. Patient and are aware of the patient's test results, and patient feels comfortable being discharged home at this time. She was counseled about nausea/vomiting/diarrhea and hypokalemia/hypomagnesemia. She was instructed to follow-up closely with her primary care provider. A prescription for a few pills of oral potassium were sent to the patient's pharmacy. Will discharge patient home at this time. Patient feels comfortable with this plan. EKG Findings - EKG Comments: EKG Findings:: ED physician interpretation (interpreted by me): Normal sinus rhythm, no ectopy, ventricular rate of 61 bpm, right bundle branch block, normal IA interval, QRS duration of 122 ms, normal QT interval, no ST elevation, no significant change when compared to 10/22/2023 EKG Medical Decision Making - Medical Decision Making Was pt. sent in by a medical professional or institution (, PA, DRY ROOM OPERATOR, urgent care, hospital, or residential...) When possible be specific @ -No Did you speak to anyone other than the patient for history (EMS, parent, family, police, friend...)? What history was obtained from this source @ -No Did you review nursing and triage notes (agree or disagree)? Why? @ -I reviewed and agree with nursing and triage notes Were old charts reviewed (outside hosp., previous admission, EMS record, old EKG, old radiological studies, urgent care reports/EKG's, residential records)? Report findings @ -No old charts were reviewed Differential Diagnosis (chest pain, altered mental status, abdominal pain women, abdominal pain men, vaginal bleeding, weakness, fever, dyspnea, syncope, headache, dizziness, GI bleed, back pain, seizure, CVA, palpatations, mental health, musculoskeletal)? @ -Nausea, vomiting, diarrhea, gastroenteritis, food toxicity, GERD, enteritis, colitis, diverticulitis, viral illness, electrolyte abnormality, renal disease, dehydration, medication reaction EKG interpreted by me (3pts min.). @ -As above X-rays interpreted by me (1pt min.). @ -None done CT interpreted by me (1pt min.). @ -Noncontrast CT abdomen/pelvis was reviewed myself and shows no definite acute abnormality. I agree with the radiologist's interpretation as above. U/S interpreted by me (1pt. min.). @ -None done What testing was considered but not performed or refused? (CT, X-rays, U/S, labs)? Why? @ -None What meds were considered but not given or refused? Why? @ -None Did you discuss the management of the patient with other professionals (professionals i.e. , PA, DRY ROOM OPERATOR, lab, RT, psych nurse, perinatal social worker, laborer stores, teacher, humane officer, manager of case management)? Give summary @ -No Was smoking cessation discussed for >3mins.? @ -No Was critical care preformed (if so, how long)? @ -No Were there social determinants of health that impacted care today? How? (Homelessness, low income, unemployed, alcoholism, drug addiction, transportation, low edu. Level, literacy, decrease access to med. care, usp, rehab)? @ -No Was there de-escalation of care discussed even if they declined (Discuss DNR or withdrawal of care, Hospice)? DNR status @ -No What co-morbidities impacted this encounter? (DM, HTN, Smoking, COPD, CAD, Cancer, CVA, ARF, Chemo, Hep., AIDS, mental health diagnosis, sleep apnea, morbid obesity)? @ -None Was patient admitted / discharged? Hospital course, mention meds given and route, prescriptions, significant lab abnormalities, going to OR and other pertinent info. @ -Patient's symptoms have improved with ED treatment. Patient's electrolytes have been repleted in the ED. Patient's noncontrast CT abdomen/pelvis is fairly unremarkable. I do not suspect an emergent medical condition at this time. Will discharge patient home at this time. Patient feels comfortable with this plan. Undiagnosed new problem with uncertain prognosis? @ -No Drug Therapy requiring intensive monitoring for toxicity (Heparin, Nitro, Insulin, Cardizem)? @ -No Were any procedures done? @ -No Diagnosis/symptom? @ -Nausea/vomiting/diarrhea, hypomagnesemia, hypokalemia Acute, or Chronic, or Acute on Chronic? @ -Default Uncomplicated (without systemic symptoms) or Complicated (systemic symptoms)? @ -Default Side effects of treatment? @ -No Exacerbation, Progression, or Severe Exacerbation? @ -No Poses a threat to life or bodily function? How? (Chest pain, [place], DC, pneumonia, PE, COPD, DKA, ARF, appy, cholecystitis, CVA, Diverticulitis, Homicidal, Suicidal, threat to staff... and all critical care pts) @ -No - Lab Data Result diagrams: 05/04/24 18:54 05/04/24 18:54 Lab Results 05/04/24 05/04/24 05/04/24 Range/Units 18:54 18:54 18:54 WBC 12.5 H (3.8-10.6) k/uL RBC 5.06 (3.80-5.40) m/uL Hgb 15.8 (11.4-16.0) gm/dL Hct 48.0 H (34.0-46.0) % MCV 94.8 (80.0-100.0) fL MCH 31.3 (25.0-35.0) pg MCHC 33.0 (31.0-37.0) g/dL RDW 14.9 (11.5-15.5) % Plt Count 280 (150-450) k/uL MPV 9.0 Neutrophils % 54 % Lymphocytes % 35 % Monocytes % 7 % Eosinophils % 2 % Basophils % 1 % Neutrophils # 6.8 (1.3-7.7) k/uL Lymphocytes # 4.3 (1.0-4.8) k/uL Monocytes # 0.9 (0-1.0) k/uL Eosinophils # 0.2 (0-0.7) k/uL Basophils # 0.1 (0-0.2) k/uL PT 22.0 H (10.0-12.5) sec INR 2.2 H (<1.2) APTT 41.2 H (22.0-30.0) sec Sodium 135 L (137-145) mmol/L Potassium 2.8 L (3.5-5.1) mmol/L Chloride 101 (98-107) mmol/L Carbon Dioxide 23 (22-30) mmol/L Anion Gap 11 mmol/L BUN 17 (7-17) mg/dL Creatinine 1.28 H (0.52-1.04) mg/dL Est GFR (CKD-EPI)AfAm 56 (>60 ml/min/1.73 sqM) Est GFR (CKD-EPI)NonAf 49 (>60 ml/min/1.73 sqM) Glucose 89 (74-99) mg/dL Plasma Lactic Acid Merrick (0.7-2.0) mmol/L Calcium 9.9 (8.4-10.2) mg/dL Magnesium (1.6-2.3) mg/dL Total Bilirubin 1.1 (0.2-1.3) mg/dL AST 26 (14-36) U/L ALT 15 (4-34) U/L Alkaline Phosphatase 131 H (38-126) U/L Troponin I (0.000-0.034) ng/mL Total Protein 7.1 (6.3-8.2) g/dL Albumin 4.5 (3.5-5.0) g/dL Lipase 113 (23-300) U/L 05/04/24 05/04/24 05/04/24 Range/Units 18:54 18:54 19:42 WBC (3.8-10.6) k/uL RBC (3.80-5.40) m/uL Hgb (11.4-16.0) gm/dL Hct (34.0-46.0) % MCV (80.0-100.0) fL MCH (25.0-35.0) pg MCHC (31.0-37.0) g/dL RDW (11.5-15.5) % Plt Count (150-450) k/uL MPV Neutrophils % % Lymphocytes % % Monocytes % % Eosinophils % % Basophils % % Neutrophils # (1.3-7.7) k/uL Lymphocytes # (1.0-4.8) k/uL Monocytes # (0-1.0) k/uL Eosinophils # (0-0.7) k/uL Basophils # (0-0.2) k/uL PT (10.0-12.5) sec INR (<1.2) APTT (22.0-30.0) sec Sodium (137-145) mmol/L Potassium (3.5-5.1) mmol/L Chloride (98-107) mmol/L Carbon Dioxide (22-30) mmol/L Anion Gap mmol/L BUN (7-17) mg/dL Creatinine (0.52-1.04) mg/dL Est GFR (CKD-EPI)AfAm (>60 ml/min/1.73 sqM) Est GFR (CKD-EPI)NonAf (>60 ml/min/1.73 sqM) Glucose (74-99) mg/dL Plasma Lactic Acid [place] 1.1 (0.7-2.0) mmol/L Calcium (8.4-10.2) mg/dL Magnesium 1.5 L (1.6-2.3) mg/dL Total Bilirubin (0.2-1.3) mg/dL AST (14-36) U/L ALT (4-34) U/L Alkaline Phosphatase (38-126) U/L Troponin I 0.016 (0.000-0.034) ng/mL Total Protein (6.3-8.2) g/dL Albumin (3.5-5.0) g/dL Lipase (23-300) U/L - Radiology Data Noncontrast CT abdomen/pelvis: 1. No evidence for acute abdominal process. No evidence for bowel obstruction. 2. Colonic diverticulosis. Disposition Clinical Impression: Nausea & vomiting, Diarrhea, Hypokalemia, Hypomagnesemia Disposition: HOME SELF-CARE Condition: Stable Instructions (If sedation given, give patient instructions): Hypokalemia (ED), Acute Nausea and Vomiting (ED), Acute Diarrhea (ED), Hypomagnesemia (ED) Additional Instructions: Return to the ER immediately should you develop persistent vomiting, any significant pain, a fever, feeling dizzy or faint, shortness of breath, or new or worsening symptoms. Follow-up closely with your primary care provider. Prescriptions: Potassium Chloride ER [K-Dur 20] 20 meq PO DAILY #5 tab Is patient prescribed a controlled substance at d/c from ED?: No Referrals: Giovanni Darby MD [Primary Care Provider] - 1-2 days Time of Disposition: 22:08
[2024-05-04] MEDS: SODIUM CHLORIDE 0.9% 1,000 ML IV STA (18:50)
[2024-05-04] MEDS: ONDANSETRON 4 MG/2 ML VIAL IVP STA (18:51)
[2024-05-04 19:10] LABS: Basophils # (A) 0.1 k/uL (0-0.2); Basophils % (A) 1 %; Eosinophils # (A) 0.2 k/uL (0-0.7); Eosinophils % (A) 2 %; HGB 15.8 gm/dL (11.4-16.0); Lymphocytes # (A) 4.3 k/uL (1.0-4.8); Lymphocytes % (A) 35 %; MCH 31.3 pg (25.0-35.0); MCV 94.8 fL (80.0-100.0); Monocytes # (A) 0.9 k/uL (0-1.0); Monocytes % (A) 7 %; Neutrophils # (A) 6.8 k/uL (1.3-7.7); Neutrophils % (A) 54 %; Platelet Count 280 k/uL (150-450); RBC 5.06 m/uL (3.80-5.40); RDW 14.9 % (11.5-15.5); WBC 12.5 k/uL (3.8-10.6)
[2024-05-04 19:16] LABS: ALT 15 U/L (4-34); AST 26 U/L (14-36); African American GFR (CKD) 56 (>60 ml/min/1.73 sqM); Albumin 4.5 g/dL (3.5-5.0); Alkaline Phosphatase 131 U/L (38-126); Anion Gap 11 mmol/L; Blood Urea Nitrogen 17 mg/dL (7-17); Calcium 9.9 mg/dL (8.4-10.2); Carbon Dioxide 23 mmol/L (22-30); Chloride 101 mmol/L (98-107); Glucose 89 mg/dL (74-99); Lipase 113 U/L (23-300); Non-African American GFR(CKD) 49 (>60 ml/min/1.73 sqM); Potassium 2.8 mmol/L (3.5-5.1); Sodium 135 mmol/L (137-145); Total Bilirubin 1.1 mg/dL (0.2-1.3); Total Protein 7.1 g/dL (6.3-8.2)
[2024-05-04 19:34] VITALS: RESP 18
[2024-05-04 19:37] LABS: INR 2.2 (<1.2); Partial Thromboplastin Time 41.2 sec (22.0-30.0)
[2024-05-04] MEDS: POTASSIUM CHLORIDE ER 20 MEQ TAB.ER PO STA (20:16)
--- NOTE | 2024-05-04 20:28 | CT ---
EXAMINATION TYPE: CT abdomen pelvis wo con CT DLP: 448.1 mGycm, Automated exposure control for dose reduction was used. DATE OF EXAM: 05/04/2024 8:11 PM COMPARISON: 01/03/2024 CLINICAL INDICATION:Female, 49 years old with history of vomiting, diarrhea; nausea TECHNIQUE: Axial CT abdomen pelvis wo con;Sagittal and coronal reformats were created on a separate workstation. Contrast used: mL of , (none if empty) Oral contrast used: without Oral Contrast (none if empty) FINDINGS: LOWER CHEST: Postsurgical changes are with aortic valve replacement changes and suspected left atria l appendage occlusion device. ABDOMEN LIVER: Unremarkable GALLBLADDER AND BILE DUCTS: The gallbladder surgically absent. PANCREAS: Unremarkable. SPLEEN: Unremarkable. ADRENAL GLANDS: Unremarkable. KIDNEYS AND URETERS: Retained lobulations of the kidneys bilaterally. No evidence of hydronephr osis or renal calculus. The ureters are unremarkable. PELVIS BLADDER: Unremarkable REPRODUCTIVE: The uterus is surgically absent. ABDOMEN & PELVIS STOMACH AND BOWEL: No evidence of bowel obstruction. The appendix is normal. Scattered colonic divert icula. PERITONEUM/RETROPERITONEUM: No evidence of pneumoperitoneum or free fluid. VASCULATURE: No evidence of aortic aneurysm. MUSCULOSKELETAL: No acute osseous abnormalities LYMPH NODES: No gross evidence for lymphadenopathy. SOFT TISSUE/ABDOMINAL WALL: Unremarkable IMPRESSION: 1. No evidence for acute abdominal process. No evidence for bowel obstruction. 2. Colonic diverticulosis.
[2024-05-04] MEDS: MAGNESIUM SULFATE-D5W PMX 1 GM in DEXTROSE/WATER 1 100ML.BAG IVPB ONE (20:43)
[2024-05-04 21:37] VITALS: BP 101/64; PULSE 70
== END 2024-05-04 22:21 | disposition home or self-care (01) ==
LOC: EC 17:13
DX: R11.2 Nausea with vomiting, unspecified (principal); E87.6 Hypokalemia; E83.42 Hypomagnesemia; R19.7 Diarrhea, unspecified; I45.10 Unspecified right bundle-branch block; F17.200 Nicotine dependence, unspecified, uncomplicated; Z88.0 Allergy status to penicillin; Z88.5 Allergy status to narcotic agent; Z88.2 Allergy status to sulfonamides; Z88.1 Allergy status to other antibiotic agents; Z88.8 Allergy status to other drugs, medicaments and biological substances
CPT/HCPCS: 36415; 93005; 80053; 83605; 83690; 83735; 84484; 85025; 85610; 85730; 74176; 99284; 96365; 96375; 96361; J2405; J3475

== ENCOUNTER → 2024-06-01 | Outpatient (CLI) | payer MEDICARE, OTHER ==
[2024-06-01 16:41] LABS: ALT 12 U/L (8-44); AST 16 U/L (13-35); Albumin 3.8 g/dL (3.8-4.9); Alkaline Phosphatase 113 U/L (41-126); BUN/Creat Ratio 9.44 Ratio (12.00-20.00); Blood Urea Nitrogen 8.5 mg/dL (9.0-27.0); Calcium 9.1 mg/dL (8.7-10.3); Carbon Dioxide 23.8 mmol/L (21.6-31.8); Chloride 106 mmol/L (96-109); Chol/HDL Ratio 2.74 Ratio; Globulin 1.9 g/dL (1.6-3.3); Glucose 94 mg/dL (70-110); LDL Cholesterol,Calculated 53.9 mg/dL (0.0-131.0); Potassium 3.6 mmol/L (3.5-5.5); Sodium 141 mmol/L (135-145); Total Bilirubin 0.3 mg/dL (0.3-1.2); Total Protein 5.7 g/dL (6.2-8.2)
== END | disposition home or self-care (01) ==
LOC: LABWHC1 11:28
PROVIDERS: ATTEND Internal Medicine Interventional Cardiology
DX: E78.2 Mixed hyperlipidemia (principal)
CPT/HCPCS: 36415; 80053; 80061